=== PATIENT | male | born 1935 | race Caucasian/White ===

== ENCOUNTER 2017-01-08 10:19 | Inpatient (IN) | payer MEDICARE, BC ==
--- NOTE | 2017-01-08 11:02 | EDM.PDOC ---
ED HISTORY OF PRESENT ILLNESS - General Chief Complaint: Respiratory Problem Stated Complaint: SOB/PAIN IN CHEST Time Seen by Provider: 01/08/17 11:00 Source: Reports: Patient History Limitations: Reports: No limitations - History of Present Illness INITIAL COMMENTS - FREE TEXT/NARRATIVE: pt arrived with increased sob. He felt like he was struggling hard to get his breath. Timing/Duration: Reports: Hour(s): Severity: moderate Location, General: Reports: chest, other (pt used his inhaler about every 15 minutes. ) Associated Symptoms: Reports: cough, shortness of breath, other ( raising some yellow sputum. ) - Related Data Allergies/ADRs: Allergies Allergy/AdvReac Type Severity Reaction Status Date / Time butorphanol tartrate Allergy Cannot Verified 10/21/16 10:39 [From Stadol] Remember Home Meds: Home Meds Fluticasone/Salmeterol [Advair 250-50] 1 puff INH BID 11/24/13 [History] Simvastatin 20 mg PO DAILY 11/24/13 [History] Albuterol [Ventolin HFA] 2 puff INH Q4H PRN 10/08/14 [History] Aspirin [Ecotrin] 81 mg PO DAILY 10/08/14 [History] Fluocinonide [Lidex 0.05% Oint] 1 applic TRDERM BID PRN 10/08/14 [History] Carvedilol 25 mg PO BID 10/21/16 [History] Diltiazem HCl [Diltiazem 24Hr Cd] 120 mg PO DAILY #30 cap.er.24h 10/31/16 [Rx] Sennosides/Docusate Sodium [Senna-S] 1 each PO BID #60 tablet 10/31/16 [Rx] Past Medical History HEENT History: Reports: Hard of hearing, Impaired vision Other HEENT History: glasses. hearing aid Cardiovascular History: Reports: Arrhythmia, High cholesterol, Hypertension Respiratory History: Reports: Asthma, Bronchitis, recurrent, COPD, Pneumonia, recurrent Gastrointestinal History: Reports: Chronic constipation, Hemorrhoids Genitourinary History: Reports: BPH Musculoskeletal History: Reports: Fracture Other Musculoskeletal History: wrist. pelvic Hematologic History: Reports: Anemia, B12 deficiency, Iron deficiency Oncologic (Cancer) History: Reports: Colon, Prostate Other Oncologic History: rectal Dermatologic History: Reports: Eczema Other Dermatologic History: precancerous growth uder eye removed - Infectious Disease History Infectious Disease History: Reports: Chicken pox, Measles, Mumps, Shingles - Past Surgical History Cardiovascular Surgical History: Reports: Coronary artery bypass, Valve replacement GI Surgical History: Reports: Appendectomy, Colon, Colonoscopy, Colostomy Male Surgical History: Reports: TURP-Transurethral resection of prostate Social & Family History - Family History Family Medical History: Noncontributory - Tobacco Use Smoking Status *Q: Never Smoker Years of Tobacco use: 30 Used Tobacco, but Quit: Yes Month Tobacco Last Used: October Second Hand Smoke Exposure: No - Caffeine Use Caffeine Use: Reports: Coffee - Alcohol Use Days Per Week of Alcohol Use: 0 Number of Drinks Per Day: 1 Total Drinks Per Week: 0 - Recreational Drug Use Recreational Drug Use: No ED ROS GENERAL - Review of Systems Review Of Systems: See Below Constitutional: Reports: other ( marked sob during the nite. ) HEENT: Reports: No symptoms Respiratory: Reports: Shortness of Breath, Sputum Cardiovascular: Reports: No symptoms Endocrine: Reports: no symptoms GI/Abdominal: Reports: No symptoms : Reports: no symptoms Musculoskeletal: Reports: no symptoms Skin: Reports: no symptoms ED EXAM, GENERAL - Physical Exam Exam: See Below Free Text/Narrative:: pt was very confused during the nite and he felt quite sob. He used his inhaler frequently. Exam Limited By: No limitations General Appearance: alert, mild distress Ears: normal TMs Nose: normal inspection Throat/Mouth: Normal inspection Head: atraumatic Neck: normal inspection Respiratory/Chest: decreased breath sounds Cardiovascular: regular rate, rhythm GI/Abdominal: soft, non tender (Male) Exam: Deferred Rectal (Males) Exam: Deferred, Other (pt has a colostomy) Back Exam: normal inspection Extremities: normal inspection Neurological: alert, oriented, normal cognition, other (pt admits to being confused at times. ) Psychiatric: anxious Course - Vital Signs Last Recorded V/S: Last Vital Signs Temp 37.5 C 01/11/17 10:26 Pulse 97 01/11/17 10:54 Resp 18 01/11/17 10:26 BP 153/68 H 01/11/17 10:26 Pulse Ox 90 L 01/11/17 10:26 - Orders/Labs/Meds Orders: Medication Orders Acetaminophen/Hydrocodone Bitart ([place] 325-5 Mg) 2 tab PO Q4H PRN PRN Reason: Pain (moderate 4-6) Last Admin: 01/10/17 19:35 Dose: 2 tab Albuterol (Proventil Neb Soln) 2.5 mg NEB Q4H PRN PRN Reason: Shortness of Breath Last Admin: 01/11/17 04:21 Dose: 2.5 mg Albuterol/Ipratropium (Duoneb 3.0-0.5 Mg/3 Ml) 3 ml NEB QIDRT [facility] Last Admin: 01/11/17 10:54 Dose: 3 ml Admin: 01/11/17 07:15 Dose: 3 ml Admin: 01/10/17 21:12 Dose: 3 ml Admin: 01/10/17 15:13 Dose: 3 ml Admin: 01/10/17 11:12 Dose: 3 ml Admin: 01/10/17 07:15 Dose: 3 ml Admin: 01/09/17 20:59 Dose: 3 ml Admin: 01/09/17 14:45 Dose: 3 ml Admin: 01/09/17 10:52 Dose: Not Given Admin: 01/09/17 07:02 Dose: 3 ml Admin: 01/08/17 20:43 Dose: 3 ml Aspirin (Halfprin) 81 mg PO DAILY [facility] Last Admin: 01/11/17 10:18 Dose: 81 mg Admin: 01/10/17 09:45 Dose: 81 mg Benzocaine/Menthol (Cepacol Sore Throat) 1 lozenge MUCMEM Q1H PRN PRN Reason: Sore Throat Carvedilol (Coreg) 25 mg PO BID [facility] Last Admin: 01/11/17 10:18 Dose: 25 mg Admin: 01/10/17 20:08 Dose: 25 mg Admin: 01/10/17 09:41 Dose: 25 mg Admin: 01/09/17 20:59 Dose: 25 mg Admin: 01/09/17 08:34 Dose: 25 mg Admin: 01/08/17 20:42 Dose: 25 mg Diltiazem HCl (Cardizem Cd) 120 mg PO DAILY [facility] Last Admin: 01/11/17 10:19 Dose: 120 mg Admin: 01/10/17 09:39 Dose: 120 mg Diphenhydramine HCl (Benadryl) 50 mg IVPUSH Q4H PRN PRN Reason: Itching Docusate Sodium (Colace) 100 mg PO BID PRN PRN Reason: Constipation Enoxaparin Sodium (Lovenox) 40 mg SUBCUT DAILY [facility] Last Admin: 01/11/17 10:11 Dose: Not Given Admin: 01/10/17 10:01 Dose: 40 mg Fentanyl (Sublimaze) 25 mcg IVPUSH Q1H PRN PRN Reason: Pain (moderate 4-6) Last Admin: 01/11/17 05:15 Dose: 25 mcg Fentanyl 2,500 mcg/ Sodium (Chloride) 250 mls @ 0 mls/hr EPIDUR TITRATE ZURDO; Titrate PRN Reason: Protocol Last Titration: 01/10/17 10:52 Dose: 0 mls/hr, 0 mls/hr Titration: 01/10/17 10:11 Dose: 3 mls/hr, 3 mls/hr Titration: 01/10/17 07:41 Dose: 0 mls/hr, 0 mls/hr Titration: 01/10/17 05:30 Dose: 5 mls/hr, 5 mls/hr Titration: 01/10/17 04:30 Dose: 6 mls/hr, 6 mls/hr Titration: 01/10/17 03:45 Dose: 7 mls/hr, 7 mls/hr Titration: 01/10/17 03:15 Dose: 8 mls/hr, 8 mls/hr Titration: 01/10/17 02:45 Dose: 9 mls/hr, 9 mls/hr Admin: 01/09/17 12:30 Dose: 10 mls/hr, 10 mls/hr Sodium Chloride (Normal Saline) 1,000 mls @ 100 mls/hr IV ASDIRECTED [facility] Levofloxacin/Dextrose 500 mg/ (Premix) 100 mls @ 100 mls/hr IV Q24H [facility] Last Admin: 01/11/17 10:19 Dose: 100 mls/hr Piperacillin/Tazobactam/ (Dextrose 3.375 gm/ Premix) 50 mls @ 100 mls/hr IV Q6H [facility] Last Admin: 01/11/17 11:36 Dose: 100 mls/hr Magnesium Hydroxide (Milk Of Magnesia) 30 ml PO BID [facility] Last Admin: 01/11/17 10:19 Dose: 30 ml Admin: 01/10/17 20:28 Dose: Not Given Admin: 01/10/17 09:45 Dose: 30 ml Admin: 01/09/17 20:30 Dose: Not Given Admin: 01/09/17 10:13 Dose: Admin: 01/08/17 20:48 Dose: Admin: 01/08/17 20:41 Dose: 30 ml Mometasone Furoate/Formoterol Fumar (Dulera 200-5 Mcg) 2 puff IH BIDRT [facility]URDO Last Admin: 01/11/17 07:34 Dose: 2 puff Admin: 01/10/17 21:12 Dose: 2 puff Admin: 01/10/17 07:15 Dose: 2 puff Admin: 01/09/17 20:59 Dose: 2 puff Admin: 01/09/17 07:28 Dose: 2 puff Naloxone HCl (Narcan) 0.1 mg IVPUSH Q5M PRN PRN Reason: RESP RATE LESS THAN 6/MINUTE Naloxone HCl (Narcan) 0.4 mg IV ASDIRECTED PRN PRN Reason: ITCHING Promethazine HCl (Phenergan) 25 mg IM Q6H PRN PRN Reason: Nausea Labs: Laboratory Tests 01/08/17 01/08/17 01/08/17 Range/Units 11:00 11:00 11:00 WBC 6.3 (4.5-11.0) K/uL RBC 4.54 (4.30-5.90) M/uL Hgb 12.7 (12.0-15.0) g/dL Hct 39.7 L (40.0-54.0) % MCV 87 (80-98) fL MCH 28 (27-31) pg MCHC 32 (32-36) % Plt Count 223 (150-400) K/uL Neut % (Auto) 63 (36-66) % Lymph % (Auto) 24 (24-44) % [place] % (Auto) 12 H (2-6) % Eos % (Auto) 0 L (2-4) % Baso % (Auto) 0 (0-1) % Puncture Site Lt radial ABG pH 7.452 H (7.350-7.450) ABG pCO2 39.6 (35.0-42.0) mmHg ABG pO2 68.5 L (75.0-100.0) mmHg ABG HCO3 27.2 H (22.0-26.0) mmol/L ABG Total CO2 24.1 (23.0-27.0) mmol/L ABG O2 Saturation 93.6 L (95.0-98.0) % ABG O2 Content 16.6 (15.0-23.0) %vol ABG Base Excess 3.5 mm/L ABG Hemoglobin 12.8 L (13.5-18.0) g/dL ABG Oxyhemoglobin 92.2 % ABG Carboxyhemoglobin 1.1 (0.0-1.6) % ABG Methemoglobin 0.4 % Isaak Test Passed O2 Delivery Device Room air Oxygen Flow Rate 0 L Sodium 141 (140-148) mmol/L Potassium 3.5 L (3.6-5.2) mmol/L Chloride 103 (100-108) mmol/L Carbon Dioxide 31 (21-32) mmol/L Anion Gap 10.5 (5.0-14.0) mmol/L BUN 29 H D (7-18) mg/dL Creatinine 1.0 (0.8-1.3) mg/dL Est Cr Clr Drug Dosing 46.32 mL/min Estimated GFR (MDRD) > 60 (>60) Glucose 151 H (74-106) mg/dL Calcium 8.8 D (8.5-10.1) mg/dL Total Bilirubin 0.6 D (0.2-1.0) mg/dL AST 18 (15-37) U/L ALT 21 (12-78) U/L Alkaline Phosphatase 66 (46-116) U/L [id number] Pept 2459 H (5-450) pg/mL Total Protein 7.3 (6.4-8.2) g/dL Albumin 3.4 (3.4-5.0) g/dL Globulin 3.9 H (2.3-3.5) g/dL Albumin/Globulin Ratio 0.9 L (1.2-2.2) Urine Color Urine Appearance Urine pH (4.5-8.0) Ur Specific Colon (1.008-1.030) Urine Protein (NEGATIVE) mg/dL Urine Glucose (UA) (NEGATIVE) mg/dL Urine Ketones (NEGATIVE) mg/dL Urine Occult Blood (NEGATIVE) Urine Nitrite (NEGAITVE) Urine Bilirubin (NEGATIVE) Urine Urobilinogen (NORMAL) mg/dL Ur Leukocyte Esterase (NEGATIVE) Urine RBC (0-5) Urine WBC (0-5) Ur Epithelial Cells Amorphous Sediment Urine Bacteria Urine Mucus 01/08/17 Range/Units 11:33 WBC (4.5-11.0) K/uL RBC (4.30-5.90) M/uL Hgb (12.0-15.0) g/dL Hct (40.0-54.0) % MCV (80-98) fL MCH (27-31) pg MCHC (32-36) % Plt Count (150-400) K/uL Neut % (Auto) (36-66) % Lymph % (Auto) (24-44) % [place] % (Auto) (2-6) % Eos % (Auto) (2-4) % Baso % (Auto) (0-1) % Puncture Site ABG pH (7.350-7.450) ABG pCO2 (35.0-42.0) mmHg ABG pO2 (75.0-100.0) mmHg ABG HCO3 (22.0-26.0) mmol/L ABG Total CO2 (23.0-27.0) mmol/L ABG O2 Saturation (95.0-98.0) % ABG O2 Content (15.0-23.0) %vol ABG Base Excess mm/L ABG Hemoglobin (13.5-18.0) g/dL ABG Oxyhemoglobin % ABG Carboxyhemoglobin (0.0-1.6) % ABG Methemoglobin % Isaak Test O2 Delivery Device Oxygen Flow Rate L Sodium (140-148) mmol/L Potassium (3.6-5.2) mmol/L Chloride (100-108) mmol/L Carbon Dioxide (21-32) mmol/L Anion Gap (5.0-14.0) mmol/L BUN (7-18) mg/dL Creatinine (0.8-1.3) mg/dL Est Cr Clr Drug Dosing mL/min Estimated GFR (MDRD) (>60) Glucose (74-106) mg/dL Calcium (8.5-10.1) mg/dL Total Bilirubin (0.2-1.0) mg/dL AST (15-37) U/L ALT (12-78) U/L Alkaline Phosphatase (46-116) U/L Dov-[id number]-Qzhbneotovl Pept (5-450) pg/mL Total Protein (6.4-8.2) g/dL Albumin (3.4-5.0) g/dL Globulin (2.3-3.5) g/dL Albumin/Globulin Ratio (1.2-2.2) Urine Color Yellow Urine Appearance Slightly cloudy Urine pH 6.0 (4.5-8.0) Ur Specific Colon 1.020 (1.008-1.030) Urine Protein 30 H (NEGATIVE) mg/dL Urine Glucose (UA) Normal (NEGATIVE) mg/dL Urine Ketones Negative (NEGATIVE) mg/dL Urine Occult Blood Large (NEGATIVE) Urine Nitrite Negative (NEGAITVE) Urine Bilirubin Negative (NEGATIVE) Urine Urobilinogen Normal (NORMAL) mg/dL Ur Leukocyte Esterase Large (NEGATIVE) Urine RBC 10-20 H (0-5) Urine WBC 10-20 H (0-5) Ur Epithelial Cells Not seen Amorphous Sediment Few Urine Bacteria Not seen Urine Mucus Not seen Meds: Medications Generic Name Dose Route Start Last Admin Trade Name Freq PRN Reason Stop Dose Admin Acetaminophen/Hydrocodone Bitart 2 tab 01/08/17 17:13 01/10/17 19:35 Freeland 325-5 Mg PO 2 tab Q4H PRN Administration Pain (moderate 4-6) Albuterol 2.5 mg 01/08/17 18:12 01/11/17 04:21 Proventil Neb Soln NEB 2.5 mg Q4H PRN Administration Shortness of Breath Albuterol/Ipratropium 3 ml 01/08/17 21:00 01/11/17 10:54 Duoneb 3.0-0.5 Mg/3 Ml NEB 3 ml QIDRT ZURDO Administration Aspirin 81 mg 01/10/17 09:00 01/11/17 10:18 Halfprin PO 81 mg DAILY ZURDO Administration Benzocaine/Menthol 1 lozenge 01/08/17 17:13 Cepacol Sore Throat MUCMEM Q1H PRN Sore Throat Carvedilol 25 mg 01/08/17 21:00 01/11/17 10:18 Coreg PO 25 mg BID ZURDO Administration Diltiazem HCl 120 mg 01/10/17 09:00 01/11/17 10:19 Cardizem Cd PO 120 mg DAILY ZURDO Administration Diphenhydramine HCl 50 mg 01/08/17 17:13 Benadryl IVPUSH Q4H PRN Itching Docusate Sodium 100 mg 01/08/17 17:13 Colace PO BID PRN Constipation Enoxaparin Sodium 40 mg 01/10/17 09:45 01/11/17 10:11 Lovenox SUBCUT Not Given DAILY ZURDO Fentanyl 25 mcg 01/08/17 17:13 01/11/17 05:15 Sublimaze IVPUSH 25 mcg Q1H PRN Administration Pain (moderate 4-6) Fentanyl 2,500 mcg/ Sodium 250 mls @ 0 mls/hr 01/09/17 09:45 01/10/17 10:52 Chloride EPIDUR 0 mls/hr TITRATE ZURDO 0 mls/hr Protocol Titration Titrate Sodium Chloride 1,000 mls @ 100 mls/hr 01/11/17 06:45 Normal Saline IV ASDIRECTED ZURDO Levofloxacin/Dextrose 500 mg/ 100 mls @ 100 mls/hr 01/11/17 10:00 01/11/17 10 :19 Premix IV 100 mls/hr Q24H ZURDO Administration Piperacillin/Tazobactam/ 50 mls @ 100 mls/hr 01/11/17 11:00 01/11/17 11:36 Dextrose 3.375 gm/ Premix IV 100 mls/hr Q6H ZRUDO Administration Magnesium Hydroxide 30 ml 01/08/17 17:30 01/11/17 10:19 Milk Of Magnesia PO 30 ml BID ZURDO Administration Mometasone Furoate/Formoterol Fumar 2 puff 01/09/17 07:00 01/11/17 07:34 Dulera 200-5 Mcg IH 2 puff BIDRT ZURDO Administration Naloxone HCl 0.1 mg 01/09/17 12:43 Narcan IVPUSH Q5M PRN RESP RATE LESS THAN 6/MINUTE Naloxone HCl 0.4 mg 01/09/17 12:43 Narcan IV ASDIRECTED PRN ITCHING Promethazine HCl 25 mg 01/08/17 17:13 Phenergan IM Q6H PRN Nausea Discontinued Medications Generic Name Dose Route Start Last Admin Trade Name Freq PRN Reason Stop Dose Admin Dexamethasone Confirm 01/08/17 16:32 Dexamethasone Administered 01/08/17 16:33 Dose 4 mg .ROUTE .STK-MED ONE Dexamethasone Confirm 01/09/17 09:48 Dexamethasone Administered 01/09/17 09:49 Dose 4 mg .ROUTE .STK-MED ONE Fentanyl Confirm 01/08/17 16:32 Sublimaze Administered 01/08/17 16:33 Dose 250 mcg .ROUTE .STK-MED ONE Fentanyl Confirm 01/09/17 09:48 Sublimaze Administered 01/09/17 09:49 Dose 250 mcg .ROUTE .STK-MED ONE Furosemide 60 mg 01/08/17 11:45 01/08/17 11:53 Lasix IVPUSH 01/08/17 11:46 60 mg ONETIME ONE Administration Furosemide 20 mg 01/11/17 06:22 01/11/17 06:32 Lasix IVPUSH 01/11/17 06:23 20 mg ONETIME ONE Administration Furosemide Confirm 01/11/17 06:31 01/11/17 06:38 Lasix Administered 01/11/17 06:32 Not Given Dose 20 mg .ROUTE .STK-MED ONE Glycopyrrolate Confirm 01/08/17 16:32 Administered 01/08/17 16:33 Dose 1 mg .ROUTE .STK-MED ONE Glycopyrrolate Confirm 01/09/17 09:48 Administered 01/09/17 09:49 Dose 1 mg .ROUTE .STK-MED ONE Sodium Chloride 1,000 mls @ 150 mls/hr 01/08/17 16:15 01/08/17 16:09 Normal Saline IV 150 mls/hr ASDIRECTED ZURDO Administration Sodium Chloride 1,000 mls @ 75 mls/hr 01/08/17 17:30 01/09/17 21:53 Normal Saline IV 75 mls/hr ASDIRECTED ZURDO Administration Potassium Chloride 20 meq/ 112 mls @ 56 mls/hr 01/09/17 10:30 01/09/17 14:52 Lidocaine HCl 2 ml/ Sodium IV 01/09/17 16:29 56 mls/hr Chloride Q2H ZURDO Administration Metronidazole 500 mg/ Premix 100 mls @ 100 mls/hr 01/09/17 11:00 01/09/17 10: 11 IV 01/09/17 11:59 100 mls/hr ONCALL ONE Administration Cefazolin Sodium/Dextrose 2 gm 50 mls @ 100 mls/hr 01/09/17 10:30 01/09/17 10 :10 / Premix IV 01/09/17 10:59 100 mls/hr ONCALL ONE Administration Sodium Chloride Confirm 01/09/17 11:32 Normal Saline Administered 01/09/17 11:33 Dose 250 mls @ as directed .ROUTE .STK-MED ONE Sodium Chloride 1,000 mls @ 200 mls/hr 01/09/17 22:15 01/09/17 22:14 Normal Saline IV 01/09/17 23:16 200 mls/hr ASDIRECTED ZURDO Administration Sodium Chloride 1,000 mls @ 200 mls/hr 01/10/17 01:15 01/10/17 01:15 Normal Saline IV 01/10/17 02:16 200 mls/hr ASDIRECTED ZURDO Administration Sodium Chloride 1,000 mls @ 200 mls/hr 01/10/17 04:15 01/10/17 04:14 Normal Saline IV 01/10/17 05:16 200 mls/hr ASDIRECTED ZURDO Administration Sodium Chloride 1,000 mls @ 125 mls/hr 01/10/17 09:15 01/11/17 02:52 Normal Saline IV 125 mls/hr ASDIRECTED ZURDO Administration Sodium Chloride 250 mls @ 200 mls/hr 01/10/17 20:30 01/10/17 20:27 Normal Saline IV 01/10/17 21:31 200 mls/hr ASDIRECTED ZURDO Administration Sodium Chloride 1,000 mls @ 250 mls/hr 01/10/17 22:15 01/10/17 22:37 Normal Saline IV 01/11/17 02:16 250 mls/hr ASDIRECTED ZURDO Administration Sodium Chloride 1,000 mls @ 999 mls/hr 01/10/17 22:56 01/10/17 23:10 Normal Saline IV 01/10/17 23:56 999 mls/hr .BOLUS ONE Administration Sodium Chloride 250 mls @ 200 mls/hr 01/11/17 04:15 01/11/17 04:21 Normal Saline IV 01/11/17 05:16 200 mls/hr ASDIRECTED ZURDO Administration Ketamine HCl Confirm 01/09/17 12:51 Ketalar Administered 01/09/17 12:52 Dose 500 mg .ROUTE .STK-MED ONE Magnesium Hydroxide 30 ml 01/10/17 10:00 01/10/17 10:01 Milk Of Magnesia PO Not Given BID ZURDO Mometasone Furoate/Formoterol Fumar 2 puff 01/08/17 21:00 01/08/17 20:43 Dulera 200-5 Mcg IH 2 puff BID ZURDO Administration Neostigmine Methylsulfate Confirm 01/08/17 16:32 Neostigmine Administered 01/08/17 16:33 Dose 5 mg .ROUTE .STK-MED ONE Neostigmine Methylsulfate Confirm 01/09/17 09:48 Neostigmine Administered 01/09/17 09:49 Dose 5 mg .ROUTE .STK-MED ONE Ondansetron HCl Confirm 01/08/17 16:32 Zofran Administered 01/08/17 16:33 Dose 4 mg .ROUTE .STK-MED ONE Ondansetron HCl Confirm 01/09/17 09:48 Zofran Administered 01/09/17 09:49 Dose 4 mg .ROUTE .STK-MED ONE Phenylephrine HCl Confirm 01/09/17 11:32 Kiko-Synephrine Administered 01/09/17 11:33 Dose 10 mg .ROUTE .STK-MED ONE Propofol Confirm 01/08/17 16:32 Diprivan 20 Ml Administered 01/08/17 16:33 Dose 200 mg .ROUTE .STK-MED ONE Propofol Confirm 01/09/17 09:48 Diprivan 20 Ml Administered 01/09/17 09:49 Dose 200 mg .ROUTE .STK-MED ONE Rocuronium [place] Confirm 01/08/17 16:32 Zemuron Administered 01/08/17 16:33 Dose 50 mg .ROUTE .STK-MED ONE Rocuronium [place] Confirm 01/09/17 09:48 Zemuron Administered 01/09/17 09:49 Dose 50 mg .ROUTE .STK-MED ONE Succinylcholine Chloride Confirm 01/08/17 16:32 Succinylcholine In Ns Pf Administered 01/08/17 16:33 Dose 200 mg .ROUTE .STK-MED ONE Succinylcholine Chloride Confirm 01/09/17 09:48 Succinylcholine In Ns Pf Administered 01/09/17 09:49 Dose 200 mg .ROUTE .STK-MED ONE - Re-Assessments/Exams Free Text/Narrative Re-Assessment/Exam: 01/08/17 16:03 pt did not complain of his abdoman at first but talked about being sob. He was given lasix because of a high bnp He put out 1000cc of urine. He then began complaining of abdomanal pain and appeared distended around the colostomy site. A cat scan of the abdoman showed a high grade obstruction of the small bowel. 01/11/17 11:37 Departure - Departure Time of Disposition: 16:06 Disposition: Admitted As Inpatient 64 Condition: fair Clinical Impression: Small bowel obstruction Fluid overload Qualifiers: Hypervolemia type: unspecified Qualified Code(s): E87.70 - Fluid overload, unspecified
--- NOTE | 2017-01-08 11:29 | CR ---
Mild cardiomegaly. Sternotomy. No focal consolidation. Pulmonary vasculature within normal limits.
[2017-01-08] MEDS ORDERED: Furosemide 40 MG/4 ML VIAL IVPUSH ONE (11:45)
--- NOTE | 2017-01-08 14:08 | CR ---
Supine images only. This limits details for free air. There appears to be a dilated loop of small karrie wel centrally within the abdomen. Mild gaseous distention of the colon within the pelvis. This is le ss dilated than prior examination 10/29/2016 but concerning for small bowel obstruction.
[2017-01-08] MEDS ORDERED: Iopamidol 612 MG/ML 100 ML Bottle IV PRN (14:52)
[2017-01-08] MEDS ORDERED: Sodium Chloride 0.9% 1,000 ML IV SCH (16:15)
[2017-01-08] MEDS ORDERED: Dexamethasone 4 MG/ML SDV ONE (16:32)
[2017-01-08] MEDS ORDERED: Propofol 200 MG/20 ML SDV ONE (16:32)
[2017-01-08] MEDS ORDERED: fentaNYL 250 MCG/5 ML SDV ONE (16:32)
[2017-01-08] MEDS ORDERED: Succinylcholine/Normal Saline 200 MG/10 ML Syringe ONE (16:32)
[2017-01-08] MEDS ORDERED: Rocuronium 50 MG/5 ML Vial ONE (16:32)
[2017-01-08] MEDS ORDERED: Neostigmine Methylsulfate 1 MG/ML 5 ML Syringe ONE (16:32)
[2017-01-08] MEDS ORDERED: Ondansetron 4 MG/2 ML SDV ONE (16:32)
[2017-01-08] MEDS ORDERED: Promethazine 25 MG/ML SDV IM PRN (17:13)
[2017-01-08] MEDS ORDERED: Benzocaine/Cetylpyridinium/Menthol Lozenge MUCMEM PRN (17:13)
[2017-01-08] MEDS ORDERED: Docusate Sodium 100 MG Cap PO PRN (17:13)
[2017-01-08] MEDS ORDERED: Albuterol 0.083% 2.5 MG/3 ML Neb Soln NEB PRN (18:12)
--- NOTE | 2017-01-08 18:14 | PCM.CONS ---
H&P History of Present Illness - General Date of Service: 01/08/17 Admit Problem/Dx: Admission Diagnosis/Problem Admission Diagnosis/Problem Chest pain on exertion Source of Information: Patient, Family, Provider History Limitations: Reports: No limitations - History of Present Illness Initial Comments - Free Text/Narative: Sam presents to the emergency room today with shortness of breath. He also reports an episode of pressure-like substernal and left-sided chest pain that occurred last night. This pain has resolved but he still feel short of breath. He has not had pain like this in quite some time. No associated nausea, diaphoresis. No fevers or cough. Functional status has been stable but compromised. No orthopnea, PND or edema. He also endorses Left lower quadrant abdominal pain around his stoma. Pain has been present for quite some time but seems to be getting worse. He feels distended in the area. He has continued to pass stool through into his bag though he thinks maybe there's been less recently than in the past. He has not noticed any blood in his stool. Appetite has been okay but not wonderful. No vomiting. Workup in the emergency room initially was 4 cardiac causes and this was unremarkable. Towards inability patient mentioned abdominal pain and a CT was completed which showed evidence for peristomal hernia and concern for bowel obstruction. He'll be admitted for observation overnight and unfortunately probably surgical intervention. - Related Data Allergies/Adverse Reactions: Allergies Allergy/AdvReac Type Severity Reaction Status Date / Time butorphanol tartrate Allergy Cannot Verified 10/21/16 10:39 [From Stadol] Remember Home Medications: Home Meds Fluticasone/Salmeterol [Advair 250-50] 1 puff INH BID 11/24/13 [History] Simvastatin 20 mg PO DAILY 11/24/13 [History] Albuterol [Ventolin HFA] 2 puff INH Q4H PRN 10/08/14 [History] Aspirin [Ecotrin] 81 mg PO DAILY 10/08/14 [History] Fluocinonide [Lidex 0.05% Oint] 1 applic TRDERM BID PRN 10/08/14 [History] Carvedilol 25 mg PO BID 10/21/16 [History] Diltiazem HCl [Diltiazem 24Hr Cd] 120 mg PO DAILY #30 cap.er.24h 10/31/16 [Rx] Sennosides/Docusate Sodium [Senna-S] 1 each PO BID #60 tablet 10/31/16 [Rx] Past Medical History HEENT History: Reports: Hard of hearing, Impaired vision Other HEENT History: glasses. hearing aid Cardiovascular History: Reports: Arrhythmia, High cholesterol, Hypertension Respiratory History: Reports: Asthma, Bronchitis, recurrent, COPD, Pneumonia, recurrent Gastrointestinal History: Reports: Chronic constipation, Hemorrhoids Genitourinary History: Reports: BPH Musculoskeletal History: Reports: Fracture Other Musculoskeletal History: wrist. pelvic Hematologic History: Reports: Anemia, B12 deficiency, Iron deficiency Oncologic (Cancer) History: Reports: Colon, Prostate Other Oncologic History: rectal Dermatologic History: Reports: Eczema Other Dermatologic History: precancerous growth uder eye removed - Infectious Disease History Infectious Disease History: Reports: Chicken pox, Measles, Mumps, Shingles - Past Surgical History Cardiovascular Surgical History: Reports: Coronary artery bypass, Valve replacement GI Surgical History: Reports: Appendectomy, Colon, Colonoscopy, Colostomy Male Surgical History: Reports: TURP-Transurethral resection of prostate Social & Family History - Family History Family Medical History: Noncontributory - Tobacco Use Smoking Status *Q: Never Smoker Years of Tobacco use: 30 Used Tobacco, but Quit: Yes Month Tobacco Last Used: October Second Hand Smoke Exposure: No - Caffeine Use Caffeine Use: Reports: Coffee - Alcohol Use Days Per Week of Alcohol Use: 0 Number of Drinks Per Day: 1 Total Drinks Per Week: 0 - Recreational Drug Use Recreational Drug Use: No H&P Review of Systems - Review of Systems: Review Of Systems: See Below Free Text/Narrative: A complete 12 point review of systems was obtained. Pertinent positives and negatives are noted in the history of present illness. All other systems were reviewed and were negative except as noted. Exam - Exam Exam: See Below - Vital Signs Vital Signs: Last Vital Signs Temp 37.4 C 01/08/17 11:16 Pulse 65 01/08/17 17:12 Resp 18 01/08/17 17:12 BP 187/100 H 01/08/17 17:12 Pulse Ox 93 L 01/08/17 17:12 Weight: 58.513 kg - Exam Quality Assessment: No: supplemental oxygen, urinary catheter General: alert, oriented, cooperative, mild distress HEENT: Conjunctiva clear, Normal nasal septum. No: Mucosa moist & pink (dry), Scleral icterus Neck: supple, trachea midline. No: lymphadenopathy, JVD, thyromegaly Lungs: Clear to auscultation. No: Normal respiratory effort (Increased work of breathing) Cardiovascular: regular rate, regular rhythm, systolic murmur (soft ANY RUSB). No: gallop/S3 Abdomen: normal bowel sounds, soft, hernia (parastomal). No: distention Back Exam: normal inspection, full range of motion Extremities: normal inspection, normal pulses. No: cyanosis, edema Peripheral Pulses: 2+: dorsalis pedis (L), dorsalis pedis (R) Skin: warm, dry, intact. No: rash Neuro Extensive - Mental Status: alert, oriented x3, nl response to commands Neuro Extensive - Motor, Sensory, Reflexes: CN II-XII intact. No: dysarthria, abnormal motor, tremor Psychiatric: alert, normal affect - Patient Data Lab Results last 24 hrs: Laboratory Results - last 24 hr 01/08/17 01/08/17 01/08/17 Range/Units 11:00 11:00 11:00 WBC 6.3 (4.5-11.0) K/uL RBC 4.54 (4.30-5.90) M/uL Hgb 12.7 (12.0-15.0) g/dL Hct 39.7 L (40.0-54.0) % MCV 87 (80-98) fL MCH 28 (27-31) pg MCHC 32 (32-36) % Plt Count 223 (150-400) K/uL Neut % (Auto) 63 (36-66) % Lymph % (Auto) 24 (24-44) % [place] % (Auto) 12 H (2-6) % Eos % (Auto) 0 L (2-4) % Baso % (Auto) 0 (0-1) % Puncture Site Lt radial ABG pH 7.452 H (7.350-7.450) ABG pCO2 39.6 (35.0-42.0) mmHg ABG pO2 68.5 L (75.0-100.0) mmHg ABG HCO3 27.2 H (22.0-26.0) mmol/L ABG Total CO2 24.1 (23.0-27.0) mmol/L ABG O2 Saturation 93.6 L (95.0-98.0) % ABG O2 Content 16.6 (15.0-23.0) %vol ABG Base Excess 3.5 mm/L ABG Hemoglobin 12.8 L (13.5-18.0) g/dL ABG Oxyhemoglobin 92.2 % ABG Carboxyhemoglobin 1.1 (0.0-1.6) % ABG Methemoglobin 0.4 % Isaak Test Passed O2 Delivery Device Room air Oxygen Flow Rate 0 L Sodium 141 (140-148) mmol/L Potassium 3.5 L (3.6-5.2) mmol/L Chloride 103 (100-108) mmol/L Carbon Dioxide 31 (21-32) mmol/L Anion Gap 10.5 (5.0-14.0) mmol/L BUN 29 H D (7-18) mg/dL Creatinine 1.0 (0.8-1.3) mg/dL Est Cr Clr Drug Dosing 46.32 mL/min Estimated GFR (MDRD) > 60 (>60) Glucose 151 H (74-106) mg/dL Calcium 8.8 D (8.5-10.1) mg/dL Total Bilirubin 0.6 D (0.2-1.0) mg/dL AST 18 (15-37) U/L ALT 21 (12-78) U/L Alkaline Phosphatase 66 (46-116) U/L Hpw-A-Hrqtehngkjv Pept 2459 H (5-450) pg/mL Total Protein 7.3 (6.4-8.2) g/dL Albumin 3.4 (3.4-5.0) g/dL Globulin 3.9 H (2.3-3.5) g/dL Albumin/Globulin Ratio 0.9 L (1.2-2.2) Urine Color Urine Appearance Urine pH (4.5-8.0) Ur Specific [place] (1.008-1.030) Urine Protein (NEGATIVE) mg/dL Urine Glucose (UA) (NEGATIVE) mg/dL Urine Ketones (NEGATIVE) mg/dL Urine Occult Blood (NEGATIVE) Urine Nitrite (NEGAITVE) Urine Bilirubin (NEGATIVE) Urine Urobilinogen (NORMAL) mg/dL Ur Leukocyte Esterase (NEGATIVE) Urine RBC (0-5) Urine WBC (0-5) Ur Epithelial Cells Amorphous Sediment Urine Bacteria Urine Mucus 01/08/17 Range/Units 11:33 WBC (4.5-11.0) K/uL RBC (4.30-5.90) M/uL Hgb (12.0-15.0) g/dL Hct (40.0-54.0) % MCV (80-98) fL MCH (27-31) pg MCHC (32-36) % Plt Count (150-400) K/uL Neut % (Auto) (36-66) % Lymph % (Auto) (24-44) % [place] % (Auto) (2-6) % Eos % (Auto) (2-4) % Baso % (Auto) (0-1) % Puncture Site ABG pH (7.350-7.450) ABG pCO2 (35.0-42.0) mmHg ABG pO2 (75.0-100.0) mmHg ABG HCO3 (22.0-26.0) mmol/L ABG Total CO2 (23.0-27.0) mmol/L ABG O2 Saturation (95.0-98.0) % ABG O2 Content (15.0-23.0) %vol ABG Base Excess mm/L ABG Hemoglobin (13.5-18.0) g/dL ABG Oxyhemoglobin % ABG Carboxyhemoglobin (0.0-1.6) % ABG Methemoglobin % Isaak Test O2 Delivery Device Oxygen Flow Rate L Sodium (140-148) mmol/L Potassium (3.6-5.2) mmol/L Chloride (100-108) mmol/L Carbon Dioxide (21-32) mmol/L Anion Gap (5.0-14.0) mmol/L BUN (7-18) mg/dL Creatinine (0.8-1.3) mg/dL Est Cr Clr Drug Dosing mL/min Estimated GFR (MDRD) (>60) Glucose (74-106) mg/dL Calcium (8.5-10.1) mg/dL Total Bilirubin (0.2-1.0) mg/dL AST (15-37) U/L ALT (12-78) U/L Alkaline Phosphatase (46-116) U/L Qzt-L-Xilbtjvnfef Pept (5-450) pg/mL Total Protein (6.4-8.2) g/dL Albumin (3.4-5.0) g/dL Globulin (2.3-3.5) g/dL Albumin/Globulin Ratio (1.2-2.2) Urine Color Yellow Urine Appearance Slightly cloudy Urine pH 6.0 (4.5-8.0) Ur Specific [place] 1.020 (1.008-1.030) Urine Protein 30 H (NEGATIVE) mg/dL Urine Glucose (UA) Normal (NEGATIVE) mg/dL Urine Ketones Negative (NEGATIVE) mg/dL Urine Occult Blood Large (NEGATIVE) Urine Nitrite Negative (NEGAITVE) Urine Bilirubin Negative (NEGATIVE) Urine Urobilinogen Normal (NORMAL) mg/dL Ur Leukocyte Esterase Large (NEGATIVE) Urine RBC 10-20 H (0-5) Urine WBC 10-20 H (0-5) Ur Epithelial Cells Not seen Amorphous Sediment Few Urine Bacteria Not seen Urine Mucus Not seen Result Diagrams: 01/08/17 11:00 01/08/17 11:00 Imaging Impressions last 24 hrs: CXR - images personally reviewed - possible mild pulmonary vascular congestion with slight cephalization of the vessels. No definite evidence for infiltrate or mass. CT of the abdomen and pelvis - parastomal hernia with possible small bowel obstruction EKG - sinus rhythm with first degree AV block as well as right bundle branch block and left anterior fascicular block. Rate is 73. No acute ischemic changes Consult PN Assessment/Plan Procedures: Procedures AIRWAY INHALATION TREATMENT (10/21/16) APPLY FOREARM SPLINT (11/24/13) ASSAY OF CK (CPK) (10/21/16) ASSAY OF CREATININE (10/03/15) ASSAY OF LACTIC ACID (10/21/16) ASSAY OF MAGNESIUM (10/21/16) ASSAY OF NATRIURETIC PEPTIDE (10/21/16) ASSAY OF PHOSPHORUS (10/21/16) ASSAY OF TROPONIN QUANT (10/21/16) BLOOD CULTURE FOR BACTERIA (10/21/16) BLOOD GASES ANY COMBINATION (10/21/16) BLOOD TRANSFUSION SERVICE (02/01/15) BLOOD TYPING SEROLOGIC ABO (10/21/16) BLOOD TYPING SEROLOGIC RH(D) (10/21/16) CARCINOEMBRYONIC ANTIGEN (10/10/14) CARDIAC REHAB/MONITOR (04/24/14) CHEST X-RAY 1 VIEW FRONTAL (10/21/16) CHEST X-RAY 2VW FRONTAL&LATL (02/01/15) CMPLX RPR TRUNK 2.6-7.5 CM (03/28/15) COLONOSCOPY AND BIOPSY (10/10/14) COMPATIBILITY TEST ANTIGLOB (10/21/16) COMPATIBILITY TEST SPIN (10/21/16) COMPLETE CBC AUTOMATED (10/21/16) COMPLETE CBC W/AUTO DIFF WBC (10/21/16) COMPREHEN METABOLIC PANEL (10/21/16) CT ABD & PELV W/CONTRAST (10/21/16) CT THORAX W/DYE (10/11/14) CULTURE AEROBIC IDENTIFY (10/21/16) CULTURE OTHR SPECIMN AEROBIC (10/21/16) ELECTROCARDIOGRAM REPORT (10/21/16) ELECTROCARDIOGRAM TRACING (10/21/16) EMERGENCY DEPT VISIT (10/21/16) EMERGENCY DEPT VISIT (02/16/15) EMERGENCY DEPT VISIT (02/16/15) EMERGENCY DEPT VISIT (11/24/13) EMERGENCY DEPT VISIT (11/24/13) EVALUATE PT USE OF INHALER (10/21/16) EXTRACRANIAL BILAT STUDY (10/02/13) HEMOGLOBIN (10/21/16) HYDRATE IV INFUSION ADD-ON (10/21/16) IMMUNOHISTO ANTB 1ST STAIN (02/01/15) INFLUENZA ASSAY W/OPTIC (10/21/16) MEASURE BLOOD OXYGEN LEVEL (04/22/15) METABOLIC PANEL TOTAL CA (10/21/16) MICROBE SUSCEPTIBLE DIFFUSE (02/01/15) MICROBE SUSCEPTIBLE JHONNY (10/21/16) OCCULT BLD FECES 1-3 TESTS (10/21/16) OCCULT BLOOD OTHER SOURCES (10/21/16) POS AIRWAY PRESSURE CPAP (10/21/16) RBC ANTIBODY SCREEN (10/21/16) ROUTINE VENIPUNCTURE (10/21/16) SMEAR GRAM STAIN (10/21/16) THER/DIAG CONCURRENT INF (10/21/16) THER/PROPH/DIAG INJ SC/IM (11/24/13) THER/PROPH/DIAG IV INF ADDON (02/16/15) THER/PROPH/DIAG IV INF INIT (10/21/16) TISSUE EXAM BY PATHOLOGIST (02/01/15) TISSUE EXAM BY PATHOLOGIST (10/10/14) TTE W/DOPPLER COMPLETE (04/23/16) TX/PRO/DX INJ NEW DRUG ADDON (10/21/16) URINALYSIS AUTO W/SCOPE (10/21/16) URINE CULTURE/COLONY COUNT (02/01/15) WITHDRAWAL OF ARTERIAL BLOOD (10/21/16) X-RAY EXAM OF ABDOMEN (10/21/16) X-RAY EXAM OF WRIST (11/24/13) X-RAY EXAM SERIES ABDOMEN (10/21/16) (1) Small bowel obstruction SNOMED Code(s): 319406484 Code(s): K56.69 - OTHER INTESTINAL OBSTRUCTION Current Visit: Yes (2) Fluid overload SNOMED Code(s): 39221658 Code(s): E87.70 - FLUID OVERLOAD, UNSPECIFIED Current Visit: Yes Qualifiers: Hypervolemia type: unspecified Qualified Code(s): E87.70 - Fluid overload, unspecified Problem List Initiated/Reviewed/Updated: Yes My Orders last 24 hours: My Active Orders 01/08/17 18:12 RT Aerosol Therapy [RC] ASDIRECTED Albuterol [Proventil Neb Soln] 2.5 mg NEB Q4HRRT PRN 01/08/17 21:00 Albuterol/Ipratropium [DuoNeb 3.0-0.5 MG/3 ML] 3 ml NEB QIDRT Carvedilol [Coreg] 25 mg PO BID Fluticasone/Salmeterol [Advair 250-50] 1 puff INH BID Plan: Assessment and plan - Parastomal hernia with small bowel obstruction - surgery seems to be indicated unless things improve. He is a high risk surgical candidate at this time with advanced age, deconditioning, coronary artery disease and COPD. Mild evidence for volume overload at the time of presentation but volume status currently seems fairly appropriate. He does have an increased respiratory rate but no strong evidence for pulmonary infection based on x-ray and examination. He is not actively wheezing. He reports that he's been feeling short of breath for months but worse the past week. Episode of chest pain last night but unclear if this was cardiac or gastrointestinal. Troponin level is normal and EKG does not show acute ischemic changes. Bedside ultrasound showed reduced ejection fraction of the left ventricle but no definite wall motion abnormalities. This probably is optimal achievable medical condition at this time. He would benefit from scheduled nebulizers and reassessment of his volume status in the morning prior to surgery. I would recommend continuing his beta oziel. He is not currently in atrial fibrillation and does not need his calcium channel oziel. -Scheduled and as needed nebulizers -Continue beta oziel -Recess volume status in the morning -If surgery is indicated I think that he will need to be monitored very closely with regards to his volume status with reduced ejection fraction and history of coronary artery disease Coronary artery disease - status post CABG about 5 years ago. Functional status has declined over the winter following pneumonia and multiple resulting medical issues from the infection. Currently in sinus rhythm. He did have an episode of chest pain last night a cardiac workup does not show acute coronary syndrome. -Continue medical management COPD - no history of oxygen dependence. No active wheezing. Respiratory status compromised with a fair amount of dyspnea on exertion and he is not able to achieve much in the way of metabolic equivalents. -Nebulizers as above Paroxysmal atrial fibrillation - history of this during his last hospital stay. Currently in sinus rhythm. Planning to hold calcium channel oziel. High risk for recurrence of atrial fibrillation if he does require surgery. -Continue beta oziel Thank you for the interesting consultation and allowing me to be involved in Sam's care. I will continue to follow along with Sam during the acute phase of the hospital stay. Buck Matthews M.D. Requesting Provider: Dr. Mccann Date Consult Requested: 01/08/17 Reason for Consult: Medical management and preop evaluation Patient History Reviewed: Yes Admission H&P Reviewed: No (Not available) Notified Requestor: Yes Time Spent (in minutes): 60
[2017-01-08] MEDS: Magnesium Hydroxide 400 MG/5 ML Susp 30 ML Cup PO SCH ×2 (20:41→20:48)
[2017-01-08] MEDS: Carvedilol 25 MG Tab PO SCH (20:42)
[2017-01-08] MEDS: Albuterol/Ipratropium 3.0-0.5 MG/3 ML Neb Soln NEB SCH (20:43)
[2017-01-08] MEDS ORDERED: Formoterol/Mometasone 200-5 MCG 8.8 GM Inhaler IH SCH (21:00)
--- NOTE | 2017-01-08 21:54 | CONS ---
DATE OF SERVICE: 01/08/2017 REFERRING PHYSICIAN: CONSULTING PHYSICIAN: Kana Mccann MD REASON FOR CONSULTATION: Evaluation of parastomal hernia. HISTORY OF PRESENT ILLNESS: An 81-year-old male who has a definite parastomal hernia. He has been admitted for this multiple times including back in 2016. This is associated with an end colostomy for rectal cancer. The patient tells me he has chronic type pain with this and has not changed significantly over the last several days. He does present to the emergency room for chest pain and shortness of breath. PAST MEDICAL HISTORY: Coronary artery bypass approximately 5 years ago, valve replacement, appendectomy, colostomy, TURP, history of smoking, COPD, history of recurrent pneumonia, asthma, bronchitis, history of arrhythmia, impaired vision, hearing problems, B12 deficiency, prostate cancer, eczema, history of chicken pox, measles, mumps, and shingles. SOCIAL HISTORY: He does have a smoking history. REVIEW OF SYSTEMS: GENERAL: The patient feels short of breath. HEENT: No symptoms. PULMONARY: Shortness of breath and history of pneumonia. CARDIOVASCULAR: He does have mild chest pain on exertion. GASTROINTESTINAL: The ostomies reported to be functioning well. GENITOURINARY: No dysuria. MUSCULOSKELETAL: Back pain. SKIN: No symptoms. PSYCH: No symptoms. NEUROLOGICAL: No symptoms. PHYSICAL EXAMINATION: VITAL SIGNS: Temperature 99.3, blood pressure 151/81, pulse 73, respirations 16, 95% on room air. HEENT: Pupils equal, round, round react to light. NECK: Supple and nontender. ABDOMEN: Nondistended. Ostomy is pink and functioning well with a large amount of gas and some stool noted in this. CT scan, which I reviewed shows a parastomal hernia with a bowel obstruction. LABORATORY RESULTS: Show an elevated. Blood gas shows a PO2 of 68. ASSESSMENT: Parastomal hernia. PLAN: The patient has definite parastomal hernia and requires repair for this. He has been functioning quite well with his parastomal hernia for a long time. However, the challenge has been this patient essentially has no respiratory reserve. He cannot walk more than a few feet without shortness of breath and chest pain and is a very poor surgical candidate. Therefore, this makes his surgical treatment at the most highest risk level possible. We will admit him overnight. We will have the hospitalist service to see if we can maximize him and then re-discuss his plan in the morning. We also discussed possibility of bowel obstruction along with the ischemia of the bowel, however, at this point, I feel that his obvious and definitive respiratory compromise greatly outweighs his GI issues at this time. Kana Mccann MD /[id number]
[2017-01-09] MEDS: Albuterol/Ipratropium 3.0-0.5 MG/3 ML Neb Soln NEB SCH ×4 (07:02→20:59)
[2017-01-09] MEDS: Formoterol/Mometasone 200-5 MCG 8.8 GM Inhaler IH SCH ×2 (07:28→20:59)
[2017-01-09] MEDS: Carvedilol 25 MG Tab PO SCH ×2 (08:34→20:59)
[2017-01-09] MEDS: Sodium Chloride 0.9% 1,000 ML IV SCH ×2 (08:36→21:53)
[2017-01-09] MEDS ORDERED: fentaNYL 2,500 MCG in Sodium Chloride 0.9% 200 ML EPIDUR SCH (09:45)
[2017-01-09] MEDS ORDERED: Dexamethasone 4 MG/ML SDV ONE (09:48)
[2017-01-09] MEDS ORDERED: Succinylcholine/Normal Saline 200 MG/10 ML Syringe ONE (09:48)
[2017-01-09] MEDS ORDERED: Propofol 200 MG/20 ML SDV ONE (09:48)
[2017-01-09] MEDS ORDERED: Neostigmine Methylsulfate 1 MG/ML 5 ML Syringe ONE (09:48)
[2017-01-09] MEDS ORDERED: Ondansetron 4 MG/2 ML SDV ONE (09:48)
[2017-01-09] MEDS ORDERED: fentaNYL 250 MCG/5 ML SDV ONE (09:48)
[2017-01-09] MEDS ORDERED: Rocuronium 50 MG/5 ML Vial ONE (09:48)
[2017-01-09] MEDS ORDERED: Potassium Chloride 20 MEQ in Premix Bag 3 BAG IV ONE (09:53)
[2017-01-09] MEDS: Magnesium Hydroxide 400 MG/5 ML Susp 30 ML Cup PO SCH ×2 (10:13→20:30)
--- NOTE | 2017-01-09 10:14 | PCM.CONSN ---
- General Info Date of Service: 01/09/17 Functional Status: Reports: pain controlled, ambulating - Review of Systems General: Reports: Weakness Gastrointestinal: Reports: Abdominal pain Psychiatric: Reports: depression Systems Review Comment:: No acute events overnight. Respiratory rate has improved and patient does not feel short of breath today. No episodes of chest pain overnight. He does have ongoing abdominal pain, especially with coughing. He has been able to pass some liquid stool into the colostomy bag. No fevers overnight. - Patient Data Vitals - most recent: Last Vital Signs Temp 36.6 C 01/09/17 07:00 Pulse 84 01/09/17 08:34 Resp 18 01/09/17 07:00 BP 136/81 01/09/17 08:34 Pulse Ox 95 01/09/17 07:00 Weight - most recent: 59.693 kg I&O - last 24 hours: Intake & Output 01/08/17 01/09/17 01/09/17 22:59 06:59 14:59 Intake Total 120 280 Output Total 225 650 Balance 120 55 -650 Lab Results last 24 hrs: Laboratory Results - last 24 hr 01/09/17 01/09/17 Range/Units 05:52 05:52 WBC 7.0 (4.5-11.0) K/uL RBC 4.45 (4.30-5.90) M/uL Hgb 12.3 (12.0-15.0) g/dL Hct 38.9 L (40.0-54.0) % MCV 87 (80-98) fL MCH 28 (27-31) pg MCHC 32 (32-36) % Plt Count 195 (150-400) K/uL Sodium 143 (140-148) mmol/L Potassium 3.0 L (3.6-5.2) mmol/L Chloride 103 (100-108) mmol/L Carbon Dioxide 33 H (21-32) mmol/L Anion Gap 10.0 (5.0-14.0) mmol/L BUN 17 (7-18) mg/dL Creatinine 0.9 (0.8-1.3) mg/dL Est Cr Clr Drug Dosing 51.59 mL/min Estimated GFR (MDRD) > 60 (>60) Glucose 122 H (74-106) mg/dL Calcium 8.8 (8.5-10.1) mg/dL Med Orders - Current: Current Medications Acetaminophen/Hydrocodone Bitart ([place] 325-5 Mg) 2 tab PO Q4H PRN PRN Reason: Pain (moderate 4-6) Albuterol (Proventil Neb Soln) 2.5 mg NEB Q4H PRN PRN Reason: Shortness of Breath Albuterol/Ipratropium (Duoneb 3.0-0.5 Mg/3 Ml) 3 ml NEB QIDRT [facility] Last Admin: 01/09/17 07:02 Dose: 3 ml Benzocaine/Menthol (Cepacol Sore Throat) 1 lozenge MUCMEM Q1H PRN PRN Reason: Sore Throat Carvedilol (Coreg) 25 mg PO BID [facility] Last Admin: 01/09/17 08:34 Dose: 25 mg Diphenhydramine HCl (Benadryl) 50 mg IVPUSH Q4H PRN PRN Reason: Itching Docusate Sodium (Colace) 100 mg PO BID PRN PRN Reason: Constipation Fentanyl (Sublimaze) 25 mcg IVPUSH Q1H PRN PRN Reason: Pain (moderate 4-6) Sodium Chloride (Normal Saline) 1,000 mls @ 75 mls/hr IV ASDIRECTED [facility] Last Admin: 01/09/17 08:36 Dose: 75 mls/hr Fentanyl 2,500 mcg/ Sodium (Chloride) 250 mls @ 0 mls/hr EPIDUR TITRATE [facility]; Titrate PRN Reason: Protocol Potassium Chloride 20 meq/Lidocaine HCl 2 ml/ Sodium Chloride 112 mls @ 56 mls/ hr IV Q2H [facility] Stop: 01/09/17 16:29 Metronidazole 500 mg/ Premix 100 mls @ 100 mls/hr IV ONCALL ONE Stop: 01/09/17 11:59 Cefazolin Sodium/Dextrose 2 gm (/ Premix) 50 mls @ 100 mls/hr IV ONCALL ONE Stop: 01/09/17 10:59 Last Admin: 01/09/17 10:10 Dose: 100 mls/hr Magnesium Hydroxide (Milk Of Magnesia) 30 ml PO BID [facility] Last Admin: 01/08/17 20:48 Dose: Not Given Mometasone Furoate/Formoterol Fumar (Dulera 200-5 Mcg) 2 puff IH BIDRT [facility] Last Admin: 01/09/17 07:28 Dose: 2 puff Promethazine HCl (Phenergan) 25 mg IM Q6H PRN PRN Reason: Nausea Discontinued Medications Dexamethasone (Dexamethasone) Confirm Administered Dose 4 mg .ROUTE .STK-MED ONE Stop: 01/08/17 16:33 Dexamethasone (Dexamethasone) Confirm Administered Dose 4 mg .ROUTE .STK-MED ONE Stop: 01/09/17 09:49 Fentanyl (Sublimaze) Confirm Administered Dose 250 mcg .ROUTE .STK-MED ONE Stop: 01/08/17 16:33 Fentanyl (Sublimaze) Confirm Administered Dose 250 mcg .ROUTE .STK-MED ONE Stop: 01/09/17 09:49 Furosemide (Lasix) 60 mg IVPUSH ONETIME ONE Stop: 01/08/17 11:46 Last Admin: 01/08/17 11:53 Dose: 60 mg Glycopyrrolate () Confirm Administered Dose 1 mg .ROUTE .STK-MED ONE Stop: 01/08/17 16:33 Glycopyrrolate () Confirm Administered Dose 1 mg .ROUTE .STK-MED ONE Stop: 01/09/17 09:49 Sodium Chloride (Normal Saline) 1,000 mls @ 150 mls/hr IV ASDIRECTED [facility] Last Admin: 01/08/17 16:09 Dose: 150 mls/hr Mometasone Furoate/Formoterol Fumar (Dulera 200-5 Mcg) 2 puff IH BID [facility] Last Admin: 01/08/17 20:43 Dose: 2 puff Neostigmine Methylsulfate (Neostigmine) Confirm Administered Dose 5 mg .ROUTE .STK-MED ONE Stop: 01/08/17 16:33 Neostigmine Methylsulfate (Neostigmine) Confirm Administered Dose 5 mg .ROUTE .STK-MED ONE Stop: 01/09/17 09:49 Ondansetron HCl (Zofran) Confirm Administered Dose 4 mg .ROUTE .STK-MED ONE Stop: 01/08/17 16:33 Ondansetron HCl (Zofran) Confirm Administered Dose 4 mg .ROUTE .STK-MED ONE Stop: 01/09/17 09:49 Propofol (Diprivan 20 Ml) Confirm Administered Dose 200 mg .ROUTE .STK-MED ONE Stop: 01/08/17 16:33 Propofol (Diprivan 20 Ml) Confirm Administered Dose 200 mg .ROUTE .STK-MED ONE Stop: 01/09/17 09:49 Rocuronium [place] (Zemuron) Confirm Administered Dose 50 mg .ROUTE .STK-MED ONE Stop: 01/08/17 16:33 Rocuronium [place] (Zemuron) Confirm Administered Dose 50 mg .ROUTE .STK-MED ONE Stop: 01/09/17 09:49 Succinylcholine Chloride (Succinylcholine In Ns Pf) Confirm Administered Dose 200 mg .ROUTE .STK-MED ONE Stop: 01/08/17 16:33 Succinylcholine Chloride (Succinylcholine In Ns Pf) Confirm Administered Dose 200 mg .ROUTE .STK-MED ONE Stop: 01/09/17 09:49 - Exam Quality Assessment: No: supplemental oxygen General: alert, oriented, cooperative, no acute distress Neck: supple Lungs: Clear to auscultation, Normal respiratory effort Cardiovascular: Regular Rate, Regular Rhythm Abdomen: soft, no distension, tenderness (around the stoma) Extremities: no edema, no cyanosis Skin: warm, dry Psy/Mental Status: alert, normal affect Consult PN Assessment/Plan Procedures: Procedures AIRWAY INHALATION TREATMENT (10/21/16) APPLY FOREARM SPLINT (11/24/13) ASSAY OF CK (CPK) (10/21/16) ASSAY OF CREATININE (10/03/15) ASSAY OF LACTIC ACID (10/21/16) ASSAY OF MAGNESIUM (10/21/16) ASSAY OF NATRIURETIC PEPTIDE (10/21/16) ASSAY OF PHOSPHORUS (10/21/16) ASSAY OF TROPONIN QUANT (10/21/16) BLOOD CULTURE FOR BACTERIA (10/21/16) BLOOD GASES ANY COMBINATION (10/21/16) BLOOD TRANSFUSION SERVICE (02/01/15) BLOOD TYPING SEROLOGIC ABO (10/21/16) BLOOD TYPING SEROLOGIC RH(D) (10/21/16) CARCINOEMBRYONIC ANTIGEN (10/10/14) CARDIAC REHAB/MONITOR (04/24/14) CHEST X-RAY 1 VIEW FRONTAL (10/21/16) CHEST X-RAY 2VW FRONTAL&LATL (02/01/15) CMPLX RPR TRUNK 2.6-7.5 CM (03/28/15) COLONOSCOPY AND BIOPSY (10/10/14) COMPATIBILITY TEST ANTIGLOB (10/21/16) COMPATIBILITY TEST SPIN (10/21/16) COMPLETE CBC AUTOMATED (10/21/16) COMPLETE CBC W/AUTO DIFF WBC (10/21/16) COMPREHEN METABOLIC PANEL (10/21/16) CT ABD & PELV W/CONTRAST (10/21/16) CT THORAX W/DYE (10/11/14) CULTURE AEROBIC IDENTIFY (10/21/16) CULTURE OTHR SPECIMN AEROBIC (10/21/16) ELECTROCARDIOGRAM REPORT (10/21/16) ELECTROCARDIOGRAM TRACING (10/21/16) EMERGENCY DEPT VISIT (10/21/16) EMERGENCY DEPT VISIT (02/16/15) EMERGENCY DEPT VISIT (02/16/15) EMERGENCY DEPT VISIT (11/24/13) EMERGENCY DEPT VISIT (11/24/13) EVALUATE PT USE OF INHALER (10/21/16) EXTRACRANIAL BILAT STUDY (10/02/13) HEMOGLOBIN (10/21/16) HYDRATE IV INFUSION ADD-ON (10/21/16) IMMUNOHISTO ANTB 1ST STAIN (02/01/15) INFLUENZA ASSAY W/OPTIC (10/21/16) MEASURE BLOOD OXYGEN LEVEL (04/22/15) METABOLIC PANEL TOTAL CA (10/21/16) MICROBE SUSCEPTIBLE DIFFUSE (02/01/15) MICROBE SUSCEPTIBLE JHONNY (10/21/16) OCCULT BLD FECES 1-3 TESTS (10/21/16) OCCULT BLOOD OTHER SOURCES (10/21/16) POS AIRWAY PRESSURE CPAP (10/21/16) RBC ANTIBODY SCREEN (10/21/16) ROUTINE VENIPUNCTURE (10/21/16) SMEAR GRAM STAIN (10/21/16) THER/DIAG CONCURRENT INF (10/21/16) THER/PROPH/DIAG INJ SC/IM (11/24/13) THER/PROPH/DIAG IV INF ADDON (02/16/15) THER/PROPH/DIAG IV INF INIT (10/21/16) TISSUE EXAM BY PATHOLOGIST (02/01/15) TISSUE EXAM BY PATHOLOGIST (10/10/14) TTE W/DOPPLER COMPLETE (04/23/16) TX/PRO/DX INJ NEW DRUG ADDON (10/21/16) URINALYSIS AUTO W/SCOPE (10/21/16) URINE CULTURE/COLONY COUNT (02/01/15) WITHDRAWAL OF ARTERIAL BLOOD (10/21/16) X-RAY EXAM OF ABDOMEN (10/21/16) X-RAY EXAM OF WRIST (11/24/13) X-RAY EXAM SERIES ABDOMEN (10/21/16) (1) Small bowel obstruction SNOMED Code(s): 590642977 Code(s): K56.69 - OTHER INTESTINAL OBSTRUCTION Current Visit: Yes (2) Fluid overload SNOMED Code(s): 40762629 Code(s): E87.70 - FLUID OVERLOAD, UNSPECIFIED Current Visit: Yes Qualifiers: Hypervolemia type: unspecified Qualified Code(s): E87.70 - Fluid overload, unspecified Problem List Initiated/Reviewed/Updated: Yes My Orders last 24 hours: My Active Orders 01/08/17 18:12 RT Aerosol Therapy [RC] ASDIRECTED Albuterol [Proventil Neb Soln] 2.5 mg NEB Q4H PRN 01/08/17 21:00 Albuterol/Ipratropium [DuoNeb 3.0-0.5 MG/3 ML] 3 ml NEB QIDRT Carvedilol [Coreg] 25 mg PO BID 01/09/17 07:00 Mometasone/Formoterol [Dulera 200-5 MCG] 2 puff IH BIDRT Plan: Assessment and Plan - Parastomal hernia with small bowel obstruction - surgery indicated, moderately high risk but no alternative at this point since this will likely progress and there is potential for ischemic bowel. He is an optimal achievable medical condition at this time. Surgery planned for later this morning. Lung status is appropriate. Lungs are clear and tachypnea has resolved. Epidural is planned and this should help reduce his postoperative pulmonary risk. -Scheduled and as needed nebulizers -Continue beta oziel Coronary artery disease - status post CABG about 5 years ago. no evidence for acute coronary syndrome or active anginal type symptoms. Vital signs have been stable. -Continue medical management COPD - no history of oxygen dependence. No active wheezing. Respiratory status compromised but has been slowly improving as hisrecovered from his pneumonia earlier this winter. -Nebulizers as above Paroxysmal atrial fibrillation - history of this during his last hospital stay. Currently in sinus rhythm. Holding calcium channel oziel. High risk for recurrence of atrial fibrillation. -Continue beta oziel Thank you for the interesting consultation and allowing me to be involved in Sam's care. I will continue to follow along with Sam during the acute phase of the hospital stay. Buck Matthews M.D.
[2017-01-09] MEDS: Potassium Chloride 20 MEQ, Lidocaine 1% 2 ML in Sodium Chloride 0.9% 100 ML IV SCH ×3 (10:20→14:52)
[2017-01-09] MEDS ORDERED: ceFAZolin 2 GM in Premix Bag 1 BAG IV ONE (10:30)
[2017-01-09] MEDS ORDERED: ceFAZolin 2 GM in Sodium Chloride 0.9% 50 ML IV ONE (10:30)
[2017-01-09] MEDS ORDERED: metroNIDAZOLE/Normal Saline 500 MG in Premix Bag 1 BAG IV ONE (11:00)
[2017-01-09] MEDS ORDERED: Sodium Chloride 0.9% 250 ML ONE (11:32)
[2017-01-09] MEDS ORDERED: Phenylephrine 1% 10 MG/ML SDV ONE (11:32)
--- NOTE | 2017-01-09 12:42 | PN ---
DATE OF SERVICE: 01/09/2017 SUBJECTIVE: The patient is doing better this morning. The pain is still the same, but no nausea or vomiting. Ostomy output still shows minimal, but present. OBJECTIVE: VITAL SIGNS: Stable. Temperature 97.8, blood pressure 136/84, and pulse 81% to 95% on room air. CARDIOVASCULAR: Irregular rhythm and rate. RESPIRATORY: Lungs are clear to consultation bilaterally. ABDOMEN: Bowel sounds positive. ASSESSMENT: Small bowel obstruction. PLAN: The patient will be taken to the operating room for repair of peristomal hernia. We again discussed the risks, benefits, alternatives, and limitations; and discussed the fact that he is in high risk of surgery. However, he is maximized By the hospitalist service. The patient and family understand the risks include mortality and respiratory failure and wished to proceed. Kana Mccann MD /[id number]
[2017-01-09] MEDS ORDERED: Naloxone 0.4 MG/ML SDV IV PRN (12:43)
[2017-01-09] MEDS ORDERED: Naloxone 0.4 MG/ML SDV IVPUSH PRN (12:43)
[2017-01-09] MEDS ORDERED: Ketamine 500 MG/5 ML MDV ONE (12:51)
[2017-01-09] MEDS ORDERED: Sodium Chloride 0.9% 1,000 ML IV SCH (22:15)
[2017-01-10] MEDS ORDERED: Sodium Chloride 0.9% 1,000 ML IV SCH ×3 (01:15→22:15)
[2017-01-10] MEDS: Albuterol/Ipratropium 3.0-0.5 MG/3 ML Neb Soln NEB SCH ×4 (07:15→21:12)
[2017-01-10] MEDS: Formoterol/Mometasone 200-5 MCG 8.8 GM Inhaler IH SCH ×2 (07:15→21:12)
--- NOTE | 2017-01-10 09:07 | PCM.CONSN ---
- General Info Date of Service: 01/10/17 Functional Status: Reports: pain controlled. Denies: ambulating - Review of Systems General: Reports: Weakness Neurological: Reports: Confusion Systems Review Comment:: No acute events overnight. He is fairly sedated today despite having his pain medication on hold for a couple of hours. He is in atrial fibrillation but his rate has been well-controlled. Abdominal pain is well-controlled. He did require some supplemental oxygen overnight. Urine output has been borderline but responding to small fluid challenges. Tolerating clear liquids. - Patient Data Vitals - most recent: Last Vital Signs Temp 37.6 C 01/10/17 07:48 Pulse 89 01/10/17 07:48 Resp 10 L 01/10/17 07:48 BP 126/59 L 01/10/17 07:48 Pulse Ox 98 01/10/17 07:48 Weight - most recent: 59.693 kg I&O - last 24 hours: Intake & Output 01/09/17 01/10/17 01/10/17 22:59 06:59 14:59 Intake Total 1149 1540 Output Total 345 115 50 Balance 804 1425 -50 Lab Results last 24 hrs: Laboratory Results - last 24 hr 01/10/17 01/10/17 Range/Units 05:26 05:26 WBC 5.2 (4.5-11.0) K/uL RBC 4.25 L (4.30-5.90) M/uL Hgb 12.0 (12.0-15.0) g/dL Hct 39.9 L (40.0-54.0) % MCV 94 (80-98) fL MCH 28 (27-31) pg MCHC 30 L (32-36) % Plt Count 211 (150-400) K/uL Sodium 144 (140-148) mmol/L Potassium 5.0 (3.6-5.2) mmol/L Chloride 108 (100-108) mmol/L Carbon Dioxide 31 (21-32) mmol/L Anion Gap 4.9 L (5.0-14.0) mmol/L BUN 27 H D (7-18) mg/dL Creatinine 1.1 (0.8-1.3) mg/dL Est Cr Clr Drug Dosing 42.21 mL/min Estimated GFR (MDRD) > 60 (>60) Glucose 153 H (74-106) mg/dL Calcium 8.4 L (8.5-10.1) mg/dL Med Orders - Current: Current Medications Acetaminophen/Hydrocodone Bitart ([place] 325-5 Mg) 2 tab PO Q4H PRN PRN Reason: Pain (moderate 4-6) Albuterol (Proventil Neb Soln) 2.5 mg NEB Q4H PRN PRN Reason: Shortness of Breath Albuterol/Ipratropium (Duoneb 3.0-0.5 Mg/3 Ml) 3 ml NEB QIDRT [facility] Last Admin: 01/10/17 07:15 Dose: 3 ml Aspirin (Halfprin) 81 mg PO DAILY [facility] Benzocaine/Menthol (Cepacol Sore Throat) 1 lozenge MUCMEM Q1H PRN PRN Reason: Sore Throat Carvedilol (Coreg) 25 mg PO BID [facility] Last Admin: 01/09/17 20:59 Dose: 25 mg Diltiazem HCl (Cardizem Cd) 120 mg PO DAILY [facility] Diphenhydramine HCl (Benadryl) 50 mg IVPUSH Q4H PRN PRN Reason: Itching Docusate Sodium (Colace) 100 mg PO BID PRN PRN Reason: Constipation Fentanyl (Sublimaze) 25 mcg IVPUSH Q1H PRN PRN Reason: Pain (moderate 4-6) Sodium Chloride (Normal Saline) 1,000 mls @ 75 mls/hr IV ASDIRECTED [facility] Last Admin: 01/09/17 21:53 Dose: 75 mls/hr Fentanyl 2,500 mcg/ Sodium (Chloride) 250 mls @ 0 mls/hr EPIDUR TITRATE [facility]; Titrate PRN Reason: Protocol Last Titration: 01/10/17 07:41 Dose: 0 mls/hr, 0 mls/hr Magnesium Hydroxide (Milk Of Magnesia) 30 ml PO BID [facility] Last Admin: 01/09/17 20:30 Dose: Not Given Mometasone Furoate/Formoterol Fumar ([place]ul[place] 200-5 Mcg) 2 puff IH BIDRT [facility] Last Admin: 01/10/17 07:15 Dose: 2 puff Naloxone HCl (Narcan) 0.1 mg IVPUSH Q5M PRN PRN Reason: RESP RATE LESS THAN 6/MINUTE Naloxone HCl (Narcan) 0.4 mg IV ASDIRECTED PRN PRN Reason: ITCHING Promethazine HCl (Phenergan) 25 mg IM Q6H PRN PRN Reason: Nausea Discontinued Medications Dexamethasone (Dexamethasone) Confirm Administered Dose 4 mg .ROUTE .STK-MED ONE Stop: 01/08/17 16:33 Dexamethasone (Dexamethasone) Confirm Administered Dose 4 mg .ROUTE .STK-MED ONE Stop: 01/09/17 09:49 Fentanyl (Sublimaze) Confirm Administered Dose 250 mcg .ROUTE .STK-MED ONE Stop: 01/08/17 16:33 Fentanyl (Sublimaze) Confirm Administered Dose 250 mcg .ROUTE .STK-MED ONE Stop: 01/09/17 09:49 Furosemide (Lasix) 60 mg IVPUSH ONETIME ONE Stop: 01/08/17 11:46 Last Admin: 01/08/17 11:53 Dose: 60 mg Glycopyrrolate () Confirm Administered Dose 1 mg .ROUTE .STK-MED ONE Stop: 01/08/17 16:33 Glycopyrrolate () Confirm Administered Dose 1 mg .ROUTE .STK-MED ONE Stop: 01/09/17 09:49 Sodium Chloride (Normal Saline) 1,000 mls @ 150 mls/hr IV ASDIRECTED [facility] Last Admin: 01/08/17 16:09 Dose: 150 mls/hr Potassium Chloride 20 meq/Lidocaine HCl 2 ml/ Sodium Chloride 112 mls @ 56 mls/ hr IV Q2H [facility] Stop: 01/09/17 16:29 Last Admin: 01/09/17 14:52 Dose: 56 mls/hr Metronidazole 500 mg/ Premix 100 mls @ 100 mls/hr IV ONCALL ONE Stop: 01/09/17 11:59 Last Admin: 01/09/17 10:11 Dose: 100 mls/hr Cefazolin Sodium/Dextrose 2 gm (/ Premix) 50 mls @ 100 mls/hr IV ONCALL ONE Stop: 01/09/17 10:59 Last Admin: 01/09/17 10:10 Dose: 100 mls/hr Sodium Chloride (Normal Saline) Confirm Administered Dose 250 mls @ as directed .ROUTE .STK-MED ONE Stop: 01/09/17 11:33 Sodium Chloride (Normal Saline) 1,000 mls @ 200 mls/hr IV ASDIRECTED [facility] Stop: 01/09/17 23:16 Last Admin: 01/09/17 22:14 Dose: 200 mls/hr Sodium Chloride (Normal Saline) 1,000 mls @ 200 mls/hr IV ASDIRECTED [facility] Stop: 01/10/17 02:16 Last Admin: 01/10/17 01:15 Dose: 200 mls/hr Sodium Chloride (Normal Saline) 1,000 mls @ 200 mls/hr IV ASDIRECTED [facility] Stop: 01/10/17 05:16 Last Admin: 01/10/17 04:14 Dose: 200 mls/hr Ketamine HCl (Ketalar) Confirm Administered Dose 500 mg .ROUTE .STK-MED ONE Stop: 01/09/17 12:52 Mometasone Furoate/Formoterol Fumar ([place] 200-5 Mcg) 2 puff IH BID [facility] Last Admin: 01/08/17 20:43 Dose: 2 puff Neostigmine Methylsulfate (Neostigmine) Confirm Administered Dose 5 mg .ROUTE .STK-MED ONE Stop: 01/08/17 16:33 Neostigmine Methylsulfate (Neostigmine) Confirm Administered Dose 5 mg .ROUTE .STK-MED ONE Stop: 01/09/17 09:49 Ondansetron HCl (Zofran) Confirm Administered Dose 4 mg .ROUTE .STK-MED ONE Stop: 01/08/17 16:33 Ondansetron HCl (Zofran) Confirm Administered Dose 4 mg .ROUTE .STK-MED ONE Stop: 01/09/17 09:49 Phenylephrine HCl ([place]-Synephrine) Confirm Administered Dose 10 mg .ROUTE .STK- MED ONE Stop: 01/09/17 11:33 Propofol (Diprivan 20 Ml) Confirm Administered Dose 200 mg .ROUTE .STK-MED ONE Stop: 01/08/17 16:33 Propofol (Diprivan 20 Ml) Confirm Administered Dose 200 mg .ROUTE .STK-MED ONE Stop: 01/09/17 09:49 Rocuronium [place] (Zemuron) Confirm Administered Dose 50 mg .ROUTE .STK-MED ONE Stop: 01/08/17 16:33 Rocuronium [place] (Zemuron) Confirm Administered Dose 50 mg .ROUTE .STK-MED ONE Stop: 01/09/17 09:49 Succinylcholine Chloride (Succinylcholine In Ns Pf) Confirm Administered Dose 200 mg .ROUTE .STK-MED ONE Stop: 01/08/17 16:33 Succinylcholine Chloride (Succinylcholine In Ns Pf) Confirm Administered Dose 200 mg .ROUTE .STK-MED ONE Stop: 01/09/17 09:49 - Exam Quality Assessment: supplemental oxygen General: alert, oriented, cooperative, no acute distress HEENT: Pupils equal Neck: supple Lungs: Normal respiratory effort, Crackles (rare at bases). No: Wheezing Cardiovascular: Regular Rate, Irregular Rhythm, Murmurs Abdomen: bowel sounds present (hypoactive), soft, no distension, other (stoma LLQ is pink) Extremities: no edema, no cyanosis Skin: warm, dry Psy/Mental Status: alert (but lethargic) Consult PN Assessment/Plan POD#: 1 Procedures: Procedures AIRWAY INHALATION TREATMENT (10/21/16) APPLY FOREARM SPLINT (11/24/13) ASSAY OF CK (CPK) (10/21/16) ASSAY OF CREATININE (10/03/15) ASSAY OF LACTIC ACID (10/21/16) ASSAY OF MAGNESIUM (10/21/16) ASSAY OF NATRIURETIC PEPTIDE (10/21/16) ASSAY OF PHOSPHORUS (10/21/16) ASSAY OF TROPONIN QUANT (10/21/16) BLOOD CULTURE FOR BACTERIA (10/21/16) BLOOD GASES ANY COMBINATION (10/21/16) BLOOD TRANSFUSION SERVICE (02/01/15) BLOOD TYPING SEROLOGIC ABO (10/21/16) BLOOD TYPING SEROLOGIC RH(D) (10/21/16) CARCINOEMBRYONIC ANTIGEN (10/10/14) CARDIAC REHAB/MONITOR (04/24/14) CHEST X-RAY 1 VIEW FRONTAL (10/21/16) CHEST X-RAY 2VW FRONTAL&LATL (02/01/15) CMPLX RPR TRUNK 2.6-7.5 CM (03/28/15) COLONOSCOPY AND BIOPSY (10/10/14) COMPATIBILITY TEST ANTIGLOB (10/21/16) COMPATIBILITY TEST SPIN (10/21/16) COMPLETE CBC AUTOMATED (10/21/16) COMPLETE CBC W/AUTO DIFF WBC (10/21/16) COMPREHEN METABOLIC PANEL (10/21/16) CT ABD & PELV W/CONTRAST (10/21/16) CT THORAX W/DYE (10/11/14) CULTURE AEROBIC IDENTIFY (10/21/16) CULTURE OTHR SPECIMN AEROBIC (10/21/16) ELECTROCARDIOGRAM REPORT (10/21/16) ELECTROCARDIOGRAM TRACING (10/21/16) EMERGENCY DEPT VISIT (10/21/16) EMERGENCY DEPT VISIT (02/16/15) EMERGENCY DEPT VISIT (02/16/15) EMERGENCY DEPT VISIT (11/24/13) EMERGENCY DEPT VISIT (11/24/13) EVALUATE PT USE OF INHALER (10/21/16) EXTRACRANIAL BILAT STUDY (10/02/13) HEMOGLOBIN (10/21/16) HYDRATE IV INFUSION ADD-ON (10/21/16) IMMUNOHISTO ANTB 1ST STAIN (02/01/15) INFLUENZA ASSAY W/OPTIC (10/21/16) MEASURE BLOOD OXYGEN LEVEL (04/22/15) METABOLIC PANEL TOTAL CA (10/21/16) MICROBE SUSCEPTIBLE DIFFUSE (02/01/15) MICROBE SUSCEPTIBLE JHONNY (10/21/16) OCCULT BLD FECES 1-3 TESTS (10/21/16) OCCULT BLOOD OTHER SOURCES (10/21/16) POS AIRWAY PRESSURE CPAP (10/21/16) RBC ANTIBODY SCREEN (10/21/16) ROUTINE VENIPUNCTURE (10/21/16) SMEAR GRAM STAIN (10/21/16) THER/DIAG CONCURRENT INF (10/21/16) THER/PROPH/DIAG INJ SC/IM (11/24/13) THER/PROPH/DIAG IV INF ADDON (02/16/15) THER/PROPH/DIAG IV INF INIT (10/21/16) TISSUE EXAM BY PATHOLOGIST (02/01/15) TISSUE EXAM BY PATHOLOGIST (10/10/14) TTE W/DOPPLER COMPLETE (04/23/16) TX/PRO/DX INJ NEW DRUG ADDON (10/21/16) URINALYSIS AUTO W/SCOPE (10/21/16) URINE CULTURE/COLONY COUNT (02/01/15) WITHDRAWAL OF ARTERIAL BLOOD (10/21/16) X-RAY EXAM OF ABDOMEN (10/21/16) X-RAY EXAM OF WRIST (11/24/13) X-RAY EXAM SERIES ABDOMEN (10/21/16) (1) Small bowel obstruction SNOMED Code(s): 168691207 Code(s): K56.69 - OTHER INTESTINAL OBSTRUCTION Current Visit: Yes (2) Fluid overload SNOMED Code(s): 13640486 Code(s): E87.70 - FLUID OVERLOAD, UNSPECIFIED Current Visit: Yes Qualifiers: Hypervolemia type: unspecified Qualified Code(s): E87.70 - Fluid overload, unspecified Problem List Initiated/Reviewed/Updated: Yes My Orders last 24 hours: My Active Orders 01/10/17 09:00 Aspirin [Halfprin] 81 mg PO DAILY Diltiazem [Cardizem CD] 120 mg PO DAILY 01/11/17 05:00 BASIC METABOLIC PANEL,BMP [CHEM] Timed CBC W/O DIFF,HEMOGRAM [HEME] Timed (1) Plan: Assessment and Plan - Parastomal hernia with small bowel obstruction - history of rectal cancer and is s/p partial colectomy and colostomy placement about 3 years ago. Status post hernia repair and mesh placement on 01/09. No bowel resection was necessary. Tolerating clear liquids. He appears a little over sedated from pain medications and his epidural has been held. Urine output borderline but acceptable at this time. -Pain control and postop cares per Dr. Mccann -Scheduled and as needed nebulizers -Continue beta oziel Coronary artery disease - status post CABG about 5 years ago. no evidence for acute coronary syndrome or active anginal type symptoms. Vital signs have remained stable. -Continue medical management COPD - no history of oxygen dependence. No active wheezing. Respiratory status has been stable postoperatively. -Nebulizers as above Paroxysmal atrial fibrillation - he did go into atrial fibrillation during surgery but his rate has remained well controlled. -Cardiac monitoring -Continue beta oziel -Restart calcium channel oziel Thank you for the interesting consultation and allowing me to be involved in Sam's care. I will continue to follow along with Sam during the acute phase of the hospital stay. Buck Matthews M.D.
[2017-01-10] MEDS: Diltiazem 120 MG Cap.CD PO SCH (09:39)
[2017-01-10] MEDS: Carvedilol 25 MG Tab PO SCH ×2 (09:41→20:08)
[2017-01-10] MEDS: Aspirin 81 MG Tab.EC PO SCH (09:45)
[2017-01-10] MEDS: Magnesium Hydroxide 400 MG/5 ML Susp 30 ML Cup PO SCH ×2 (09:45→20:28)
[2017-01-10] MEDS ORDERED: Magnesium Hydroxide 400 MG/5 ML Susp 30 ML Cup PO SCH (10:00)
[2017-01-10] MEDS: Enoxaparin 40 MG/0.4 ML Syringe SUBCUT SCH (10:01)
--- NOTE | 2017-01-10 13:31 | PN ---
DATE OF SERVICE: 01/10/2017 SUBJECTIVE: The patient did well overnight. Pain is well controlled. No nausea, vomiting, shortness of breath, or chest pain. OBJECTIVE: VITAL SIGNS: Temperature 99.2, blood pressure 126/59, pulse 89, 98% on 2 L. CARDIOVASCULAR: Regular rhythm and rate. RESPIRATORY: Lungs are clear to auscultation bilaterally. ABDOMEN: Nondistended. Ostomy output is minimal but present. LABORATORY RESULTS: Show normal white count, hemoglobin 12. Basic metabolic panel is essentially normal. ASSESSMENT: Status post repair of parastomal hernia. PLAN: 1. Diet. We will continue clear liquid diet at this time. 2. Pain control. The patient is fairly sedated secondary to epidural today. Therefore, we will have Anesthesia address this. 3. Prophylaxis. We will start the patient on Lovenox today. We will also continue SCDs and work on incentive spirometry. 4. General disposition. We will keep the patient in intensive care unit at this time. Infectious Disease, white count is normal. Small amount of fever most likely secondary to atelectasis. We will work on incentive spirometry today. Kana Mccann MD /[id number]
[2017-01-10] MEDS: Sodium Chloride 0.9% 1,000 ML IV SCH ×2 (13:59→21:36)
[2017-01-10] MEDS: Acetaminophen/HYDROcodone 325-5 MG Tab PO PRN (19:35)
[2017-01-10] MEDS ORDERED: Sodium Chloride 0.9% 250 ML IV SCH (20:30)
[2017-01-10] MEDS ORDERED: Sodium Chloride 0.9% 1,000 ML IV ONE (22:56)
[2017-01-11] MEDS: Sodium Chloride 0.9% 1,000 ML IV SCH ×2 (02:52→16:44)
[2017-01-11] MEDS ORDERED: Sodium Chloride 0.9% 250 ML IV SCH (04:15)
[2017-01-11] MEDS: fentaNYL 100 MCG/2 ML SDV IVPUSH PRN (05:15)
[2017-01-11] MEDS ORDERED: Furosemide 20 MG/2 ML VIAL IVPUSH ONE (06:22)
[2017-01-11] MEDS ORDERED: Furosemide 20 MG/2 ML VIAL ONE (06:31)
[2017-01-11] MEDS: Albuterol/Ipratropium 3.0-0.5 MG/3 ML Neb Soln NEB SCH ×4 (07:15→21:11)
[2017-01-11] MEDS: Formoterol/Mometasone 200-5 MCG 8.8 GM Inhaler IH SCH ×2 (07:34→21:11)
--- NOTE | 2017-01-11 09:18 | PN ---
DATE OF SERVICE: 01/11/2017 SUBJECTIVE: The patient is improved this morning. Through the night, he continued to have the expected respiratory confusion issues. This is similar to his previous hospitalization. His urine output decreased over night, but responded well to an IV fluid challenge and then a secondary Lasix rounds for a total of 20 mg. At present, he significantly improved. The urine output is excellent, and his creatinine has returned to normal. OBJECTIVE: VITAL SIGNS: Stable. Blood pressure 121/66, pulse 70, respirations 18, he is 95% on 3 L. CARDIOVASCULAR: Regular rhythm and rate. RESPIRATORY: Poor inspiratory effort bilaterally. ABDOMEN: Bowel sounds are positive. He is nondistended, nontender. Dressings are intact. LABORATORY DATA: Results show a normal creatinine. His white blood cell count is not elevated. Hemoglobin is normal. BMP is pending. ASSESSMENT: Status post repair of parastomal hernia. PLAN: 1. GI, the patient nontender and nondistended. He has bowel sounds. No GI output yet. We will keep a close eye on this, as this is most likely an ileus secondary to parastomal herniation. 2. Respiratory status. We will have the hospitalist service address this today; however, this appears to respond well to Lasix. 3. General disposition. We will keep him in the ICU at this time. 4. Prophylaxis. 5. Infectious disease. No evidence of infection at this time. 6. GI, we will discontinue the small amount of clear liquid at this time. Awaiting gastrointestinal dysfunction. 7. Hematology. Hemoglobin is stable. No evidence of ongoing bleeding. Kana Mccann MD /[id number]
[2017-01-11] MEDS: Enoxaparin 40 MG/0.4 ML Syringe SUBCUT SCH (10:11)
[2017-01-11] MEDS: Carvedilol 25 MG Tab PO SCH ×2 (10:18→21:11)
[2017-01-11] MEDS: Aspirin 81 MG Tab.EC PO SCH (10:18)
[2017-01-11] MEDS: Levofloxacin/Dextrose 5%-Water 500 MG in Premix Bag 1 BAG IV SCH (10:19)
[2017-01-11] MEDS: Magnesium Hydroxide 400 MG/5 ML Susp 30 ML Cup PO SCH ×2 (10:19→21:11)
[2017-01-11] MEDS: Diltiazem 120 MG Cap.CD PO SCH (10:19)
--- NOTE | 2017-01-11 11:27 | CR ---
Chest 1V Frontal INDICATION: decreased sats and fever FINDINGS: Comparison 01/08/2017. Sternotomy. Heart size stable. New patchy infiltrates in the right m id and lower lung, and left lower lung. Probable small bilateral pleural effusions. Findings are wor risome for pneumonia.
[2017-01-11] MEDS: Piperacillin/Tazobactam/Dext 3.375 GM in Premix Bag 1 BAG IV SCH ×3 (11:36→22:30)
--- NOTE | 2017-01-11 12:12 | PCM.CONSN ---
- General Info Date of Service: 01/11/17 Functional Status: Reports: pain controlled, tolerating diet - Review of Systems General: Reports: Fever, Weakness Pulmonary: Reports: cough, sputum. Denies: shortness of breath, pleuritic chest pain, hemoptysis, wheezing Cardiovascular: Reports: No Symptoms Gastrointestinal: Reports: Abdominal pain, Flatus. Denies: Difficulty swallowing, Nausea, Vomiting Psychiatric: Reports: confusion Systems Review Comment:: Mr. Sherwood is an 82-year-old gentleman who was admitted with bowel obstruction secondary to an incarcerated hernia. Surgery was performed by Dr. Mccann, postoperative course has been complicated by some confusion, weakness, and now fever. White blood cell count is within normal range the chest x-ray shows evidence of bibasilar infiltrates consistent with pneumonia. - Patient Data Vitals - most recent: Last Vital Signs Temp 99.5 F 01/11/17 10:26 Pulse 97 01/11/17 10:54 Resp 18 01/11/17 10:26 BP 153/68 H 01/11/17 10:26 Pulse Ox 90 L 01/11/17 10:26 Weight - most recent: 131 lb 9.608 oz I&O - last 24 hours: Intake & Output 01/10/17 01/11/17 01/11/17 22:59 06:59 14:59 Intake Total 1632 3198 150 Output Total 93 125 805 Balance 1539 3073 -655 Lab Results last 24 hrs: Laboratory Results - last 24 hr 01/10/17 01/10/17 01/11/17 Range/Units 22:26 22:26 04:47 WBC 3.0 L (4.5-11.0) K/uL RBC 4.12 L (4.30-5.90) M/uL Hgb 11.6 L (12.0-15.0) g/dL Hct 38.3 L (40.0-54.0) % MCV 93 (80-98) fL MCH 28 (27-31) pg MCHC 30 L (32-36) % Plt Count 188 (150-400) K/uL Sodium 144 144 (140-148) mmol/L Potassium 4.6 4.4 (3.6-5.2) mmol/L Chloride 108 109 H (100-108) mmol/L Carbon Dioxide 31 30 (21-32) mmol/L Anion Gap 5.4 9.4 (5.0-14.0) mmol/L BUN 38 H 37 H (7-18) mg/dL Creatinine 1.4 H 1.2 (0.8-1.3) mg/dL Est Cr Clr Drug Dosing 33.16 38.69 mL/min Estimated GFR (MDRD) 48 L 58 L (>60) Glucose 143 H 130 H (74-106) mg/dL Calcium 8.4 L 8.0 L (8.5-10.1) mg/dL [id number]-A-Dnfedjyjnvd Pept (5-450) pg/mL 01/11/17 01/11/17 Range/Units 05:00 07:46 WBC 3.0 L (4.5-11.0) K/uL RBC 4.19 L (4.30-5.90) M/uL Hgb 11.7 L (12.0-15.0) g/dL Hct 39.7 L (40.0-54.0) % MCV 95 (80-98) fL MCH 28 (27-31) pg MCHC 30 L (32-36) % Plt Count 173 (150-400) K/uL Sodium (140-148) mmol/L Potassium (3.6-5.2) mmol/L Chloride (100-108) mmol/L Carbon Dioxide (21-32) mmol/L Anion Gap (5.0-14.0) mmol/L BUN (7-18) mg/dL Creatinine (0.8-1.3) mg/dL Est Cr Clr Drug Dosing mL/min Estimated GFR (MDRD) (>60) Glucose (74-106) mg/dL Calcium (8.5-10.1) mg/dL [id number]-Rzkiuutnhgj Pept 3089 H (5-450) pg/mL Med Orders - Current: Current Medications Acetaminophen/Hydrocodone Bitart (Sharples 325-5 Mg) 2 tab PO Q4H PRN PRN Reason: Pain (moderate 4-6) Last Admin: 01/10/17 19:35 Dose: 2 tab Albuterol (Proventil Neb Soln) 2.5 mg NEB Q4H PRN PRN Reason: Shortness of Breath Last Admin: 01/11/17 04:21 Dose: 2.5 mg Albuterol/Ipratropium (Duoneb 3.0-0.5 Mg/3 Ml) 3 ml NEB QIDRT [facility] Last Admin: 01/11/17 10:54 Dose: 3 ml Aspirin (Halfprin) 81 mg PO DAILY [facility] Last Admin: 01/11/17 10:18 Dose: 81 mg Benzocaine/Menthol (Cepacol Sore Throat) 1 lozenge MUCMEM Q1H PRN PRN Reason: Sore Throat Carvedilol (Coreg) 25 mg PO BID [facility] Last Admin: 01/11/17 10:18 Dose: 25 mg Diltiazem HCl (Cardizem Cd) 120 mg PO DAILY [facility] Last Admin: 01/11/17 10:19 Dose: 120 mg Diphenhydramine HCl (Benadryl) 50 mg IVPUSH Q4H PRN PRN Reason: Itching Docusate Sodium (Colace) 100 mg PO BID PRN PRN Reason: Constipation Enoxaparin Sodium (Lovenox) 40 mg SUBCUT DAILY [facility] Last Admin: 01/11/17 10:11 Dose: Not Given Fentanyl (Sublimaze) 25 mcg IVPUSH Q1H PRN PRN Reason: Pain (moderate 4-6) Last Admin: 01/11/17 05:15 Dose: 25 mcg Fentanyl 2,500 mcg/ Sodium (Chloride) 250 mls @ 0 mls/hr EPIDUR TITRATE [facility]; Titrate PRN Reason: Protocol Last Titration: 01/10/17 10:52 Dose: 0 mls/hr, 0 mls/hr Sodium Chloride (Normal Saline) 1,000 mls @ 100 mls/hr IV ASDIRECTED [facility] Levofloxacin/Dextrose 500 mg/ (Premix) 100 mls @ 100 mls/hr IV Q24H [facility] Last Admin: 01/11/17 10:19 Dose: 100 mls/hr Piperacillin/Tazobactam/ (Dextrose 3.375 gm/ Premix) 50 mls @ 100 mls/hr IV Q6H [facility] Last Admin: 01/11/17 11:36 Dose: 100 mls/hr Magnesium Hydroxide (Milk Of Magnesia) 30 ml PO BID [facility] Last Admin: 01/11/17 10:19 Dose: 30 ml Mometasone Furoate/Formoterol Fumar (Dulera 200-5 Mcg) 2 puff IH BIDRT [facility] Last Admin: 01/11/17 07:34 Dose: 2 puff Naloxone HCl (Narcan) 0.1 mg IVPUSH Q5M PRN PRN Reason: RESP RATE LESS THAN 6/MINUTE Naloxone HCl (Narcan) 0.4 mg IV ASDIRECTED PRN PRN Reason: ITCHING Promethazine HCl (Phenergan) 25 mg IM Q6H PRN PRN Reason: Nausea Discontinued Medications Dexamethasone (Dexamethasone) Confirm Administered Dose 4 mg .ROUTE .STK-MED ONE Stop: 01/08/17 16:33 Dexamethasone (Dexamethasone) Confirm Administered Dose 4 mg .ROUTE .STK-MED ONE Stop: 01/09/17 09:49 Fentanyl (Sublimaze) Confirm Administered Dose 250 mcg .ROUTE .STK-MED ONE Stop: 01/08/17 16:33 Fentanyl (Sublimaze) Confirm Administered Dose 250 mcg .ROUTE .STK-MED ONE Stop: 01/09/17 09:49 Furosemide (Lasix) 60 mg IVPUSH ONETIME ONE Stop: 01/08/17 11:46 Last Admin: 01/08/17 11:53 Dose: 60 mg Furosemide (Lasix) 20 mg IVPUSH ONETIME ONE Stop: 01/11/17 06:23 Last Admin: 01/11/17 06:32 Dose: 20 mg Furosemide (Lasix) Confirm Administered Dose 20 mg .ROUTE .STK-MED ONE Stop: 01/11/17 06:32 Last Admin: 01/11/17 06:38 Dose: Not Given Glycopyrrolate () Confirm Administered Dose 1 mg .ROUTE .STK-MED ONE Stop: 01/08/17 16:33 Glycopyrrolate () Confirm Administered Dose 1 mg .ROUTE .STK-MED ONE Stop: 01/09/17 09:49 Sodium Chloride (Normal Saline) 1,000 mls @ 150 mls/hr IV ASDIRECTED [facility] Last Admin: 01/08/17 16:09 Dose: 150 mls/hr Sodium Chloride (Normal Saline) 1,000 mls @ 75 mls/hr IV ASDIRECTED [facility] Last Admin: 01/09/17 21:53 Dose: 75 mls/hr Potassium Chloride 20 meq/Lidocaine HCl 2 ml/ Sodium Chloride 112 mls @ 56 mls/ hr IV Q2H [facility] Stop: 01/09/17 16:29 Last Admin: 01/09/17 14:52 Dose: 56 mls/hr Metronidazole 500 mg/ Premix 100 mls @ 100 mls/hr IV ONCALL ONE Stop: 01/09/17 11:59 Last Admin: 01/09/17 10:11 Dose: 100 mls/hr Cefazolin Sodium/Dextrose 2 gm (/ Premix) 50 mls @ 100 mls/hr IV ONCALL ONE Stop: 01/09/17 10:59 Last Admin: 01/09/17 10:10 Dose: 100 mls/hr Sodium Chloride (Normal Saline) Confirm Administered Dose 250 mls @ as directed .ROUTE .STK-MED ONE Stop: 01/09/17 11:33 Sodium Chloride (Normal Saline) 1,000 mls @ 200 mls/hr IV ASDIRECTED [facility] Stop: 01/09/17 23:16 Last Admin: 01/09/17 22:14 Dose: 200 mls/hr Sodium Chloride (Normal Saline) 1,000 mls @ 200 mls/hr IV ASDIRECTED [facility] Stop: 01/10/17 02:16 Last Admin: 01/10/17 01:15 Dose: 200 mls/hr Sodium Chloride (Normal Saline) 1,000 mls @ 200 mls/hr IV ASDIRECTED [facility] Stop: 01/10/17 05:16 Last Admin: 01/10/17 04:14 Dose: 200 mls/hr Sodium Chloride (Normal Saline) 1,000 mls @ 125 mls/hr IV ASDIRECTED [facility] Last Admin: 01/11/17 02:52 Dose: 125 mls/hr Sodium Chloride (Normal Saline) 250 mls @ 200 mls/hr IV ASDIRECTED [facility] Stop: 01/10/17 21:31 Last Admin: 01/10/17 20:27 Dose: 200 mls/hr Sodium Chloride (Normal Saline) 1,000 mls @ 250 mls/hr IV ASDIRECTED [facility] Stop: 01/11/17 02:16 Last Admin: 01/10/17 22:37 Dose: 250 mls/hr Sodium Chloride (Normal Saline) 1,000 mls @ 999 mls/hr IV .BOLUS ONE Stop: 01/10/17 23:56 Last Admin: 01/10/17 23:10 Dose: 999 mls/hr Sodium Chloride (Normal Saline) 250 mls @ 200 mls/hr IV ASDIRECTED [facility] Stop: 01/11/17 05:16 Last Admin: 01/11/17 04:21 Dose: 200 mls/hr Ketamine HCl (Ketalar) Confirm Administered Dose 500 mg .ROUTE .STK-MED ONE Stop: 01/09/17 12:52 Magnesium Hydroxide (Milk Of Magnesia) 30 ml PO BID [facility] Last Admin: 01/10/17 10:01 Dose: Not Given Mometasone Furoate/Formoterol Fumar (Dulera 200-5 Mcg) 2 puff IH BID [facility] Last Admin: 01/08/17 20:43 Dose: 2 puff Neostigmine Methylsulfate (Neostigmine) Confirm Administered Dose 5 mg .ROUTE .STK-MED ONE Stop: 01/08/17 16:33 Neostigmine Methylsulfate (Neostigmine) Confirm Administered Dose 5 mg .ROUTE .STK-MED ONE Stop: 01/09/17 09:49 Ondansetron HCl (Zofran) Confirm Administered Dose 4 mg .ROUTE .STK-MED ONE Stop: 01/08/17 16:33 Ondansetron HCl (Zofran) Confirm Administered Dose 4 mg .ROUTE .STK-MED ONE Stop: 01/09/17 09:49 Phenylephrine HCl (Kiko-Synephrine) Confirm Administered Dose 10 mg .ROUTE .STK- MED ONE Stop: 01/09/17 11:33 Propofol (Diprivan 20 Ml) Confirm Administered Dose 200 mg .ROUTE .STK-MED ONE Stop: 01/08/17 16:33 Propofol (Diprivan 20 Ml) Confirm Administered Dose 200 mg .ROUTE .STK-MED ONE Stop: 01/09/17 09:49 Rocuronium Kell (Zemuron) Confirm Administered Dose 50 mg .ROUTE .STK-MED ONE Stop: 01/08/17 16:33 Rocuronium Kell (Zemuron) Confirm Administered Dose 50 mg .ROUTE .STK-MED ONE Stop: 01/09/17 09:49 Succinylcholine Chloride (Succinylcholine In Ns Pf) Confirm Administered Dose 200 mg .ROUTE .STK-MED ONE Stop: 01/08/17 16:33 Succinylcholine Chloride (Succinylcholine In Ns Pf) Confirm Administered Dose 200 mg .ROUTE .STK-MED ONE Stop: 01/09/17 09:49 - Exam Quality Assessment: supplemental oxygen, DVT prophylaxis General: alert, mild distress Lungs: Decreased breath sounds, Rhonchi. No: Crackles, Rales, Rub, Stridor, Wheezing Cardiovascular: Regular Rate, No Murmurs, Irregular Rhythm. No: Bradycardia, Tachycardia, Murmurs, Gallops Abdomen: bowel sounds present, soft, no distension, tenderness. No: rigidity, rebound, guarding Extremities: no edema Skin: warm, dry, intact Consult PN Assessment/Plan Procedures: Procedures AIRWAY INHALATION TREATMENT (10/21/16) APPLY FOREARM SPLINT (11/24/13) ASSAY OF CK (CPK) (10/21/16) ASSAY OF CREATININE (10/03/15) ASSAY OF LACTIC ACID (10/21/16) ASSAY OF MAGNESIUM (10/21/16) ASSAY OF NATRIURETIC PEPTIDE (10/21/16) ASSAY OF PHOSPHORUS (10/21/16) ASSAY OF TROPONIN QUANT (10/21/16) BLOOD CULTURE FOR BACTERIA (10/21/16) BLOOD GASES ANY COMBINATION (10/21/16) BLOOD TRANSFUSION SERVICE (02/01/15) BLOOD TYPING SEROLOGIC ABO (10/21/16) BLOOD TYPING SEROLOGIC RH(D) (10/21/16) CARCINOEMBRYONIC ANTIGEN (10/10/14) CARDIAC REHAB/MONITOR (04/24/14) CHEST X-RAY 1 VIEW FRONTAL (10/21/16) CHEST X-RAY 2VW FRONTAL&LATL (02/01/15) CMPLX RPR TRUNK 2.6-7.5 CM (03/28/15) COLONOSCOPY AND BIOPSY (10/10/14) COMPATIBILITY TEST ANTIGLOB (10/21/16) COMPATIBILITY TEST SPIN (10/21/16) COMPLETE CBC AUTOMATED (10/21/16) COMPLETE CBC W/AUTO DIFF WBC (10/21/16) COMPREHEN METABOLIC PANEL (10/21/16) CT ABD & PELV W/CONTRAST (10/21/16) CT THORAX W/DYE (10/11/14) CULTURE AEROBIC IDENTIFY (10/21/16) CULTURE OTHR SPECIMN AEROBIC (10/21/16) ELECTROCARDIOGRAM REPORT (10/21/16) ELECTROCARDIOGRAM TRACING (10/21/16) EMERGENCY DEPT VISIT (10/21/16) EMERGENCY DEPT VISIT (02/16/15) EMERGENCY DEPT VISIT (02/16/15) EMERGENCY DEPT VISIT (11/24/13) EMERGENCY DEPT VISIT (11/24/13) EVALUATE PT USE OF INHALER (10/21/16) EXTRACRANIAL BILAT STUDY (10/02/13) HEMOGLOBIN (10/21/16) HYDRATE IV INFUSION ADD-ON (10/21/16) IMMUNOHISTO ANTB 1ST STAIN (02/01/15) INFLUENZA ASSAY W/OPTIC (10/21/16) MEASURE BLOOD OXYGEN LEVEL (04/22/15) METABOLIC PANEL TOTAL CA (10/21/16) MICROBE SUSCEPTIBLE DIFFUSE (02/01/15) MICROBE SUSCEPTIBLE JHONNY (10/21/16) OCCULT BLD FECES 1-3 TESTS (10/21/16) OCCULT BLOOD OTHER SOURCES (10/21/16) POS AIRWAY PRESSURE CPAP (10/21/16) RBC ANTIBODY SCREEN (10/21/16) ROUTINE VENIPUNCTURE (10/21/16) SMEAR GRAM STAIN (10/21/16) THER/DIAG CONCURRENT INF (10/21/16) THER/PROPH/DIAG INJ SC/IM (11/24/13) THER/PROPH/DIAG IV INF ADDON (02/16/15) THER/PROPH/DIAG IV INF INIT (10/21/16) TISSUE EXAM BY PATHOLOGIST (02/01/15) TISSUE EXAM BY PATHOLOGIST (10/10/14) TTE W/DOPPLER COMPLETE (04/23/16) TX/PRO/DX INJ NEW DRUG ADDON (10/21/16) URINALYSIS AUTO W/SCOPE (10/21/16) URINE CULTURE/COLONY COUNT (02/01/15) WITHDRAWAL OF ARTERIAL BLOOD (10/21/16) X-RAY EXAM OF ABDOMEN (10/21/16) X-RAY EXAM OF WRIST (11/24/13) X-RAY EXAM SERIES ABDOMEN (10/21/16) Problem List Initiated/Reviewed/Updated: Yes My Orders last 24 hours: My Active Orders 01/11/17 09:41 Blood Culture x2 Reflex Set [OM.PC] Stat 01/11/17 09:50 CULTURE BLOOD [BC] Stat 01/11/17 10:00 Levofloxacin/Dextrose 5%-Water [Levaquin in D5W 500 MG/100 ML] 500 mg Premix Bag 1 bag IV Q24H 01/11/17 10:05 CULTURE BLOOD [BC] Stat 01/11/17 10:07 CULTURE URINE [RM] Routine 01/11/17 11:00 Piperacillin/Tazobactam/Dext [Zosyn in Dextrose Iso-Osmotic 3.375 GM] 3.375 gm Premix Bag 1 bag IV Q6H 01/11/17 12:08 CULTURE RESPIRATORY + SMEAR [RM] Routine Plan: Assessment and Plan - Parastomal hernia with small bowel obstruction - history of rectal cancer and is s/p partial colectomy and colostomy placement about 3 years ago. Status post hernia repair and mesh placement on 01/09. No bowel resection was necessary. Tolerating clear liquids. -Pain control and postop cares per Dr. Mccann -Scheduled and as needed nebulizers -Continue beta oziel Bilateral pneumonia-given current hospitalization we'll need to consider this a hospital-acquired pneumonia, possible aspiration -Blood and sputum cultures pending -IV Zosyn and levofloxacin Coronary artery disease - status post CABG about 5 years ago. no evidence for acute coronary syndrome or active anginal type symptoms. Vital signs have remained stable. -Continue medical management COPD - no history of oxygen dependence. No active wheezing. Urine output had tapered off during the night and he was given IV fluids, then developed increased shortness of breath secondary to fluid overload. He has been given IV Lasix and respiratory status has stabilized. -Nebulizers as above Paroxysmal atrial fibrillation - he did go into atrial fibrillation during surgery but his rate has remained well controlled. -Cardiac monitoring -Continue beta oziel -Restart calcium channel oziel
--- NOTE | 2017-01-11 13:21 | OR ---
DATE OF PROCEDURE: 01/08/2017 PROCEDURES: 1. Repair of incarcerated peristomal hernia with mesh. 2. Repair of ventral hernia. COMPLICATIONS: None. FAMILY EDUCATOR: None. ANESTHESIA: Epidural/general. INDICATIONS: A pleasant gentleman with a peristomal hernia who is a high risk surgical candidate requiring definitive repair. The patient was treated with a nonoperative course over the last 24 hours, he was refractory to this. PREPROCEDURE DIAGNOSIS: Parastomal hernia and ventral hernia. POSTOPERATIVE DIAGNOSIS: Parastomal hernia and ventral hernia. FINDINGS: 1. Incarcerated parastomal hernia. 2. Ventral hernia, 3 cm. PROCEDURE IN DETAIL: The patient was placed in supine position. The previous midline abdominal incision would be opened. This was opened by a #15 blade and carried down with electrocautery. Orestes clamps were used to elevate the abdomen and the abdomen was entered without abnormality. No evidence of enterotomy or other abnormalities were noted during this entry point. The parastomal hernia was identified and was noted to be incarcerated with small bowel. This was reduced slowly and gently and able was to be reduced with minimal scar tissue noted. The hernia defect was on the medial aspect and was approximately 3 cm in size. This was then be repaired in a modified moran whole technique using a large paraesophageal hernia repair mesh. This was repaired by placing 5-Vicryl sutures in a circumferential fashion around this, passing them through the fascia and the fascial closure device and approximating, but not strangulated and sutured this stitches. Once this was completed, a Pro Tacker system was used to tack around this. During the entire procedure of securing it, careful attention was made not tack or stitch the bowel. The tails of this were also approximated with 3-0 Vicryl. The diagnostic laparotomy was also performed prior to this as the patient has a history of renal cell cancer. There was no nodularity, no studding, the liver was smooth. No evidence of cancer recurrence was noted. Once this was tacked into place. The keyhole was inspected. There was very mild tension, but plenty of space approximately one finger that could be passed between the mesh and the ostomy itself. There was also no abnormal undue ankle noted on the bowel. It was also noted that there was a 3 cm ventral hernia. This was repaired by primary closure with sutures and compressing this in to the midline abdominal wound by #1 Vicryl sutures, blunt. Once this hernia was closed and the fascia was closed and the skin was thoroughly irrigated. The skin was closed with geo. Of note, the ostomy had been covered the entire time by Tegaderm. The dressing for the skin was then placed and then the ostomy bag was applied. The patient tolerated the procedure well. Kana Mccann MD /[id number]
[2017-01-11] MEDS ORDERED: Vancomycin 1 GM SDV IV SCH (14:00)
[2017-01-11] MEDS ORDERED: Vancomycin 1.2 GM in Sodium Chloride 0.9% 250 ML IV ONE (14:00)
[2017-01-11] MEDS ORDERED: Lactulose Soln 10 GM/15 ML 15 ML UD Cup PO SCH (17:00)
[2017-01-12] MEDS: Sodium Chloride 0.9% 1,000 ML IV SCH ×3 (01:14→21:01)
[2017-01-12] MEDS: Piperacillin/Tazobactam/Dext 3.375 GM in Premix Bag 1 BAG IV SCH ×4 (04:40→22:54)
[2017-01-12] MEDS: Albuterol/Ipratropium 3.0-0.5 MG/3 ML Neb Soln NEB SCH ×4 (07:05→20:45)
[2017-01-12] MEDS: Formoterol/Mometasone 200-5 MCG 8.8 GM Inhaler IH SCH ×2 (07:05→20:45)
[2017-01-12] MEDS: Carvedilol 25 MG Tab PO SCH ×2 (08:53→20:45)
[2017-01-12] MEDS: Aspirin 81 MG Tab.EC PO SCH (08:53)
[2017-01-12] MEDS: Diltiazem 120 MG Cap.CD PO SCH (08:53)
[2017-01-12] MEDS: Acetaminophen/HYDROcodone 325-5 MG Tab PO PRN ×2 (08:59→17:24)
[2017-01-12] MEDS: Levofloxacin/Dextrose 5%-Water 500 MG in Premix Bag 1 BAG IV SCH (09:30)
--- NOTE | 2017-01-12 10:51 | CR ---
Chest 1V Frontal INDICATION: fever FINDINGS: Comparison 01/11/2017. Sternotomy. Heart size is accentuated by portable AP technique. Patc hy infiltrates in the right mid and lower lung, and left lower lung, similar to prior exam. Mild int erval enlargement of small bilateral pleural effusions.
--- NOTE | 2017-01-12 10:51 | CR ---
Abdomen 1V Flat INDICATION: post surgical FINDINGS: Dilated loops of small bowel in the upper abdomen. Surgical skin geo. Scattered degene rative changes.
--- NOTE | 2017-01-12 11:35 | PCM.CONSN ---
- General Info Date of Service: 01/12/17 Functional Status: Reports: pain controlled, tolerating diet, ambulating - Review of Systems General: Reports: Fever, Weakness. Denies: Chills Pulmonary: Reports: shortness of breath, cough. Denies: sputum, hemoptysis, wheezing Cardiovascular: Reports: Dyspnea on Exertion, Edema. Denies: Chest Pain, Palpitations, Orthopnea, PND Gastrointestinal: Reports: Abdominal pain. Denies: Difficulty swallowing, Nausea, Vomiting Systems Review Comment:: This patient has shown evidence of improvement over the past 24 hours, there has been less shortness of breath. Oxygenation has remained adequate and vital signs have been stable. No significant temperature elevation since yesterday morning. He has had ongoing difficulty with confusion, minimal agitation. - Patient Data Vitals - most recent: Last Vital Signs Temp 99.5 F 01/12/17 10:00 Pulse 76 01/12/17 10:46 Resp 18 01/12/17 10:00 BP 133/68 01/12/17 10:00 Pulse Ox 92 L 01/12/17 10:00 Weight - most recent: 131 lb 9.608 oz I&O - last 24 hours: Intake & Output 01/11/17 01/12/17 01/12/17 22:59 06:59 14:59 Intake Total 950 1535 270 Output Total 147 200 365 Balance 803 1335 -95 Lab Results last 24 hrs: Laboratory Results - last 24 hr 01/12/17 01/12/17 Range/Units 04:45 04:45 WBC 5.1 (4.5-11.0) K/uL RBC 3.96 L (4.30-5.90) M/uL Hgb 11.1 L (12.0-15.0) g/dL Hct 36.5 L (40.0-54.0) % MCV 92 (80-98) fL MCH 28 (27-31) pg MCHC 30 L (32-36) % Plt Count 151 (150-400) K/uL Sodium 146 (140-148) mmol/L Potassium 3.9 (3.6-5.2) mmol/L Chloride 111 H (100-108) mmol/L Carbon Dioxide 27 (21-32) mmol/L Anion Gap 11.9 (5.0-14.0) mmol/L BUN 38 H (7-18) mg/dL Creatinine 1.1 (0.8-1.3) mg/dL Est Cr Clr Drug Dosing 42.21 mL/min Estimated GFR (MDRD) > 60 (>60) Glucose 149 H (74-106) mg/dL Calcium 8.2 L (8.5-10.1) mg/dL [id number] Pept 4620 H (5-450) pg/mL Neto Results last 24 hrs: Microbiology 01/11/17 10:05 Aerobic Blood Culture - Preliminary Blood - Venous - Lab Draw NO GROWTH AFTER 1 DAY Anaerobic Blood Culture - Preliminary NO GROWTH AFTER 1 DAY 01/11/17 09:50 Aerobic Blood Culture - Preliminary Blood - Venous NO GROWTH AFTER 1 DAY Anaerobic Blood Culture - Preliminary NO GROWTH AFTER 1 DAY 01/11/17 12:08 Gram Stain - Final Other - Expectorated Respiratory Culture - Preliminary 01/11/17 10:07 Urine Culture - Preliminary Urine, Bazan Cath (Indwelling) NO GROWTH AFTER 1 DAY Med Orders - Current: Current Medications Acetaminophen/Hydrocodone Bitart ([place] 325-5 Mg) 2 tab PO Q4H PRN PRN Reason: Pain (moderate 4-6) Last Admin: 01/12/17 08:59 Dose: 1 tab Albuterol (Proventil Neb Soln) 2.5 mg NEB Q4H PRN PRN Reason: Shortness of Breath Last Admin: 01/11/17 04:21 Dose: 2.5 mg Albuterol/Ipratropium (Duoneb 3.0-0.5 Mg/3 Ml) 3 ml NEB QIDRT [facility] Last Admin: 01/12/17 10:46 Dose: 3 ml Aspirin (Halfprin) 81 mg PO DAILY [facility] Last Admin: 01/12/17 08:53 Dose: 81 mg Benzocaine/Menthol (Cepacol Sore Throat) 1 lozenge MUCMEM Q1H PRN PRN Reason: Sore Throat Carvedilol (Coreg) 25 mg PO BID [facility] Last Admin: 01/12/17 08:53 Dose: 25 mg Diltiazem HCl (Cardizem Cd) 120 mg PO DAILY [facility] Last Admin: 01/12/17 08:53 Dose: 120 mg Diphenhydramine HCl (Benadryl) 50 mg IVPUSH Q4H PRN PRN Reason: Itching Docusate Sodium (Colace) 100 mg PO BID PRN PRN Reason: Constipation Enoxaparin Sodium (Lovenox) 40 mg SUBCUT BEDTIME [facility] Fentanyl (Sublimaze) 25 mcg IVPUSH Q1H PRN PRN Reason: Pain (moderate 4-6) Last Admin: 01/11/17 05:15 Dose: 25 mcg Fentanyl 2,500 mcg/ Sodium (Chloride) 250 mls @ 0 mls/hr EPIDUR TITRATE ZURDO; Titrate PRN Reason: Protocol Last Titration: 01/10/17 10:52 Dose: 0 mls/hr, 0 mls/hr Sodium Chloride (Normal Saline) 1,000 mls @ 125 mls/hr IV ASDIRECTED [facility] Last Admin: 01/12/17 09:09 Dose: 100 mls/hr Levofloxacin/Dextrose 500 mg/ (Premix) 100 mls @ 100 mls/hr IV Q24H [facility] Last Admin: 01/12/17 09:30 Dose: 100 mls/hr Piperacillin/Tazobactam/ (Dextrose 3.375 gm/ Premix) 50 mls @ 100 mls/hr IV Q6H [facility] Last Admin: 01/12/17 11:01 Dose: 100 mls/hr Vancomycin HCl 1 gm/ Sodium (Chloride) 250 mls @ 167 mls/hr IV Q24H [facility] Mometasone Furoate/Formoterol Fumar (Dulera 200-5 Mcg) 2 puff IH BIDRT [facility] Last Admin: 01/12/17 07:05 Dose: 2 puff Naloxone HCl (Narcan) 0.1 mg IVPUSH Q5M PRN PRN Reason: RESP RATE LESS THAN 6/MINUTE Naloxone HCl (Narcan) 0.4 mg IV ASDIRECTED PRN PRN Reason: ITCHING Promethazine HCl (Phenergan) 25 mg IM Q6H PRN PRN Reason: Nausea Discontinued Medications Dexamethasone (Dexamethasone) Confirm Administered Dose 4 mg .ROUTE .STK-MED ONE Stop: 01/08/17 16:33 Dexamethasone (Dexamethasone) Confirm Administered Dose 4 mg .ROUTE .STK-MED ONE Stop: 01/09/17 09:49 Enoxaparin Sodium (Lovenox) 40 mg SUBCUT DAILY [facility] Last Admin: 01/11/17 10:11 Dose: Not Given Fentanyl (Sublimaze) Confirm Administered Dose 250 mcg .ROUTE .STK-MED ONE Stop: 01/08/17 16:33 Fentanyl (Sublimaze) Confirm Administered Dose 250 mcg .ROUTE .K-MED ONE Stop: 01/09/17 09:49 Furosemide (Lasix) 60 mg IVPUSH ONETIME ONE Stop: 01/08/17 11:46 Last Admin: 01/08/17 11:53 Dose: 60 mg Furosemide (Lasix) 20 mg IVPUSH ONETIME ONE Stop: 01/11/17 06:23 Last Admin: 01/11/17 06:32 Dose: 20 mg Furosemide (Lasix) Confirm Administered Dose 20 mg .ROUTE .K-MED ONE Stop: 01/11/17 06:32 Last Admin: 01/11/17 06:38 Dose: Not Given Glycopyrrolate () Confirm Administered Dose 1 mg .ROUTE .STK-MED ONE Stop: 01/08/17 16:33 Glycopyrrolate () Confirm Administered Dose 1 mg .ROUTE .K-MED ONE Stop: 01/09/17 09:49 Sodium Chloride (Normal Saline) 1,000 mls @ 150 mls/hr IV ASDIRECTED [facility] Last Admin: 01/08/17 16:09 Dose: 150 mls/hr Sodium Chloride (Normal Saline) 1,000 mls @ 75 mls/hr IV ASDIRECTED [facility] Last Admin: 01/09/17 21:53 Dose: 75 mls/hr Potassium Chloride 20 meq/Lidocaine HCl 2 ml/ Sodium Chloride 112 mls @ 56 mls/ hr IV Q2H [facility] Stop: 01/09/17 16:29 Last Admin: 01/09/17 14:52 Dose: 56 mls/hr Metronidazole 500 mg/ Premix 100 mls @ 100 mls/hr IV ONCALL ONE Stop: 01/09/17 11:59 Last Admin: 01/09/17 10:11 Dose: 100 mls/hr Cefazolin Sodium/Dextrose 2 gm (/ Premix) 50 mls @ 100 mls/hr IV ONCALL ONE Stop: 01/09/17 10:59 Last Admin: 01/09/17 10:10 Dose: 100 mls/hr Sodium Chloride (Normal Saline) Confirm Administered Dose 250 mls @ as directed .ROUTE .STK-MED ONE Stop: 01/09/17 11:33 Sodium Chloride (Normal Saline) 1,000 mls @ 200 mls/hr IV ASDIRECTED ZURDO Stop: 01/09/17 23:16 Last Admin: 01/09/17 22:14 Dose: 200 mls/hr Sodium Chloride (Normal Saline) 1,000 mls @ 200 mls/hr IV ASDIRECTED ZURDO Stop: 01/10/17 02:16 Last Admin: 01/10/17 01:15 Dose: 200 mls/hr Sodium Chloride (Normal Saline) 1,000 mls @ 200 mls/hr IV ASDIRECTED ZURDO Stop: 01/10/17 05:16 Last Admin: 01/10/17 04:14 Dose: 200 mls/hr Sodium Chloride (Normal Saline) 1,000 mls @ 125 mls/hr IV ASDIRECTED [facility] Last Admin: 01/11/17 02:52 Dose: 125 mls/hr Sodium Chloride (Normal Saline) 250 mls @ 200 mls/hr IV ASDIRECTED [facility] Stop: 01/10/17 21:31 Last Admin: 01/10/17 20:27 Dose: 200 mls/hr Sodium Chloride (Normal Saline) 1,000 mls @ 250 mls/hr IV ASDIRECTED [facility] Stop: 01/11/17 02:16 Last Admin: 01/10/17 22:37 Dose: 250 mls/hr Sodium Chloride (Normal Saline) 1,000 mls @ 999 mls/hr IV .BOLUS ONE Stop: 01/10/17 23:56 Last Admin: 01/10/17 23:10 Dose: 999 mls/hr Sodium Chloride (Normal Saline) 250 mls @ 200 mls/hr IV ASDIRECTED [facility] Stop: 01/11/17 05:16 Last Admin: 01/11/17 04:21 Dose: 200 mls/hr Vancomycin HCl 1.2 gm/ Sodium (Chloride) 250 mls @ 167 mls/hr IV ONETIME ONE Stop: 01/11/17 15:29 Last Admin: 01/11/17 13:47 Dose: 167 mls/hr Ketamine HCl (Ketalar) Confirm Administered Dose 500 mg .ROUTE .STK-MED ONE Stop: 01/09/17 12:52 Lactulose (Chronulac) 30 gm PO DAILY [facility] Last Admin: 01/11/17 18:18 Dose: 30 gm Magnesium Hydroxide (Milk Of Magnesia) 30 ml PO BID [facility] Last Admin: 01/11/17 21:11 Dose: 30 ml Magnesium Hydroxide (Milk Of Magnesia) 30 ml PO BID [facility] Last Admin: 01/10/17 10:01 Dose: Not Given Mometasone Furoate/Formoterol Fumar (Dulera 200-5 Mcg) 2 puff IH BID [facility] Last Admin: 01/08/17 20:43 Dose: 2 puff Neostigmine Methylsulfate (Neostigmine) Confirm Administered Dose 5 mg .ROUTE .STK-MED ONE Stop: 01/08/17 16:33 Neostigmine Methylsulfate (Neostigmine) Confirm Administered Dose 5 mg .ROUTE .STK-MED ONE Stop: 01/09/17 09:49 Ondansetron HCl (Zofran) Confirm Administered Dose 4 mg .ROUTE .STK-MED ONE Stop: 01/08/17 16:33 Ondansetron HCl (Zofran) Confirm Administered Dose 4 mg .ROUTE .STK-MED ONE Stop: 01/09/17 09:49 Phenylephrine HCl (Kiko-Synephrine) Confirm Administered Dose 10 mg .ROUTE .STK- MED ONE Stop: 01/09/17 11:33 Propofol (Diprivan 20 Ml) Confirm Administered Dose 200 mg .ROUTE .STK-MED ONE Stop: 01/08/17 16:33 Propofol (Diprivan 20 Ml) Confirm Administered Dose 200 mg .ROUTE .STK-MED ONE Stop: 01/09/17 09:49 Rocuronium Pitcher (Zemuron) Confirm Administered Dose 50 mg .ROUTE .STK-MED ONE Stop: 01/08/17 16:33 Rocuronium Pitcher (Zemuron) Confirm Administered Dose 50 mg .ROUTE .STK-MED ONE Stop: 01/09/17 09:49 Succinylcholine Chloride (Succinylcholine In Ns Pf) Confirm Administered Dose 200 mg .ROUTE .STK-MED ONE Stop: 01/08/17 16:33 Succinylcholine Chloride (Succinylcholine In Ns Pf) Confirm Administered Dose 200 mg .ROUTE .STK-MED ONE Stop: 01/09/17 09:49 Vancomycin HCl (Vancomycin) 1 gm IV .PHARMACY TO DOSE [facility] Stop: 01/11/17 18:00 - Exam Quality Assessment: supplemental oxygen, DVT prophylaxis General: alert, cooperative, mild distress Lungs: Decreased breath sounds, Crackles. No: Rales, Rhonchi, Wheezing Cardiovascular: Regular Rate, No Murmurs, Irregular Rhythm. No: Bradycardia, Tachycardia Abdomen: bowel sounds present, no distension, tenderness. No: rigidity, rebound , guarding Extremities: edema Skin: warm, dry, intact Consult PN Assessment/Plan Procedures: Procedures AIRWAY INHALATION TREATMENT (10/21/16) APPLY FOREARM SPLINT (11/24/13) ASSAY OF CK (CPK) (10/21/16) ASSAY OF CREATININE (10/03/15) ASSAY OF LACTIC ACID (10/21/16) ASSAY OF MAGNESIUM (10/21/16) ASSAY OF NATRIURETIC PEPTIDE (10/21/16) ASSAY OF PHOSPHORUS (10/21/16) ASSAY OF TROPONIN QUANT (10/21/16) BLOOD CULTURE FOR BACTERIA (10/21/16) BLOOD GASES ANY COMBINATION (10/21/16) BLOOD TRANSFUSION SERVICE (02/01/15) BLOOD TYPING SEROLOGIC ABO (10/21/16) BLOOD TYPING SEROLOGIC RH(D) (10/21/16) CARCINOEMBRYONIC ANTIGEN (10/10/14) CARDIAC REHAB/MONITOR (04/24/14) CHEST X-RAY 1 VIEW FRONTAL (10/21/16) CHEST X-RAY 2VW FRONTAL&LATL (02/01/15) CMPLX RPR TRUNK 2.6-7.5 CM (03/28/15) COLONOSCOPY AND BIOPSY (10/10/14) COMPATIBILITY TEST ANTIGLOB (10/21/16) COMPATIBILITY TEST SPIN (10/21/16) COMPLETE CBC AUTOMATED (10/21/16) COMPLETE CBC W/AUTO DIFF WBC (10/21/16) COMPREHEN METABOLIC PANEL (10/21/16) CT ABD & PELV W/CONTRAST (10/21/16) CT THORAX W/DYE (10/11/14) CULTURE AEROBIC IDENTIFY (10/21/16) CULTURE OTHR SPECIMN AEROBIC (10/21/16) ELECTROCARDIOGRAM REPORT (10/21/16) ELECTROCARDIOGRAM TRACING (10/21/16) EMERGENCY DEPT VISIT (10/21/16) EMERGENCY DEPT VISIT (02/16/15) EMERGENCY DEPT VISIT (02/16/15) EMERGENCY DEPT VISIT (11/24/13) EMERGENCY DEPT VISIT (11/24/13) EVALUATE PT USE OF INHALER (10/21/16) EXTRACRANIAL BILAT STUDY (10/02/13) HEMOGLOBIN (10/21/16) HYDRATE IV INFUSION ADD-ON (10/21/16) IMMUNOHISTO ANTB 1ST STAIN (02/01/15) INFLUENZA ASSAY W/OPTIC (10/21/16) MEASURE BLOOD OXYGEN LEVEL (04/22/15) METABOLIC PANEL TOTAL CA (10/21/16) MICROBE SUSCEPTIBLE DIFFUSE (02/01/15) MICROBE SUSCEPTIBLE NETO (10/21/16) OCCULT BLD FECES 1-3 TESTS (10/21/16) OCCULT BLOOD OTHER SOURCES (10/21/16) POS AIRWAY PRESSURE CPAP (10/21/16) RBC ANTIBODY SCREEN (10/21/16) ROUTINE VENIPUNCTURE (10/21/16) SMEAR GRAM STAIN (10/21/16) THER/DIAG CONCURRENT INF (10/21/16) THER/PROPH/DIAG INJ SC/IM (11/24/13) THER/PROPH/DIAG IV INF ADDON (02/16/15) THER/PROPH/DIAG IV INF INIT (10/21/16) TISSUE EXAM BY PATHOLOGIST (02/01/15) TISSUE EXAM BY PATHOLOGIST (10/10/14) TTE W/DOPPLER COMPLETE (04/23/16) TX/PRO/DX INJ NEW DRUG ADDON (10/21/16) URINALYSIS AUTO W/SCOPE (10/21/16) URINE CULTURE/COLONY COUNT (02/01/15) WITHDRAWAL OF ARTERIAL BLOOD (10/21/16) X-RAY EXAM OF ABDOMEN (10/21/16) X-RAY EXAM OF WRIST (11/24/13) X-RAY EXAM SERIES ABDOMEN (10/21/16) Problem List Initiated/Reviewed/Updated: Yes My Orders last 24 hours: My Active Orders 01/11/17 11:00 Piperacillin/Tazobactam/Dext [Zosyn in Dextrose Iso-Osmotic 3.375 GM] 3.375 gm Premix Bag 1 bag IV Q6H 01/11/17 12:08 CULTURE RESPIRATORY + SMEAR [RM] Routine 01/12/17 14:00 Vancomycin 1 gm Sodium Chloride 0.9% [Normal Saline] 250 ml IV Q24H 01/13/17 05:00 BASIC METABOLIC PANEL,BMP [CHEM] Timed CBC WITH AUTO DIFF [HEME] Timed MAGNESIUM [CHEM] Timed Plan: Assessment and Plan - Parastomal hernia with small bowel obstruction - history of rectal cancer and is s/p partial colectomy and colostomy placement about 3 years ago. Status post hernia repair and mesh placement on 01/09. No bowel resection was necessary. Tolerating clear liquids. -Pain control and postop cares per Dr. Mccann -Scheduled and as needed nebulizers -Continue beta oziel Right lung pneumonia-given current hospitalization we'll need to consider this a hospital-acquired pneumonia, possible aspiration. Respiratory status has improved over the past 24 hours and he has been able to walk short distances -Blood and sputum cultures pending -IV Zosyn, vancomycin, and levofloxacin pending culture results Coronary artery disease - status post CABG about 5 years ago. no evidence for acute coronary syndrome or active anginal type symptoms. Vital signs have remained stable. -Continue medical management COPD - no history of oxygen dependence. No active wheezing. Urine output had tapered off during the night and he was given IV fluids, then developed increased shortness of breath secondary to fluid overload. He has been given IV Lasix and respiratory status has stabilized. Continues to require supplemental oxygen likely secondary to right lung pneumonia. -Nebulizers as above Paroxysmal atrial fibrillation - he did go into atrial fibrillation during surgery but his rate has remained well controlled. -Cardiac monitoring -Continue beta oziel -Restart calcium channel oziel
--- NOTE | 2017-01-12 16:42 | PN ---
DATE OF SERVICE: 01/12/2017 SUBJECTIVE: The patient continues to do well both this morning and this afternoon. The ostomy output has started. OBJECTIVE: VITAL SIGNS: He is afebrile. Blood pressure 136/68, pulse 76, respirations 20, he is 95% on 2 L. CARDIOVASCULAR: Regular rhythm and rate. LUNGS: Clear to auscultation bilaterally. SKIN: The incision dressing is intact. LABORATORY RESULTS: Show again a normal white blood cell count, hemoglobin stable at 11. Basic metabolic panel is essentially normal. ASSESSMENT: Status post repair of peristomal hernia. PLAN: We will advance his diet today. We will continue same antibiotics. We will work with the hospitalist service continue to work on his respiratory status. His confusion has also improved. We will remove his epidural, and we will place him on Lovenox today. Anticipation of transfer from the ICU in the next 24-48 hours. Kana Mccann MD /[id number]
[2017-01-12] MEDS: Enoxaparin 40 MG/0.4 ML Syringe SUBCUT SCH (20:45)
[2017-01-13] MEDS: Piperacillin/Tazobactam/Dext 3.375 GM in Premix Bag 1 BAG IV SCH ×4 (04:31→23:03)
[2017-01-13] MEDS: Sodium Chloride 0.9% 1,000 ML IV SCH ×2 (05:31→16:03)
[2017-01-13] MEDS: Formoterol/Mometasone 200-5 MCG 8.8 GM Inhaler IH SCH ×2 (07:05→21:11)
[2017-01-13] MEDS: Albuterol/Ipratropium 3.0-0.5 MG/3 ML Neb Soln NEB SCH ×4 (07:05→21:13)
[2017-01-13] MEDS: Acetaminophen/HYDROcodone 325-5 MG Tab PO PRN (08:34)
[2017-01-13] MEDS: Aspirin 81 MG Tab.EC PO SCH (08:35)
[2017-01-13] MEDS: Carvedilol 25 MG Tab PO SCH ×2 (08:35→21:10)
[2017-01-13] MEDS: Diltiazem 120 MG Cap.CD PO SCH (08:35)
[2017-01-13] MEDS ORDERED: Potassium Chloride 20 MEQ Tab.ER PO ONE (09:00)
--- NOTE | 2017-01-13 09:06 | PN ---
DATE OF SERVICE: 01/13/2017 SUBJECTIVE: The patient is unchanged from yesterday. He is still having some confusion consistent with his previous hospitalizations. However, his ostomy output is excellent. His urine output is meeting its ohara. He is tolerating his diet and his vital signs are improving/stable. OBJECTIVE: VITAL SIGNS: Stable. CARDIOVASCULAR: Regular rhythm and rate. RESPIRATORY: Lungs clear to consultation bilaterally. ABDOMEN: Incision healing well. Ostomy output is excellent. LABORATORY RESULTS: Pending. ASSESSMENT AND PLAN: 1. Parastomal hernia. He appears to be recovering from this very well. The ostomy output is doing well. There is no evidence of complications or problems with respect to this. 2. Infectious disease. The incision is healing well. He is responding well to antibiotics. Hospital service continues to manage him with respect to this. 3. Mental status. The patient is mildly to moderately confused. This has happened during all hospitalizations and he had shows some signs of improvement. 4. General status. We will keep the patient in ICU at this time. We will also keep his Bazan catheter in due to concern of urinary output at this time. Kana Mccann MD /[id number]
--- NOTE | 2017-01-13 09:17 | PCM.PN ---
- General Info Date of Service: 01/13/17 Functional Status: Reports: pain controlled, tolerating diet, ambulating - Review of Systems General: Reports: Weakness. Denies: Fever, Chills Pulmonary: Reports: shortness of breath, cough, sputum, wheezing. Denies: pleuritic chest pain, hemoptysis Cardiovascular: Reports: Dyspnea on Exertion. Denies: Chest Pain, Palpitations , Orthopnea, PND, Edema Gastrointestinal: Reports: No symptoms Psychiatric: Reports: confusion, hallucinations Systems Review Comment:: This patient continues to experience episodes of confusion and paranoia, he does have some underlying mild to moderate dementia. Respiratory status seems to be stabilizing with treatment of the pneumonia. He is doing well concerning the surgery with good ostomy output and oral intake. Vital signs have been stable and he has remained afebrile. - Patient Data Vitals - most recent: Last Vital Signs Temp 99 F 01/13/17 08:00 Pulse 85 01/13/17 08:35 Resp 22 H 01/13/17 08:00 BP 161/70 H 01/13/17 08:35 Pulse Ox 93 L 01/13/17 08:00 Weight - most recent: 155 lb 6.814 oz I&O - last 24 hours: Intake & Output 01/12/17 01/13/17 01/13/17 22:59 06:59 14:59 Intake Total 986 1432 Output Total 765 405 175 Balance 221 1027 -175 Lab Results last 24 hrs: Laboratory Results - last 24 hr 01/13/17 01/13/17 Range/Units 05:57 05:57 WBC 6.2 (4.5-11.0) K/uL RBC 3.63 L (4.30-5.90) M/uL Hgb 10.3 L (12.0-15.0) g/dL Hct 33.1 L (40.0-54.0) % MCV 91 (80-98) fL MCH 28 (27-31) pg MCHC 31 L (32-36) % Plt Count 151 (150-400) K/uL Neut % (Auto) 67 H (36-66) % Lymph % (Auto) 15 L (24-44) % Nolan % (Auto) 16 H (2-6) % Eos % (Auto) 2 (2-4) % Baso % (Auto) 0 (0-1) % Sodium 148 (140-148) mmol/L Potassium 3.4 L (3.6-5.2) mmol/L Chloride 114 H (100-108) mmol/L Carbon Dioxide 27 (21-32) mmol/L Anion Gap 10.4 (5.0-14.0) mmol/L BUN 29 H (7-18) mg/dL Creatinine 0.8 (0.8-1.3) mg/dL Est Cr Clr Drug Dosing 67.67 mL/min Estimated GFR (MDRD) > 60 (>60) Glucose 125 H (74-106) mg/dL Calcium 7.9 L (8.5-10.1) mg/dL Magnesium 1.9 (1.8-2.4) mg/dL Neto Results last 24 hrs: Microbiology 01/11/17 12:08 Gram Stain - Final Other - Expectorated Respiratory Culture - Preliminary 01/11/17 10:07 Urine Culture - Final Urine, Bazan Cath (Indwelling) NO GROWTH AFTER 2 DAYS 01/11/17 10:05 Aerobic Blood Culture - Preliminary Blood - Venous - Lab Draw NO GROWTH AFTER 1 DAY Anaerobic Blood Culture - Preliminary NO GROWTH AFTER 1 DAY 01/11/17 09:50 Aerobic Blood Culture - Preliminary Blood - Venous NO GROWTH AFTER 1 DAY Anaerobic Blood Culture - Preliminary NO GROWTH AFTER 1 DAY Med Orders - Current: Current Medications Acetaminophen/Hydrocodone Bitart (Wells 325-5 Mg) 2 tab PO Q4H PRN PRN Reason: Pain (moderate 4-6) Last Admin: 01/13/17 08:34 Dose: 1 tab Albuterol (Proventil Neb Soln) 2.5 mg NEB Q4H PRN PRN Reason: Shortness of Breath Last Admin: 01/11/17 04:21 Dose: 2.5 mg Albuterol/Ipratropium (Duoneb 3.0-0.5 Mg/3 Ml) 3 ml NEB QIDRT [facility] Last Admin: 01/13/17 07:05 Dose: 3 ml Aspirin (Halfprin) 81 mg PO DAILY [facility] Last Admin: 01/13/17 08:35 Dose: 81 mg Benzocaine/Menthol (Cepacol Sore Throat) 1 lozenge MUCMEM Q1H PRN PRN Reason: Sore Throat Carvedilol (Coreg) 25 mg PO BID [facility] Last Admin: 01/13/17 08:35 Dose: 25 mg Diltiazem HCl (Cardizem Cd) 120 mg PO DAILY [facility] Last Admin: 01/13/17 08:35 Dose: 120 mg Diphenhydramine HCl (Benadryl) 50 mg IVPUSH Q4H PRN PRN Reason: Itching Docusate Sodium (Colace) 100 mg PO BID PRN PRN Reason: Constipation Enoxaparin Sodium (Lovenox) 40 mg SUBCUT BEDTIME [facility] Last Admin: 01/12/17 20:45 Dose: 40 mg Fentanyl (Sublimaze) 25 mcg IVPUSH Q1H PRN PRN Reason: Pain (moderate 4-6) Last Admin: 01/11/17 05:15 Dose: 25 mcg Haloperidol (Haldol) 1 mg PO Q2H PRN PRN Reason: Agitation Sodium Chloride (Normal Saline) 1,000 mls @ 125 mls/hr IV ASDIRECTED [facility] Last Admin: 01/13/17 05:31 Dose: 100 mls/hr Levofloxacin/Dextrose 500 mg/ (Premix) 100 mls @ 100 mls/hr IV Q24H [facility] Last Admin: 01/12/17 09:30 Dose: 100 mls/hr Piperacillin/Tazobactam/ (Dextrose 3.375 gm/ Premix) 50 mls @ 100 mls/hr IV Q6H [facility] Last Admin: 01/13/17 04:31 Dose: 100 mls/hr Vancomycin HCl 1 gm/ Sodium (Chloride) 250 mls @ 167 mls/hr IV Q24H [facility] Last Admin: 01/12/17 13:58 Dose: 167 mls/hr Lorazepam (Ativan) 0.25 mg PO Q2H PRN PRN Reason: Agitation Mometasone Furoate/Formoterol Fumar (Dulera 200-5 Mcg) 2 puff IH BIDRT [facility] Last Admin: 01/13/17 07:05 Dose: 2 puff Promethazine HCl (Phenergan) 25 mg IM Q6H PRN PRN Reason: Nausea Discontinued Medications Dexamethasone (Dexamethasone) Confirm Administered Dose 4 mg .ROUTE .STK-MED ONE Stop: 01/08/17 16:33 Dexamethasone (Dexamethasone) Confirm Administered Dose 4 mg .ROUTE .STK-MED ONE Stop: 01/09/17 09:49 Enoxaparin Sodium (Lovenox) 40 mg SUBCUT DAILY [facility] Last Admin: 01/11/17 10:11 Dose: Not Given Fentanyl (Sublimaze) Confirm Administered Dose 250 mcg .ROUTE .STK-MED ONE Stop: 01/08/17 16:33 Fentanyl (Sublimaze) Confirm Administered Dose 250 mcg .ROUTE .STK-MED ONE Stop: 01/09/17 09:49 Furosemide (Lasix) 60 mg IVPUSH ONETIME ONE Stop: 01/08/17 11:46 Last Admin: 01/08/17 11:53 Dose: 60 mg Furosemide (Lasix) 20 mg IVPUSH ONETIME ONE Stop: 01/11/17 06:23 Last Admin: 01/11/17 06:32 Dose: 20 mg Furosemide (Lasix) Confirm Administered Dose 20 mg .ROUTE .STK-MED ONE Stop: 01/11/17 06:32 Last Admin: 01/11/17 06:38 Dose: Not Given Glycopyrrolate () Confirm Administered Dose 1 mg .ROUTE .STK-MED ONE Stop: 01/08/17 16:33 Glycopyrrolate () Confirm Administered Dose 1 mg .ROUTE .STK-MED ONE Stop: 01/09/17 09:49 Sodium Chloride (Normal Saline) 1,000 mls @ 150 mls/hr IV ASDIRECTED [facility] Last Admin: 01/08/17 16:09 Dose: 150 mls/hr Sodium Chloride (Normal Saline) 1,000 mls @ 75 mls/hr IV ASDIRECTED [facility] Last Admin: 01/09/17 21:53 Dose: 75 mls/hr Fentanyl 2,500 mcg/ Sodium (Chloride) 250 mls @ 0 mls/hr EPIDUR TITRATE [facility]; Titrate PRN Reason: Protocol Last Titration: 01/10/17 10:52 Dose: 0 mls/hr, 0 mls/hr Potassium Chloride 20 meq/Lidocaine HCl 2 ml/ Sodium Chloride 112 mls @ 56 mls/ hr IV Q2H [facility] Stop: 01/09/17 16:29 Last Admin: 01/09/17 14:52 Dose: 56 mls/hr Metronidazole 500 mg/ Premix 100 mls @ 100 mls/hr IV ONCALL ONE Stop: 01/09/17 11:59 Last Admin: 01/09/17 10:11 Dose: 100 mls/hr Cefazolin Sodium/Dextrose 2 gm (/ Premix) 50 mls @ 100 mls/hr IV ONCALL ONE Stop: 01/09/17 10:59 Last Admin: 01/09/17 10:10 Dose: 100 mls/hr Sodium Chloride (Normal Saline) Confirm Administered Dose 250 mls @ as directed .ROUTE .STK-MED ONE Stop: 01/09/17 11:33 Sodium Chloride (Normal Saline) 1,000 mls @ 200 mls/hr IV ASDIRECTED [facility] Stop: 01/09/17 23:16 Last Admin: 01/09/17 22:14 Dose: 200 mls/hr Sodium Chloride (Normal Saline) 1,000 mls @ 200 mls/hr IV ASDIRECTED [facility] Stop: 01/10/17 02:16 Last Admin: 01/10/17 01:15 Dose: 200 mls/hr Sodium Chloride (Normal Saline) 1,000 mls @ 200 mls/hr IV ASDIRECTED [facility] Stop: 01/10/17 05:16 Last Admin: 01/10/17 04:14 Dose: 200 mls/hr Sodium Chloride (Normal Saline) 1,000 mls @ 125 mls/hr IV ASDIRECTED [facility] Last Admin: 01/11/17 02:52 Dose: 125 mls/hr Sodium Chloride (Normal Saline) 250 mls @ 200 mls/hr IV ASDIRECTED [facility] Stop: 01/10/17 21:31 Last Admin: 01/10/17 20:27 Dose: 200 mls/hr Sodium Chloride (Normal Saline) 1,000 mls @ 250 mls/hr IV ASDIRECTED [facility] Stop: 01/11/17 02:16 Last Admin: 01/10/17 22:37 Dose: 250 mls/hr Sodium Chloride (Normal Saline) 1,000 mls @ 999 mls/hr IV .BOLUS ONE Stop: 01/10/17 23:56 Last Admin: 01/10/17 23:10 Dose: 999 mls/hr Sodium Chloride (Normal Saline) 250 mls @ 200 mls/hr IV ASDIRECTED [facility] Stop: 01/11/17 05:16 Last Admin: 01/11/17 04:21 Dose: 200 mls/hr Vancomycin HCl 1.2 gm/ Sodium (Chloride) 250 mls @ 167 mls/hr IV ONETIME ONE Stop: 01/11/17 15:29 Last Admin: 01/11/17 13:47 Dose: 167 mls/hr Ketamine HCl (Ketalar) Confirm Administered Dose 500 mg .ROUTE .STK-MED ONE Stop: 01/09/17 12:52 Lactulose (Chronulac) 30 gm PO DAILY [facility] Last Admin: 01/11/17 18:18 Dose: 30 gm Magnesium Hydroxide (Milk Of Magnesia) 30 ml PO BID [facility] Last Admin: 01/11/17 21:11 Dose: 30 ml Magnesium Hydroxide (Milk Of Magnesia) 30 ml PO BID [facility] Last Admin: 01/10/17 10:01 Dose: Not Given Mometasone Furoate/Formoterol Fumar (Dulera 200-5 Mcg) 2 puff IH BID [facility] Last Admin: 01/08/17 20:43 Dose: 2 puff Naloxone HCl (Narcan) 0.1 mg IVPUSH Q5M PRN PRN Reason: RESP RATE LESS THAN 6/MINUTE Naloxone HCl (Narcan) 0.4 mg IV ASDIRECTED PRN PRN Reason: ITCHING Neostigmine Methylsulfate (Neostigmine) Confirm Administered Dose 5 mg .ROUTE .STK-MED ONE Stop: 01/08/17 16:33 Neostigmine Methylsulfate (Neostigmine) Confirm Administered Dose 5 mg .ROUTE .STK-MED ONE Stop: 01/09/17 09:49 Ondansetron HCl (Zofran) Confirm Administered Dose 4 mg .ROUTE .STK-MED ONE Stop: 01/08/17 16:33 Ondansetron HCl (Zofran) Confirm Administered Dose 4 mg .ROUTE .STK-MED ONE Stop: 01/09/17 09:49 Phenylephrine HCl (Kiko-Synephrine) Confirm Administered Dose 10 mg .ROUTE .STK- MED ONE Stop: 01/09/17 11:33 Potassium Chloride (Klor-Con M20) 40 meq PO ONETIME ONE Stop: 01/13/17 09:01 Last Admin: 01/13/17 09:03 Dose: 40 meq Propofol (Diprivan 20 Ml) Confirm Administered Dose 200 mg .ROUTE .STK-MED ONE Stop: 01/08/17 16:33 Propofol (Diprivan 20 Ml) Confirm Administered Dose 200 mg .ROUTE .STK-MED ONE Stop: 01/09/17 09:49 Rocuronium [place] (Zemuron) Confirm Administered Dose 50 mg .ROUTE .STK-MED ONE Stop: 01/08/17 16:33 Rocuronium [place] (Zemuron) Confirm Administered Dose 50 mg .ROUTE .STK-MED ONE Stop: 01/09/17 09:49 Succinylcholine Chloride (Succinylcholine In Ns Pf) Confirm Administered Dose 200 mg .ROUTE .STK-MED ONE Stop: 01/08/17 16:33 Succinylcholine Chloride (Succinylcholine In Ns Pf) Confirm Administered Dose 200 mg .ROUTE .STK-MED ONE Stop: 01/09/17 09:49 Vancomycin HCl (Vancomycin) 1 gm IV .PHARMACY TO DOSE [facility] Stop: 01/11/17 18:00 - Exam Quality Assessment: supplemental oxygen, urine catheter, DVT prophylaxis General: alert, mild distress, other (Agitated) Lungs: Decreased breath sounds, Rhonchi, Wheezing. No: Crackles, Rales, Rub, Stridor Cardiovascular: Regular Rate, No Murmurs, Irregular Rhythm Abdomen: bowel sounds present, soft, no distension, tenderness. No: rigidity, rebound, guarding Extremities: no edema Skin: warm, dry, intact Psy/Mental Status: agitated - Problem List Review Problem List Initiated/Reviewed/Updated: Yes - My Orders Last 24 Hours: My Active Orders 01/12/17 14:00 Vancomycin 1 gm Sodium Chloride 0.9% [Normal Saline] 250 ml IV Q24H 01/13/17 09:08 Haloperidol [Haldol] 1 mg PO Q2H PRN LORazepam [Ativan] 0.25 mg PO Q2H PRN 01/14/17 05:00 BASIC METABOLIC PANEL,BMP [CHEM] Timed CBC WITH AUTO DIFF [HEME] Timed MAGNESIUM [CHEM] Timed - Plan Plan:: Assessment and Plan - Parastomal hernia with small bowel obstruction - history of rectal cancer and is s/p partial colectomy and colostomy placement about 3 years ago. Status post hernia repair and mesh placement on 01/09. No bowel resection was necessary. Tolerating a soft diet with good ostomy output. -Pain control and postop cares per Dr. Mccann -Scheduled and as needed nebulizers -Continue beta oziel Right lung pneumonia-given current hospitalization we'll need to consider this a hospital-acquired pneumonia, possible aspiration. Respiratory status has improved over the past 24 hours and he has been able to walk short distances -Blood and sputum cultures pending -IV Zosyn, vancomycin, and levofloxacin pending culture results Confusion and agitation-at baseline has underlying mild to moderate dementia. Today seems to be more agitated and paranoid. -Lorazepam 0.25 mg every 2 hours as needed -Haldol 1 mg by mouth every 2 hours as needed Coronary artery disease - status post CABG about 5 years ago. no evidence for acute coronary syndrome or active anginal type symptoms. Vital signs have remained stable. -Continue medical management COPD - no history of oxygen dependence. No active wheezing. Urine output had tapered off during the night and he was given IV fluids, then developed increased shortness of breath secondary to fluid overload. He has been given IV Lasix and respiratory status has stabilized. Continues to require supplemental oxygen likely secondary to right lung pneumonia. -Nebulizers as above Paroxysmal atrial fibrillation - he did go into atrial fibrillation during surgery but his rate has remained well controlled. -Cardiac monitoring -Continue beta oziel -Restart calcium channel oziel
[2017-01-13] MEDS: LORazepam 0.5 MG Tab PO PRN ×2 (09:51→21:09)
[2017-01-13] MEDS: Levofloxacin/Dextrose 5%-Water 500 MG in Premix Bag 1 BAG IV SCH (11:38)
[2017-01-13] MEDS ORDERED: hydrALAZINE 20 MG/ML SDV IVPUSH PRN (17:29)
[2017-01-13] MEDS: Haloperidol 1 MG Tab PO PRN (21:10)
[2017-01-13] MEDS: Enoxaparin 40 MG/0.4 ML Syringe SUBCUT SCH (21:25)
[2017-01-13] MEDS ORDERED: Furosemide 40 MG/4 ML VIAL IVPUSH ONE (21:42)
[2017-01-13] MEDS ORDERED: Furosemide 40 MG/4 ML VIAL ONE (21:47)
[2017-01-14] MEDS: Haloperidol 1 MG Tab PO PRN ×2 (02:34→06:15)
[2017-01-14] MEDS: LORazepam 0.5 MG Tab PO PRN (02:35)
[2017-01-14] MEDS: fentaNYL 100 MCG/2 ML SDV IVPUSH PRN (02:40)
[2017-01-14] MEDS: Piperacillin/Tazobactam/Dext 3.375 GM in Premix Bag 1 BAG IV SCH ×4 (05:04→22:19)
[2017-01-14] MEDS: Albuterol/Ipratropium 3.0-0.5 MG/3 ML Neb Soln NEB SCH ×4 (07:17→20:27)
[2017-01-14] MEDS: Formoterol/Mometasone 200-5 MCG 8.8 GM Inhaler IH SCH ×2 (07:17→20:26)
[2017-01-14] MEDS ORDERED: Potassium Chloride 40 MEQ in Premix Bag 1 BAG IV ONE (08:05)
[2017-01-14] MEDS ORDERED: Potassium Chloride 20 MEQ Tab.ER PO ONE (08:30)
[2017-01-14] MEDS: Diltiazem 120 MG Cap.CD PO SCH (08:42)
[2017-01-14] MEDS: Magnesium Oxide 400 MG Tab PO SCH ×2 (08:43→20:25)
[2017-01-14] MEDS: Aspirin 81 MG Tab.EC PO SCH (08:43)
[2017-01-14] MEDS: Carvedilol 25 MG Tab PO SCH ×2 (08:44→20:24)
[2017-01-14] MEDS: Magnesium Sulfate/Water 2 GM in Premix Bag 1 BAG IV SCH ×2 (08:52→15:06)
--- NOTE | 2017-01-14 09:43 | PCM.PN ---
- General Info Date of Service: 01/14/17 Functional Status: Reports: pain controlled, tolerating diet, ambulating - Review of Systems General: Reports: Weakness. Denies: Fever, Chills Pulmonary: Reports: shortness of breath, cough, sputum. Denies: pleuritic chest pain, hemoptysis, wheezing Cardiovascular: Reports: Dyspnea on Exertion, Edema. Denies: Chest Pain, Palpitations, Orthopnea, PND Gastrointestinal: Reports: Abdominal pain. Denies: Nausea, Vomiting Psychiatric: Reports: confusion, agitation, hallucinations Systems Review Comment:: This patient remains confused and continues to experience paranoid hallucinations. Vital signs have been stable and he has remained afebrile. Did become more short of breath last night , it was apparent this was likely secondary to fluid overload. IV fluids have been discontinued and he was given IV Lasix with good results. - Patient Data Vitals - most recent: Last Vital Signs Temp 99.5 F 01/14/17 04:00 Pulse 84 01/14/17 08:44 Resp 27 H 01/14/17 06:00 BP 187/81 H 01/14/17 08:44 Pulse Ox 94 L 01/14/17 06:00 Weight - most recent: 155 lb 6.814 oz I&O - last 24 hours: Intake & Output 01/13/17 01/14/17 01/14/17 22:59 06:59 14:59 Intake Total 1682 800 Output Total 1350 3220 Balance 332 -2420 Lab Results last 24 hrs: Laboratory Results - last 24 hr 01/14/17 01/14/17 Range/Units 04:45 04:45 WBC 7.7 (4.5-11.0) K/uL RBC 4.16 L (4.30-5.90) M/uL Hgb 11.5 L (12.0-15.0) g/dL Hct 37.4 L (40.0-54.0) % MCV 90 (80-98) fL MCH 28 (27-31) pg MCHC 31 L (32-36) % Plt Count 201 (150-400) K/uL Neut % (Auto) 69 H (36-66) % Lymph % (Auto) 15 L (24-44) % Mower % (Auto) 14 H (2-6) % Eos % (Auto) 2 (2-4) % Baso % (Auto) 0 (0-1) % Sodium 149 H (140-148) mmol/L Potassium 3.2 L (3.6-5.2) mmol/L Chloride 112 H (100-108) mmol/L Carbon Dioxide 30 (21-32) mmol/L Anion Gap 10.2 (5.0-14.0) mmol/L BUN 16 (7-18) mg/dL Creatinine 0.7 L (0.8-1.3) mg/dL Est Cr Clr Drug Dosing 78.33 mL/min Estimated GFR (MDRD) > 60 (>60) Glucose 147 H (74-106) mg/dL Calcium 8.1 L (8.5-10.1) mg/dL Magnesium 1.5 L (1.8-2.4) mg/dL Neto Results last 24 hrs: Microbiology 01/11/17 12:08 Gram Stain - Final Other - Expectorated Respiratory Culture - Final Klebsiella Pneumonia Ss Pneumo Enterobacter Dissolvens 01/11/17 10:05 Aerobic Blood Culture - Preliminary Blood - Venous - Lab Draw NO GROWTH AFTER 2 DAYS Anaerobic Blood Culture - Preliminary NO GROWTH AFTER 2 DAYS 01/11/17 09:50 Aerobic Blood Culture - Preliminary Blood - Venous NO GROWTH AFTER 2 DAYS Anaerobic Blood Culture - Preliminary NO GROWTH AFTER 2 DAYS 01/11/17 10:07 Urine Culture - Final Urine, Bazan Cath (Indwelling) NO GROWTH AFTER 2 DAYS Med Orders - Current: Current Medications Acetaminophen/Hydrocodone Bitart ([place] 325-5 Mg) 2 tab PO Q4H PRN PRN Reason: Pain (moderate 4-6) Last Admin: 01/13/17 08:34 Dose: 1 tab Albuterol (Proventil Neb Soln) 2.5 mg NEB Q4H PRN PRN Reason: Shortness of Breath Last Admin: 01/11/17 04:21 Dose: 2.5 mg Albuterol/Ipratropium (Duoneb 3.0-0.5 Mg/3 Ml) 3 ml NEB QIDRT [facility] Last Admin: 01/14/17 07:17 Dose: 3 ml Aspirin (Halfprin) 81 mg PO DAILY [facility] Last Admin: 01/14/17 08:43 Dose: 81 mg Benzocaine/Menthol (Cepacol Sore Throat) 1 lozenge MUCMEM Q1H PRN PRN Reason: Sore Throat Carvedilol (Coreg) 25 mg PO BID [facility] Last Admin: 01/14/17 08:44 Dose: 25 mg Diltiazem HCl (Cardizem Cd) 120 mg PO DAILY [facility] Last Admin: 01/14/17 08:42 Dose: 120 mg Diphenhydramine HCl (Benadryl) 50 mg IVPUSH Q4H PRN PRN Reason: Itching Docusate Sodium (Colace) 100 mg PO BID PRN PRN Reason: Constipation Enoxaparin Sodium (Lovenox) 40 mg SUBCUT BEDTIME [facility] Last Admin: 01/13/17 21:25 Dose: 40 mg Fentanyl (Sublimaze) 25 mcg IVPUSH Q1H PRN PRN Reason: Pain (moderate 4-6) Last Admin: 01/14/17 02:40 Dose: 25 mcg Haloperidol (Haldol) 1 mg PO Q2H PRN PRN Reason: Agitation Last Admin: 01/14/17 06:15 Dose: 1 mg Hydralazine HCl (Apresoline) 10 mg IVPUSH Q4H PRN PRN Reason: Hypertension Last Admin: 01/13/17 18:33 Dose: 10 mg Levofloxacin/Dextrose 500 mg/ (Premix) 100 mls @ 100 mls/hr IV Q24H [facility] Last Admin: 01/13/17 11:38 Dose: 100 mls/hr Piperacillin/Tazobactam/ (Dextrose 3.375 gm/ Premix) 50 mls @ 100 mls/hr IV Q6H [facility] Last Admin: 01/14/17 05:04 Dose: 100 mls/hr Magnesium Sulfate 2 gm/ Premix 50 mls @ 25 mls/hr IV Q6H [facility] Stop: 01/14/17 16:59 Last Admin: 01/14/17 08:52 Dose: 25 mls/hr Potassium Chloride 20 meq/Lidocaine HCl 2 ml/ Sodium Chloride 112 mls @ 56 mls/ hr IV Q2H [facility] Stop: 01/14/17 13:29 Ibuprofen (Motrin) 600 mg PO Q6H PRN PRN Reason: Pain Lorazepam (Ativan) 0.25 mg PO Q2H PRN PRN Reason: Agitation Last Admin: 01/14/17 02:35 Dose: 0.25 mg Magnesium Oxide (Magnesium Oxide) 400 mg PO BID [facility] Last Admin: 01/14/17 08:43 Dose: 400 mg Mometasone Furoate/Formoterol Fumar (Dulera 200-5 Mcg) 2 puff IH BIDRT [facility] Last Admin: 01/14/17 07:17 Dose: 2 puff Promethazine HCl (Phenergan) 25 mg IM Q6H PRN PRN Reason: Nausea Sodium Chloride (Saline Flush) 10 ml FLUSH DAILY [facility] Discontinued Medications Dexamethasone (Dexamethasone) Confirm Administered Dose 4 mg .ROUTE .STK-MED ONE Stop: 01/08/17 16:33 Dexamethasone (Dexamethasone) Confirm Administered Dose 4 mg .ROUTE .STK-MED ONE Stop: 01/09/17 09:49 Enoxaparin Sodium (Lovenox) 40 mg SUBCUT DAILY [facility] Last Admin: 01/11/17 10:11 Dose: Not Given Fentanyl (Sublimaze) Confirm Administered Dose 250 mcg .ROUTE .STK-MED ONE Stop: 01/08/17 16:33 Fentanyl (Sublimaze) Confirm Administered Dose 250 mcg .ROUTE .STK-MED ONE Stop: 01/09/17 09:49 Furosemide (Lasix) 60 mg IVPUSH ONETIME ONE Stop: 01/08/17 11:46 Last Admin: 01/08/17 11:53 Dose: 60 mg Furosemide (Lasix) 20 mg IVPUSH ONETIME ONE Stop: 01/11/17 06:23 Last Admin: 01/11/17 06:32 Dose: 20 mg Furosemide (Lasix) Confirm Administered Dose 20 mg .ROUTE .STK-MED ONE Stop: 01/11/17 06:32 Last Admin: 01/11/17 06:38 Dose: Not Given Furosemide (Lasix) 40 mg IVPUSH ONETIME ONE Stop: 01/13/17 21:43 Last Admin: 01/13/17 21:52 Dose: 40 mg Furosemide (Lasix) Confirm Administered Dose 40 mg .ROUTE .STK-MED ONE Stop: 01/13/17 21:48 Last Admin: 01/13/17 22:09 Dose: Not Given Glycopyrrolate () Confirm Administered Dose 1 mg .ROUTE .STK-MED ONE Stop: 01/08/17 16:33 Glycopyrrolate () Confirm Administered Dose 1 mg .ROUTE .STK-MED ONE Stop: 01/09/17 09:49 Sodium Chloride (Normal Saline) 1,000 mls @ 150 mls/hr IV ASDIRECTED [facility] Last Admin: 01/08/17 16:09 Dose: 150 mls/hr Sodium Chloride (Normal Saline) 1,000 mls @ 75 mls/hr IV ASDIRECTED [facility] Last Admin: 01/09/17 21:53 Dose: 75 mls/hr Fentanyl 2,500 mcg/ Sodium (Chloride) 250 mls @ 0 mls/hr EPIDUR TITRATE [facility]; Titrate PRN Reason: Protocol Last Titration: 01/10/17 10:52 Dose: 0 mls/hr, 0 mls/hr Potassium Chloride 20 meq/Lidocaine HCl 2 ml/ Sodium Chloride 112 mls @ 56 mls/ hr IV Q2H [facility] Stop: 01/09/17 16:29 Last Admin: 01/09/17 14:52 Dose: 56 mls/hr Metronidazole 500 mg/ Premix 100 mls @ 100 mls/hr IV ONCALL ONE Stop: 01/09/17 11:59 Last Admin: 01/09/17 10:11 Dose: 100 mls/hr Cefazolin Sodium/Dextrose 2 gm (/ Premix) 50 mls @ 100 mls/hr IV ONCALL ONE Stop: 01/09/17 10:59 Last Admin: 01/09/17 10:10 Dose: 100 mls/hr Sodium Chloride (Normal Saline) Confirm Administered Dose 250 mls @ as directed .ROUTE .[facility] ONE Stop: 01/09/17 11:33 Sodium Chloride (Normal Saline) 1,000 mls @ 200 mls/hr IV ASDIRECTED [facility] Stop: 01/09/17 23:16 Last Admin: 01/09/17 22:14 Dose: 200 mls/hr Sodium Chloride (Normal Saline) 1,000 mls @ 200 mls/hr IV ASDIRECTED [facility] Stop: 01/10/17 02:16 Last Admin: 01/10/17 01:15 Dose: 200 mls/hr Sodium Chloride (Normal Saline) 1,000 mls @ 200 mls/hr IV ASDIRECTED [facility] Stop: 01/10/17 05:16 Last Admin: 01/10/17 04:14 Dose: 200 mls/hr Sodium Chloride (Normal Saline) 1,000 mls @ 125 mls/hr IV ASDIRECTED [facility] Last Admin: 01/11/17 02:52 Dose: 125 mls/hr Sodium Chloride (Normal Saline) 250 mls @ 200 mls/hr IV ASDIRECTED [facility] Stop: 01/10/17 21:31 Last Admin: 01/10/17 20:27 Dose: 200 mls/hr Sodium Chloride (Normal Saline) 1,000 mls @ 250 mls/hr IV ASDIRECTED [facility] Stop: 01/11/17 02:16 Last Admin: 01/10/17 22:37 Dose: 250 mls/hr Sodium Chloride (Normal Saline) 1,000 mls @ 999 mls/hr IV .BOLUS ONE Stop: 01/10/17 23:56 Last Admin: 01/10/17 23:10 Dose: 999 mls/hr Sodium Chloride (Normal Saline) 250 mls @ 200 mls/hr IV ASDIRECTED [facility] Stop: 01/11/17 05:16 Last Admin: 01/11/17 04:21 Dose: 200 mls/hr Sodium Chloride (Normal Saline) 1,000 mls @ 125 mls/hr IV ASDIRECTED [facility] Last Admin: 01/13/17 16:03 Dose: 100 mls/hr Vancomycin HCl 1.2 gm/ Sodium (Chloride) 250 mls @ 167 mls/hr IV ONETIME ONE Stop: 01/11/17 15:29 Last Admin: 01/11/17 13:47 Dose: 167 mls/hr Vancomycin HCl 1 gm/ Sodium (Chloride) 250 mls @ 167 mls/hr IV Q24H [facility] Last Admin: 01/13/17 14:36 Dose: 167 mls/hr Ketamine HCl (Ketalar) Confirm Administered Dose 500 mg .ROUTE .STK-MED ONE Stop: 01/09/17 12:52 Lactulose (Chronulac) 30 gm PO DAILY [facility] Last Admin: 01/11/17 18:18 Dose: 30 gm Magnesium Hydroxide (Milk Of Magnesia) 30 ml PO BID [facility] Last Admin: 01/11/17 21:11 Dose: 30 ml Magnesium Hydroxide (Milk Of Magnesia) 30 ml PO BID [facility] Last Admin: 01/10/17 10:01 Dose: Not Given Mometasone Furoate/Formoterol Fumar (Dulera 200-5 Mcg) 2 puff IH BID [facility] Last Admin: 01/08/17 20:43 Dose: 2 puff Naloxone HCl (Narcan) 0.1 mg IVPUSH Q5M PRN PRN Reason: RESP RATE LESS THAN 6/MINUTE Naloxone HCl (Narcan) 0.4 mg IV ASDIRECTED PRN PRN Reason: ITCHING Neostigmine Methylsulfate (Neostigmine) Confirm Administered Dose 5 mg .ROUTE .STK-MED ONE Stop: 01/08/17 16:33 Neostigmine Methylsulfate (Neostigmine) Confirm Administered Dose 5 mg .ROUTE .STK-MED ONE Stop: 01/09/17 09:49 Ondansetron HCl (Zofran) Confirm Administered Dose 4 mg .ROUTE .STK-MED ONE Stop: 01/08/17 16:33 Ondansetron HCl (Zofran) Confirm Administered Dose 4 mg .ROUTE .STK-MED ONE Stop: 01/09/17 09:49 Phenylephrine HCl (Kiko-Synephrine) Confirm Administered Dose 10 mg .ROUTE .STK- MED ONE Stop: 01/09/17 11:33 Potassium Chloride (Klor-Con M20) 40 meq PO ONETIME ONE Stop: 01/13/17 09:01 Last Admin: 01/13/17 09:03 Dose: 40 meq Potassium Chloride (Klor-Con M20) 40 meq PO ONETIME ONE Stop: 01/14/17 08:31 Last Admin: 01/14/17 08:43 Dose: 40 meq Propofol (Diprivan 20 Ml) Confirm Administered Dose 200 mg .ROUTE .STK-MED ONE Stop: 01/08/17 16:33 Propofol (Diprivan 20 Ml) Confirm Administered Dose 200 mg .ROUTE .STK-MED ONE Stop: 01/09/17 09:49 Rocuronium [place] (Zemuron) Confirm Administered Dose 50 mg .ROUTE .STK-MED ONE Stop: 01/08/17 16:33 Rocuronium [place] (Zemuron) Confirm Administered Dose 50 mg .ROUTE .STK-MED ONE Stop: 01/09/17 09:49 Succinylcholine Chloride (Succinylcholine In Ns Pf) Confirm Administered Dose 200 mg .ROUTE .STK-MED ONE Stop: 01/08/17 16:33 Succinylcholine Chloride (Succinylcholine In Ns Pf) Confirm Administered Dose 200 mg .ROUTE .STK-MED ONE Stop: 01/09/17 09:49 Vancomycin HCl (Vancomycin) 1 gm IV .PHARMACY TO DOSE [facility] Stop: 01/11/17 18:00 - Exam Quality Assessment: supplemental oxygen, urine catheter, DVT prophylaxis General: alert, cooperative, mild distress Lungs: Normal respiratory effort, Decreased breath sounds, Rales. No: Crackles , Rhonchi, Rub, Stridor, Wheezing Cardiovascular: Regular Rate, No Murmurs, Irregular Rhythm. No: Bradycardia, Tachycardia, Murmurs Abdomen: bowel sounds present, soft, no distension. No: rigidity, rebound, guarding, tenderness Extremities: edema Skin: warm, dry, intact Psy/Mental Status: agitated - Problem List Review Problem List Initiated/Reviewed/Updated: Yes - My Orders Last 24 Hours: My Active Orders 01/13/17 09:08 Haloperidol [Haldol] 1 mg PO Q2H PRN LORazepam [Ativan] 0.25 mg PO Q2H PRN 01/13/17 17:29 hydrALAZINE [Apresoline] 10 mg IVPUSH Q4H PRN 01/14/17 09:00 Magnesium Oxide 400 mg PO BID Magnesium Sulfate/Water [Magnesium Sulfate 2 GM in Water 50 ML] 2 gm Premix Bag 1 bag IV Q6H Sodium Chloride 0.9% [Saline Flush] 10 ml FLUSH DAILY 01/14/17 09:30 Potassium Chloride 20 meq Lidocaine 1% [Xylocaine 1%] 2 ml Sodium Chloride 0.9 % [Normal Saline] 100 ml IV Q2H 01/14/17 09:38 Furosemide [Lasix] 20 mg IVPUSH NOW ONE 01/15/17 05:00 BASIC METABOLIC PANEL,BMP [CHEM] Timed CBC WITH AUTO DIFF [HEME] Timed MAGNESIUM [CHEM] Timed - Plan Plan:: Assessment and Plan - Parastomal hernia with small bowel obstruction - history of rectal cancer and is s/p partial colectomy and colostomy placement about 3 years ago. Status post hernia repair and mesh placement on 01/09. No bowel resection was necessary. Tolerating a soft diet with good ostomy output. -Pain control and postop cares per Dr. Mccann -Scheduled and as needed nebulizers -Continue beta zoiel Right lung pneumonia-given current hospitalization we'll need to consider this a hospital-acquired pneumonia, possible aspiration. Respiratory status has improved over the past 24 hours and he has been able to walk short distances. Culture are growing Klebsiella and Enterobacter. -Discontinue IV vancomycin -Continue IV Zosyn and levofloxacin pending sensitivity results Confusion and agitation-at baseline has underlying mild to moderate dementia. Today seems to be more agitated and paranoid. -Lorazepam 0.25 mg every 2 hours as needed -Haldol 1 mg by mouth every 2 hours as needed Coronary artery disease - status post CABG about 5 years ago. no evidence for acute coronary syndrome or active anginal type symptoms. Vital signs have remained stable. -Continue medical management COPD - no history of oxygen dependence. No active wheezing. Urine output had tapered off during the night and he was given IV fluids, then developed increased shortness of breath secondary to fluid overload. He has been given IV Lasix and respiratory status has stabilized. Continues to require supplemental oxygen likely secondary to right lung pneumonia. -Nebulizers as above Paroxysmal atrial fibrillation - he did go into atrial fibrillation during surgery but his rate has remained well controlled. -Cardiac monitoring -Continue beta oziel -Restart calcium channel oziel
[2017-01-14] MEDS ORDERED: Furosemide 20 MG/2 ML VIAL IV ONE (09:45)
[2017-01-14] MEDS: Potassium Chloride 20 MEQ, Lidocaine 1% 2 ML in Sodium Chloride 0.9% 100 ML IV SCH ×2 (09:58→12:08)
[2017-01-14] MEDS: Sodium Chloride 0.9% 10 ML Syringe FLUSH SCH (09:58)
--- NOTE | 2017-01-14 10:28 | PN ---
DATE OF SERVICE: 01/14/2017 SUBJECTIVE: The patient continues to do well, aside from his confusion. The pain is well controlled. No nausea, vomiting, shortness of breath, or chest pain. OBJECTIVE: VITAL SIGNS: Temperature 99.5, blood pressure 153/71. CARDIOVASCULAR: Regular rhythm and rate. RESPIRATORY: Lungs, poor inspiratory effort bilaterally. ABDOMEN: Incision healing well. Ostomy intact. LABORATORY RESULTS: White count is normal. Hemoglobin improved to 11.5. Potassium remains slightly low. Sodium 149. ASSESSMENT AND PLAN: 1. Parastomal hernia. The patient is now tolerating a diet. 2. Pain control. 3. Diet, he has been advanced to regular diet as tolerated well. 4. Pneumonia. The patient continues to improve. 5. Chronic obstructive pulmonary disease. He does have very some mild wheeze but continues to improve on this also. 6. Atrial fibrillation. Continue to be managed by the hospitalist service. 7. General confusion. Continue to be managed by the hospitalist service. 8. General status. The patient aside from his confusion, continues to show improvement on a daily basis. Kana Mccann MD /[id number]
[2017-01-14] MEDS: Levofloxacin/Dextrose 5%-Water 500 MG in Premix Bag 1 BAG IV SCH (11:06)
[2017-01-14] MEDS: Ibuprofen 600 MG Tab PO PRN ×2 (11:16→20:25)
[2017-01-14] MEDS: Enoxaparin 40 MG/0.4 ML Syringe SUBCUT SCH (20:27)
[2017-01-14] MEDS: diphenhydrAMINE 50 MG/ML SDV IVPUSH PRN (22:20)
[2017-01-15] MEDS: LORazepam 0.5 MG Tab PO PRN (01:40)
[2017-01-15] MEDS: Haloperidol 1 MG Tab PO PRN (01:48)
[2017-01-15] MEDS: Piperacillin/Tazobactam/Dext 3.375 GM in Premix Bag 1 BAG IV SCH (04:51)
[2017-01-15] MEDS ORDERED: Potassium Chloride 20 MEQ in Premix Bag 1 BAG IV SCH (06:00)
[2017-01-15] MEDS ORDERED: Potassium Chloride 20 MEQ Tab.ER PO ONE ×2 (06:01→13:00)
[2017-01-15] MEDS: Albuterol/Ipratropium 3.0-0.5 MG/3 ML Neb Soln NEB SCH ×4 (07:03→20:39)
[2017-01-15] MEDS: Formoterol/Mometasone 200-5 MCG 8.8 GM Inhaler IH SCH ×2 (07:04→20:39)
[2017-01-15] MEDS ORDERED: Potassium Chloride 20 MEQ, Lidocaine 1% 2 ML in Sodium Chloride 0.9% 100 ML IV ONE (08:30)
[2017-01-15] MEDS: Diltiazem 120 MG Cap.CD PO SCH (08:36)
[2017-01-15] MEDS: Magnesium Oxide 400 MG Tab PO SCH ×2 (08:36→20:41)
[2017-01-15] MEDS: Carvedilol 25 MG Tab PO SCH ×2 (08:36→20:38)
[2017-01-15] MEDS: Aspirin 81 MG Tab.EC PO SCH (08:37)
[2017-01-15] MEDS: Magnesium Sulfate/Water 2 GM in Premix Bag 1 BAG IV SCH ×2 (08:48→15:00)
[2017-01-15] MEDS: Sodium Chloride 0.9% 10 ML Syringe FLUSH SCH (08:50)
[2017-01-15] MEDS ORDERED: Furosemide 20 MG/2 ML VIAL IVPUSH ONE (09:00)
--- NOTE | 2017-01-15 09:13 | PCM.PN ---
- General Info Date of Service: 01/15/17 Functional Status: Reports: pain controlled, ambulating - Review of Systems General: Reports: Weakness. Denies: Fever, Chills Pulmonary: Reports: shortness of breath, cough, sputum. Denies: pleuritic chest pain, hemoptysis, wheezing Cardiovascular: Reports: Dyspnea on Exertion. Denies: Chest Pain, Palpitations , Orthopnea, PND, Edema Gastrointestinal: Reports: Abdominal pain. Denies: Difficulty swallowing, Nausea, Vomiting Systems Review Comment:: This patient has been stable over the past 24 hours, remains confused but paranoia seems to have improved. Tolerating diet and has been able to ambulate with assistance. Vital signs have been stable and he has remained afebrile with adequate oxygenation on current level of supplemental oxygen. - Patient Data Vitals - most recent: Last Vital Signs Temp 98.1 F 01/15/17 08:00 Pulse 81 01/15/17 08:36 Resp 23 H 01/15/17 08:00 BP 168/77 H 01/15/17 08:36 Pulse Ox 95 01/15/17 08:00 Weight - most recent: 155 lb 6.814 oz I&O - last 24 hours: Intake & Output 01/14/17 01/15/17 01/15/17 22:59 06:59 14:59 Intake Total 950 580 120 Output Total 2835 1920 350 Balance -1885 -1340 -230 Lab Results last 24 hrs: Laboratory Results - last 24 hr 01/15/17 01/15/17 Range/Units 05:14 05:14 WBC 8.6 (4.5-11.0) K/uL RBC 4.35 (4.30-5.90) M/uL Hgb 12.2 (12.0-15.0) g/dL Hct 38.4 L (40.0-54.0) % MCV 88 (80-98) fL MCH 28 (27-31) pg MCHC 32 (32-36) % Plt Count 220 (150-400) K/uL Neut % (Auto) 68 H (36-66) % Lymph % (Auto) 13 L (24-44) % [place] % (Auto) 13 H (2-6) % Eos % (Auto) 5 H (2-4) % Baso % (Auto) 1 (0-1) % Sodium 145 (140-148) mmol/L Potassium 2.9 L* (3.6-5.2) mmol/L Chloride 105 (100-108) mmol/L Carbon Dioxide 33 H (21-32) mmol/L Anion Gap 9.9 (5.0-14.0) mmol/L BUN 7 D (7-18) mg/dL Creatinine 0.7 L (0.8-1.3) mg/dL Est Cr Clr Drug Dosing 78.33 mL/min Estimated GFR (MDRD) > 60 (>60) Glucose 140 H (74-106) mg/dL Calcium 8.2 L (8.5-10.1) mg/dL Magnesium 1.7 L (1.8-2.4) mg/dL Neto Results last 24 hrs: Microbiology 01/11/17 10:05 Aerobic Blood Culture - Preliminary Blood - Venous - Lab Draw NO GROWTH AFTER 3 DAYS Anaerobic Blood Culture - Preliminary NO GROWTH AFTER 3 DAYS 01/11/17 09:50 Aerobic Blood Culture - Preliminary Blood - Venous NO GROWTH AFTER 3 DAYS Anaerobic Blood Culture - Preliminary NO GROWTH AFTER 3 DAYS 01/11/17 12:08 Gram Stain - Final Other - Expectorated Respiratory Culture - Final Klebsiella Pneumonia Ss Pneumo Enterobacter Dissolvens Med Orders - Current: Current Medications Acetaminophen/Hydrocodone Bitart ([place]y 325-5 Mg) 2 tab PO Q4H PRN PRN Reason: Pain (moderate 4-6) Last Admin: 01/13/17 08:34 Dose: 1 tab Albuterol (Proventil Neb Soln) 2.5 mg NEB Q4H PRN PRN Reason: Shortness of Breath Last Admin: 01/11/17 04:21 Dose: 2.5 mg Albuterol/Ipratropium (Duoneb 3.0-0.5 Mg/3 Ml) 3 ml NEB QIDRT [facility] Last Admin: 01/15/17 07:03 Dose: 3 ml Aspirin (Halfprin) 81 mg PO DAILY [facility] Last Admin: 01/15/17 08:37 Dose: 81 mg Carvedilol (Coreg) 25 mg PO BID [facility] Last Admin: 01/15/17 08:36 Dose: 25 mg Diltiazem HCl (Cardizem Cd) 120 mg PO DAILY [facility] Last Admin: 01/15/17 08:36 Dose: 120 mg Diphenhydramine HCl (Benadryl) 50 mg IVPUSH Q4H PRN PRN Reason: Itching Last Admin: 01/14/17 22:20 Dose: 50 mg Docusate Sodium (Colace) 100 mg PO BID PRN PRN Reason: Constipation Enoxaparin Sodium (Lovenox) 40 mg SUBCUT BEDTIME [facility] Last Admin: 01/14/17 20:27 Dose: 40 mg Fentanyl (Sublimaze) 25 mcg IVPUSH Q1H PRN PRN Reason: Pain (moderate 4-6) Last Admin: 01/14/17 02:40 Dose: 25 mcg Furosemide (Lasix) 20 mg IVPUSH NOW ONE Stop: 01/15/17 09:05 Haloperidol (Haldol) 1 mg PO Q2H PRN PRN Reason: Agitation Last Admin: 01/15/17 01:48 Dose: 1 mg Hydralazine HCl (Apresoline) 10 mg IVPUSH Q4H PRN PRN Reason: Hypertension Last Admin: 01/13/17 18:33 Dose: 10 mg Levofloxacin/Dextrose 500 mg/ (Premix) 100 mls @ 100 mls/hr IV Q24H [facility] Last Admin: 01/14/17 11:06 Dose: 100 mls/hr Piperacillin/Tazobactam/ (Dextrose 3.375 gm/ Premix) 50 mls @ 100 mls/hr IV Q6H [facility] Last Admin: 01/15/17 04:51 Dose: 100 mls/hr Potassium Chloride 20 meq/Lidocaine HCl 2 ml/ Sodium Chloride 112 mls @ 56 mls/ hr IV ONETIME ONE Stop: 01/15/17 10:29 Last Admin: 01/15/17 08:51 Dose: 56 mls/hr Magnesium Sulfate 2 gm/ Premix 50 mls @ 25 mls/hr IV Q6H [facility] Stop: 01/15/17 16:29 Last Admin: 01/15/17 08:48 Dose: 25 mls/hr Lorazepam (Ativan) 0.25 mg PO Q2H PRN PRN Reason: Agitation Last Admin: 01/15/17 01:40 Dose: 0.25 mg Magnesium Oxide (Magnesium Oxide) 400 mg PO BID [facility] Last Admin: 01/15/17 08:36 Dose: 400 mg Mometasone Furoate/Formoterol Fumar (Dulera 200-5 Mcg) 2 puff IH BIDRT [facility] Last Admin: 01/15/17 07:04 Dose: 2 puff Potassium Chloride (Klor-Con M20) 40 meq PO ONETIME ONE Stop: 01/15/17 13:01 Promethazine HCl (Phenergan) 25 mg IM Q6H PRN PRN Reason: Nausea Sodium Chloride (Saline Flush) 10 ml FLUSH DAILY [facility] Last Admin: 01/15/17 08:50 Dose: Not Given Discontinued Medications Benzocaine/Menthol (Cepacol Sore Throat) 1 lozenge MUCMEM Q1H PRN PRN Reason: Sore Throat Dexamethasone (Dexamethasone) Confirm Administered Dose 4 mg .ROUTE .STK-MED ONE Stop: 01/08/17 16:33 Dexamethasone (Dexamethasone) Confirm Administered Dose 4 mg .ROUTE .STK-MED ONE Stop: 01/09/17 09:49 Enoxaparin Sodium (Lovenox) 40 mg SUBCUT DAILY [facility] Last Admin: 01/11/17 10:11 Dose: Not Given Fentanyl (Sublimaze) Confirm Administered Dose 250 mcg .ROUTE .STK-MED ONE Stop: 01/08/17 16:33 Fentanyl (Sublimaze) Confirm Administered Dose 250 mcg .ROUTE .STK-MED ONE Stop: 01/09/17 09:49 Furosemide (Lasix) 60 mg IVPUSH ONETIME ONE Stop: 01/08/17 11:46 Last Admin: 01/08/17 11:53 Dose: 60 mg Furosemide (Lasix) 20 mg IVPUSH ONETIME ONE Stop: 01/11/17 06:23 Last Admin: 01/11/17 06:32 Dose: 20 mg Furosemide (Lasix) Confirm Administered Dose 20 mg .ROUTE .STK-MED ONE Stop: 01/11/17 06:32 Last Admin: 01/11/17 06:38 Dose: Not Given Furosemide (Lasix) 40 mg IVPUSH ONETIME ONE Stop: 01/13/17 21:43 Last Admin: 01/13/17 21:52 Dose: 40 mg Furosemide (Lasix) Confirm Administered Dose 40 mg .ROUTE .STK-MED ONE Stop: 01/13/17 21:48 Last Admin: 01/13/17 22:09 Dose: Not Given Furosemide (Lasix) 20 mg IV ONETIME ONE Stop: 01/14/17 09:46 Last Admin: 01/14/17 09:58 Dose: 20 mg Glycopyrrolate () Confirm Administered Dose 1 mg .ROUTE .STK-MED ONE Stop: 01/08/17 16:33 Glycopyrrolate () Confirm Administered Dose 1 mg .ROUTE .STK-MED ONE Stop: 01/09/17 09:49 Sodium Chloride (Normal Saline) 1,000 mls @ 150 mls/hr IV ASDIRECTED [facility] Last Admin: 01/08/17 16:09 Dose: 150 mls/hr Sodium Chloride (Normal Saline) 1,000 mls @ 75 mls/hr IV ASDIRECTED [facility] Last Admin: 01/09/17 21:53 Dose: 75 mls/hr Fentanyl 2,500 mcg/ Sodium (Chloride) 250 mls @ 0 mls/hr EPIDUR TITRATE [facility]; Titrate PRN Reason: Protocol Last Titration: 01/10/17 10:52 Dose: 0 mls/hr, 0 mls/hr Potassium Chloride 20 meq/Lidocaine HCl 2 ml/ Sodium Chloride 112 mls @ 56 mls/ hr IV Q2H [facility] Stop: 01/09/17 16:29 Last Admin: 01/09/17 14:52 Dose: 56 mls/hr Metronidazole 500 mg/ Premix 100 mls @ 100 mls/hr IV ONCALL ONE Stop: 01/09/17 11:59 Last Admin: 01/09/17 10:11 Dose: 100 mls/hr Cefazolin Sodium/Dextrose 2 gm (/ Premix) 50 mls @ 100 mls/hr IV ONCALL ONE Stop: 01/09/17 10:59 Last Admin: 01/09/17 10:10 Dose: 100 mls/hr Sodium Chloride (Normal Saline) Confirm Administered Dose 250 mls @ as directed .ROUTE .STK-MED ONE Stop: 01/09/17 11:33 Sodium Chloride (Normal Saline) 1,000 mls @ 200 mls/hr IV ASDIRECTED [facility] Stop: 01/09/17 23:16 Last Admin: 01/09/17 22:14 Dose: 200 mls/hr Sodium Chloride (Normal Saline) 1,000 mls @ 200 mls/hr IV ASDIRECTED [facility] Stop: 01/10/17 02:16 Last Admin: 01/10/17 01:15 Dose: 200 mls/hr Sodium Chloride (Normal Saline) 1,000 mls @ 200 mls/hr IV ASDIRECTED [facility] Stop: 01/10/17 05:16 Last Admin: 01/10/17 04:14 Dose: 200 mls/hr Sodium Chloride (Normal Saline) 1,000 mls @ 125 mls/hr IV ASDIRECTED [facility] Last Admin: 01/11/17 02:52 Dose: 125 mls/hr Sodium Chloride (Normal Saline) 250 mls @ 200 mls/hr IV ASDIRECTED [facility] Stop: 01/10/17 21:31 Last Admin: 01/10/17 20:27 Dose: 200 mls/hr Sodium Chloride (Normal Saline) 1,000 mls @ 250 mls/hr IV ASDIRECTED [facility] Stop: 01/11/17 02:16 Last Admin: 01/10/17 22:37 Dose: 250 mls/hr Sodium Chloride (Normal Saline) 1,000 mls @ 999 mls/hr IV .BOLUS ONE Stop: 01/10/17 23:56 Last Admin: 01/10/17 23:10 Dose: 999 mls/hr Sodium Chloride (Normal Saline) 250 mls @ 200 mls/hr IV ASDIRECTED [facility] Stop: 01/11/17 05:16 Last Admin: 01/11/17 04:21 Dose: 200 mls/hr Sodium Chloride (Normal Saline) 1,000 mls @ 125 mls/hr IV ASDIRECTED [facility] Last Admin: 01/13/17 16:03 Dose: 100 mls/hr Vancomycin HCl 1.2 gm/ Sodium (Chloride) 250 mls @ 167 mls/hr IV ONETIME ONE Stop: 01/11/17 15:29 Last Admin: 01/11/17 13:47 Dose: 167 mls/hr Vancomycin HCl 1 gm/ Sodium (Chloride) 250 mls @ 167 mls/hr IV Q24H [facility] Last Admin: 01/13/17 14:36 Dose: 167 mls/hr Magnesium Sulfate 2 gm/ Premix 50 mls @ 25 mls/hr IV Q6H [facility] Stop: 01/14/17 16:59 Last Admin: 01/14/17 15:06 Dose: 25 mls/hr Potassium Chloride 20 meq/Lidocaine HCl 2 ml/ Sodium Chloride 112 mls @ 56 mls/ hr IV Q2H [facility] Stop: 01/14/17 13:29 Last Admin: 01/14/17 12:08 Dose: 56 mls/hr Potassium Chloride 20 meq/ (Premix) 100 mls @ 50 mls/hr IV Q2H [facility] Stop: 01/15/17 09:59 Last Admin: 01/15/17 06:26 Dose: 50 mls/hr Ibuprofen (Motrin) 600 mg PO Q6H PRN PRN Reason: Pain Last Admin: 01/14/17 20:25 Dose: 600 mg Ketamine HCl (Ketalar) Confirm Administered Dose 500 mg .ROUTE .STK-MED ONE Stop: 01/09/17 12:52 Lactulose (Chronulac) 30 gm PO DAILY [facility] Last Admin: 01/11/17 18:18 Dose: 30 gm Magnesium Hydroxide (Milk Of Magnesia) 30 ml PO BID [facility] Last Admin: 01/11/17 21:11 Dose: 30 ml Magnesium Hydroxide (Milk Of Magnesia) 30 ml PO BID [facility] Last Admin: 01/10/17 10:01 Dose: Not Given Mometasone Furoate/Formoterol Fumar (Dulera 200-5 Mcg) 2 puff IH BID [facility] Last Admin: 01/08/17 20:43 Dose: 2 puff Naloxone HCl (Narcan) 0.1 mg IVPUSH Q5M PRN PRN Reason: RESP RATE LESS THAN 6/MINUTE Naloxone HCl (Narcan) 0.4 mg IV ASDIRECTED PRN PRN Reason: ITCHING Neostigmine Methylsulfate (Neostigmine) Confirm Administered Dose 5 mg .ROUTE .STK-MED ONE Stop: 01/08/17 16:33 Neostigmine Methylsulfate (Neostigmine) Confirm Administered Dose 5 mg .ROUTE .STK-MED ONE Stop: 01/09/17 09:49 Ondansetron HCl (Zofran) Confirm Administered Dose 4 mg .ROUTE .STK-MED ONE Stop: 01/08/17 16:33 Ondansetron HCl (Zofran) Confirm Administered Dose 4 mg .ROUTE .STK-MED ONE Stop: 01/09/17 09:49 Phenylephrine HCl (Kiko-Synephrine) Confirm Administered Dose 10 mg .ROUTE .STK- MED ONE Stop: 01/09/17 11:33 Potassium Chloride (Klor-Con M20) 40 meq PO ONETIME ONE Stop: 01/13/17 09:01 Last Admin: 01/13/17 09:03 Dose: 40 meq Potassium Chloride (Klor-Con M20) 40 meq PO ONETIME ONE Stop: 01/14/17 08:31 Last Admin: 01/14/17 08:43 Dose: 40 meq Potassium Chloride (Klor-Con M20) 40 meq PO ONETIME ONE Stop: 01/15/17 06:02 Last Admin: 01/15/17 06:25 Dose: 40 meq Propofol (Diprivan 20 Ml) Confirm Administered Dose 200 mg .ROUTE .STK-MED ONE Stop: 01/08/17 16:33 Propofol (Diprivan 20 Ml) Confirm Administered Dose 200 mg .ROUTE .STK-MED ONE Stop: 01/09/17 09:49 Rocuronium [place] (Zemuron) Confirm Administered Dose 50 mg .ROUTE .STK-MED ONE Stop: 01/08/17 16:33 Rocuronium [place] (Zemuron) Confirm Administered Dose 50 mg .ROUTE .STK-MED ONE Stop: 01/09/17 09:49 Succinylcholine Chloride (Succinylcholine In Ns Pf) Confirm Administered Dose 200 mg .ROUTE .STK-MED ONE Stop: 01/08/17 16:33 Succinylcholine Chloride (Succinylcholine In Ns Pf) Confirm Administered Dose 200 mg .ROUTE .STK-MED ONE Stop: 01/09/17 09:49 Vancomycin HCl (Vancomycin) 1 gm IV .PHARMACY TO DOSE [facility] Stop: 01/11/17 18:00 - Exam Quality Assessment: supplemental oxygen, DVT prophylaxis General: alert, cooperative, no acute distress Lungs: Clear to auscultation, Normal respiratory effort Cardiovascular: Regular Rate, No Murmurs, Irregular Rhythm. No: Bradycardia, Tachycardia Abdomen: bowel sounds present, soft, no distension, tenderness. No: rigidity, rebound, guarding Extremities: edema Skin: warm, dry, intact - Problem List Review Problem List Initiated/Reviewed/Updated: Yes - My Orders Last 24 Hours: My Active Orders 01/14/17 09:00 Magnesium Oxide 400 mg PO BID Sodium Chloride 0.9% [Saline Flush] 10 ml FLUSH DAILY 01/15/17 08:30 Magnesium Sulfate/Water [Magnesium Sulfate 2 GM in Water 50 ML] 2 gm Premix Bag 1 bag IV Q6H Potassium Chloride 20 meq Lidocaine 1% [Xylocaine 1%] 2 ml Sodium Chloride 0.9 % [Normal Saline] 100 ml IV ONETIME 01/15/17 09:04 Furosemide [Lasix] 20 mg IVPUSH NOW ONE 01/15/17 09:09 Vital Signs [RC] Q4H 01/15/17 13:00 Potassium Chloride [Klor-Con M20] 40 meq PO ONETIME ONE 01/16/17 05:00 BASIC METABOLIC PANEL,BMP [CHEM] Timed CBC WITH AUTO DIFF [HEME] Timed MAGNESIUM [CHEM] Timed - Plan Plan:: Assessment and Plan - Parastomal hernia with small bowel obstruction - history of rectal cancer and is s/p partial colectomy and colostomy placement about 3 years ago. Status post hernia repair and mesh placement on 01/09. No bowel resection was necessary. Tolerating a soft diet with good ostomy output. -Pain control and postop cares per Dr. Mccann -Scheduled and as needed nebulizers -Continue beta oziel Right lung pneumonia-given current hospitalization we'll need to consider this a hospital-acquired pneumonia, possible aspiration. Respiratory status has improved over the past 24 hours and he has been able to walk short distances. Culture are growing Klebsiella and Enterobacter, sensitivities have now returned and will adjust antibiotics accordingly. -Discontinue IV vancomycin and Zosyn -Continue IV levofloxacin Confusion and agitation-at baseline has underlying mild to moderate dementia. Paranoid ideation seems to be improved today, but he remains confused -Lorazepam 0.25 mg every 2 hours as needed -Haldol 1 mg by mouth every 2 hours as needed Coronary artery disease - status post CABG about 5 years ago. no evidence for acute coronary syndrome or active anginal type symptoms. Vital signs have remained stable. -Continue medical management COPD - no history of oxygen dependence. No active wheezing. Urine output had tapered off during the night and he was given IV fluids, then developed increased shortness of breath secondary to fluid overload. He has been given IV Lasix and respiratory status has stabilized. Continues to require supplemental oxygen likely secondary to right lung pneumonia. -Nebulizers as above Paroxysmal atrial fibrillation - he did go into atrial fibrillation during surgery but his rate has remained well controlled. -Cardiac monitoring -Continue beta oziel -Restart calcium channel oziel
[2017-01-15] MEDS: Levofloxacin/Dextrose 5%-Water 500 MG in Premix Bag 1 BAG IV SCH (10:50)
[2017-01-15] MEDS: Enoxaparin 40 MG/0.4 ML Syringe SUBCUT SCH (20:38)
[2017-01-15] MEDS: diphenhydrAMINE 50 MG/ML SDV IVPUSH PRN (22:05)
[2017-01-16] MEDS: Albuterol/Ipratropium 3.0-0.5 MG/3 ML Neb Soln NEB SCH ×4 (07:02→20:53)
[2017-01-16] MEDS: Formoterol/Mometasone 200-5 MCG 8.8 GM Inhaler IH SCH ×2 (07:02→20:54)
[2017-01-16] MEDS: Magnesium Oxide 400 MG Tab PO SCH ×2 (08:42→20:53)
[2017-01-16] MEDS: Aspirin 81 MG Tab.EC PO SCH (08:42)
[2017-01-16] MEDS: Diltiazem 120 MG Cap.CD PO SCH (08:42)
[2017-01-16] MEDS: Carvedilol 25 MG Tab PO SCH ×2 (08:43→20:53)
--- NOTE | 2017-01-16 10:37 | PCM.PN ---
- General Info Date of Service: 01/16/17 Functional Status: Reports: pain controlled, tolerating diet, ambulating - Review of Systems Psychiatric: Reports: confusion, agitation Systems Review Comment:: This patient has been stable over the past 24 hours, there've been no recurrent temperature elevations, saturations have been adequate, and vital signs stable. He's continued to experience confusion, with less paranoia and agitation. - Patient Data Vitals - most recent: Last Vital Signs Temp 97.8 F 01/16/17 07:32 Pulse 103 H 01/16/17 08:43 Resp 20 01/16/17 07:32 BP 172/86 H 01/16/17 08:42 Pulse Ox 91 L 01/16/17 07:32 Weight - most recent: 155 lb 6.814 oz I&O - last 24 hours: Intake & Output 01/15/17 01/16/17 01/16/17 22:59 06:59 14:59 Intake Total 420 360 480 Output Total 650 1200 Balance -230 -840 480 Lab Results last 24 hrs: Laboratory Results - last 24 hr 01/16/17 01/16/17 Range/Units 05:40 05:40 WBC 10.3 (4.5-11.0) K/uL RBC 4.55 (4.30-5.90) M/uL Hgb 12.7 (12.0-15.0) g/dL Hct 40.0 (40.0-54.0) % MCV 88 (80-98) fL MCH 28 (27-31) pg MCHC 32 (32-36) % Plt Count 229 (150-400) K/uL Neut % (Auto) 68 H (36-66) % Lymph % (Auto) 13 L (24-44) % Scott % (Auto) 14 H (2-6) % Eos % (Auto) 5 H (2-4) % Baso % (Auto) 1 (0-1) % Sodium 143 (140-148) mmol/L Potassium 3.8 (3.6-5.2) mmol/L Chloride 106 (100-108) mmol/L Carbon Dioxide 31 (21-32) mmol/L Anion Gap 5.9 (5.0-14.0) mmol/L BUN 8 (7-18) mg/dL Creatinine 0.7 L (0.8-1.3) mg/dL Est Cr Clr Drug Dosing 78.33 mL/min Estimated GFR (MDRD) > 60 (>60) Glucose 111 H (74-106) mg/dL Calcium 8.1 L (8.5-10.1) mg/dL Magnesium 2.0 (1.8-2.4) mg/dL Neto Results last 24 hrs: Microbiology 01/11/17 10:05 Aerobic Blood Culture - Final Blood - Venous - Lab Draw NO GROWTH AFTER 5 DAYS Anaerobic Blood Culture - Final NO GROWTH AFTER 5 DAYS 01/11/17 09:50 Aerobic Blood Culture - Final Blood - Venous NO GROWTH AFTER 5 DAYS Anaerobic Blood Culture - Final NO GROWTH AFTER 5 DAYS Med Orders - Current: Current Medications Acetaminophen/Hydrocodone Bitart ([place] 325-5 Mg) 2 tab PO Q4H PRN PRN Reason: Pain (moderate 4-6) Last Admin: 01/13/17 08:34 Dose: 1 tab Albuterol (Proventil Neb Soln) 2.5 mg NEB Q4H PRN PRN Reason: Shortness of Breath Last Admin: 01/11/17 04:21 Dose: 2.5 mg Albuterol/Ipratropium (Duoneb 3.0-0.5 Mg/3 Ml) [address] [facility] Last Admin: 01/16/17 10:17 Dose: 3 ml Aspirin (Halfprin) [address] [facility] Last Admin: 01/16/17 08:42 Dose: 81 mg Carvedilol (Coreg) [address] [facility] Last Admin: 01/16/17 08:43 Dose: 25 mg Diltiazem HCl (Cardizem Cd) [address] [facility] Last Admin: 01/16/17 08:42 Dose: 120 mg Diphenhydramine HCl (Benadryl) 50 mg IVPUSH Q4H PRN PRN Reason: Itching Last Admin: 01/15/17 22:05 Dose: 50 mg Docusate Sodium (Colace) 100 mg PO BID PRN PRN Reason: Constipation Enoxaparin Sodium (Lovenox) [address] [facility] Last Admin: 01/15/17 20:38 Dose: 40 mg Fentanyl (Sublimaze) 25 mcg IVPUSH Q1H PRN PRN Reason: Pain (moderate 4-6) Last Admin: 01/14/17 02:40 Dose: 25 mcg Haloperidol (Haldol) 1 mg PO Q2H PRN PRN Reason: Agitation Last Admin: 01/15/17 01:48 Dose: 1 mg Hydralazine HCl (Apresoline) 10 mg IVPUSH Q4H PRN PRN Reason: Hypertension Last Admin: 01/13/17 18:33 Dose: 10 mg Levofloxacin (Levaquin) 500 mg PO Q24H [facility] Lorazepam (Ativan) 0.25 mg PO Q2H PRN PRN Reason: Agitation Last Admin: 01/15/17 01:40 Dose: 0.25 mg Magnesium Oxide (Magnesium Oxide) [address] [facility] Last Admin: 01/16/17 08:42 Dose: 400 mg Mometasone Furoate/Formoterol Fumar (Dulera 200-5 Mcg) [address] [facility] Last Admin: 01/16/17 07:02 Dose: 2 puff Promethazine HCl (Phenergan) 25 mg IM Q6H PRN PRN Reason: Nausea Sodium Chloride (Saline Flush) [address] [facility] Last Admin: 01/15/17 08:50 Dose: Not Given Discontinued Medications Benzocaine/Menthol (Cepacol Sore Throat) 1 lozenge MUCMEM Q1H PRN PRN Reason: Sore Throat Dexamethasone (Dexamethasone) Confirm Administered Dose 4 mg .ROUTE .STK-MED ONE Stop: 01/08/17 16:33 Dexamethasone (Dexamethasone) Confirm Administered Dose 4 mg .ROUTE .STK-MED ONE Stop: 01/09/17 09:49 Enoxaparin Sodium (Lovenox) [address] [facility] Last Admin: 01/11/17 10:11 Dose: Not Given Fentanyl (Sublimaze) Confirm Administered Dose 250 mcg .ROUTE .STK-MED ONE Stop: 01/08/17 16:33 Fentanyl (Sublimaze) Confirm Administered Dose 250 mcg .ROUTE .STK-MED ONE Stop: 01/09/17 09:49 Furosemide (Lasix) 60 mg IVPUSH ONETIME ONE Stop: 01/08/17 11:46 Last Admin: 01/08/17 11:53 Dose: 60 mg Furosemide (Lasix) 20 mg IVPUSH ONETIME ONE Stop: 01/11/17 06:23 Last Admin: 01/11/17 06:32 Dose: 20 mg Furosemide (Lasix) Confirm Administered Dose 20 mg .ROUTE .STK-MED ONE Stop: 01/11/17 06:32 Last Admin: 01/11/17 06:38 Dose: Not Given Furosemide (Lasix) 40 mg IVPUSH ONETIME ONE Stop: 01/13/17 21:43 Last Admin: 01/13/17 21:52 Dose: 40 mg Furosemide (Lasix) Confirm Administered Dose 40 mg .ROUTE .STK-MED ONE Stop: 01/13/17 21:48 Last Admin: 01/13/17 22:09 Dose: Not Given Furosemide (Lasix) 20 mg IV ONETIME ONE Stop: 01/14/17 09:46 Last Admin: 01/14/17 09:58 Dose: 20 mg Furosemide (Lasix) 20 mg IVPUSH NOW ONE Stop: 01/15/17 09:01 Last Admin: 01/15/17 10:50 Dose: 20 mg Glycopyrrolate () Confirm Administered Dose 1 mg .ROUTE .STK-MED ONE Stop: 01/08/17 16:33 Glycopyrrolate () Confirm Administered Dose 1 mg .ROUTE .STK-MED ONE Stop: 01/09/17 09:49 Sodium Chloride (Normal Saline) 1,000 mls @ 150 mls/hr IV ASDIRECTED [facility] Last Admin: 01/08/17 16:09 Dose: 150 mls/hr Sodium Chloride (Normal Saline) 1,000 mls @ 75 mls/hr IV ASDIRECTED [facility] Last Admin: 01/09/17 21:53 Dose: 75 mls/hr Fentanyl 2,500 mcg/ Sodium (Chloride) 250 mls @ 0 mls/hr EPIDUR TITRATE [facility]; Titrate PRN Reason: Protocol Last Titration: 01/10/17 10:52 Dose: 0 mls/hr, 0 mls/hr Potassium Chloride 20 meq/Lidocaine HCl 2 ml/ Sodium Chloride 112 mls @ 56 mls/ hr IV Q2H [facility] Stop: 01/09/17 16:29 Last Admin: 01/09/17 14:52 Dose: 56 mls/hr Metronidazole 500 mg/ Premix 100 mls @ 100 mls/hr IV ONCALL ONE Stop: 01/09/17 11:59 Last Admin: 01/09/17 10:11 Dose: 100 mls/hr Cefazolin Sodium/Dextrose 2 gm (/ Premix) 50 mls @ 100 mls/hr IV ONCALL ONE Stop: 01/09/17 10:59 Last Admin: 01/09/17 10:10 Dose: 100 mls/hr Sodium Chloride (Normal Saline) Confirm Administered Dose 250 mls @ as directed .ROUTE .STK-MED ONE Stop: 01/09/17 11:33 Sodium Chloride (Normal Saline) 1,000 mls @ 200 mls/hr IV ASDIRECTED [facility] Stop: 01/09/17 23:16 Last Admin: 01/09/17 22:14 Dose: 200 mls/hr Sodium Chloride (Normal Saline) 1,000 mls @ 200 mls/hr IV ASDIRECTED [facility] Stop: 01/10/17 02:16 Last Admin: 01/10/17 01:15 Dose: 200 mls/hr Sodium Chloride (Normal Saline) 1,000 mls @ 200 mls/hr IV ASDIRECTED [facility] Stop: 01/10/17 05:16 Last Admin: 01/10/17 04:14 Dose: 200 mls/hr Sodium Chloride (Normal Saline) 1,000 mls @ 125 mls/hr IV ASDIRECTED [facility] Last Admin: 01/11/17 02:52 Dose: 125 mls/hr Sodium Chloride (Normal Saline) 250 mls @ 200 mls/hr IV ASDIRECTED [facility] Stop: 01/10/17 21:31 Last Admin: 01/10/17 20:27 Dose: 200 mls/hr Sodium Chloride (Normal Saline) 1,000 mls @ 250 mls/hr IV ASDIRECTED [facility] Stop: 01/11/17 02:16 Last Admin: 01/10/17 22:37 Dose: 250 mls/hr Sodium Chloride (Normal Saline) 1,000 mls @ 999 mls/hr IV .BOLUS ONE Stop: 01/10/17 23:56 Last Admin: 01/10/17 23:10 Dose: 999 mls/hr Sodium Chloride (Normal Saline) 250 mls @ 200 mls/hr IV ASDIRECTED [facility] Stop: 01/11/17 05:16 Last Admin: 01/11/17 04:21 Dose: 200 mls/hr Sodium Chloride (Normal Saline) 1,000 mls @ 125 mls/hr IV ASDIRECTED [facility] Last Admin: 01/13/17 16:03 Dose: 100 mls/hr Levofloxacin/Dextrose 500 mg/ (Premix) 100 mls @ 100 mls/hr IV Q24H [facility] Last Admin: 01/15/17 10:50 Dose: 100 mls/hr Piperacillin/Tazobactam/ (Dextrose 3.375 gm/ Premix) 50 mls @ 100 mls/hr IV Q6H [facility] Last Admin: 01/15/17 04:51 Dose: 100 mls/hr Vancomycin HCl 1.2 gm/ Sodium (Chloride) 250 mls @ 167 mls/hr IV ONETIME ONE Stop: 01/11/17 15:29 Last Admin: 01/11/17 13:47 Dose: 167 mls/hr Vancomycin HCl 1 gm/ Sodium (Chloride) 250 mls @ 167 mls/hr IV Q24H [facility] Last Admin: 01/13/17 14:36 Dose: 167 mls/hr Magnesium Sulfate 2 gm/ Premix 50 mls @ 25 mls/hr IV Q6H [facility] Stop: 01/14/17 16:59 Last Admin: 01/14/17 15:06 Dose: 25 mls/hr Potassium Chloride 20 meq/Lidocaine HCl 2 ml/ Sodium Chloride 112 mls @ 56 mls/ hr IV Q2H [facility] Stop: 01/14/17 13:29 Last Admin: 01/14/17 12:08 Dose: 56 mls/hr Potassium Chloride 20 meq/ (Premix) 100 mls @ 50 mls/hr IV Q2H [facility] Stop: 01/15/17 09:59 Last Admin: 01/15/17 06:26 Dose: 50 mls/hr Potassium Chloride 20 meq/Lidocaine HCl 2 ml/ Sodium Chloride 112 mls @ 56 mls/ hr IV ONETIME ONE Stop: 01/15/17 10:29 Last Admin: 01/15/17 08:51 Dose: 56 mls/hr Magnesium Sulfate 2 gm/ Premix 50 mls @ 25 mls/hr IV Q6H [facility] Stop: 01/15/17 16:29 Last Admin: 01/15/17 15:00 Dose: 25 mls/hr Ibuprofen (Motrin) 600 mg PO Q6H PRN PRN Reason: Pain Last Admin: 01/14/17 20:25 Dose: 600 mg Ketamine HCl (Ketalar) Confirm Administered Dose 500 mg .ROUTE .STK-MED ONE Stop: 01/09/17 12:52 Lactulose (Chronulac) [address] [facility] Last Admin: 01/11/17 18:18 Dose: 30 gm Magnesium Hydroxide (Milk Of Magnesia) [address] [facility] Last Admin: 01/11/17 21:11 Dose: 30 ml Magnesium Hydroxide (Milk Of Magnesia) [address] [facility] Last Admin: 01/10/17 10:01 Dose: Not Given Mometasone Furoate/Formoterol Fumar (Dulera 200-5 Mcg) [address] [facility] Last Admin: 01/08/17 20:43 Dose: 2 puff Naloxone HCl (Narcan) 0.1 mg IVPUSH Q5M PRN PRN Reason: RESP RATE LESS THAN 6/MINUTE Naloxone HCl (Narcan) 0.4 mg IV ASDIRECTED PRN PRN Reason: ITCHING Neostigmine Methylsulfate (Neostigmine) Confirm Administered Dose 5 mg .ROUTE .STK-MED ONE Stop: 01/08/17 16:33 Neostigmine Methylsulfate (Neostigmine) Confirm Administered Dose 5 mg .ROUTE .STK-MED ONE Stop: 01/09/17 09:49 Ondansetron HCl (Zofran) Confirm Administered Dose 4 mg .ROUTE .STK-MED ONE Stop: 01/08/17 16:33 Ondansetron HCl (Zofran) Confirm Administered Dose 4 mg .ROUTE .STK-MED ONE Stop: 01/09/17 09:49 Phenylephrine HCl (Kiko-Synephrine) Confirm Administered Dose 10 mg .ROUTE .STK- MED ONE Stop: 01/09/17 11:33 Potassium Chloride (Klor-Con M20) 40 meq PO ONETIME ONE Stop: 01/13/17 09:01 Last Admin: 01/13/17 09:03 Dose: 40 meq Potassium Chloride (Klor-Con M20) 40 meq PO ONETIME ONE Stop: 01/14/17 08:31 Last Admin: 01/14/17 08:43 Dose: 40 meq Potassium Chloride (Klor-Con M20) 40 meq PO ONETIME ONE Stop: 01/15/17 06:02 Last Admin: 01/15/17 06:25 Dose: 40 meq Potassium Chloride (Klor-Con M20) 40 meq PO ONETIME ONE Stop: 01/15/17 13:01 Last Admin: 01/15/17 13:18 Dose: 40 meq Propofol (Diprivan 20 Ml) Confirm Administered Dose 200 mg .ROUTE .STK-MED ONE Stop: 01/08/17 16:33 Propofol (Diprivan 20 Ml) Confirm Administered Dose 200 mg .ROUTE .STK-MED ONE Stop: 01/09/17 09:49 Rocuronium [place] (Zemuron) Confirm Administered Dose 50 mg .ROUTE .STK-MED ONE Stop: 01/08/17 16:33 Rocuronium [place] (Zemuron) Confirm Administered Dose 50 mg .ROUTE .STK-MED ONE Stop: 01/09/17 09:49 Succinylcholine Chloride (Succinylcholine In Ns Pf) Confirm Administered Dose 200 mg .ROUTE .STK-MED ONE Stop: 01/08/17 16:33 Succinylcholine Chloride (Succinylcholine In Ns Pf) Confirm Administered Dose 200 mg .ROUTE .STK-MED ONE Stop: 01/09/17 09:49 Vancomycin HCl (Vancomycin) 1 gm IV .PHARMACY TO DOSE [facility] Stop: 01/11/17 18:00 - Exam Quality Assessment: urine catheter, DVT prophylaxis. No: supplemental oxygen General: alert, cooperative, no acute distress Lungs: Clear to auscultation, Normal respiratory effort Cardiovascular: Regular Rate, Irregular Rhythm Abdomen: bowel sounds present, soft, no tenderness, no distension Extremities: no edema Skin: warm, dry, intact - Problem List Review Problem List Initiated/Reviewed/Updated: Yes - My Orders Last 24 Hours: My Active Orders 01/16/17 11:00 Levofloxacin [Levaquin] 500 mg PO Q24H - Plan Plan:: Assessment and Plan - Parastomal hernia with small bowel obstruction - history of rectal cancer and is s/p partial colectomy and colostomy placement about 3 years ago. Status post hernia repair and mesh placement on 01/09. No bowel resection was necessary. Tolerating a soft diet with good ostomy output. -Pain control and postop cares per Dr. Mccann -Continue beta oziel Right lung pneumonia-given current hospitalization we'll need to consider this a hospital-acquired pneumonia, possible aspiration. Respiratory status has improved over the past 24 hours and he has been able to walk short distances. Culture are growing Klebsiella and Enterobacter, sensitivities have now returned and will adjust antibiotics accordingly. -Discontinue IV vancomycin and Zosyn -Transitioned to oral levofloxacin today Confusion and agitation-at baseline has underlying mild to moderate dementia. Paranoid ideation seems to be improved today, but he remains confused -Lorazepam 0.25 mg every 2 hours as needed -Haldol 1 mg by mouth every 2 hours as needed Coronary artery disease - status post CABG about 5 years ago. no evidence for acute coronary syndrome or active anginal type symptoms. Vital signs have remained stable. -Continue medical management COPD - respiratory status is stabilized following diuresis -Nebulizers as above Paroxysmal atrial fibrillation - he did go into atrial fibrillation during surgery but his rate has remained well controlled. -Cardiac monitoring -Continue beta oziel -Restart calcium channel oziel -Initiate oral anticoagulation with warfarin -INR in a.m. Disposition-anticipate discharge to home tomorrow
[2017-01-16] MEDS ORDERED: Warfarin 5 MG Tab PO ONE (11:30)
[2017-01-16] MEDS: Levofloxacin 500 MG Tab PO SCH (11:52)
[2017-01-16] MEDS: Sodium Chloride 0.9% 10 ML Syringe FLUSH SCH (11:52)
[2017-01-16] MEDS: Enoxaparin 40 MG/0.4 ML Syringe SUBCUT SCH (20:53)
[2017-01-17] MEDS: Albuterol/Ipratropium 3.0-0.5 MG/3 ML Neb Soln NEB SCH ×2 (07:08→10:11)
[2017-01-17] MEDS: Formoterol/Mometasone 200-5 MCG 8.8 GM Inhaler IH SCH (07:08)
[2017-01-17 08:06] VITALS: BP 162/72
--- NOTE | 2017-01-17 08:51 | PCM.DCSUM1 ---
Discharge Summary - Hospital Course Brief History: This patient is an 82-year-old gentleman who was admitted through the emergency department with abdominal discomfort secondary to incarcerated peristomal hernia. - Discharge Data Discharge Date: 01/17/17 Discharge Disposition: Home, [facility] 06 Condition: Fair - Discharge Diagnosis/Problem(s) (1) Small bowel obstruction SNOMED Code(s): 501810223 ICD Code: K56.69 - OTHER INTESTINAL OBSTRUCTION Status: Acute Current Visit: Yes (2) COPD (chronic obstructive pulmonary disease) SNOMED Code(s): 01986215 ICD Code: J44.9 - CHRONIC OBSTRUCTIVE PULMONARY DISEASE, UNSPECIFIED Status : Chronic Current Visit: No (3) Hypoxia SNOMED Code(s): 981922706, 123210086 ICD Code: R09.02 - HYPOXEMIA Status: Acute Current Visit: Yes - Patient Summary/Data Hospital Course: This patient is an 82-year-old gentleman with a known previous history of rectal carcinoma, status post surgery and creation of an ileostomy. In the evening prior to admission did develop some symptoms of chest pain, he has a known history of coronary artery disease. On the day of admission had decreased output through his ostomy as well as some abdominal pain. CT scan obtained in the emergency department showed evidence of a peristomal hernia with incarcerated bowel. Cardiac workup was unremarkable for cardiac ischemia or infarct. He was admitted to the hospital and given IV fluids for hydration as well as kept n.p.o. He was seen and evaluated by Dr. Mccann for surgical consult. Surgical procedure was performed with release of incarcerated intestine and repair of the peristomal hernia. He did not require resection of any bowel. Postoperative course was complicated by atrial fibrillation with rapid ventricular response, rate control was achieved with oral medication. Postoperative course was also complicated by dementia with significant paranoia. This had improved by the time of discharge but was not yet back to baseline. He developed hypoxia and evidence of pulmonary infection. Chest x-ray showed a right lung infiltrate consistent with pneumonia , he was started on broad-spectrum IV antibiotic therapy. Blood cultures were obtained which were negative, sputum cultures did grow Klebsiella and Enterobacter. Both of these bacteria were sensitive to levofloxacin and his antibiotic regimen was decreased to levofloxacin, he will be discharged home with levofloxacin for an additional 5 days. He did also develop some fluid overload and required regular doses of IV Lasix, respiratory status was stable at the time of discharge. He will be discharged on a soft low residue diet and activity will be as tolerated. Followup appointment will be scheduled with his primary care provider within one week. Prior to discharge he was started on oral anticoagulation with warfarin because of his persistent atrial fibrillation. On discharge he will be on 5 mg daily and will schedule a followup INR to be drawn by home care on January 19. Followup appointment will be scheduled with Dr. Mccann in one week. - Patient Instructions Diet: GI Soft/Low Residue/Low Fiber Activity: As Tolerated Other/Special Instructions: Schedule followup appointment with primary care provider within one week. Home care to please draw INR on January 19, call results to Coumadin clinic at [facility]. Schedule followup appointment with Dr. Mccann in one week. - Discharge Plan Prescriptions/Med Rec: Furosemide [Lasix] 20 mg PO DAILY #30 tablet Levofloxacin [Levaquin] 500 mg PO Q24H #5 tablet Magnesium Oxide 400 mg PO BID #60 tablet Warfarin [Coumadin] 5 mg PO DAILY #60 tablet Home Medications: Home Meds Fluticasone/Salmeterol [Advair 250-50] 1 puff INH BID 11/24/13 [History] Simvastatin 20 mg PO DAILY 11/24/13 [History] Albuterol [Ventolin HFA] 2 puff INH Q4H PRN 10/08/14 [History] Aspirin [Ecotrin] 81 mg PO DAILY 10/08/14 [History] Fluocinonide [Lidex 0.05% Oint] 1 applic TRDERM BID PRN 10/08/14 [History] Carvedilol 25 mg PO BID 10/21/16 [History] Diltiazem HCl [Diltiazem 24Hr Cd] 120 mg PO DAILY #30 cap.er.24h 10/31/16 [Rx] Sennosides/Docusate Sodium [Senna-S] 1 each PO BID #60 tablet 10/31/16 [Rx] Furosemide [Lasix] 20 mg PO DAILY #30 tablet 01/17/17 [Rx] Levofloxacin [Levaquin] 500 mg PO Q24H #5 tablet 01/17/17 [Rx] Magnesium Oxide 400 mg PO BID #60 tablet 01/17/17 [Rx] Warfarin [Coumadin] 5 mg PO DAILY #60 tablet 01/17/17 [Rx] Forms: ED Department Discharge Referrals: Jarad Bond MD [Primary Care Provider] - - Patient Data Vitals - Most Recent: Last Vital Signs Temp 98.1 F 01/17/17 08:00 Pulse 84 01/17/17 08:00 Resp 20 01/17/17 08:00 BP 162/72 H 01/17/17 08:00 Pulse Ox 92 L 01/17/17 08:00 Weight - Most Recent: 155 lb 6.814 oz I&O - Last 24 hours: Intake & Output 01/16/17 01/17/17 01/17/17 22:59 06:59 14:59 Intake Total 240 Output Total 450 Balance -210 Lab Results - Last 24 hrs: Laboratory Results - last 24 hr 01/17/17 Range/Units 06:00 PT 11.4 (9.5-12.0) sec INR 1.07 (0.80-1.20) JHONNY Results - Last 24 hrs: Microbiology 01/11/17 10:05 Aerobic Blood Culture - Final Blood - Venous - Lab Draw NO GROWTH AFTER 5 DAYS Anaerobic Blood Culture - Final NO GROWTH AFTER 5 DAYS 01/11/17 09:50 Aerobic Blood Culture - Final Blood - Venous NO GROWTH AFTER 5 DAYS Anaerobic Blood Culture - Final NO GROWTH AFTER 5 DAYS Med Orders - Current: Current Medications Acetaminophen/Hydrocodone Bitart ([place] 325-5 Mg) 2 tab PO Q4H PRN PRN Reason: Pain (moderate 4-6) Last Admin: 01/13/17 08:34 Dose: 1 tab Albuterol (Proventil Neb Soln) 2.5 mg NEB Q4H PRN PRN Reason: Shortness of Breath Last Admin: 01/11/17 04:21 Dose: 2.5 mg Albuterol/Ipratropium (Duoneb 3.0-0.5 Mg/3 Ml) 3 ml NEB QIDRT [facility] Last Admin: 01/17/17 07:08 Dose: 3 ml Aspirin (Halfprin) 81 mg PO DAILY [facility] Last Admin: 01/16/17 08:42 Dose: 81 mg Carvedilol (Coreg) 25 mg PO BID [facility] Last Admin: 01/16/17 20:53 Dose: 25 mg Diltiazem HCl (Cardizem Cd) 120 mg PO DAILY [facility] Last Admin: 01/16/17 08:42 Dose: 120 mg Diphenhydramine HCl (Benadryl) 50 mg IVPUSH Q4H PRN PRN Reason: Itching Last Admin: 01/15/17 22:05 Dose: 50 mg Docusate Sodium (Colace) 100 mg PO BID PRN PRN Reason: Constipation Enoxaparin Sodium (Lovenox) 40 mg SUBCUT BEDTIME [facility] Last Admin: 01/16/17 20:53 Dose: 40 mg Fentanyl (Sublimaze) 25 mcg IVPUSH Q1H PRN PRN Reason: Pain (moderate 4-6) Last Admin: 01/14/17 02:40 Dose: 25 mcg Furosemide (Lasix) 20 mg PO DAILY [facility] Haloperidol (Haldol) 1 mg PO Q2H PRN PRN Reason: Agitation Last Admin: 01/15/17 01:48 Dose: 1 mg Hydralazine HCl (Apresoline) 10 mg IVPUSH Q4H PRN PRN Reason: Hypertension Last Admin: 01/13/17 18:33 Dose: 10 mg Levofloxacin (Levaquin) 500 mg PO Q24H [facility] Last Admin: 01/16/17 11:52 Dose: 500 mg Lorazepam (Ativan) 0.25 mg PO Q2H PRN PRN Reason: Agitation Last Admin: 01/15/17 01:40 Dose: 0.25 mg Magnesium Oxide (Magnesium Oxide) 400 mg PO BID [facility] Last Admin: 01/16/17 20:53 Dose: 400 mg Mometasone Furoate/Formoterol Fumar (Dulera 200-5 Mcg) 2 puff IH BIDRT [facility] Last Admin: 01/17/17 07:08 Dose: 2 puff Promethazine HCl (Phenergan) 25 mg IM Q6H PRN PRN Reason: Nausea Sodium Chloride (Saline Flush) 10 ml FLUSH DAILY [facility] Last Admin: 01/16/17 11:52 Dose: Not Given Discontinued Medications Benzocaine/Menthol (Cepacol Sore Throat) 1 lozenge MUCMEM Q1H PRN PRN Reason: Sore Throat Dexamethasone (Dexamethasone) Confirm Administered Dose 4 mg .ROUTE .STK-MED ONE Stop: 01/08/17 16:33 Dexamethasone (Dexamethasone) Confirm Administered Dose 4 mg .ROUTE .STK-MED ONE Stop: 01/09/17 09:49 Enoxaparin Sodium (Lovenox) 40 mg SUBCUT DAILY [facility] Last Admin: 01/11/17 10:11 Dose: Not Given Fentanyl (Sublimaze) Confirm Administered Dose 250 mcg .ROUTE .STK-MED ONE Stop: 01/08/17 16:33 Fentanyl (Sublimaze) Confirm Administered Dose 250 mcg .ROUTE .STK-MED ONE Stop: 01/09/17 09:49 Furosemide (Lasix) 60 mg IVPUSH ONETIME ONE Stop: 01/08/17 11:46 Last Admin: 01/08/17 11:53 Dose: 60 mg Furosemide (Lasix) 20 mg IVPUSH ONETIME ONE Stop: 01/11/17 06:23 Last Admin: 01/11/17 06:32 Dose: 20 mg Furosemide (Lasix) Confirm Administered Dose 20 mg .ROUTE .STK-MED ONE Stop: 01/11/17 06:32 Last Admin: 01/11/17 06:38 Dose: Not Given Furosemide (Lasix) 40 mg IVPUSH ONETIME ONE Stop: 01/13/17 21:43 Last Admin: 01/13/17 21:52 Dose: 40 mg Furosemide (Lasix) Confirm Administered Dose 40 mg .ROUTE .STK-MED ONE Stop: 01/13/17 21:48 Last Admin: 01/13/17 22:09 Dose: Not Given Furosemide (Lasix) 20 mg IV ONETIME ONE Stop: 01/14/17 09:46 Last Admin: 01/14/17 09:58 Dose: 20 mg Furosemide (Lasix) 20 mg IVPUSH NOW ONE Stop: 01/15/17 09:01 Last Admin: 01/15/17 10:50 Dose: 20 mg Glycopyrrolate () Confirm Administered Dose 1 mg .ROUTE .STK-MED ONE Stop: 01/08/17 16:33 Glycopyrrolate () Confirm Administered Dose 1 mg .ROUTE .STK-MED ONE Stop: 01/09/17 09:49 Sodium Chloride (Normal Saline) 1,000 mls @ 150 mls/hr IV ASDIRECTED [facility] Last Admin: 01/08/17 16:09 Dose: 150 mls/hr Sodium Chloride (Normal Saline) 1,000 mls @ 75 mls/hr IV ASDIRECTED [facility] Last Admin: 01/09/17 21:53 Dose: 75 mls/hr Fentanyl 2,500 mcg/ Sodium (Chloride) 250 mls @ 0 mls/hr EPIDUR TITRATE [facility]; Titrate PRN Reason: Protocol Last Titration: 01/10/17 10:52 Dose: 0 mls/hr, 0 mls/hr Potassium Chloride 20 meq/Lidocaine HCl 2 ml/ Sodium Chloride 112 mls @ 56 mls/ hr IV Q2H [facility] Stop: 01/09/17 16:29 Last Admin: 01/09/17 14:52 Dose: 56 mls/hr Metronidazole 500 mg/ Premix 100 mls @ 100 mls/hr IV ONCALL ONE Stop: 01/09/17 11:59 Last Admin: 01/09/17 10:11 Dose: 100 mls/hr Cefazolin Sodium/Dextrose 2 gm (/ Premix) 50 mls @ 100 mls/hr IV ONCALL ONE Stop: 01/09/17 10:59 Last Admin: 01/09/17 10:10 Dose: 100 mls/hr Sodium Chloride (Normal Saline) Confirm Administered Dose 250 mls @ as directed .ROUTE .[facility] ONE Stop: 01/09/17 11:33 Sodium Chloride (Normal Saline) 1,000 mls @ 200 mls/hr IV ASDIRECTED [facility] Stop: 01/09/17 23:16 Last Admin: 01/09/17 22:14 Dose: 200 mls/hr Sodium Chloride (Normal Saline) 1,000 mls @ 200 mls/hr IV ASDIRECTED [facility] Stop: 01/10/17 02:16 Last Admin: 01/10/17 01:15 Dose: 200 mls/hr Sodium Chloride (Normal Saline) 1,000 mls @ 200 mls/hr IV ASDIRECTED [facility] Stop: 01/10/17 05:16 Last Admin: 01/10/17 04:14 Dose: 200 mls/hr Sodium Chloride (Normal Saline) 1,000 mls @ 125 mls/hr IV ASDIRECTED [facility] Last Admin: 01/11/17 02:52 Dose: 125 mls/hr Sodium Chloride (Normal Saline) 250 mls @ 200 mls/hr IV ASDIRECTED [facility] Stop: 01/10/17 21:31 Last Admin: 01/10/17 20:27 Dose: 200 mls/hr Sodium Chloride (Normal Saline) 1,000 mls @ 250 mls/hr IV ASDIRECTED [facility] Stop: 01/11/17 02:16 Last Admin: 01/10/17 22:37 Dose: 250 mls/hr Sodium Chloride (Normal Saline) 1,000 mls @ 999 mls/hr IV .BOLUS ONE Stop: 01/10/17 23:56 Last Admin: 01/10/17 23:10 Dose: 999 mls/hr Sodium Chloride (Normal Saline) 250 mls @ 200 mls/hr IV ASDIRECTED [facility] Stop: 01/11/17 05:16 Last Admin: 01/11/17 04:21 Dose: 200 mls/hr Sodium Chloride (Normal Saline) 1,000 mls @ 125 mls/hr IV ASDIRECTED [facility] Last Admin: 01/13/17 16:03 Dose: 100 mls/hr Levofloxacin/Dextrose 500 mg/ (Premix) 100 mls @ 100 mls/hr IV Q24H [facility] Last Admin: 01/15/17 10:50 Dose: 100 mls/hr Piperacillin/Tazobactam/ (Dextrose 3.375 gm/ Premix) 50 mls @ 100 mls/hr IV Q6H [facility] Last Admin: 01/15/17 04:51 Dose: 100 mls/hr Vancomycin HCl 1.2 gm/ Sodium (Chloride) 250 mls @ 167 mls/hr IV ONETIME ONE Stop: 01/11/17 15:29 Last Admin: 01/11/17 13:47 Dose: 167 mls/hr Vancomycin HCl 1 gm/ Sodium (Chloride) 250 mls @ 167 mls/hr IV Q24H [facility] Last Admin: 01/13/17 14:36 Dose: 167 mls/hr Magnesium Sulfate 2 gm/ Premix 50 mls @ 25 mls/hr IV Q6H [facility] Stop: 01/14/17 16:59 Last Admin: 01/14/17 15:06 Dose: 25 mls/hr Potassium Chloride 20 meq/Lidocaine HCl 2 ml/ Sodium Chloride 112 mls @ 56 mls/ hr IV Q2H [facility] Stop: 01/14/17 13:29 Last Admin: 01/14/17 12:08 Dose: 56 mls/hr Potassium Chloride 20 meq/ (Premix) 100 mls @ 50 mls/hr IV Q2H [facility] Stop: 01/15/17 09:59 Last Admin: 01/15/17 06:26 Dose: 50 mls/hr Potassium Chloride 20 meq/Lidocaine HCl 2 ml/ Sodium Chloride 112 mls @ 56 mls/ hr IV ONETIME ONE Stop: 01/15/17 10:29 Last Admin: 01/15/17 08:51 Dose: 56 mls/hr Magnesium Sulfate 2 gm/ Premix 50 mls @ 25 mls/hr IV Q6H [facility] Stop: 01/15/17 16:29 Last Admin: 01/15/17 15:00 Dose: 25 mls/hr Ibuprofen (Motrin) 600 mg PO Q6H PRN PRN Reason: Pain Last Admin: 01/14/17 20:25 Dose: 600 mg Ketamine HCl (Ketalar) Confirm Administered Dose 500 mg .ROUTE .STK-MED ONE Stop: 01/09/17 12:52 Lactulose (Chronulac) 30 gm PO DAILY [facility] Last Admin: 01/11/17 18:18 Dose: 30 gm Magnesium Hydroxide (Milk Of Magnesia) 30 ml PO BID [facility] Last Admin: 01/11/17 21:11 Dose: 30 ml Magnesium Hydroxide (Milk Of Magnesia) 30 ml PO BID [facility] Last Admin: 01/10/17 10:01 Dose: Not Given Mometasone Furoate/Formoterol Fumar (Dulera 200-5 Mcg) 2 puff IH BID [facility] Last Admin: 01/08/17 20:43 Dose: 2 puff Naloxone HCl (Narcan) 0.1 mg IVPUSH Q5M PRN PRN Reason: RESP RATE LESS THAN 6/MINUTE Naloxone HCl (Narcan) 0.4 mg IV ASDIRECTED PRN PRN Reason: ITCHING Neostigmine Methylsulfate (Neostigmine) Confirm Administered Dose 5 mg .ROUTE .STK-MED ONE Stop: 01/08/17 16:33 Neostigmine Methylsulfate (Neostigmine) Confirm Administered Dose 5 mg .ROUTE .STK-MED ONE Stop: 01/09/17 09:49 Ondansetron HCl (Zofran) Confirm Administered Dose 4 mg .ROUTE .STK-MED ONE Stop: 01/08/17 16:33 Ondansetron HCl (Zofran) Confirm Administered Dose 4 mg .ROUTE .STK-MED ONE Stop: 01/09/17 09:49 Phenylephrine HCl (Kiko-Synephrine) Confirm Administered Dose 10 mg .ROUTE .STK- MED ONE Stop: 01/09/17 11:33 Potassium Chloride (Klor-Con M20) 40 meq PO ONETIME ONE Stop: 01/13/17 09:01 Last Admin: 01/13/17 09:03 Dose: 40 meq Potassium Chloride (Klor-Con M20) 40 meq PO ONETIME ONE Stop: 01/14/17 08:31 Last Admin: 01/14/17 08:43 Dose: 40 meq Potassium Chloride (Klor-Con M20) 40 meq PO ONETIME ONE Stop: 01/15/17 06:02 Last Admin: 01/15/17 06:25 Dose: 40 meq Potassium Chloride (Klor-Con M20) 40 meq PO ONETIME ONE Stop: 01/15/17 13:01 Last Admin: 01/15/17 13:18 Dose: 40 meq Propofol (Diprivan 20 Ml) Confirm Administered Dose 200 mg .ROUTE .STK-MED ONE Stop: 01/08/17 16:33 Propofol (Diprivan 20 Ml) Confirm Administered Dose 200 mg .ROUTE .STK-MED ONE Stop: 01/09/17 09:49 Rocuronium [place] (Zemuron) Confirm Administered Dose 50 mg .ROUTE .STK-MED ONE Stop: 01/08/17 16:33 Rocuronium [place] (Zemuron) Confirm Administered Dose 50 mg .ROUTE .STK-MED ONE Stop: 01/09/17 09:49 Succinylcholine Chloride (Succinylcholine In Ns Pf) Confirm Administered Dose 200 mg .ROUTE .STK-MED ONE Stop: 01/08/17 16:33 Succinylcholine Chloride (Succinylcholine In Ns Pf) Confirm Administered Dose 200 mg .ROUTE .STK-MED ONE Stop: 01/09/17 09:49 Vancomycin HCl (Vancomycin) 1 gm IV .PHARMACY TO DOSE [facility] Stop: 01/11/17 18:00 Warfarin Sodium (Coumadin) 5 mg PO ONETIME ONE Stop: 01/16/17 11:31 Last Admin: 01/16/17 11:51 Dose: 5 mg *Q Meaningful Use (DIS) - VTE *Q VTE Criteria *Q: - Stroke *Q Stroke Criteria *Q: - AMI *Q AMI Criteria *Q:
[2017-01-17] MEDS: Sodium Chloride 0.9% 10 ML Syringe FLUSH SCH (08:56)
[2017-01-17] MEDS: Diltiazem 120 MG Cap.CD PO SCH (08:57)
[2017-01-17] MEDS: Carvedilol 25 MG Tab PO SCH (08:58)
[2017-01-17] MEDS: Aspirin 81 MG Tab.EC PO SCH (08:59)
[2017-01-17] MEDS: Magnesium Oxide 400 MG Tab PO SCH (08:59)
[2017-01-17] MEDS ORDERED: Furosemide 20 MG Tab PO SCH (09:00)
[2017-01-17] MEDS: Levofloxacin 500 MG Tab PO SCH (11:06)
== END 2017-01-17 13:10 | disposition home health service (06) | DRG 353 ==
LOC: JP.ED 10:19 → JP.MS 17:13 → JP.ICU 01-09 12:30
PROVIDERS: ADMIT Surgery; ATTEND Surgery
PROC: 0WQF0ZZ Repair Abdominal Wall, Open Approach (ICD-10-PCS; principal; 2017-01-09)
PROC: 0WUF0JZ Supplement Abdominal Wall with Synthetic Substitute, Open Approach (ICD-10-PCS; principal; 2017-01-09)
DX: K43.3 Parastomal hernia with obstruction, without gangrene (principal); J18.9 Pneumonia, unspecified organism; R06.02 Shortness of breath; R10.9 Unspecified abdominal pain; R07.9 Chest pain, unspecified; K43.9 Ventral hernia without obstruction or gangrene; I10 Essential (primary) hypertension; R09.02 Hypoxemia; Z87.891 Personal history of nicotine dependence; Y95 Nosocomial condition; R41.0 Disorientation, unspecified; F22 Delusional disorders; R45.1 Restlessness and agitation; F03.90 Unspecified dementia, unspecified severity, without behavioral disturbance, psychotic disturbance, mood disturbance, and anxiety; I48.0 Paroxysmal atrial fibrillation; Z79.01 Long term (current) use of anticoagulants; I25.10 Atherosclerotic heart disease of native coronary artery without angina pectoris; E53.8 Deficiency of other specified B group vitamins; J44.9 Chronic obstructive pulmonary disease, unspecified; Z93.3 Colostomy status; Z85.46 Personal history of malignant neoplasm of prostate; Z85.048 Personal history of other malignant neoplasm of rectum, rectosigmoid junction, and anus; Z90.49 Acquired absence of other specified parts of digestive tract; N40.0 Benign prostatic hyperplasia without lower urinary tract symptoms; K59.09 Other constipation; E78.00 Pure hypercholesterolemia, unspecified; H91.90 Unspecified hearing loss, unspecified ear; H54.7 Unspecified visual loss; Z87.01 Personal history of pneumonia (recurrent); Z95.1 Presence of aortocoronary bypass graft; Z95.2 Presence of prosthetic heart valve; Z66 Do not resuscitate; Z79.82 Long term (current) use of aspirin; Z88.8 Allergy status to other drugs, medicaments and biological substances; B96.1 Klebsiella pneumoniae [K. pneumoniae] as the cause of diseases classified elsewhere; B96.89 Other specified bacterial agents as the cause of diseases classified elsewhere; E87.70 Fluid overload, unspecified
CPT/HCPCS: 36415; 36600; 71010 ×2; 74020 ×2; 74176; 80053; 81001; 82803; 83880; 85025; 93005; 93010; 96361; 96374; 99285 ×2; J1940; J7040; 74000; 74000-26; 80048; 83735; 85027; 85610; 87040; 87070; 87077; 87086; 87186; 87205; 94640-76; A9270-GY; C1763; J0360; J0690; J1100; J1200; J1650; J1956; J2370; J2405; J2543; J2704; J3010; J3370; J3475; J3480; J7030; J7050; J7620

== ENCOUNTER 2017-02-07 07:13 | Inpatient (IN) | payer MEDICARE, BC ==
[2017-02-07] MEDS ORDERED: Sodium Chloride 0.9% 10 ML Syringe FLUSH PRN (08:03)
[2017-02-07] MEDS ORDERED: Pantoprazole 40 MG Vial IVPUSH ONE (08:03)
[2017-02-07] MEDS ORDERED: Octreotide 100 MCG/ML SDV IVPUSH ONE (08:08)
[2017-02-07] MEDS ORDERED: Lactated Ringers 1,000 ML IV ONE ×2 (08:10→09:36)
[2017-02-07] MEDS ORDERED: Ondansetron 4 MG/2 ML SDV IVPUSH ONE (08:30)
--- NOTE | 2017-02-07 08:31 | EDM.PDOC ---
ED HPI GI/ABDOMINAL - General Chief Complaint: Abdominal Pain Stated Complaint: VOMITING BLOOD Time Seen by Provider: 02/07/17 07:57 Source: Reports: Patient, Family, Old records, RN notes reviewed History Limitations: Reports: No limitations - History of Present Illness INITIAL COMMENTS - FREE TEXT/NARRATIVE: 82-year-old gentleman presents to the emergency department a complaint of vomiting blood, he states he had 2 emesis of bright red blood early this morning he is not complaining of any other symptoms this time does have known atrial fibrillation on chronic anticoagulation of Coumadin INR 4 days ago was 1.9 - Related Data Allergies/ADRs: Allergies Allergy/AdvReac Type Severity Reaction Status Date / Time butorphanol tartrate Allergy Cannot Verified 10/21/16 10:39 [From Stadol] Remember Home Meds: Home Meds Fluticasone/Salmeterol [Advair 250-50] 1 puff INH BID 11/24/13 [History] Simvastatin 20 mg PO DAILY 11/24/13 [History] Albuterol [Ventolin HFA] 2 puff INH Q4H PRN 10/08/14 [History] Aspirin [Ecotrin] 81 mg PO DAILY 10/08/14 [History] Fluocinonide [Lidex 0.05% Oint] 1 applic TRDERM BID PRN 10/08/14 [History] Carvedilol 25 mg PO BID 10/21/16 [History] Diltiazem HCl [Diltiazem 24Hr Cd] 120 mg PO DAILY #30 cap.er.24h 10/31/16 [Rx] Sennosides/Docusate Sodium [Senna-S] 1 each PO BID #60 tablet 10/31/16 [Rx] Furosemide [Lasix] 20 mg PO DAILY #30 tablet 01/17/17 [Rx] Levofloxacin [Levaquin] 500 mg PO Q24H #5 tablet 01/17/17 [Rx] Magnesium Oxide 400 mg PO BID #60 tablet 01/17/17 [Rx] Warfarin [Coumadin] 5 mg PO DAILY #60 tablet 01/17/17 [Rx] Past Medical History HEENT History: Reports: Hard of hearing, Impaired vision Other HEENT History: glasses. hearing aid Cardiovascular History: Reports: Arrhythmia (Atrial fibrillation), High cholesterol, Hypertension Respiratory History: Reports: Asthma, Bronchitis, recurrent, COPD, Pneumonia, recurrent Gastrointestinal History: Reports: Chronic constipation, Hemorrhoids Genitourinary History: Reports: BPH Musculoskeletal History: Reports: Fracture Other Musculoskeletal History: wrist. pelvic Hematologic History: Reports: Anemia, B12 deficiency, Iron deficiency Oncologic (Cancer) History: Reports: Colon, Prostate Other Oncologic History: rectal Dermatologic History: Reports: Eczema Other Dermatologic History: precancerous growth uder eye removed - Infectious Disease History Infectious Disease History: Reports: Chicken pox, Measles, Mumps, Shingles - Past Surgical History Cardiovascular Surgical History: Reports: Coronary artery bypass, Valve replacement GI Surgical History: Reports: Appendectomy, Colon, Colonoscopy, Colostomy Male Surgical History: Reports: TURP-Transurethral resection of prostate Social & Family History - Family History Family Medical History: Noncontributory - Tobacco Use Smoking Status *Q: Never Smoker Years of Tobacco use: 30 Used Tobacco, but Quit: Yes Month Tobacco Last Used: October Hand Smoke Exposure: No - Caffeine Use Caffeine Use: Reports: Coffee - Alcohol Use Days Per Week of Alcohol Use: 0 Number of Drinks Per Day: 1 Total Drinks Per Week: 0 - Recreational Drug Use Recreational Drug Use: No ED ROS GENERAL - Review of Systems Review Of Systems: See Below Constitutional: Reports: no symptoms HEENT: Reports: No symptoms Respiratory: Reports: No Symptoms Cardiovascular: Reports: No symptoms GI/Abdominal: Reports: Hematemesis, Nausea, Vomiting. Denies: Abdominal pain : Reports: hematuria Musculoskeletal: Reports: no symptoms Skin: Reports: no symptoms Neurological: Reports: No Symptoms ED EXAM, GI/ABD - Physical Exam Exam: See Below Text/Narrative:: General: Elderly gentleman, not in distress, alert and oriented x3 HEENT: head is atraumatic normocephalic, eyes pupils equal round reactive to light, sclera clear no conjunctivitis appreciated. Ears hearing aids in place bilaterally. Nose no septal deviation, nares are clear, no blood present. Mouth mucosa is moist and pink no erythema or exudate noted in soft palate, tongue is midline uvula is midline, dentition is poor. Neck: Supple no thyromegaly no tracheal deviation. Nodes: Cervical nodes subclavicular nodes nontender no palpable lymphadenopathy noted. Lungs: clear to auscultation bilaterally with symmetrical respirations, no adventitious noise appreciated. CV: Regular rate and rhythm S1 and S2 appreciated no murmurs rubs or gallops noted. Abdomen: Soft, nontender, no palpable masses or organomegaly appreciated, no distention no guarding bowel sounds are present, colostomy bag in place. Neuro: Cranial nerves II through XII grossly intact Skin: Warm and dry, intact Extremities: No lower extremity edema appreciated, . Course - Vital Signs Last Recorded V/S: Last Vital Signs Temp 100.0 F 02/07/17 07:32 Pulse 121 H 02/07/17 07:32 Resp 24 H 02/07/17 07:32 BP 133/80 02/07/17 07:32 Pulse Ox 91 L 02/07/17 07:32 - Orders/Labs/Meds Orders: Active Orders 24 hr Category Date Time Status Head of Bed Elevation [RC] ASDIRECTED Care 02/07/17 08:03 Active Peripheral IV Care [RC] . DIRECTED Care 02/07/17 08:05 Active Nothing per Oral Now Diet [DIET] Diet 02/07/17 Breakfast Active RED BLOOD CELLS LP [BBK] Stat Lab 02/07/17 08:20 Results TYPE AND SCREEN [BBK] Urgent Lab 02/07/17 08:20 Results UA W/MICROSCOPIC [URIN] Urgent Lab 02/07/17 09:40 Ordered Lactated Ringers [Ringers, Lactated] 1,000 ml Med 02/07/17 09:36 Ordered IV BOLUS Sodium Chloride 0.9% [Saline Flush] Med 02/07/17 08:03 Active 10 ml FLUSH ASDIRECTED PRN Peripheral IV Insertion Adult [OM.PC] Urgent Oth 02/07/17 08:03 Ordered Peripheral IV Insertion Adult [OM.PC] Urgent Oth 02/07/17 08:06 Ordered Medication Orders Lactated Ringer's (Ringers, Lactated) 1,000 mls @ 125 mls/hr IV BOLUS ONE Stop: 02/07/17 17:35 Sodium Chloride (Saline Flush) 10 ml FLUSH ASDIRECTED PRN PRN Reason: Keep Vein Open Labs: Laboratory Tests 02/07/17 02/07/17 02/07/17 Range/Units 08:20 08:20 08:20 WBC 10.8 (4.5-11.0) K/uL RBC 4.61 (4.30-5.90) M/uL Hgb 12.6 (12.0-15.0) g/dL Hct 40.0 (40.0-54.0) % MCV 87 (80-98) fL MCH 27 (27-31) pg MCHC 32 (32-36) % Plt Count 243 (150-400) K/uL Neut % (Auto) 82 H (36-66) % Lymph % (Auto) 10 L (24-44) % [place] % (Auto) 8 H (2-6) % Eos % (Auto) 0 L (2-4) % Baso % (Auto) 0 (0-1) % PT 21.8 H (9.5-12.0) sec INR 2.01 H (0.80-1.20) APTT 32.5 (27.0-36.0) sec Sodium 145 (140-148) mmol/L Potassium 3.3 L (3.6-5.2) mmol/L Chloride 102 (100-108) mmol/L Carbon Dioxide 38 H (21-32) mmol/L Anion Gap 8.3 (5.0-14.0) mmol/L BUN 27 H D (7-18) mg/dL Creatinine 1.3 D (0.8-1.3) mg/dL Est Cr Clr Drug Dosing 22.62 mL/min Estimated GFR (MDRD) 53 L (>60) Glucose 188 H (74-106) mg/dL Lactic Acid (0.4-2.0) mmol/L Calcium 8.9 (8.5-10.1) mg/dL Total Bilirubin 0.5 (0.2-1.0) mg/dL AST 21 (15-37) U/L ALT 21 (12-78) U/L Alkaline Phosphatase 108 (46-116) U/L Total Protein 7.0 (6.4-8.2) g/dL Albumin 2.9 L (3.4-5.0) g/dL Globulin 4.1 H (2.3-3.5) g/dL Albumin/Globulin Ratio 0.7 L (1.2-2.2) Blood Type Gel Antibody Screen Crossmatch 02/07/17 02/07/17 Range/Units 08:20 08:28 WBC (4.5-11.0) K/uL RBC (4.30-5.90) M/uL Hgb (12.0-15.0) g/dL Hct (40.0-54.0) % MCV (80-98) fL MCH (27-31) pg MCHC (32-36) % Plt Count (150-400) K/uL Neut % (Auto) (36-66) % Lymph % (Auto) (24-44) % [place] % (Auto) (2-6) % Eos % (Auto) (2-4) % Baso % (Auto) (0-1) % PT (9.5-12.0) sec INR (0.80-1.20) APTT (27.0-36.0) sec Sodium (140-148) mmol/L Potassium (3.6-5.2) mmol/L Chloride (100-108) mmol/L Carbon Dioxide (21-32) mmol/L Anion Gap (5.0-14.0) mmol/L BUN (7-18) mg/dL Creatinine (0.8-1.3) mg/dL Est Cr Clr Drug Dosing mL/min Estimated GFR (MDRD) (>60) Glucose (74-106) mg/dL Lactic Acid 2.3 H (0.4-2.0) mmol/L Calcium (8.5-10.1) mg/dL Total Bilirubin (0.2-1.0) mg/dL AST (15-37) U/L ALT (12-78) U/L Alkaline Phosphatase (46-116) U/L Total Protein (6.4-8.2) g/dL Albumin (3.4-5.0) g/dL Globulin (2.3-3.5) g/dL Albumin/Globulin Ratio (1.2-2.2) Blood Type A POSITIVE Gel Antibody Screen Negative Crossmatch See Detail Meds: Medications Generic Name Dose Route Start Last Admin Trade Name Freq PRN Reason Stop Dose Admin Lactated Ringer's 1,000 mls @ 125 mls/hr 02/07/17 09:36 Ringers, Lactated IV 02/07/17 17:35 BOLUS ONE Sodium Chloride 10 ml 02/07/17 08:03 Saline Flush FLUSH ASDIRECTED PRN Keep Vein Open Discontinued Medications Generic Name Dose Route Start Last Admin Trade Name Freq PRN Reason Stop Dose Admin Lactated Ringer's 1,000 mls @ 999 mls/hr 02/07/17 08:10 02/07/17 08:27 Ringers, Lactated IV 02/07/17 09:10 999 mls/hr BOLUS ONE Administration Octreotide Acetate 50 mcg 02/07/17 08:08 02/07/17 08:26 Sandostatin IVPUSH 02/07/17 08:09 50 mcg ONETIME ONE Administration Ondansetron HCl 4 mg 02/07/17 08:30 02/07/17 08:38 Zofran IVPUSH 02/07/17 08:31 4 mg ONETIME ONE Administration Pantoprazole Sodium 40 mg 02/07/17 08:03 02/07/17 08:25 Protonix Iv IVPUSH 02/07/17 08:04 40 mg ONETIME ONE Administration Departure - Departure Time of Disposition: 09:44 Disposition: Admitted As Inpatient 64 Condition: poor Clinical Impression: Vomiting blood Qualifiers: Nausea presence: with nausea Qualified Code(s): K92.0 - Hematemesis; R11.0 - Nausea Forms: ED Department Discharge - My Orders Last 24 Hours: My Active Orders 02/07/17 08:03 Head of Bed Elevation [RC] ASDIRECTED Sodium Chloride 0.9% [Saline Flush] 10 ml FLUSH ASDIRECTED PRN Peripheral IV Insertion Adult [OM.PC] Urgent 02/07/17 08:05 Peripheral IV Care [RC] . DIRECTED 02/07/17 08:06 Peripheral IV Insertion Adult [OM.PC] Urgent 02/07/17 08:20 RED BLOOD CELLS LP [BBK] Stat TYPE AND SCREEN [BBK] Urgent 02/07/17 09:36 Lactated Ringers [Ringers, Lactated] 1,000 ml IV BOLUS 02/07/17 09:40 UA W/MICROSCOPIC [URIN] Urgent 02/07/17 Breakfast Nothing per Oral Now Diet [DIET] - Assessment/Plan Last 24 Hours: My Active Orders 02/07/17 08:03 Head of Bed Elevation [RC] ASDIRECTED Sodium Chloride 0.9% [Saline Flush] 10 ml FLUSH ASDIRECTED PRN Peripheral IV Insertion Adult [OM.PC] Urgent 02/07/17 08:05 Peripheral IV Care [RC] . DIRECTED 02/07/17 08:06 Peripheral IV Insertion Adult [OM.PC] Urgent 02/07/17 08:20 RED BLOOD CELLS LP [BBK] Stat TYPE AND SCREEN [BBK] Urgent 02/07/17 09:36 Lactated Ringers [Ringers, Lactated] 1,000 ml IV BOLUS 02/07/17 09:40 UA W/MICROSCOPIC [URIN] Urgent 02/07/17 Breakfast Nothing per Oral Now Diet [DIET] Assessment:: Assessment Acuity = acute Site and laterality = hematemesis complicated patient with known history of coronary artery disease with atrial fibrillation on chronic anticoagulation, chronic obstructive pulmonary disease, history of rectal cancer Etiology = unclear etiology Manifestations = nausea and vomiting Location of injury = home Lab values = to CBC within normal limits hemoglobin 12.7 INR stable at 2.1 and therapeutic potassium 3.3 consistent hypokalemia lactic acid mildly elevated at 2.3 consistent lactic acidosis albumin low at 2.9 consistent hypoalbuminemia Plan Called and discussed the case with 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 This note was dictated using [employer] voice recognition software please call with any questions.
--- NOTE | 2017-02-07 11:00 | PCM.HP ---
H&P History of Present Illness - General Date of Service: 02/07/17 Admit Problem/Dx: Admission Diagnosis/Problem Admission Diagnosis/Problem Hematemesis Source of Information: Patient, Family, Provider History Limitations: Reports: No limitations - History of Present Illness Initial Comments - Free Text/Narative: Sam presents to the emergency room today after vomiting a large amount of what he thinks was blood this morning. He says it was enough to fill up and ice cream bucket. He had 2 episodes of vomiting last night as well but does not think there was any blood in them. He does not have any abdominal pain or nausea currently. He did have some lower back pain as well as some right upper cord current abdominal pain yesterday during the day but these seem to go away. He has not been eating much and has felt weak. He has been short of breath and coughing some. He noticed blood in his urine this morning but does not have any dysuria or increased urinary frequency. The stool output in his colostomy bag has been normal. Workup in the emergency room was concerning for acute gastrointestinal hemorrhage with his hematemesis. He had evidence for hypoperfusion including a mildly elevated lactic acid. A CT scan obtained in the emergency room revealed a large right lung pneumonia but no evidence for bowel obstruction or source of bleeding. He will be admitted to the intensive care unit. - Related Data Allergies/Adverse Reactions: Allergies Allergy/AdvReac Type Severity Reaction Status Date / Time butorphanol tartrate Allergy Cannot Verified 10/21/16 10:39 [From Stadol] Remember Home Medications: Home Meds Fluticasone/Salmeterol [Advair 250-50] 1 puff INH BID 11/24/13 [History] Simvastatin 20 mg PO DAILY 11/24/13 [History] Albuterol [Ventolin HFA] 2 puff INH Q4H PRN 10/08/14 [History] Aspirin [Ecotrin] 81 mg PO DAILY 10/08/14 [History] Fluocinonide [Lidex 0.05% Oint] 1 applic TRDERM BID PRN 10/08/14 [History] Carvedilol 25 mg PO BID 10/21/16 [History] Diltiazem HCl [Diltiazem 24Hr Cd] 120 mg PO DAILY #30 cap.er.24h 10/31/16 [Rx] Sennosides/Docusate Sodium [Senna-S] 1 each PO BID #60 tablet 10/31/16 [Rx] Furosemide [Lasix] 20 mg PO DAILY #30 tablet 01/17/17 [Rx] Levofloxacin [Levaquin] 500 mg PO Q24H #5 tablet 01/17/17 [Rx] Magnesium Oxide 400 mg PO BID #60 tablet 01/17/17 [Rx] Warfarin [Coumadin] 5 mg PO DAILY #60 tablet 01/17/17 [Rx] Past Medical History HEENT History: Reports: Hard of hearing, Impaired vision Other HEENT History: glasses. hearing aid Cardiovascular History: Reports: Arrhythmia (Atrial fibrillation), High cholesterol, Hypertension Respiratory History: Reports: Asthma, Bronchitis, recurrent, COPD, Pneumonia, recurrent Gastrointestinal History: Reports: Chronic constipation, Hemorrhoids Genitourinary History: Reports: BPH Musculoskeletal History: Reports: Fracture Other Musculoskeletal History: wrist. pelvic Hematologic History: Reports: Anemia, B12 deficiency, Iron deficiency Oncologic (Cancer) History: Reports: Colon, Prostate Other Oncologic History: rectal Dermatologic History: Reports: Eczema Other Dermatologic History: precancerous growth uder eye removed - Infectious Disease History Infectious Disease History: Reports: Chicken pox, Measles, Mumps, Shingles - Past Surgical History Cardiovascular Surgical History: Reports: Coronary artery bypass, Valve replacement GI Surgical History: Reports: Appendectomy, Colon, Colonoscopy, Colostomy Male Surgical History: Reports: TURP-Transurethral resection of prostate Social & Family History - Family History Family Medical History: Noncontributory - Tobacco Use Smoking Status *Q: Never Smoker Years of Tobacco use: 30 Used Tobacco, but Quit: Yes Month Tobacco Last Used: October Second Hand Smoke Exposure: No - Caffeine Use Caffeine Use: Reports: Coffee - Alcohol Use Days Per Week of Alcohol Use: 0 Number of Drinks Per Day: 1 Total Drinks Per Week: 0 - Recreational Drug Use Recreational Drug Use: No H&P Review of Systems - Review of Systems: Review Of Systems: See Below Free Text/Narrative: A complete 12 point review of systems was obtained. Pertinent positives and negatives are noted in the history of present illness. All other systems were reviewed and were negative except as noted. Exam - Exam Exam: See Below - Vital Signs Vital Signs: Last Vital Signs Temp 37.8 C 02/07/17 07:32 Pulse 121 H 02/07/17 07:32 Resp 24 H 02/07/17 07:32 BP 133/80 02/07/17 07:32 Pulse Ox 91 L 02/07/17 07:32 Weight: 37.8 kg - Exam Quality Assessment: supplemental oxygen. No: urinary catheter General: alert, oriented, cooperative. No: mild distress HEENT: Conjunctiva clear, Posterior pharynx clear, Other (poor dentition). No: Mucosa moist & pink (dry), Scleral icterus Neck: supple. No: lymphadenopathy, JVD, thyromegaly Lungs: Normal respiratory effort, Rales (few both bases). No: Wheezing Cardiovascular: regular rate, regular rhythm, systolic murmur Abdomen: normal bowel sounds, soft, distention (mild), tenderness (mild right sided), other (colostomy LLQ with brown stool. ). No: guarding (Male) Exam: Normal inspection, Scrotum tenderness (L) Back Exam: normal inspection, full range of motion Extremities: normal inspection. No: cyanosis, edema Peripheral Pulses: 2+: dorsalis pedis (L), dorsalis pedis (R) Skin: warm, dry, incision (midline abdominal incision healing well, no drainage or erythema ) Neuro Extensive - Mental Status: alert, oriented x3, nl response to commands Neuro Extensive - Motor, Sensory, Reflexes: CN II-XII intact. No: dysarthria, abnormal motor, tremor Psychiatric: alert, normal affect - Patient Data Lab Results last 24 hrs: Laboratory Results - last 24 hr 02/07/17 02/07/17 02/07/17 Range/Units 08:20 08:20 08:20 WBC 10.8 (4.5-11.0) K/uL RBC 4.61 (4.30-5.90) M/uL Hgb 12.6 (12.0-15.0) g/dL Hct 40.0 (40.0-54.0) % MCV 87 (80-98) fL MCH 27 (27-31) pg MCHC 32 (32-36) % Plt Count 243 (150-400) K/uL Neut % (Auto) 82 H (36-66) % Lymph % (Auto) 10 L (24-44) % [place] % (Auto) 8 H (2-6) % Eos % (Auto) 0 L (2-4) % Baso % (Auto) 0 (0-1) % PT 21.8 H (9.5-12.0) sec INR 2.01 H (0.80-1.20) APTT 32.5 (27.0-36.0) sec Sodium 145 (140-148) mmol/L Potassium 3.3 L (3.6-5.2) mmol/L Chloride 102 (100-108) mmol/L Carbon Dioxide 38 H (21-32) mmol/L Anion Gap 8.3 (5.0-14.0) mmol/L BUN 27 H D (7-18) mg/dL Creatinine 1.3 D (0.8-1.3) mg/dL Est Cr Clr Drug Dosing 22.62 mL/min Estimated GFR (MDRD) 53 L (>60) Glucose 188 H (74-106) mg/dL Lactic Acid (0.4-2.0) mmol/L Calcium 8.9 (8.5-10.1) mg/dL Total Bilirubin 0.5 (0.2-1.0) mg/dL AST 21 (15-37) U/L ALT 21 (12-78) U/L Alkaline Phosphatase 108 (46-116) U/L Total Protein 7.0 (6.4-8.2) g/dL Albumin 2.9 L (3.4-5.0) g/dL Globulin 4.1 H (2.3-3.5) g/dL Albumin/Globulin Ratio 0.7 L (1.2-2.2) Urine Color Urine Appearance Urine pH (4.5-8.0) Ur Specific [place] (1.008-1.030) Urine Protein (NEGATIVE) mg/dL Urine Glucose (UA) (NEGATIVE) mg/dL Urine Ketones (NEGATIVE) mg/dL Urine Occult Blood (NEGATIVE) Urine Nitrite (NEGAITVE) Urine Bilirubin (NEGATIVE) Urine Urobilinogen (NORMAL) mg/dL Ur Leukocyte Esterase (NEGATIVE) Urine RBC (0-5) Urine WBC (0-5) Ur Epithelial Cells Amorphous Sediment Urine Bacteria Urine Mucus Blood Type Gel Antibody Screen Crossmatch 02/07/17 02/07/17 02/07/17 Range/Units 08:20 08:28 10:27 WBC (4.5-11.0) K/uL RBC (4.30-5.90) M/uL Hgb (12.0-15.0) g/dL Hct (40.0-54.0) % MCV (80-98) fL MCH (27-31) pg MCHC (32-36) % Plt Count (150-400) K/uL Neut % (Auto) (36-66) % Lymph % (Auto) (24-44) % [place] % (Auto) (2-6) % Eos % (Auto) (2-4) % Baso % (Auto) (0-1) % PT (9.5-12.0) sec INR (0.80-1.20) APTT (27.0-36.0) sec Sodium (140-148) mmol/L Potassium (3.6-5.2) mmol/L Chloride (100-108) mmol/L Carbon Dioxide (21-32) mmol/L Anion Gap (5.0-14.0) mmol/L BUN (7-18) mg/dL Creatinine (0.8-1.3) mg/dL Est Cr Clr Drug Dosing mL/min Estimated GFR (MDRD) (>60) Glucose (74-106) mg/dL Lactic Acid 2.3 H (0.4-2.0) mmol/L Calcium (8.5-10.1) mg/dL Total Bilirubin (0.2-1.0) mg/dL AST (15-37) U/L ALT (12-78) U/L Alkaline Phosphatase (46-116) U/L Total Protein (6.4-8.2) g/dL Albumin (3.4-5.0) g/dL Globulin (2.3-3.5) g/dL Albumin/Globulin Ratio (1.2-2.2) Urine Color Yellow Urine Appearance Turbid Urine pH 8.0 (4.5-8.0) Ur Specific [place] 1.015 (1.008-1.030) Urine Protein Negative (NEGATIVE) mg/dL Urine Glucose (UA) Normal (NEGATIVE) mg/dL Urine Ketones 15 H (NEGATIVE) mg/dL Urine Occult Blood Large (NEGATIVE) Urine Nitrite Negative (NEGAITVE) Urine Bilirubin Negative (NEGATIVE) Urine Urobilinogen Normal (NORMAL) mg/dL Ur Leukocyte Esterase Negative (NEGATIVE) Urine RBC Packed H (0-5) Urine WBC 0-5 (0-5) Ur Epithelial Cells Rare Amorphous Sediment Many Urine Bacteria Rare Urine Mucus Not seen Blood Type A POSITIVE Gel Antibody Screen Negative Crossmatch See Detail Result Diagrams: 02/07/17 14:59 02/07/17 08:20 Imaging Impressions last 24 hrs: CT abdomen and pelvis - images personally reviewed - no evidence for obstruction or source of bleeding. He does have a large stone in his bladder. No evidence for hernia near his colostomy site. He does have a very large right lower lobe pneumonia as well as some evidence for mucous plugging noted on the CT scan. *Q Meaningful Use (ADM) - VTE *Q VTE Criteria *Q: VTE Pharmacological Contraindications *Q: Active Hemorrhage - Stroke *Q Stroke Criteria *Q: - AMI *Q AMI Criteria *Q: - Problem List (1) Right lower lobe pneumonia SNOMED Code(s): 163474118 ICD Code: J18.1 - LOBAR PNEUMONIA, UNSPECIFIED ORGANISM Status: Acute Current Visit: Yes Qualifiers: Pneumonia type: due to unspecified organism Qualified Code(s): J18.1 - Lobar pneumonia, unspecified organism (2) Vomiting blood SNOMED Code(s): 7394778 ICD Code: K92.0 - HEMATEMESIS Status: Acute Current Visit: Yes Qualifiers: Nausea presence: with nausea Qualified Code(s): K92.0 - Hematemesis; R11.0 - Nausea (3) Paroxysmal atrial fibrillation SNOMED Code(s): 931695078 ICD Code: I48.0 - PAROXYSMAL ATRIAL FIBRILLATION Status: Chronic Current Visit: Yes (4) COPD (chronic obstructive pulmonary disease) SNOMED Code(s): 80837144 ICD Code: J44.9 - CHRONIC OBSTRUCTIVE PULMONARY DISEASE, UNSPECIFIED Status : Chronic Current Visit: No Qualifiers: COPD type: emphysema Emphysema type: unspecified Qualified Code(s): J43.9 - Emphysema, unspecified Problem List Initiated/Reviewed/Updated: Yes Orders Last 24hrs: Active Orders 24 hr Category Date Time Status Patient Status Manage Transfer [TRANSFER] Routine ADT 02/07/17 10:43 Ordered Head of Bed Elevation [RC] ASDIRECTED Care 02/07/17 08:03 Active Peripheral IV Care [RC] . DIRECTED Care 02/07/17 08:05 Active Nothing per Oral Now Diet [DIET] Diet 04/16/17 Breakfast Active Abdomen Pelvis wo Cont [CT] Stat Exams 02/07/17 10:41 Ordered RED BLOOD CELLS LP [BBK] Stat Lab 02/07/17 08:20 Results TYPE AND SCREEN [BBK] Urgent Lab 02/07/17 08:20 Results Lactated Ringers [Ringers, Lactated] 1,000 ml Med 02/07/17 09:36 Active IV BOLUS Sodium Chloride 0.9% [Saline Flush] Med 02/07/17 08:03 Active 10 ml FLUSH ASDIRECTED PRN Peripheral IV Insertion Adult [OM.PC] Urgent Oth 02/07/17 08:03 Ordered Peripheral IV Insertion Adult [OM.PC] Urgent Oth 02/07/17 08:06 Ordered Resuscitation Status Routine Resus Stat 02/07/17 10:45 Ordered Medication Orders Lactated Ringer's (Ringers, Lactated) 1,000 mls @ 125 mls/hr IV BOLUS ONE Stop: 02/07/17 17:35 Last Admin: 02/07/17 10:37 Dose: 125 mls/hr Sodium Chloride (Saline Flush) 10 ml FLUSH ASDIRECTED PRN PRN Reason: Keep Vein Open Assessment/Plan Comment:: Assessment and plan - Large right lung pneumonia with acute hypoxic respiratory failure - Gram stain from the bronchoscopy sample shows gram-negative rods. Clinically is doing better after the urgent bronchoscopy and wash out. He has a high risk for morbidity and mortality given his debilitated baseline status with weakness and deconditioning after recent surgery. -ICU admission -Supplement oxygen -Levofloxacin and Pip/Tazo -Scheduled and as needed nebulizers -Steroids -Followup cultures -Repeat chest x-ray in the morning -Patient may need repeat bronchoscopy and wash out, Dr. Mccann will be following along Paroxysmal atrial fibrillation - Patient did have an episode of rapid ventricular response in the setting of hypoxia. He has responded well to a beta oziel since that time. Blood pressure has dropped after the beta oziel was given. -Consider repeat dose of digoxin -Hold beta oziel until blood pressure improves -cardiac monitoring -Discontinue warfarin -INR in the morning Hematemesis - patient reports fairly large volume hematemesis but I suspect that given his normal hemoglobin and a large quantity that the amount of blood was actually fairly small. We will monitor him like a GI bleed during the acute phase of the hospital stay. He will need endoscopy at some point once his respiratory status stabilizes. Anticoagulation has been reversed. -Vitamin K given -Serial hemoglobins -There are 2 units of packed red blood cells available if he needs them -Upper endoscopy once stable from a respiratory standpoint Hypokalemia - planning to replace this afternoon and will recheck in the morning Maintenance issues - - DVT prophylaxis - mechanical - GI prophylaxis - PPI - Nutrition - n.p.o. for now - Bazan catheter - not indicated CODE STATUS - DO NOT RESUSCITATE/DO NOT INTUBATE Admission justification - This patient will be admitted for inpatient services and is medically appropriate meeting medical necessity for inpatient admission as outlined in my documentation. I reasonably expect the patient will require inpatient services that span a period time over 2 midnights. I reasonably expect this patient to be discharged or transferred within 96 hours [facility] Disposition - anticipate discharge to home after the hospital stay Primary care physician - Dr. Varun Matthews M.D.
[2017-02-07] MEDS ORDERED: Morphine 2 MG/ML Syringe IVPUSH PRN (11:53)
[2017-02-07] MEDS ORDERED: Albuterol 0.083% 2.5 MG/3 ML Neb Soln NEB PRN (11:53)
[2017-02-07] MEDS ORDERED: Ondansetron 4 MG/2 ML SDV IV PRN (11:53)
[2017-02-07] MEDS ORDERED: Acetaminophen 325 MG Tab PO PRN (11:53)
[2017-02-07] MEDS ORDERED: Ondansetron 4 MG Tab.DIS PO PRN (11:53)
[2017-02-07] MEDS ORDERED: Polyethylene Glycol 3350 Powder 17 GM Packet PO PRN (11:53)
[2017-02-07] MEDS ORDERED: LORazepam 2 MG/ML MDV IVPUSH PRN (11:53)
[2017-02-07] MEDS ORDERED: Carvedilol 25 MG Tab PO SCH (13:00)
[2017-02-07] MEDS ORDERED: methylPREDNISolone Sodium Succinate 125 MG/2 ML SDV IVPUSH ONE (13:00)
[2017-02-07] MEDS ORDERED: Levofloxacin/Dextrose 5%-Water 750 MG in Premix Bag 1 BAG IV SCH (13:00)
[2017-02-07] MEDS ORDERED: Phytonadione 5 MG in Sodium Chloride 0.9% 50 ML IV ONE (13:00)
[2017-02-07] MEDS ORDERED: Lidocaine 2% Viscous Solution 15 ML Cup ONE (13:24)
[2017-02-07] MEDS ORDERED: Lidocaine 4% Top Soln 50 ML Bottle ONE (13:24)
[2017-02-07] MEDS ORDERED: Propofol 200 MG/20 ML SDV ONE (13:41)
[2017-02-07] MEDS ORDERED: Lidocaine 4% Top Soln 4 ML LTA Syringe ONE (13:41)
[2017-02-07] MEDS ORDERED: Lidocaine 4% Top Soln 4 ML LTA Syringe TOP ONE (14:05)
[2017-02-07] MEDS ORDERED: Sodium Chloride 0.9% 500 ML IV SCH (14:45)
[2017-02-07] MEDS: Potassium Chloride 20 MEQ, Lidocaine 1% 2 ML in Sodium Chloride 0.9% 100 ML IV SCH ×2 (15:07→17:28)
[2017-02-07] MEDS: Piperacillin/Tazobactam/Dext 3.375 GM in Premix Bag 1 BAG IV SCH ×2 (15:13→21:06)
[2017-02-07] MEDS: Albuterol/Ipratropium 3.0-0.5 MG/3 ML Neb Soln NEB SCH ×2 (16:01→20:11)
[2017-02-07] MEDS: methylPREDNISolone Sodium Succinate 125 MG/2 ML SDV IVPUSH SCH (18:43)
[2017-02-07] MEDS: Pantoprazole 40 MG Vial IV SCH (20:11)
[2017-02-07] MEDS: Formoterol/Mometasone 200-5 MCG 8.8 GM Inhaler IH SCH (20:11)
[2017-02-07] MEDS: Lactated Ringers 1,000 ML IV SCH (21:09)
[2017-02-08] MEDS: methylPREDNISolone Sodium Succinate 125 MG/2 ML SDV IVPUSH SCH ×2 (00:20→06:54)
[2017-02-08] MEDS: Piperacillin/Tazobactam/Dext 3.375 GM in Premix Bag 1 BAG IV SCH ×4 (03:56→21:05)
[2017-02-08] MEDS: Lactated Ringers 1,000 ML IV SCH (06:20)
[2017-02-08] MEDS: Albuterol/Ipratropium 3.0-0.5 MG/3 ML Neb Soln NEB SCH ×4 (07:20→20:30)
[2017-02-08] MEDS: Formoterol/Mometasone 200-5 MCG 8.8 GM Inhaler IH SCH ×2 (07:21→20:30)
--- NOTE | 2017-02-08 07:48 | OR ---
DATE OF PROCEDURE: 02/07/2017 FINDINGS: 1. Right lobe pneumonia, middle lobe. 2. Extensive fluid noted in the bronchial tree on the right side. COMPLICATIONS: None. ADDICTIONS COUNSELOR ASSISTANT: None. INDICATIONS: A pleasant 82-year-old male with a right pneumonia on CT scan. RISKS: Risks, benefits, alternatives, and limitations, including, but not limited to infection, bleeding, and respiratory compromise were explained to the patient and wished to proceed. PROCEDURE IN DETAIL: The patient was placed in supine position. The bronchoscope was introduced transorally and advanced into the left lower lung. There were no abnormalities, except for a small amount of fluid. On the right side, there was a significant amount of effusion. This is not consistent with atypical pneumonia, as far as it being mucousy, but rather a serous type effusion. This was completely suction and removed and sent for evaluation. No other abnormalities were noted. He tolerated the procedure well. Kana Mccann MD /[id number]
[2017-02-08] MEDS: Pantoprazole 40 MG Vial IV SCH ×2 (08:37→20:30)
[2017-02-08] MEDS: Aspirin 81 MG Tab.EC PO SCH (08:39)
[2017-02-08] MEDS: Diltiazem 120 MG Cap.CD PO SCH (08:39)
--- NOTE | 2017-02-08 09:28 | PCM.PN ---
- General Info Date of Service: 02/08/17 Functional Status: Reports: tolerating diet - Review of Systems General: Reports: Weakness. Denies: Fever, Chills Neurological: Reports: Confusion Systems Review Comment:: This patient has improved since admission yesterday, oxygen saturations have been adequate, heart rate and respiratory rate improved. He is fairly confused this morning, but only mildly agitated. - Patient Data Vitals - most recent: Last Vital Signs Temp 98.9 F 02/08/17 07:00 Pulse 95 02/08/17 08:39 Resp 22 H 02/08/17 07:00 BP 156/72 H 02/08/17 08:39 Pulse Ox 99 02/08/17 07:22 Weight - most recent: 83 lb 5.356 oz I&O - last 24 hours: Intake & Output 02/07/17 02/08/17 02/08/17 22:59 06:59 14:59 Intake Total 1510 1582 Output Total 275 Balance 1510 1307 Lab Results last 24 hrs: Laboratory Results - last 24 hr 02/07/17 02/07/17 02/08/17 Range/Units 14:59 20:45 05:40 WBC 11.1 H (4.5-11.0) K/uL RBC 3.93 L (4.30-5.90) M/uL Hgb 11.3 L 11.2 L 10.8 L (12.0-15.0) g/dL Hct 35.0 L (40.0-54.0) % MCV 89 (80-98) fL MCH 28 (27-31) pg MCHC 31 L (32-36) % Plt Count 150 (150-400) K/uL PT (9.5-12.0) sec INR (0.80-1.20) Sodium (140-148) mmol/L Potassium (3.6-5.2) mmol/L Chloride (100-108) mmol/L Carbon Dioxide (21-32) mmol/L Anion Gap (5.0-14.0) mmol/L BUN (7-18) mg/dL Creatinine (0.8-1.3) mg/dL Est Cr Clr Drug Dosing mL/min Estimated GFR (MDRD) (>60) Glucose (74-106) mg/dL Calcium (8.5-10.1) mg/dL 02/08/17 02/08/17 Range/Units 05:40 05:40 WBC (4.5-11.0) K/uL RBC (4.30-5.90) M/uL Hgb (12.0-15.0) g/dL Hct (40.0-54.0) % MCV (80-98) fL MCH (27-31) pg MCHC (32-36) % Plt Count (150-400) K/uL PT 14.8 H (9.5-12.0) sec INR 1.38 H (0.80-1.20) Sodium 143 (140-148) mmol/L Potassium 4.0 (3.6-5.2) mmol/L Chloride 104 (100-108) mmol/L Carbon Dioxide 33 H (21-32) mmol/L Anion Gap 10.0 (5.0-14.0) mmol/L BUN 34 H (7-18) mg/dL Creatinine 1.2 (0.8-1.3) mg/dL Est Cr Clr Drug Dosing 24.50 mL/min Estimated GFR (MDRD) 58 L (>60) Glucose 184 H (74-106) mg/dL Calcium 8.5 (8.5-10.1) mg/dL Neto Results last 24 hrs: Microbiology 02/07/17 15:00 HANNAH Preparation - Final Other - Lung, Right 02/07/17 15:00 Gram Stain - Final Bronchial Alveolar Lavage - Lung, Right Med Orders - Current: Current Medications Acetaminophen (Tylenol) 650 mg PO Q4H PRN PRN Reason: Pain (Mild 1-3)/fever Albuterol (Proventil Neb Soln) 2.5 mg NEB Q4H PRN PRN Reason: Shortness Of Breath/wheezing Last Admin: 02/07/17 12:33 Dose: 2.5 mg Albuterol/Ipratropium (Duoneb 3.0-0.5 Mg/3 Ml) 3 ml NEB QIDRT [facility] Last Admin: 02/08/17 07:20 Dose: 3 ml Aspirin (Halfprin) 81 mg PO DAILY [facility] Last Admin: 02/08/17 08:39 Dose: 81 mg Diltiazem HCl (Cardizem Cd) 120 mg PO DAILY [facility] Last Admin: 02/08/17 08:39 Dose: 120 mg Levofloxacin/Dextrose 750 mg/ (Premix) 150 mls @ 100 mls/hr IV Q48H [facility] Last Admin: 02/07/17 13:20 Dose: 100 mls/hr Piperacillin/Tazobactam/ (Dextrose 3.375 gm/ Premix) 50 mls @ 100 mls/hr IV Q6H [facility] Last Admin: 02/08/17 03:56 Dose: 100 mls/hr Lorazepam (Ativan) 0.5 - 1 mg IVPUSH Q4H PRN PRN Reason: Nausea/Vomiting Melatonin (Melatonin) 9 mg PO BEDTIME [facility] Methylprednisolone Sodium Succinate (Solu-Medrol) 62.5 mg IVPUSH Q6H [facility] Last Admin: 02/08/17 06:54 Dose: 62.5 mg Mometasone Furoate/Formoterol Fumar (Dulera 200-5 Mcg) 0 puff IH BIDRT [facility] Last Admin: 02/08/17 07:21 Dose: 2 puff Morphine Sulfate (Morphine) 2 - 4 mg IVPUSH Q2H PRN PRN Reason: Pain (severe 7-10) Ondansetron HCl (Zofran Odt) 4 mg PO Q6H PRN PRN Reason: Nausea able to take PO Ondansetron HCl (Zofran) 4 mg IV Q6H PRN PRN Reason: Nausea/Vomiting Pantoprazole Sodium (Protonix Iv) 40 mg IV Q12H [facility] Last Admin: 02/08/17 08:37 Dose: 40 mg Polyethylene Glycol (Miralax) 17 gm PO DAILY PRN PRN Reason: Constipation Senna/Docusate Sodium (Senna Plus) 1 tab PO BID PRN PRN Reason: Constipation Sodium Chloride (Saline Flush) 10 ml FLUSH ASDIRECTED PRN PRN Reason: Keep Vein Open Discontinued Medications Carvedilol (Coreg) 25 mg PO BID [facility] Last Admin: 02/07/17 12:38 Dose: 25 mg Lactated Ringer's (Ringers, Lactated) 1,000 mls @ 999 mls/hr IV BOLUS ONE Stop: 02/07/17 09:10 Last Admin: 02/07/17 08:27 Dose: 999 mls/hr Lactated Ringer's (Ringers, Lactated) 1,000 mls @ 125 mls/hr IV BOLUS ONE Stop: 02/07/17 17:35 Last Admin: 02/07/17 10:37 Dose: 125 mls/hr Lactated Ringer's (Ringers, Lactated) 1,000 mls @ 125 mls/hr IV ASDIRECTED [facility] Last Admin: 02/08/17 06:20 Dose: 125 mls/hr Phytonadione 5 mg/ Sodium (Chloride) 50.5 mls @ 100 mls/hr IV ONETIME ONE Stop: 02/07/17 13:30 Last Admin: 02/07/17 12:44 Dose: 100 mls/hr Potassium Chloride 20 meq/Lidocaine HCl 2 ml/ Sodium Chloride 112 mls @ 56 mls/ hr IV Q2H [facility] Stop: 02/07/17 18:59 Last Admin: 02/07/17 17:28 Dose: 56 mls/hr Sodium Chloride (Normal Saline) 500 mls @ 999 mls/hr IV ASDIRECTED [facility] Stop: 02/07/17 15:16 Last Admin: 02/07/17 14:58 Dose: 999 mls/hr Lidocaine (Lidocaine 4% Top Soln) Confirm Administered Dose 4 ml .ROUTE .STK- MED ONE Stop: 02/07/17 13:42 Lidocaine (Lidocaine 4% Top Soln) 4 ml TOP .STK-MED ONE Stop: 02/07/17 14:06 Last Admin: 02/07/17 14:05 Dose: 4 ml Lidocaine HCl (Xylocaine 2% Viscous) Confirm Administered Dose 15 ml .ROUTE .STK -MED ONE Stop: 02/07/17 13:25 Last Admin: 02/07/17 14:05 Dose: 2 ml Lidocaine HCl (Xylocaine 4% Top Soln) Confirm Administered Dose 50 ml .ROUTE .STK-MED ONE Stop: 02/07/17 13:25 Methylprednisolone Sodium Succinate (Solu-Medrol) 125 mg IVPUSH ONETIME ONE Stop: 02/07/17 13:01 Last Admin: 02/07/17 13:23 Dose: 125 mg Octreotide Acetate (Sandostatin) 50 mcg IVPUSH ONETIME ONE Stop: 02/07/17 08:09 Last Admin: 02/07/17 08:26 Dose: 50 mcg Ondansetron HCl (Zofran) 4 mg IVPUSH ONETIME ONE Stop: 02/07/17 08:31 Last Admin: 02/07/17 08:38 Dose: 4 mg Pantoprazole Sodium (Protonix Iv) 40 mg IVPUSH ONETIME ONE Stop: 02/07/17 08:04 Last Admin: 02/07/17 08:25 Dose: 40 mg Propofol (Diprivan 20 Ml) Confirm Administered Dose 200 mg .ROUTE .STK-MED ONE Stop: 02/07/17 13:42 - Exam General: other (Confused) Lungs: Crackles, Rhonchi, Wheezing. No: Rales Cardiovascular: Irregular Rhythm, Tachycardia Abdomen: bowel sounds present, soft, no tenderness, no distension Extremities: no edema - Problem List Review Problem List Initiated/Reviewed/Updated: Yes - My Orders Last 24 Hours: My Active Orders 02/08/17 09:21 Convert IV to Saline Lock [OM.PC] Routine 02/08/17 09:30 methylPREDNISolone Sod Succ [Solu-MEDROL] 40 mg IVPUSH Q8H 02/08/17 21:00 Melatonin 9 mg PO BEDTIME 02/09/17 05:00 BASIC METABOLIC PANEL,BMP [CHEM] Timed CBC WITH AUTO DIFF [HEME] Timed INR,PT,PROTHROMBIN TIME [COAG] Timed - Plan Plan:: Assessment and plan - Large right lung pneumonia with acute hypoxic respiratory failure - Gram stain from the bronchoscopy sample shows gram-negative rods. Improved since admission , with decrease in heart rate and respiratory rate. Oxygen saturations have been within adequate range. -ICU admission -Supplement oxygen -Levofloxacin and Pip/Tazo -Scheduled and as needed nebulizers -Steroids -Followup cultures Paroxysmal atrial fibrillation - Patient did have an episode of rapid ventricular response in the setting of hypoxia. Heart rate is improved, with improvement in respiratory status -Consider repeat dose of digoxin -Hold beta oziel until blood pressure improves -cardiac monitoring -Discontinue warfarin -INR in the morning Hematemesis - patient reports fairly large volume hematemesis but I suspect that given his normal hemoglobin and a large quantity that the amount of blood was actually fairly small. Hemoglobin relatively stable since admission, anticoagulation has been reversed. No further evidence of active bleeding. -Vitamin K given -Serial hemoglobins -There are 2 units of packed red blood cells available if he needs them -Upper endoscopy once stable from a respiratory standpoint Hypokalemia - potassium level stable on replacement. -Recheck potassium level in a.m. Maintenance issues - - DVT prophylaxis - mechanical - GI prophylaxis - PPI - Nutrition -clear liquid diet - Bazan catheter - not indicated CODE STATUS - DO NOT RESUSCITATE/DO NOT INTUBATE Admission justification - This patient will be admitted for inpatient services and is medically appropriate meeting medical necessity for inpatient admission as outlined in my documentation. I reasonably expect the patient will require inpatient services that span a period time over 2 midnights. I reasonably expect this patient to be discharged or transferred within 96 hours after admission to the Critical [facility]. Disposition - anticipate discharge to home after the hospital stay Primary care physician - Dr. Bond
[2017-02-08] MEDS: methylPREDNISolone Sodium Succinate 40 MG/1 ML SDV IVPUSH SCH ×2 (15:04→21:00)
[2017-02-08] MEDS: Melatonin 3 MG Tab PO SCH (20:30)
[2017-02-09] MEDS: Piperacillin/Tazobactam/Dext 3.375 GM in Premix Bag 1 BAG IV SCH ×4 (03:29→21:35)
[2017-02-09] MEDS: methylPREDNISolone Sodium Succinate 40 MG/1 ML SDV IVPUSH SCH ×3 (05:10→21:26)
[2017-02-09] MEDS: Formoterol/Mometasone 200-5 MCG 8.8 GM Inhaler IH SCH ×2 (07:03→21:25)
[2017-02-09] MEDS: Albuterol/Ipratropium 3.0-0.5 MG/3 ML Neb Soln NEB SCH ×4 (07:03→21:35)
[2017-02-09] MEDS: Diltiazem 120 MG Cap.CD PO SCH (09:30)
[2017-02-09] MEDS ORDERED: Potassium Chloride 20 MEQ Tab.ER PO ONE (09:30)
[2017-02-09] MEDS: Aspirin 81 MG Tab.EC PO SCH (09:31)
[2017-02-09] MEDS: Pantoprazole 40 MG Vial IV SCH ×2 (09:31→21:26)
[2017-02-09] MEDS: Levofloxacin/Dextrose 5%-Water 750 MG in Premix Bag 1 BAG IV SCH (10:31)
--- NOTE | 2017-02-09 11:55 | PCM.PN ---
- General Info Date of Service: 02/09/17 Functional Status: Reports: pain controlled - Review of Systems General: Reports: Weakness. Denies: Fever, Chills Pulmonary: Reports: shortness of breath, wheezing. Denies: pleuritic chest pain , cough, sputum, hemoptysis Cardiovascular: Reports: Dyspnea on Exertion. Denies: Chest Pain, Palpitations , Orthopnea, PND, Edema, Lightheadedness Gastrointestinal: Reports: No symptoms Systems Review Comment:: This patient has been stable since yesterday, much less confused, with no further agitation. Vital signs have been stable and he has remained afebrile. - Patient Data Vitals - most recent: Last Vital Signs Temp 98.8 F 02/09/17 08:00 Pulse 75 02/09/17 10:59 Resp 20 02/09/17 10:00 BP 163/84 H 02/09/17 10:00 Pulse Ox 97 02/09/17 10:00 Weight - most recent: 142 lb 3.17 oz I&O - last 24 hours: Intake & Output 02/08/17 02/09/17 02/09/17 22:59 06:59 14:59 Intake Total 1050 100 Output Total 100 200 575 Balance 950 -100 -575 Lab Results last 24 hrs: Laboratory Results - last 24 hr 02/09/17 02/09/17 02/09/17 Range/Units 05:00 05:00 05:00 WBC 10.9 (4.5-11.0) K/uL RBC 3.59 L (4.30-5.90) M/uL Hgb 9.8 L (12.0-15.0) g/dL Hct 31.3 L (40.0-54.0) % MCV 87 (80-98) fL MCH 27 (27-31) pg MCHC 31 L (32-36) % Plt Count 140 L (150-400) K/uL Neut % (Auto) 88 H (36-66) % Lymph % (Auto) 4 L (24-44) % [place] % (Auto) 9 H (2-6) % Eos % (Auto) 0 L (2-4) % Baso % (Auto) 0 (0-1) % PT 11.4 (9.5-12.0) sec INR 1.07 (0.80-1.20) Sodium 141 (140-148) mmol/L Potassium 3.2 L (3.6-5.2) mmol/L Chloride 104 (100-108) mmol/L Carbon Dioxide 30 (21-32) mmol/L Anion Gap 10.2 (5.0-14.0) mmol/L BUN 33 H (7-18) mg/dL Creatinine 0.9 (0.8-1.3) mg/dL Est Cr Clr Drug Dosing 55.74 mL/min Estimated GFR (MDRD) > 60 (>60) Glucose 168 H (74-106) mg/dL Calcium 8.6 (8.5-10.1) mg/dL Neto Results last 24 hrs: Microbiology 02/07/17 15:00 Gram Stain - Final Bronchial Alveolar Lavage - Lung, Right Respiratory Culture - Preliminary NORMAL RESPIRATORY [facility] 1 DAY Med Orders - Current: Current Medications Acetaminophen (Tylenol) 650 mg PO Q4H PRN PRN Reason: Pain (Mild 1-3)/fever Albuterol (Proventil Neb Soln) 2.5 mg NEB Q4H PRN PRN Reason: Shortness Of Breath/wheezing Last Admin: 02/07/17 12:33 Dose: 2.5 mg Albuterol/Ipratropium (Duoneb 3.0-0.5 Mg/3 Ml) 3 ml NEB QIDRT [facility] Last Admin: 02/09/17 10:58 Dose: 3 ml Aspirin (Halfprin) 81 mg PO DAILY [facility] Last Admin: 02/09/17 09:31 Dose: 81 mg Diltiazem HCl (Cardizem Cd) 120 mg PO DAILY [facility] Last Admin: 02/09/17 09:30 Dose: 120 mg Piperacillin/Tazobactam/ (Dextrose 3.375 gm/ Premix) 50 mls @ 100 mls/hr IV Q6H [facility] Last Admin: 02/09/17 09:42 Dose: 100 mls/hr Levofloxacin/Dextrose 750 mg/ (Premix) 150 mls @ 100 mls/hr IV Q24H [facility] Last Admin: 02/09/17 10:31 Dose: 100 mls/hr Lorazepam (Ativan) 0.5 - 1 mg IVPUSH Q4H PRN PRN Reason: Nausea/Vomiting Melatonin (Melatonin) 9 mg PO BEDTIME [facility] Last Admin: 02/08/17 20:30 Dose: 9 mg Methylprednisolone Sodium Succinate (Solu-Medrol) 40 mg IVPUSH Q8H [facility] Last Admin: 02/09/17 05:10 Dose: 40 mg Mometasone Furoate/Formoterol Fumar (Dulera 200-5 Mcg) 0 puff IH BIDRT [facility] Last Admin: 02/09/17 07:03 Dose: 2 puff Morphine Sulfate (Morphine) 2 - 4 mg IVPUSH Q2H PRN PRN Reason: Pain (severe 7-10) Ondansetron HCl (Zofran Odt) 4 mg PO Q6H PRN PRN Reason: Nausea able to take PO Ondansetron HCl (Zofran) 4 mg IV Q6H PRN PRN Reason: Nausea/Vomiting Pantoprazole Sodium (Protonix Iv) 40 mg IV Q12H [facility] Last Admin: 02/09/17 09:31 Dose: 40 mg Polyethylene Glycol (Miralax) 17 gm PO DAILY PRN PRN Reason: Constipation Senna/Docusate Sodium (Senna Plus) 1 tab PO BID PRN PRN Reason: Constipation Sodium Chloride (Saline Flush) 10 ml FLUSH ASDIRECTED PRN PRN Reason: Keep Vein Open Discontinued Medications Carvedilol (Coreg) 25 mg PO BID [facility] Last Admin: 02/07/17 12:38 Dose: 25 mg Lactated Ringer's (Ringers, Lactated) 1,000 mls @ 999 mls/hr IV BOLUS ONE Stop: 02/07/17 09:10 Last Admin: 02/07/17 08:27 Dose: 999 mls/hr Lactated Ringer's (Ringers, Lactated) 1,000 mls @ 125 mls/hr IV BOLUS ONE Stop: 02/07/17 17:35 Last Admin: 02/07/17 10:37 Dose: 125 mls/hr Lactated Ringer's (Ringers, Lactated) 1,000 mls @ 125 mls/hr IV ASDIRECTED [facility] Last Admin: 02/08/17 06:20 Dose: 125 mls/hr Phytonadione 5 mg/ Sodium (Chloride) 50.5 mls @ 100 mls/hr IV ONETIME ONE Stop: 02/07/17 13:30 Last Admin: 02/07/17 12:44 Dose: 100 mls/hr Levofloxacin/Dextrose 750 mg/ (Premix) 150 mls @ 100 mls/hr IV Q48H [facility] Last Admin: 02/07/17 13:20 Dose: 100 mls/hr Potassium Chloride 20 meq/Lidocaine HCl 2 ml/ Sodium Chloride 112 mls @ 56 mls/ hr IV Q2H [facility] Stop: 02/07/17 18:59 Last Admin: 02/07/17 17:28 Dose: 56 mls/hr Sodium Chloride (Normal Saline) 500 mls @ 999 mls/hr IV ASDIRECTED [facility] Stop: 02/07/17 15:16 Last Admin: 02/07/17 14:58 Dose: 999 mls/hr Lidocaine (Lidocaine 4% Top Soln) Confirm Administered Dose 4 ml .ROUTE .STK- MED ONE Stop: 02/07/17 13:42 Lidocaine (Lidocaine 4% Top Soln) 4 ml TOP .STK-MED ONE Stop: 02/07/17 14:06 Last Admin: 02/07/17 14:05 Dose: 4 ml Lidocaine HCl (Xylocaine 2% Viscous) Confirm Administered Dose 15 ml .ROUTE .STK -MED ONE Stop: 02/07/17 13:25 Last Admin: 02/07/17 14:05 Dose: 2 ml Lidocaine HCl (Xylocaine 4% Top Soln) Confirm Administered Dose 50 ml .ROUTE .STK-MED ONE Stop: 02/07/17 13:25 Methylprednisolone Sodium Succinate (Solu-Medrol) 125 mg IVPUSH ONETIME ONE Stop: 02/07/17 13:01 Last Admin: 02/07/17 13:23 Dose: 125 mg Methylprednisolone Sodium Succinate (Solu-Medrol) 62.5 mg IVPUSH Q6H [facility] Last Admin: 02/08/17 06:54 Dose: 62.5 mg Octreotide Acetate (Sandostatin) 50 mcg IVPUSH ONETIME ONE Stop: 02/07/17 08:09 Last Admin: 02/07/17 08:26 Dose: 50 mcg Ondansetron HCl (Zofran) 4 mg IVPUSH ONETIME ONE Stop: 02/07/17 08:31 Last Admin: 02/07/17 08:38 Dose: 4 mg Pantoprazole Sodium (Protonix Iv) 40 mg IVPUSH ONETIME ONE Stop: 02/07/17 08:04 Last Admin: 02/07/17 08:25 Dose: 40 mg Potassium Chloride (Klor-Con M20) 40 meq PO ONETIME ONE Stop: 02/09/17 09:31 Last Admin: 02/09/17 09:44 Dose: 40 meq Propofol (Diprivan 20 Ml) Confirm Administered Dose 200 mg .ROUTE .STK-MED ONE Stop: 02/07/17 13:42 - Exam Quality Assessment: DVT prophylaxis General: alert, cooperative, no acute distress Lungs: Decreased breath sounds, Wheezing. No: Crackles, Rales, Rhonchi, Rub, Stridor Cardiovascular: No Murmurs, Irregular Rhythm, Tachycardia Abdomen: bowel sounds present, soft, no tenderness, no distension Extremities: no edema Skin: warm, dry, intact - Problem List Review Problem List Initiated/Reviewed/Updated: Yes - My Orders Last 24 Hours: My Active Orders 02/08/17 14:00 methylPREDNISolone Sod Succ [Solu-MEDROL] 40 mg IVPUSH Q8H 02/08/17 21:00 Melatonin 9 mg PO BEDTIME 02/09/17 11:51 Vital Signs [RC] Q4H 02/09/17 Lunch 2 Gram Sodium Diet [DIET] 02/10/17 05:00 BASIC METABOLIC PANEL,BMP [CHEM] Timed CBC WITH AUTO DIFF [HEME] Timed - Plan Plan:: Assessment and plan - Large right lung pneumonia with acute hypoxic respiratory failure - Gram stain from the bronchoscopy sample shows gram-negative rods. Improved since admission , with decrease in heart rate and respiratory rate. Oxygen saturations have been within adequate range. -Transfer to medical surgical floor today -Supplement oxygen -Levofloxacin and Pip/Tazo -Scheduled and as needed nebulizers -Steroids -Followup cultures Paroxysmal atrial fibrillation - Patient did have an episode of rapid ventricular response in the setting of hypoxia. Heart rate is improved, with improvement in respiratory status -Hold beta oziel until blood pressure improves -cardiac monitoring -Discontinue warfarin Hematemesis - patient reports fairly large volume hematemesis but I suspect that given his normal hemoglobin and a large quantity that the amount of blood was actually fairly small. Hemoglobin relatively stable since admission, anticoagulation has been reversed. No further evidence of active bleeding. -Vitamin K given -Serial hemoglobins -There are 2 units of packed red blood cells available if he needs them -Upper endoscopy in 2 days prior to discharge Hypokalemia - potassium level stable on replacement. -Recheck potassium level in a.m. Delirium-improved over the past 24 hours -Continue melatonin 9 mg by mouth each bedtime Maintenance issues - - DVT prophylaxis - mechanical - GI prophylaxis - PPI - Nutrition -clear liquid diet - Bazan catheter - not indicated CODE STATUS - DO NOT RESUSCITATE/DO NOT INTUBATE Admission justification - This patient will be admitted for inpatient services and is medically appropriate meeting medical necessity for inpatient admission as outlined in my documentation. I reasonably expect the patient will require inpatient services that span a period time over 2 midnights. I reasonably expect this patient to be discharged or transferred within 96 hours after admission to the [facility]. Disposition - anticipate discharge to home after the hospital stay Primary care physician - Dr. Bond
[2017-02-09] MEDS: Melatonin 3 MG Tab PO SCH (21:26)
[2017-02-10] MEDS: Piperacillin/Tazobactam/Dext 3.375 GM in Premix Bag 1 BAG IV SCH ×2 (04:24→09:53)
[2017-02-10] MEDS: methylPREDNISolone Sodium Succinate 40 MG/1 ML SDV IVPUSH SCH (05:11)
[2017-02-10] MEDS: Albuterol/Ipratropium 3.0-0.5 MG/3 ML Neb Soln NEB SCH ×4 (07:01→20:52)
[2017-02-10] MEDS: Formoterol/Mometasone 200-5 MCG 8.8 GM Inhaler IH SCH ×2 (07:03→20:48)
[2017-02-10] MEDS ORDERED: Potassium Chloride 20 MEQ Tab.ER PO ONE (09:00)
[2017-02-10] MEDS: Diltiazem 120 MG Cap.CD PO SCH (09:50)
[2017-02-10] MEDS: Aspirin 81 MG Tab.EC PO SCH (09:50)
[2017-02-10] MEDS: Pantoprazole 40 MG Vial IV SCH ×2 (09:51→20:52)
--- NOTE | 2017-02-10 10:22 | PCM.PN ---
- General Info Date of Service: 02/10/17 Functional Status: Reports: pain controlled, tolerating diet, ambulating - Review of Systems General: Reports: Weakness. Denies: Fever, Chills Pulmonary: Reports: no symptoms Cardiovascular: Reports: No Symptoms Gastrointestinal: Reports: No symptoms Psychiatric: Reports: confusion Systems Review Comment:: This patient has been stable over the past 24 hours, oxygen saturations have been adequate and he has been hemodynamically stable. No evidence of GI bleeding, with no appreciable change in hemoglobin since yesterday. - Patient Data Vitals - most recent: Last Vital Signs Temp 97.8 F 02/10/17 07:00 Pulse 88 02/10/17 09:50 Resp 18 02/10/17 07:00 BP 157/84 H 02/10/17 09:50 Pulse Ox 93 L 02/10/17 07:00 Weight - most recent: 137 lb 1.6 oz I&O - last 24 hours: Intake & Output 02/09/17 02/10/17 02/10/17 22:59 06:59 14:59 Intake Total 700 430 650 Output Total 300 490 300 Balance 400 -60 350 Lab Results last 24 hrs: Laboratory Results - last 24 hr 02/10/17 02/10/17 Range/Units 05:52 05:52 WBC 9.1 (4.5-11.0) K/uL RBC 3.62 L (4.30-5.90) M/uL Hgb 10.1 L (12.0-15.0) g/dL Hct 31.7 L (40.0-54.0) % MCV 88 (80-98) fL MCH 28 (27-31) pg MCHC 32 (32-36) % Plt Count 141 L (150-400) K/uL Neut % (Auto) 89 H (36-66) % Lymph % (Auto) 4 L (24-44) % [place] % (Auto) 7 H (2-6) % Eos % (Auto) 0 L (2-4) % Baso % (Auto) 0 (0-1) % Sodium 142 (140-148) mmol/L Potassium 3.3 L (3.6-5.2) mmol/L Chloride 105 (100-108) mmol/L Carbon Dioxide 33 H (21-32) mmol/L Anion Gap 7.3 (5.0-14.0) mmol/L BUN 25 H (7-18) mg/dL Creatinine 0.8 (0.8-1.3) mg/dL Est Cr Clr Drug Dosing 60.46 mL/min Estimated GFR (MDRD) > 60 (>60) Glucose 201 H (74-106) mg/dL Calcium 8.5 (8.5-10.1) mg/dL Neto Results last 24 hrs: Microbiology 02/07/17 15:00 Gram Stain - Final Bronchial Alveolar Lavage - Lung, Right Respiratory Culture - Final NORMAL RESPIRATORY [facility] 2 DAYS 02/07/17 15:00 Specimen Source - Preliminary Lung - Right Med Orders - Current: Current Medications Acetaminophen (Tylenol) 650 mg PO Q4H PRN PRN Reason: Pain (Mild 1-3)/fever Albuterol (Proventil Neb Soln) 2.5 mg NEB Q4H PRN PRN Reason: Shortness Of Breath/wheezing Last Admin: 02/07/17 12:33 Dose: 2.5 mg Albuterol/Ipratropium (Duoneb 3.0-0.5 Mg/3 Ml) 3 ml NEB QIDRT [facility] Last Admin: 02/10/17 07:01 Dose: 3 ml Aspirin (Halfprin) 81 mg PO DAILY [facility] Last Admin: 02/10/17 09:50 Dose: 81 mg Carvedilol (Coreg) 25 mg PO BID [facility] Diltiazem HCl (Cardizem Cd) 120 mg PO DAILY [facility] Last Admin: 02/10/17 09:50 Dose: 120 mg Furosemide (Lasix) 20 mg PO DAILY [facility] Piperacillin/Tazobactam/ (Dextrose 3.375 gm/ Premix) 50 mls @ 100 mls/hr IV Q6H [facility] Last Admin: 02/10/17 09:53 Dose: 100 mls/hr Levofloxacin/Dextrose 750 mg/ (Premix) 150 mls @ 100 mls/hr IV Q24H [facility] Last Admin: 02/09/17 10:31 Dose: 100 mls/hr Lorazepam (Ativan) 0.5 - 1 mg IVPUSH Q4H PRN PRN Reason: Nausea/Vomiting Melatonin (Melatonin) 9 mg PO BEDTIME [facility] Last Admin: 02/09/17 21:26 Dose: 9 mg Methylprednisolone Sodium Succinate (Solu-Medrol) 40 mg IVPUSH Q8H [facility] Last Admin: 02/10/17 05:11 Dose: 40 mg Mometasone Furoate/Formoterol Fumar (Dulera 200-5 Mcg) 0 puff IH BIDRT [facility] Last Admin: 02/10/17 07:03 Dose: 2 puff Morphine Sulfate (Morphine) 2 - 4 mg IVPUSH Q2H PRN PRN Reason: Pain (severe 7-10) Ondansetron HCl (Zofran Odt) 4 mg PO Q6H PRN PRN Reason: Nausea able to take PO Ondansetron HCl (Zofran) 4 mg IV Q6H PRN PRN Reason: Nausea/Vomiting Pantoprazole Sodium (Protonix Iv) 40 mg IV Q12H [facility] Last Admin: 02/10/17 09:51 Dose: 40 mg Polyethylene Glycol (Miralax) 17 gm PO DAILY PRN PRN Reason: Constipation Senna/Docusate Sodium (Senna Plus) 1 tab PO BID PRN PRN Reason: Constipation Simvastatin (Zocor) 20 mg PO DAILY [facility] Sodium Chloride (Saline Flush) 10 ml FLUSH ASDIRECTED PRN PRN Reason: Keep Vein Open Discontinued Medications Carvedilol (Coreg) 25 mg PO BID [facility] Last Admin: 02/07/17 12:38 Dose: 25 mg Lactated Ringer's (Ringers, Lactated) 1,000 mls @ 999 mls/hr IV BOLUS ONE Stop: 02/07/17 09:10 Last Admin: 02/07/17 08:27 Dose: 999 mls/hr Lactated Ringer's (Ringers, Lactated) 1,000 mls @ 125 mls/hr IV BOLUS ONE Stop: 02/07/17 17:35 Last Admin: 02/07/17 10:37 Dose: 125 mls/hr Lactated Ringer's (Ringers, Lactated) 1,000 mls @ 125 mls/hr IV ASDIRECTED [facility] Last Admin: 02/08/17 06:20 Dose: 125 mls/hr Phytonadione 5 mg/ Sodium (Chloride) 50.5 mls @ 100 mls/hr IV ONETIME ONE Stop: 02/07/17 13:30 Last Admin: 02/07/17 12:44 Dose: 100 mls/hr Levofloxacin/Dextrose 750 mg/ (Premix) 150 mls @ 100 mls/hr IV Q48H [facility] Last Admin: 02/07/17 13:20 Dose: 100 mls/hr Potassium Chloride 20 meq/Lidocaine HCl 2 ml/ Sodium Chloride 112 mls @ 56 mls/ hr IV Q2H [facility] Stop: 02/07/17 18:59 Last Admin: 02/07/17 17:28 Dose: 56 mls/hr Sodium Chloride (Normal Saline) 500 mls @ 999 mls/hr IV ASDIRECTED [facility] Stop: 02/07/17 15:16 Last Admin: 02/07/17 14:58 Dose: 999 mls/hr Lidocaine (Lidocaine 4% Top Soln) Confirm Administered Dose 4 ml .ROUTE .STK- MED ONE Stop: 02/07/17 13:42 Lidocaine (Lidocaine 4% Top Soln) 4 ml TOP .STK-MED ONE Stop: 02/07/17 14:06 Last Admin: 02/07/17 14:05 Dose: 4 ml Lidocaine HCl (Xylocaine 2% Viscous) Confirm Administered Dose 15 ml .ROUTE .STK -MED ONE Stop: 02/07/17 13:25 Last Admin: 02/07/17 14:05 Dose: 2 ml Lidocaine HCl (Xylocaine 4% Top Soln) Confirm Administered Dose 50 ml .ROUTE .STK-MED ONE Stop: 02/07/17 13:25 Methylprednisolone Sodium Succinate (Solu-Medrol) 125 mg IVPUSH ONETIME ONE Stop: 02/07/17 13:01 Last Admin: 02/07/17 13:23 Dose: 125 mg Methylprednisolone Sodium Succinate (Solu-Medrol) 62.5 mg IVPUSH Q6H [facility] Last Admin: 02/08/17 06:54 Dose: 62.5 mg Octreotide Acetate (Sandostatin) 50 mcg IVPUSH ONETIME ONE Stop: 02/07/17 08:09 Last Admin: 02/07/17 08:26 Dose: 50 mcg Ondansetron HCl (Zofran) 4 mg IVPUSH ONETIME ONE Stop: 02/07/17 08:31 Last Admin: 02/07/17 08:38 Dose: 4 mg Pantoprazole Sodium (Protonix Iv) 40 mg IVPUSH ONETIME ONE Stop: 02/07/17 08:04 Last Admin: 02/07/17 08:25 Dose: 40 mg Potassium Chloride (Klor-Con M20) 40 meq PO ONETIME ONE Stop: 02/09/17 09:31 Last Admin: 02/09/17 09:44 Dose: 40 meq Potassium Chloride (Klor-Con M20) 40 meq PO ONETIME ONE Stop: 02/10/17 09:01 Last Admin: 02/10/17 09:50 Dose: 40 meq Propofol (Diprivan 20 Ml) Confirm Administered Dose 200 mg .ROUTE .STK-MED ONE Stop: 02/07/17 13:42 - Exam Quality Assessment: DVT prophylaxis General: alert, cooperative, no acute distress Lungs: Decreased breath sounds, Rhonchi. No: Crackles, Rales, Rub, Stridor, Wheezing Cardiovascular: Regular Rate, No Murmurs, Irregular Rhythm Abdomen: bowel sounds present, soft, no tenderness, no distension Extremities: no edema Skin: warm, dry, intact - Problem List Review Problem List Initiated/Reviewed/Updated: Yes - My Orders Last 24 Hours: My Active Orders 02/09/17 11:51 Vital Signs [RC] Q4H 02/09/17 Lunch 2 Gram Sodium Diet [DIET] 02/10/17 10:15 Furosemide [Lasix] 20 mg PO DAILY 02/10/17 10:16 Consult to Physical Therapy [PT Evaluation and Treatment] [CONS] Routine 02/10/17 21:00 Carvedilol [Coreg] 25 mg PO BID 02/11/17 05:00 BASIC METABOLIC PANEL,BMP [CHEM] Timed 02/11/17 09:00 Simvastatin [Zocor] 20 mg PO DAILY 02/11/17 Breakfast NPO After Midnight [Nothing per Oral After Midnight Diet] [DIET] - Plan Plan:: Assessment and plan - Large right lung pneumonia with acute hypoxic respiratory failure -cultures are still showing no growth, respiratory status has been stable -Transfer to medical surgical floor today -Supplement oxygen -Levofloxacin -Scheduled and as needed nebulizers -Prednisone 40 mg by mouth daily Paroxysmal atrial fibrillation - Patient did have an episode of rapid ventricular response in the setting of hypoxia. Heart rate is improved, with improvement in respiratory status -Resume Coreg 25 mg by mouth twice a day -Discontinue warfarin Hematemesis - patient reports fairly large volume hematemesis but I suspect that given his normal hemoglobin and a large quantity that the amount of blood was actually fairly small. Hemoglobin relatively stable since admission, anticoagulation has been reversed. No further evidence of active bleeding. -Vitamin K given -Serial hemoglobins -Upper endoscopy tomorrow by Dr. Mccann Hypokalemia - potassium level stable on replacement. -Recheck potassium level in a.m. Delirium-improved over the past 24 hours -Continue melatonin 9 mg by mouth each bedtime Maintenance issues - - DVT prophylaxis - mechanical - GI prophylaxis - PPI - Nutrition -clear liquid diet - Bazan catheter - not indicated CODE STATUS - DO NOT RESUSCITATE/DO NOT INTUBATE Admission justification - This patient will be admitted for inpatient services and is medically appropriate meeting medical necessity for inpatient admission as outlined in my documentation. I reasonably expect the patient will require inpatient services that span a period time over 2 midnights. I reasonably expect this patient to be discharged or transferred within 96 hours [facility]. Disposition - anticipate discharge to home after the hospital stay Primary care physician - Dr. Bond
[2017-02-10] MEDS: Furosemide 20 MG Tab PO SCH (11:44)
[2017-02-10] MEDS: Levofloxacin/Dextrose 5%-Water 750 MG in Premix Bag 1 BAG IV SCH (11:44)
[2017-02-10] MEDS: Carvedilol 25 MG Tab PO SCH (17:21)
[2017-02-10] MEDS: Melatonin 3 MG Tab PO SCH (20:52)
[2017-02-11] MEDS: Formoterol/Mometasone 200-5 MCG 8.8 GM Inhaler IH SCH (07:15)
[2017-02-11] MEDS: Albuterol/Ipratropium 3.0-0.5 MG/3 ML Neb Soln NEB SCH ×2 (07:15→10:40)
[2017-02-11] MEDS ORDERED: predniSONE 20 MG Tab PO SCH (08:00)
[2017-02-11] MEDS ORDERED: Potassium Chloride 20 MEQ Tab.ER PO ONE (09:00)
[2017-02-11] MEDS ORDERED: Simvastatin 20 MG Tab PO SCH (09:00)
[2017-02-11] MEDS: Diltiazem 120 MG Cap.CD PO SCH (09:10)
[2017-02-11] MEDS: Carvedilol 25 MG Tab PO SCH (09:11)
[2017-02-11] MEDS: Aspirin 81 MG Tab.EC PO SCH (09:11)
[2017-02-11] MEDS: Pantoprazole 40 MG Vial IV SCH (09:12)
[2017-02-11] MEDS: Furosemide 20 MG Tab PO SCH (09:12)
[2017-02-11 10:03] VITALS: BP 151/77
[2017-02-11] MEDS: Levofloxacin/Dextrose 5%-Water 750 MG in Premix Bag 1 BAG IV SCH (10:53)
--- NOTE | 2017-02-11 12:16 | PCM.DCSUM1 ---
Discharge Summary - Hospital Course Brief History: This patient is an 82-year-old gentleman who was admitted through the emergency department for further evaluation and management of hematemesis. - Discharge Data Discharge Date: 02/11/17 Discharge Disposition: Home, Self-Care 01 Condition: Fair - Discharge Diagnosis/Problem(s) (1) Pneumonia SNOMED Code(s): 695519051 ICD Code: J18.9 - PNEUMONIA, UNSPECIFIED ORGANISM Status: Acute Current Visit: Yes (2) Right lower lobe pneumonia SNOMED Code(s): 778441785 ICD Code: J18.1 - LOBAR PNEUMONIA, UNSPECIFIED ORGANISM Status: Acute Current Visit: Yes Qualifiers: Pneumonia type: due to unspecified organism Qualified Code(s): J18.1 - Lobar pneumonia, unspecified organism (3) COPD (chronic obstructive pulmonary disease) SNOMED Code(s): 65438124 ICD Code: J44.9 - CHRONIC OBSTRUCTIVE PULMONARY DISEASE, UNSPECIFIED Status : Chronic Current Visit: No Qualifiers: COPD type: emphysema Emphysema type: unspecified Qualified Code(s): J43.9 - Emphysema, unspecified (4) Acute and chronic respiratory failure with hypoxia SNOMED Code(s): 751044306, 571508937 ICD Code: J96.21 - ACUTE AND CHRONIC RESPIRATORY FAILURE WITH HYPOXIA Status: Acute Current Visit: Yes - Patient Summary/Data Consults: Consultations 02/10/17 10:16 Consult to Physical Therapy [PT Evaluation and Treatment] [CONS] Routine Please Evaluate and Treat. PT Reason for Consult: Ambulation This query below is only for informational purposes and is not editable. Admission Diagnosis/Problem: Hematemesis Hospital Course: This patient is an 82-year-old gentleman who is admitted through the emergency department after he experienced hematemesis at home. He was admitted for further evaluation and monitoring. On admission was started on IV Protonix and had no further evidence of active bleeding through the rest of his hospital course. Serial hemoglobin levels remained stable from admission other than a drop associated with hydration. After admission he developed hypoxic respiratory failure, he does have known underlying COPD. Chest x-ray showed evidence of a significant right lung infiltrate. He was started on broad- spectrum IV antibiotics. Cultures were obtained prior to and initiating antibiotic therapy. He was given increased levels of supplemental oxygen and over the next few days his respiratory status improved significantly. Cultures remain negative and he will be discharged home on oral antibiotic therapy with levofloxacin. He was also given IV steroids and will be discharged home on 2 days of oral prednisone. He did develop increased confusion and agitation which resolved after he was started on melatonin 9 mg by mouth each bedtime. He does have a history of dementia and mild confusion at home. Activity will be as tolerated and he will resume his usual diet. Outpatient physical therapy will be scheduled 3 times weekly and a followup appointment will be scheduled with his primary care provider within one week. Discussion was held during hospital stay concerning his long-term oral anticoagulation with warfarin which is used because of his underlying atrial fibrillation. Patient and family decided to stop anticoagulation given the episode of GI bleeding. Also discussed proceeding with further evaluation including EGD to delineate the underlying source of his recent bleed. This was discussed with family and they decided not to pursue further aggressive evaluation with EGD. He will be discharged home on oral proton pump inhibitor therapy with Protonix 40 mg by mouth daily. - Patient Instructions Diet: Usual Diet as Tolerated Activity: As Tolerated Other/Special Instructions: Schedule followup appointment with primary care provider within one week. Schedule outpatient physical therapy 3 times weekly. - Discharge Plan Prescriptions/Med Rec: Levofloxacin [Levaquin] 500 mg PO Q24H #5 tablet Melatonin 6 mg PO BEDTIME #60 tablet Pantoprazole Sodium [Protonix] 40 mg PO DAILY #30 tablet. Prednisone [IJD: predniSONE] 40 mg PO WITHBREAKFAST #4 tablet Home Medications: Home Meds Fluticasone/Salmeterol [Advair 250-50] 1 puff INH BID 11/24/13 [History] Simvastatin 20 mg PO DAILY 11/24/13 [History] Albuterol [Ventolin HFA] 2 puff INH Q4H PRN 10/08/14 [History] Aspirin [Ecotrin] 81 mg PO DAILY 10/08/14 [History] Fluocinonide [Lidex 0.05% Oint] 1 applic TRDERM BID PRN 10/08/14 [History] Carvedilol 25 mg PO BID 10/21/16 [History] Diltiazem HCl [Diltiazem 24Hr Cd] 120 mg PO DAILY #30 cap.er.24h 10/31/16 [Rx] Sennosides/Docusate Sodium [Senna-S] 1 each PO BID #60 tablet 10/31/16 [Rx] Furosemide [Lasix] 20 mg PO DAILY #30 tablet 01/17/17 [Rx] Magnesium Oxide 400 mg PO BID #60 tablet 01/17/17 [Rx] Levofloxacin [Levaquin] 500 mg PO Q24H #5 tablet 02/11/17 [Rx] Melatonin 6 mg PO BEDTIME #60 tablet 02/11/17 [Rx] Pantoprazole Sodium [Protonix] 40 mg PO DAILY #30 tablet. 02/11/17 [Rx] Prednisone [IJD: predniSONE] 40 mg PO WITHBREAKFAST #4 tablet 02/11/17 [Rx] Forms: ED Department Discharge Referrals: Jarad Bond MD [Primary Care Provider] - (Outpt physical therapy eval and treat WednesdayFebruary 15 @ 2:30. Be there @ 2:00 for check in.) - Patient Data Vitals - Most Recent: Last Vital Signs Temp 96.5 F 02/11/17 09:45 Pulse 74 02/11/17 10:42 Resp 18 02/11/17 09:45 BP 151/77 H 02/11/17 09:45 Pulse Ox 94 L 02/11/17 10:42 Weight - Most Recent: 137 lb 2 oz I&O - Last 24 hours: Intake & Output 02/10/17 02/11/17 02/11/17 22:59 06:59 14:59 Intake Total 200 580 Output Total 200 Balance 200 -200 580 Lab Results - Last 24 hrs: Laboratory Results - last 24 hr 02/11/17 Range/Units 05:00 Sodium 139 L (140-148) mmol/L Potassium 3.5 L (3.6-5.2) mmol/L Chloride 101 (100-108) mmol/L Carbon Dioxide 33 H (21-32) mmol/L Anion Gap 8.5 (5.0-14.0) mmol/L BUN 19 H (7-18) mg/dL Creatinine 0.9 (0.8-1.3) mg/dL Est Cr Clr Drug Dosing 53.74 mL/min Estimated GFR (MDRD) > 60 (>60) Glucose 154 H (74-106) mg/dL Calcium 8.8 (8.5-10.1) mg/dL JHONNY Results - Last 24 hrs: Microbiology 02/07/17 15:00 Specimen Source - Preliminary Lung - Right Acid Fast Bacilli Smear - Preliminary Med Orders - Current: Current Medications Acetaminophen (Tylenol) 650 mg PO Q4H PRN PRN Reason: Pain (Mild 1-3)/fever Albuterol (Proventil Neb Soln) 2.5 mg NEB Q4H PRN PRN Reason: Shortness Of Breath/wheezing Last Admin: 02/07/17 12:33 Dose: 2.5 mg Albuterol/Ipratropium (Duoneb 3.0-0.5 Mg/3 Ml) 3 ml NEB QIDRT [facility] Last Admin: 02/11/17 10:40 Dose: 3 ml Aspirin (Halfprin) 81 mg PO DAILY [facility] Last Admin: 02/11/17 09:11 Dose: 81 mg Carvedilol (Coreg) 25 mg PO BIDMEALS [facility] Last Admin: 02/11/17 09:11 Dose: 25 mg Diltiazem HCl (Cardizem Cd) 120 mg PO DAILY [facility] Last Admin: 02/11/17 09:10 Dose: 120 mg Furosemide (Lasix) 20 mg PO DAILY [facility] Last Admin: 02/11/17 09:12 Dose: 20 mg Levofloxacin/Dextrose 750 mg/ (Premix) 150 mls @ 100 mls/hr IV Q24H [facility] Last Admin: 02/11/17 10:53 Dose: 100 mls/hr Lorazepam (Ativan) 0.5 - 1 mg IVPUSH Q4H PRN PRN Reason: Nausea/Vomiting Melatonin (Melatonin) 9 mg PO BEDTIME [facility] Last Admin: 02/10/17 20:52 Dose: 9 mg Mometasone Furoate/Formoterol Fumar (Dulera 200-5 Mcg) 0 puff IH BIDRT [facility] Last Admin: 02/11/17 07:15 Dose: 2 puff Morphine Sulfate (Morphine) 2 - 4 mg IVPUSH Q2H PRN PRN Reason: Pain (severe 7-10) Ondansetron HCl (Zofran Odt) 4 mg PO Q6H PRN PRN Reason: Nausea able to take PO Ondansetron HCl (Zofran) 4 mg IV Q6H PRN PRN Reason: Nausea/Vomiting Pantoprazole Sodium (Protonix Iv) 40 mg IV Q12H [facility] Last Admin: 02/11/17 09:12 Dose: 40 mg Polyethylene Glycol (Miralax) 17 gm PO DAILY PRN PRN Reason: Constipation Prednisone (Prednisone) 40 mg PO WITHBREAKFAST [facility] Last Admin: 02/11/17 09:11 Dose: 40 mg Senna/Docusate Sodium (Senna Plus) 1 tab PO BID PRN PRN Reason: Constipation Simvastatin (Zocor) 20 mg PO DAILY [facility] Last Admin: 02/11/17 09:11 Dose: 20 mg Sodium Chloride (Saline Flush) 10 ml FLUSH ASDIRECTED PRN PRN Reason: Keep Vein Open Discontinued Medications Carvedilol (Coreg) 25 mg PO BID [facility] Last Admin: 02/07/17 12:38 Dose: 25 mg Lactated Ringer's (Ringers, Lactated) 1,000 mls @ 999 mls/hr IV BOLUS ONE Stop: 02/07/17 09:10 Last Admin: 02/07/17 08:27 Dose: 999 mls/hr Lactated Ringer's (Ringers, Lactated) 1,000 mls @ 125 mls/hr IV BOLUS ONE Stop: 02/07/17 17:35 Last Admin: 02/07/17 10:37 Dose: 125 mls/hr Lactated Ringer's (Ringers, Lactated) 1,000 mls @ 125 mls/hr IV ASDIRECTED [facility] Last Admin: 02/08/17 06:20 Dose: 125 mls/hr Phytonadione 5 mg/ Sodium (Chloride) 50.5 mls @ 100 mls/hr IV ONETIME ONE Stop: 02/07/17 13:30 Last Admin: 02/07/17 12:44 Dose: 100 mls/hr Levofloxacin/Dextrose 750 mg/ (Premix) 150 mls @ 100 mls/hr IV Q48H [facility] Last Admin: 02/07/17 13:20 Dose: 100 mls/hr Piperacillin/Tazobactam/ (Dextrose 3.375 gm/ Premix) 50 mls @ 100 mls/hr IV Q6H [facility] Last Admin: 02/10/17 09:53 Dose: 100 mls/hr Potassium Chloride 20 meq/Lidocaine HCl 2 ml/ Sodium Chloride 112 mls @ 56 mls/ hr IV Q2H [facility] Stop: 02/07/17 18:59 Last Admin: 02/07/17 17:28 Dose: 56 mls/hr Sodium Chloride (Normal Saline) 500 mls @ 999 mls/hr IV ASDIRECTED [facility] Stop: 02/07/17 15:16 Last Admin: 02/07/17 14:58 Dose: 999 mls/hr Lidocaine (Lidocaine 4% Top Soln) Confirm Administered Dose 4 ml .ROUTE .STK- MED ONE Stop: 02/07/17 13:42 Lidocaine (Lidocaine 4% Top Soln) 4 ml TOP .STK-MED ONE Stop: 02/07/17 14:06 Last Admin: 02/07/17 14:05 Dose: 4 ml Lidocaine HCl (Xylocaine 2% Viscous) Confirm Administered Dose 15 ml .ROUTE .STK -MED ONE Stop: 02/07/17 13:25 Last Admin: 02/07/17 14:05 Dose: 2 ml Lidocaine HCl (Xylocaine 4% Top Soln) Confirm Administered Dose 50 ml .ROUTE .STK-MED ONE Stop: 02/07/17 13:25 Methylprednisolone Sodium Succinate (Solu-Medrol) 125 mg IVPUSH ONETIME ONE Stop: 02/07/17 13:01 Last Admin: 02/07/17 13:23 Dose: 125 mg Methylprednisolone Sodium Succinate (Solu-Medrol) 62.5 mg IVPUSH Q6H [facility] Last Admin: 02/08/17 06:54 Dose: 62.5 mg Methylprednisolone Sodium Succinate (Solu-Medrol) 40 mg IVPUSH Q8H [facility] Last Admin: 02/10/17 05:11 Dose: 40 mg Octreotide Acetate (Sandostatin) 50 mcg IVPUSH ONETIME ONE Stop: 02/07/17 08:09 Last Admin: 02/07/17 08:26 Dose: 50 mcg Ondansetron HCl (Zofran) 4 mg IVPUSH ONETIME ONE Stop: 02/07/17 08:31 Last Admin: 02/07/17 08:38 Dose: 4 mg Pantoprazole Sodium (Protonix Iv) 40 mg IVPUSH ONETIME ONE Stop: 02/07/17 08:04 Last Admin: 02/07/17 08:25 Dose: 40 mg Potassium Chloride (Klor-Con M20) 40 meq PO ONETIME ONE Stop: 02/09/17 09:31 Last Admin: 02/09/17 09:44 Dose: 40 meq Potassium Chloride (Klor-Con M20) 40 meq PO ONETIME ONE Stop: 02/10/17 09:01 Last Admin: 02/10/17 09:50 Dose: 40 meq Potassium Chloride (Klor-Con M20) 40 meq PO ONETIME ONE Stop: 02/11/17 09:01 Last Admin: 02/11/17 09:10 Dose: 40 meq Propofol (Diprivan 20 Ml) Confirm Administered Dose 200 mg .ROUTE .STK-MED ONE Stop: 02/07/17 13:42 *Q Meaningful Use (DIS) - VTE *Q VTE Criteria *Q: VTE Pharmacological Contraindications *Q: Active Hemorrhage - Stroke *Q Stroke Criteria *Q: - AMI *Q AMI Criteria *Q:
[2017-03-05] MEDS ORDERED: diphenhydrAMINE 50 MG/ML SDV IVPUSH PRN (01:19)
[2017-03-05] MEDS ORDERED: Zolpidem 5 MG Tab PO PRN (01:19)
[2017-03-05] MEDS ORDERED: Docusate Sodium 100 MG Cap PO PRN (01:19)
[2017-03-05] MEDS ORDERED: Bisacodyl 5 MG Tab PO PRN (01:19)
[2017-03-05] MEDS ORDERED: Promethazine 25 MG/ML SDV IM PRN (01:19)
[2017-03-05] MEDS ORDERED: Metoclopramide 10 MG/2 ML SDV IV PRN (01:19)
[2017-03-05] MEDS ORDERED: Benzocaine/Cetylpyridinium/Menthol Lozenge MUCMEM PRN (01:19)
[2017-03-05] MEDS ORDERED: Ondansetron 4 MG/2 ML SDV IVPUSH PRN (01:19)
[2017-03-05] MEDS ORDERED: Piperacillin/Tazobactam 3.375 GM in Sodium Chloride 0.9% 50 ML IV SCH (02:00)
== END 2017-02-11 12:50 | disposition home or self-care (01) | DRG 987 ==
LOC: JP.ED 07:13 → JP.ICU 10:43 → JP.2SS 02-09 13:00
PROVIDERS: ADMIT Internal Medicine; ATTEND Hospitalist
PROC: 0B9K8ZX Drainage of Right Lung, Via Natural or Artificial Opening Endoscopic, Diagnostic (ICD-10-PCS; principal; 2017-02-07)
DX: K92.0 Hematemesis (principal); K92.2 Gastrointestinal hemorrhage, unspecified; J18.1 Lobar pneumonia, unspecified organism; J96.21 Acute and chronic respiratory failure with hypoxia; I10 Essential (primary) hypertension; I48.0 Paroxysmal atrial fibrillation; Z66 Do not resuscitate; Z87.891 Personal history of nicotine dependence; I25.10 Atherosclerotic heart disease of native coronary artery without angina pectoris; Z79.01 Long term (current) use of anticoagulants; E87.6 Hypokalemia; J43.9 Emphysema, unspecified; R41.0 Disorientation, unspecified; F03.90 Unspecified dementia, unspecified severity, without behavioral disturbance, psychotic disturbance, mood disturbance, and anxiety; K59.09 Other constipation; E78.00 Pure hypercholesterolemia, unspecified; H91.90 Unspecified hearing loss, unspecified ear; H54.7 Unspecified visual loss; Z87.01 Personal history of pneumonia (recurrent); Z95.1 Presence of aortocoronary bypass graft; Z95.2 Presence of prosthetic heart valve; Z85.048 Personal history of other malignant neoplasm of rectum, rectosigmoid junction, and anus; Z85.46 Personal history of malignant neoplasm of prostate; Z79.82 Long term (current) use of aspirin; Z79.52 Long term (current) use of systemic steroids; Z88.8 Allergy status to other drugs, medicaments and biological substances
CPT/HCPCS: 36415; 80053; 81001; 83605; 85025; 85610; 85730; 86850; 86900; 86901; 86920; 86922; 96361; 96374; 96375; 99285 ×2; C9113; J2354; J2405; J7120 ×2; 74176; 80048; 85018; 85027; 87015; 87070; 87102; 87116; 87205; 87206; 87220; 94640-76; 97162-GP; A9270-GY; J1956; J2543; J2704; J2920; J2930; J3430; J3480; J7030; J7040; J7050; J7620

== ENCOUNTER 2017-03-04 19:57 | Inpatient (IN) | payer MEDICARE, BC ==
[2017-03-04] MEDS: Sodium Chloride 0.9% 1,000 ML IV SCH (21:11)
[2017-03-04] MEDS ORDERED: Sodium Chloride 0.9% 10 ML Syringe FLUSH PRN (21:26)
[2017-03-04] MEDS ORDERED: Iopamidol 612 MG/ML 100 ML Bottle IV PRN (21:26)
[2017-03-04] MEDS ORDERED: Sodium Chloride 0.9% 80 ML IV ONE (21:26)
--- NOTE | 2017-03-04 23:08 | EDM.PDOC ---
[id number]: ILLNESS Time Seen by Provider: 03/04/17 20:46 Source of Information: Reports: Patient History Limitations: Reports: No Limitations - History of Present Illness INITIAL COMMENTS - FREE TEXT/NARRATIVE: History of present illness: [This 82-year-old gentleman is presenting to the emergency room with abdominal pain and productive cough of 2 days' duration. He has a colostomy in place. He denies any fevers or chills. He's had some nausea. He's feeling weak and unwell] Review of systems: As per history of present illness and below otherwise all systems reviewed and negative. Past medical history: As per history of present illness and as reviewed below otherwise noncontributory. Surgical history: As per history of present illness and as reviewed below otherwise noncontributory. Social history: No reported history of drug or alcohol abuse. Family history: As per history of present illness and as reviewed below otherwise noncontributory. Physical exam: Gen.: he is weak and in a seated but pleasant and conversant HEENT: Atraumatic, normocephalic, pupils reactive, negative for conjunctival pallor or scleral icterus, mucous membranes moist, throat clear, neck supple, nontender, trachea midline. Lungs: Scattered rhonchi with fair air exchange Heart: S1S2, regular, Abdomen: Diffuse tenderness to palpation with mild dilation and hypoactive to absent of bowel sounds Pelvis: Stable nontender. Genitourinary: Deferred. Rectal: Deferred. Extremities: Atraumatic, negative for cords or calf pain. Neurovascular unremarkable. Neuro: Awake, alert, oriented. Cranial nerves II through XII unremarkable. Cerebellum unremarkable. Motor and sensory unremarkable throughout. Exam nonfocal. Diagnostics: [CBC complete metabolic panel were done but most importantly a chest abdomen and pelvis CT were done and demonstrate bilateral scattered foci of pneumonia and a small bowel obstruction with evidence for twisting of the mesentery creating a beak-shaped transition point concerning for a closed loop obstruction ] Therapeutics: [Patient is receiving IV fluids] Impression: [Pneumonia see CT report Bowel obstruction as described in the CT report] Plan: [Surgeon transportation attendant has been called Dr Mccann, and is coming in to see the patient and discuss options of treatment. He is a poor surgical candidate but facing a potential surgical emergency.] Definitive disposition and diagnosis as appropriate pending reevaluation and review of above. - Related Data Allergies Allergy/AdvReac Type Severity Reaction Status Date / Time butorphanol tartrate Allergy Cannot Verified 03/04/17 20:29 [From Stadol] Remember Home Meds: Home Meds Fluticasone/Salmeterol [Advair 250-50] 1 puff INH BID 11/24/13 [History] Simvastatin 20 mg PO DAILY 11/24/13 [History] Albuterol [Ventolin HFA] 2 puff INH Q4H PRN 10/08/14 [History] Aspirin [Ecotrin] 81 mg PO DAILY 10/08/14 [History] Carvedilol 25 mg PO BID 10/21/16 [History] Diltiazem HCl [Diltiazem 24Hr Cd] 120 mg PO DAILY #30 cap.er.24h 10/31/16 [Rx] Sennosides/Docusate Sodium [Senna-S] 1 each PO BID #60 tablet 10/31/16 [Rx] Furosemide [Lasix] 20 mg PO DAILY #30 tablet 01/17/17 [Rx] Magnesium Oxide 400 mg PO BID #60 tablet 01/17/17 [Rx] Melatonin 6 mg PO BEDTIME #60 tablet 02/11/17 [Rx] Pantoprazole Sodium [Protonix] 40 mg PO DAILY #30 tablet.dr 02/11/17 [Rx] Amoxicillin/Clavulanate K [Augmentin 875-125 MG] 1 tab PO Q12H #8 tablet [Rx] Past Medical History HEENT History: Reports: Hard of Hearing, Impaired Vision Other HEENT History: glasses. hearing aid Cardiovascular History: Reports: Afib, Arrhythmia, High Cholesterol, Hypertension Respiratory History: Reports: Asthma, Bronchitis, Recurrent, COPD, Pneumonia, Recurrent Gastrointestinal History: Reports: Chronic Constipation, Hemorrhoids Genitourinary History: Reports: BPH Musculoskeletal History: Reports: Fracture Other Musculoskeletal History: wrist. pelvic Hematologic History: Reports: Anemia, B12 Deficiency, Iron Deficiency Oncologic (Cancer) History: Reports: Colon, Prostate Other Oncologic History: rectal Dermatologic History: Reports: Eczema Other Dermatologic History: precancerous growth uder eye removed - Infectious Disease History Infectious Disease History: Reports: Chicken Pox, Measles, Mumps, Shingles - Past Surgical History Cardiovascular Surgical History: Reports: Coronary Artery Bypass, Valve Replacement GI Surgical History: Reports: Appendectomy, Colon, Colonoscopy, Colostomy Male Surgical History: Reports: TURP-Transurethral Resection of Prostate Social & Family History - Family History Family Medical History: Noncontributory - Tobacco Use Smoking Status *Q: Former Smoker Years of Tobacco use: 30 Used Tobacco, but Quit: Yes Month Tobacco Last Used: 40 years Second Hand Smoke Exposure: No - Caffeine Use Caffeine Use: Reports: Coffee - Alcohol Use Days Per Week of Alcohol Use: 0 Number of Drinks Per Day: 1 Total Drinks Per Week: 0 - Recreational Drug Use Recreational Drug Use: No ED ROS GENERAL - Review of Systems Review Of Systems: ROS reveals no pertinent complaints other than HPI. ED EXAM, GENERAL - Physical Exam Exam: See Below Course - Vital Signs Last Recorded V/S: Last Vital Signs Temp 36.6 C 03/11/17 08:00 Pulse 67 03/11/17 09:18 Resp 20 03/11/17 08:00 BP 143/80 H 03/11/17 09:18 Pulse Ox 97 03/11/17 08:00 - Orders/Labs/Meds Orders: Medication Orders Amoxicillin/Clavulanate Potassium (Augmentin 875 Mg/125 Mg) 1 tab PO Q12H [facility] Last Admin: 03/11/17 09:19 Dose: 1 tab Admin: 03/10/17 21:02 Dose: 1 tab Admin: 03/10/17 10:36 Dose: 1 tab Aspirin (Halfprin) 81 mg PO DAILY [facility] Last Admin: 03/11/17 09:19 Dose: 81 mg Admin: 03/10/17 08:07 Dose: 81 mg Admin: 03/09/17 09:54 Dose: 81 mg Bisacodyl (Dulcolax) 5 mg PO DAILY PRN PRN Reason: Constipation Carvedilol (Coreg) 25 mg PO BID [facility] Last Admin: 03/11/17 09:18 Dose: 25 mg Admin: 03/10/17 20:38 Dose: 25 mg Admin: 03/10/17 08:07 Dose: 25 mg Admin: 03/09/17 21:07 Dose: 25 mg Admin: 03/09/17 09:52 Dose: 25 mg Diltiazem HCl (Cardizem Cd) 120 mg PO DAILY [facility] Last Admin: 03/11/17 09:18 Dose: 120 mg Admin: 03/10/17 08:06 Dose: 120 mg Admin: 03/09/17 09:51 Dose: 120 mg Divalproex Sodium (Divalproex Sodium) 250 mg PO TIDMEALS [facility] Last Admin: 03/11/17 08:40 Dose: 250 mg Admin: 03/10/17 17:02 Dose: 250 mg Admin: 03/10/17 12:17 Dose: 250 mg Admin: 03/10/17 08:05 Dose: 250 mg Admin: 03/09/17 16:46 Dose: 250 mg Admin: 03/09/17 11:19 Dose: 250 mg Admin: 03/09/17 09:52 Dose: 250 mg Docusate Sodium (Colace) 100 mg PO BID PRN PRN Reason: Constipation Last Admin: 03/07/17 10:16 Dose: 100 mg Enoxaparin Sodium (Lovenox) 40 mg SUBCUT DAILY [facility] Last Admin: 03/11/17 09:19 Dose: Not Given Admin: 03/10/17 08:08 Dose: 40 mg Admin: 03/09/17 08:33 Dose: 40 mg Admin: 03/08/17 08:02 Dose: 40 mg Admin: 03/07/17 08:54 Dose: 40 mg Admin: 03/06/17 08:59 Dose: 40 mg Admin: 03/05/17 11:23 Dose: 40 mg Haloperidol (Haldol) 1 mg PO Q2H PRN PRN Reason: Agitation Last Admin: 03/09/17 10:12 Dose: 1 mg Magnesium Oxide (Magnesium Oxide) 400 mg PO BID [facility] Last Admin: 03/11/17 09:19 Dose: 400 mg Admin: 03/10/17 20:38 Dose: 400 mg Admin: 03/10/17 08:08 Dose: 400 mg Admin: 03/09/17 21:08 Dose: 400 mg Admin: 03/09/17 09:52 Dose: 400 mg Melatonin (Melatonin) 9 mg PO BEDTIME [facility] Last Admin: 03/10/17 20:39 Dose: 9 mg Admin: 03/09/17 21:07 Dose: 9 mg Mometasone Furoate/Formoterol Fumar (Dulera 200-5 Mcg) 0 puff IH BIDRT [facility] Last Admin: 03/11/17 07:21 Dose: 2 puff Admin: 03/10/17 20:38 Dose: 2 puff Admin: 03/10/17 08:04 Dose: 2 puff Admin: 03/09/17 21:07 Dose: 2 puff Admin: 03/09/17 09:53 Dose: 2 puff Ondansetron HCl (Zofran) 4 mg IVPUSH Q8H PRN PRN Reason: Nausea/Vomiting Pantoprazole Sodium (Protonix) 40 mg PO DAILY@0730 [facility] Last Admin: 03/11/17 08:25 Dose: 40 mg Admin: 03/10/17 08:05 Dose: 40 mg Admin: 03/09/17 09:55 Dose: 40 mg Promethazine HCl (Phenergan) 12.5 mg IM Q6H PRN PRN Reason: Nausea/Vomiting Senna/Docusate Sodium (Senna Plus) 1 tab PO BID PRN PRN Reason: Constipation Simvastatin (Zocor) 20 mg PO BEDTIME [facility] Last Admin: 03/10/17 20:38 Dose: 20 mg Admin: 03/09/17 21:07 Dose: 20 mg Sodium Chloride (Saline Flush) 10 ml FLUSH ONETIME PRN PRN Reason: PER RADIOLOGY PROTOCOL Last Admin: 03/04/17 21:43 Dose: 10 ml Zolpidem Tartrate (Ambien) 5 mg PO BEDTIME PRN PRN Reason: Insomnia Last Admin: 03/09/17 02:20 Dose: 5 mg Labs: Laboratory Tests 03/04/17 03/04/17 03/04/17 Range/Units 20:55 20:55 20:55 WBC 8.3 (4.5-11.0) K/uL RBC 4.74 (4.30-5.90) M/uL Hgb 13.0 D (12.0-15.0) g/dL Hct 39.9 L (40.0-54.0) % MCV 84 (80-98) fL MCH 27 (27-31) pg MCHC 33 (32-36) % Plt Count 323 (150-400) K/uL Neut % (Auto) 74 H (36-66) % Lymph % (Auto) 12 L (24-44) % [place] % (Auto) 14 H (2-6) % Eos % (Auto) 0 L (2-4) % Baso % (Auto) 0 (0-1) % PT 11.4 (9.5-12.0) sec INR 1.07 (0.80-1.20) ABG Hemoglobin (13.5-18.0) g/dL ABG Oxyhemoglobin % ABG Carboxyhemoglobin (0.0-1.6) % ABG Methemoglobin % VBG pH (7.350-7.450) VBG pCO2 mm/Hg VBG pO2 mm/Hg VBG HCO3 mmol/L VBG Total CO2 mmol/L VBG O2 Saturation VBG O2 Content %vol VBG Base Excess mm/L O2 Delivery Device Sodium 137 L (140-148) mmol/L Potassium 3.7 (3.6-5.2) mmol/L Chloride 93 L (100-108) mmol/L Carbon Dioxide 37 H (21-32) mmol/L Anion Gap 10.7 (5.0-14.0) mmol/L BUN 19 H (7-18) mg/dL Creatinine 1.1 (0.8-1.3) mg/dL Est Cr Clr Drug Dosing TNP Estimated GFR (MDRD) > 60 (>60) Glucose 170 H (74-106) mg/dL Lactic Acid (0.4-2.0) mmol/L Calcium 8.4 L (8.5-10.1) mg/dL Magnesium (1.8-2.4) mg/dL Total Bilirubin 0.4 (0.2-1.0) mg/dL AST 22 (15-37) U/L ALT 20 (12-78) U/L Alkaline Phosphatase 104 (46-116) U/L C-Reactive Protein (0.0-0.3) mg/dL Total Protein 7.3 (6.4-8.2) g/dL Albumin 2.5 L (3.4-5.0) g/dL Globulin 4.8 H (2.3-3.5) g/dL Albumin/Globulin Ratio 0.5 L (1.2-2.2) Amylase (25-115) U/L Lipase (73-393) U/L Urine Color Urine Appearance Urine pH (4.5-8.0) Ur Specific [place] (1.008-1.030) Urine Protein (NEGATIVE) mg/dL Urine Glucose (UA) (NEGATIVE) mg/dL Urine Ketones (NEGATIVE) mg/dL Urine Occult Blood (NEGATIVE) Urine Nitrite (NEGAITVE) Urine Bilirubin (NEGATIVE) Urine Urobilinogen (NORMAL) mg/dL Ur Leukocyte Esterase (NEGATIVE) Urine RBC (0-5) Urine WBC (0-5) Ur Epithelial Cells Amorphous Sediment Urine Bacteria Urine Mucus 03/04/17 03/04/17 03/04/17 Range/Units 20:55 20:55 20:55 WBC (4.5-11.0) K/uL RBC (4.30-5.90) M/uL Hgb (12.0-15.0) g/dL Hct (40.0-54.0) % MCV (80-98) fL MCH (27-31) pg MCHC (32-36) % Plt Count (150-400) K/uL Neut % (Auto) (36-66) % Lymph % (Auto) (24-44) % [place] % (Auto) (2-6) % Eos % (Auto) (2-4) % Baso % (Auto) (0-1) % PT (9.5-12.0) sec INR (0.80-1.20) ABG Hemoglobin 13.1 L (13.5-18.0) g/dL ABG Oxyhemoglobin 67.2 % ABG Carboxyhemoglobin 1.6 (0.0-1.6) % ABG Methemoglobin 0.2 % VBG pH 7.472 H (7.350-7.450) VBG pCO2 47.9 mm/Hg VBG pO2 36.9 mm/Hg VBG HCO3 34.6 mmol/L VBG Total CO2 30.7 mmol/L VBG O2 Saturation 68.4 VBG O2 Content 12.3 %vol VBG Base Excess 9.8 mm/L O2 Delivery Device Room air Sodium (140-148) mmol/L Potassium (3.6-5.2) mmol/L Chloride (100-108) mmol/L Carbon Dioxide (21-32) mmol/L Anion Gap (5.0-14.0) mmol/L BUN (7-18) mg/dL Creatinine (0.8-1.3) mg/dL Est Cr Clr Drug Dosing Estimated GFR (MDRD) (>60) Glucose (74-106) mg/dL Lactic Acid 1.3 (0.4-2.0) mmol/L Calcium (8.5-10.1) mg/dL Magnesium (1.8-2.4) mg/dL Total Bilirubin (0.2-1.0) mg/dL AST (15-37) U/L ALT (12-78) U/L Alkaline Phosphatase (46-116) U/L C-Reactive Protein 3.52 H (0.0-0.3) mg/dL Total Protein (6.4-8.2) g/dL Albumin (3.4-5.0) g/dL Globulin (2.3-3.5) g/dL Albumin/Globulin Ratio (1.2-2.2) Amylase 44 (25-115) U/L Lipase 130 (73-393) U/L Urine Color Urine Appearance Urine pH (4.5-8.0) Ur Specific [place] (1.008-1.030) Urine Protein (NEGATIVE) mg/dL Urine Glucose (UA) (NEGATIVE) mg/dL Urine Ketones (NEGATIVE) mg/dL Urine Occult Blood (NEGATIVE) Urine Nitrite (NEGAITVE) Urine Bilirubin (NEGATIVE) Urine Urobilinogen (NORMAL) mg/dL Ur Leukocyte Esterase (NEGATIVE) Urine RBC (0-5) Urine WBC (0-5) Ur Epithelial Cells Amorphous Sediment Urine Bacteria Urine Mucus 03/05/17 03/05/17 03/05/17 Range/Units 04:16 04:16 04:30 WBC 7.8 (4.5-11.0) K/uL RBC 4.41 (4.30-5.90) M/uL Hgb 12.0 (12.0-15.0) g/dL Hct 37.8 L (40.0-54.0) % MCV 86 (80-98) fL MCH 27 (27-31) pg MCHC 32 (32-36) % Plt Count 283 (150-400) K/uL Neut % (Auto) 83 H (36-66) % Lymph % (Auto) 9 L (24-44) % [place] % (Auto) 9 H (2-6) % Eos % (Auto) 0 L (2-4) % Baso % (Auto) 0 (0-1) % PT (9.5-12.0) sec INR (0.80-1.20) ABG Hemoglobin (13.5-18.0) g/dL ABG Oxyhemoglobin % ABG Carboxyhemoglobin (0.0-1.6) % ABG Methemoglobin % VBG pH (7.350-7.450) VBG pCO2 mm/Hg VBG pO2 mm/Hg VBG HCO3 mmol/L VBG Total CO2 mmol/L VBG O2 Saturation VBG O2 Content %vol VBG Base Excess mm/L O2 Delivery Device Sodium 138 L (140-148) mmol/L Potassium 3.6 (3.6-5.2) mmol/L Chloride 98 L (100-108) mmol/L Carbon Dioxide 35 H (21-32) mmol/L Anion Gap 8.6 (5.0-14.0) mmol/L BUN 20 H (7-18) mg/dL Creatinine 1.0 (0.8-1.3) mg/dL Est Cr Clr Drug Dosing 47.98 Estimated GFR (MDRD) > 60 (>60) Glucose 167 H (74-106) mg/dL Lactic Acid (0.4-2.0) mmol/L Calcium 7.8 L (8.5-10.1) mg/dL Magnesium (1.8-2.4) mg/dL Total Bilirubin (0.2-1.0) mg/dL AST (15-37) U/L ALT (12-78) U/L Alkaline Phosphatase (46-116) U/L C-Reactive Protein (0.0-0.3) mg/dL Total Protein (6.4-8.2) g/dL Albumin (3.4-5.0) g/dL Globulin (2.3-3.5) g/dL Albumin/Globulin Ratio (1.2-2.2) Amylase (25-115) U/L Lipase (73-393) U/L Urine Color Yellow Urine Appearance Clear Urine pH 5.0 (4.5-8.0) Ur Specific [place] 1.020 (1.008-1.030) Urine Protein 30 H (NEGATIVE) mg/dL Urine Glucose (UA) Normal (NEGATIVE) mg/dL Urine Ketones Negative (NEGATIVE) mg/dL Urine Occult Blood Large (NEGATIVE) Urine Nitrite Negative (NEGAITVE) Urine Bilirubin Negative (NEGATIVE) Urine Urobilinogen Normal (NORMAL) mg/dL Ur Leukocyte Esterase Small (NEGATIVE) Urine RBC 10-20 H (0-5) Urine WBC 5-10 H (0-5) Ur Epithelial Cells Few Amorphous Sediment Not seen Urine Bacteria Moderate Urine Mucus Not seen 03/06/17 03/07/17 03/07/17 Range/Units 05:31 05:41 05:41 WBC 8.7 9.5 (4.5-11.0) K/uL RBC 3.99 L 4.15 L (4.30-5.90) M/uL Hgb 10.9 L 11.1 L (12.0-15.0) g/dL Hct 35.1 L 36.5 L (40.0-54.0) % MCV 88 88 (80-98) fL MCH 27 27 (27-31) pg MCHC 31 L 30 L (32-36) % Plt Count 306 318 (150-400) K/uL Neut % (Auto) (36-66) % Lymph % (Auto) (24-44) % [place] % (Auto) (2-6) % Eos % (Auto) (2-4) % Baso % (Auto) (0-1) % PT (9.5-12.0) sec INR (0.80-1.20) ABG Hemoglobin (13.5-18.0) g/dL ABG Oxyhemoglobin % ABG Carboxyhemoglobin (0.0-1.6) % ABG Methemoglobin % VBG pH (7.350-7.450) VBG pCO2 mm/Hg VBG pO2 mm/Hg VBG HCO3 mmol/L VBG Total CO2 mmol/L VBG O2 Saturation VBG O2 Content %vol VBG Base Excess mm/L O2 Delivery Device Sodium 142 (140-148) mmol/L Potassium 3.1 L (3.6-5.2) mmol/L Chloride 101 (100-108) mmol/L Carbon Dioxide 36 H (21-32) mmol/L Anion Gap 8.1 (5.0-14.0) mmol/L BUN 15 (7-18) mg/dL Creatinine 0.8 (0.8-1.3) mg/dL Est Cr Clr Drug Dosing 56.14 Estimated GFR (MDRD) > 60 (>60) Glucose 67 L (74-106) mg/dL Lactic Acid (0.4-2.0) mmol/L Calcium 7.8 L (8.5-10.1) mg/dL Magnesium 2.0 (1.8-2.4) mg/dL Total Bilirubin (0.2-1.0) mg/dL AST (15-37) U/L ALT (12-78) U/L Alkaline Phosphatase (46-116) U/L C-Reactive Protein (0.0-0.3) mg/dL Total Protein (6.4-8.2) g/dL Albumin (3.4-5.0) g/dL Globulin (2.3-3.5) g/dL Albumin/Globulin Ratio (1.2-2.2) Amylase (25-115) U/L Lipase (73-393) U/L Urine Color Urine Appearance Urine pH (4.5-8.0) Ur Specific [place] (1.008-1.030) Urine Protein (NEGATIVE) mg/dL Urine Glucose (UA) (NEGATIVE) mg/dL Urine Ketones (NEGATIVE) mg/dL Urine Occult Blood (NEGATIVE) Urine Nitrite (NEGAITVE) Urine Bilirubin (NEGATIVE) Urine Urobilinogen (NORMAL) mg/dL Ur Leukocyte Esterase (NEGATIVE) Urine RBC (0-5) Urine WBC (0-5) Ur Epithelial Cells Amorphous Sediment Urine Bacteria Urine Mucus 03/07/17 03/08/17 03/08/17 Range/Units 18:35 05:45 05:45 WBC 12.4 H (4.5-11.0) K/uL RBC 4.41 (4.30-5.90) M/uL Hgb 11.8 L (12.0-15.0) g/dL Hct 38.2 L (40.0-54.0) % MCV 87 (80-98) fL MCH 27 (27-31) pg MCHC 31 L (32-36) % Plt Count 357 (150-400) K/uL Neut % (Auto) (36-66) % Lymph % (Auto) (24-44) % [place] % (Auto) (2-6) % Eos % (Auto) (2-4) % Baso % (Auto) (0-1) % PT (9.5-12.0) sec INR (0.80-1.20) ABG Hemoglobin (13.5-18.0) g/dL ABG Oxyhemoglobin % ABG Carboxyhemoglobin (0.0-1.6) % ABG Methemoglobin % VBG pH (7.350-7.450) VBG pCO2 mm/Hg VBG pO2 mm/Hg VBG HCO3 mmol/L VBG Total CO2 mmol/L VBG O2 Saturation VBG O2 Content %vol VBG Base Excess mm/L O2 Delivery Device Sodium 140 (140-148) mmol/L Potassium 3.7 3.1 L (3.6-5.2) mmol/L Chloride 100 (100-108) mmol/L Carbon Dioxide 34 H (21-32) mmol/L Anion Gap 9.1 (5.0-14.0) mmol/L BUN 11 (7-18) mg/dL Creatinine 0.7 L (0.8-1.3) mg/dL Est Cr Clr Drug Dosing 64.16 Estimated GFR (MDRD) > 60 (>60) Glucose 65 L (74-106) mg/dL Lactic Acid (0.4-2.0) mmol/L Calcium 7.8 L (8.5-10.1) mg/dL Magnesium (1.8-2.4) mg/dL Total Bilirubin (0.2-1.0) mg/dL AST (15-37) U/L ALT (12-78) U/L Alkaline Phosphatase (46-116) U/L C-Reactive Protein (0.0-0.3) mg/dL Total Protein (6.4-8.2) g/dL Albumin (3.4-5.0) g/dL Globulin (2.3-3.5) g/dL Albumin/Globulin Ratio (1.2-2.2) Amylase (25-115) U/L Lipase (73-393) U/L Urine Color Urine Appearance Urine pH (4.5-8.0) Ur Specific [place] (1.008-1.030) Urine Protein (NEGATIVE) mg/dL Urine Glucose (UA) (NEGATIVE) mg/dL Urine Ketones (NEGATIVE) mg/dL Urine Occult Blood (NEGATIVE) Urine Nitrite (NEGAITVE) Urine Bilirubin (NEGATIVE) Urine Urobilinogen (NORMAL) mg/dL Ur Leukocyte Esterase (NEGATIVE) Urine RBC (0-5) Urine WBC (0-5) Ur Epithelial Cells Amorphous Sediment Urine Bacteria Urine Mucus 03/08/17 03/09/17 03/09/17 Range/Units 17:00 04:15 04:15 WBC 11.5 H (4.5-11.0) K/uL RBC 4.55 (4.30-5.90) M/uL Hgb 12.4 (12.0-15.0) g/dL Hct 38.5 L (40.0-54.0) % MCV 85 (80-98) fL MCH 27 (27-31) pg MCHC 32 (32-36) % Plt Count 367 (150-400) K/uL Neut % (Auto) 74 H (36-66) % Lymph % (Auto) 11 L (24-44) % [place] % (Auto) 14 H (2-6) % Eos % (Auto) 1 L (2-4) % Baso % (Auto) 0 (0-1) % PT (9.5-12.0) sec INR (0.80-1.20) ABG Hemoglobin (13.5-18.0) g/dL ABG Oxyhemoglobin % ABG Carboxyhemoglobin (0.0-1.6) % ABG Methemoglobin % VBG pH (7.350-7.450) VBG pCO2 mm/Hg VBG pO2 mm/Hg VBG HCO3 mmol/L VBG Total CO2 mmol/L VBG O2 Saturation VBG O2 Content %vol VBG Base Excess mm/L O2 Delivery Device Sodium 139 L (140-148) mmol/L Potassium 3.6 3.6 (3.6-5.2) mmol/L Chloride 100 (100-108) mmol/L Carbon Dioxide 31 (21-32) mmol/L Anion Gap 11.6 (5.0-14.0) mmol/L BUN 10 (7-18) mg/dL Creatinine 0.7 L (0.8-1.3) mg/dL Est Cr Clr Drug Dosing 64.16 Estimated GFR (MDRD) > 60 (>60) Glucose 115 H (74-106) mg/dL Lactic Acid (0.4-2.0) mmol/L Calcium 7.7 L (8.5-10.1) mg/dL Magnesium (1.8-2.4) mg/dL Total Bilirubin (0.2-1.0) mg/dL AST (15-37) U/L ALT (12-78) U/L Alkaline Phosphatase (46-116) U/L C-Reactive Protein (0.0-0.3) mg/dL Total Protein (6.4-8.2) g/dL Albumin (3.4-5.0) g/dL Globulin (2.3-3.5) g/dL Albumin/Globulin Ratio (1.2-2.2) Amylase (25-115) U/L Lipase (73-393) U/L Urine Color Urine Appearance Urine pH (4.5-8.0) Ur Specific [place] (1.008-1.030) Urine Protein (NEGATIVE) mg/dL Urine Glucose (UA) (NEGATIVE) mg/dL Urine Ketones (NEGATIVE) mg/dL Urine Occult Blood (NEGATIVE) Urine Nitrite (NEGAITVE) Urine Bilirubin (NEGATIVE) Urine Urobilinogen (NORMAL) mg/dL Ur Leukocyte Esterase (NEGATIVE) Urine RBC (0-5) Urine WBC (0-5) Ur Epithelial Cells Amorphous Sediment Urine Bacteria Urine Mucus 03/10/17 Range/Units 04:20 WBC (4.5-11.0) K/uL RBC (4.30-5.90) M/uL Hgb (12.0-15.0) g/dL Hct (40.0-54.0) % MCV (80-98) fL MCH (27-31) pg MCHC (32-36) % Plt Count (150-400) K/uL Neut % (Auto) (36-66) % Lymph % (Auto) (24-44) % [place] % (Auto) (2-6) % Eos % (Auto) (2-4) % Baso % (Auto) (0-1) % PT (9.5-12.0) sec INR (0.80-1.20) ABG Hemoglobin (13.5-18.0) g/dL ABG Oxyhemoglobin % ABG Carboxyhemoglobin (0.0-1.6) % ABG Methemoglobin % VBG pH (7.350-7.450) VBG pCO2 mm/Hg VBG pO2 mm/Hg VBG HCO3 mmol/L VBG Total CO2 mmol/L VBG O2 Saturation VBG O2 Content %vol VBG Base Excess mm/L O2 Delivery Device Sodium 141 (140-148) mmol/L Potassium 2.8 L* (3.6-5.2) mmol/L Chloride 101 (100-108) mmol/L Carbon Dioxide 35 H (21-32) mmol/L Anion Gap 7.8 (5.0-14.0) mmol/L BUN 6 L (7-18) mg/dL Creatinine 0.7 L (0.8-1.3) mg/dL Est Cr Clr Drug Dosing 64.16 Estimated GFR (MDRD) > 60 (>60) Glucose 117 H (74-106) mg/dL Lactic Acid (0.4-2.0) mmol/L Calcium 7.1 L (8.5-10.1) mg/dL Magnesium 1.8 (1.8-2.4) mg/dL Total Bilirubin (0.2-1.0) mg/dL AST (15-37) U/L ALT (12-78) U/L Alkaline Phosphatase (46-116) U/L C-Reactive Protein (0.0-0.3) mg/dL Total Protein (6.4-8.2) g/dL Albumin (3.4-5.0) g/dL Globulin (2.3-3.5) g/dL Albumin/Globulin Ratio (1.2-2.2) Amylase (25-115) U/L Lipase (73-393) U/L Urine Color Urine Appearance Urine pH (4.5-8.0) Ur Specific Larose (1.008-1.030) Urine Protein (NEGATIVE) mg/dL Urine Glucose (UA) (NEGATIVE) mg/dL Urine Ketones (NEGATIVE) mg/dL Urine Occult Blood (NEGATIVE) Urine Nitrite (NEGAITVE) Urine Bilirubin (NEGATIVE) Urine Urobilinogen (NORMAL) mg/dL Ur Leukocyte Esterase (NEGATIVE) Urine RBC (0-5) Urine WBC (0-5) Ur Epithelial Cells Amorphous Sediment Urine Bacteria Urine Mucus Meds: Medications Generic Name Dose Route Start Last Admin Trade Name Freq PRN Reason Stop Dose Admin Amoxicillin/Clavulanate Potassium 1 tab 03/10/17 10:00 03/11/17 09:19 Augmentin 875 Mg/125 Mg PO 1 tab Q12H ZURDO Administration Aspirin 81 mg 03/09/17 10:00 03/11/17 09:19 Halfprin PO 81 mg DAILY ZURDO Administration Bisacodyl 5 mg 03/05/17 01:57 Dulcolax PO DAILY PRN Constipation Carvedilol 25 mg 03/09/17 09:30 03/11/17 09:18 Coreg PO 25 mg BID ZURDO Administration Diltiazem HCl 120 mg 03/09/17 09:30 03/11/17 09:18 Cardizem Cd PO 120 mg DAILY ZURDO Administration Divalproex Sodium 250 mg 03/09/17 09:30 03/11/17 08:40 Divalproex Sodium PO 250 mg TIDMEALS ZURDO Administration Docusate Sodium 100 mg 03/05/17 01:58 03/07/17 10:16 Colace PO 100 mg BID PRN Administration Constipation Enoxaparin Sodium 40 mg 03/05/17 09:00 03/11/17 09:19 Lovenox SUBCUT Not Given DAILY ZURDO Haloperidol 1 mg 03/09/17 09:45 03/09/17 10:12 Haldol PO 1 mg Q2H PRN Administration Agitation Magnesium Oxide 400 mg 03/09/17 09:30 03/11/17 09:19 Magnesium Oxide PO 400 mg BID ZURDO Administration Melatonin 9 mg 03/09/17 21:00 03/10/17 20:39 Melatonin PO 9 mg BEDTIME ZURDO Administration Mometasone Furoate/Formoterol Fumar 0 puff 03/09/17 10:00 03/11/17 07:21 Dulera 200-5 Mcg IH 2 puff BIDRT ZURDO Administration Ondansetron HCl 4 mg 03/05/17 02:02 Zofran IVPUSH Q8H PRN Nausea/Vomiting Pantoprazole Sodium 40 mg 03/09/17 10:00 03/11/17 08:25 Protonix PO 40 mg DAILY@0730 ZURDO Administration Promethazine HCl 12.5 mg 03/05/17 02:07 Phenergan IM Q6H PRN Nausea/Vomiting Senna/Docusate Sodium 1 tab 03/05/17 01:59 Senna Plus PO BID PRN Constipation Simvastatin 20 mg 03/09/17 21:00 03/10/17 20:38 Zocor PO 20 mg BEDTIME ZURDO Administration Sodium Chloride 10 ml 03/04/17 21:26 03/04/17 21:43 Saline Flush FLUSH 10 ml ONETIME PRN Administration PER RADIOLOGY PROTOCOL Zolpidem Tartrate 5 mg 03/05/17 02:08 03/09/17 02:20 Ambien PO 5 mg BEDTIME PRN Administration Insomnia Discontinued Medications Generic Name Dose Route Start Last Admin Trade Name Rosa Elena PRN Reason Stop Dose Admin Benzocaine/Menthol 1 lozenge 03/05/17 01:54 Cepacol Sore Throat MUCMEM 03/25/17 01:55 ASDIRECTED PRN Sore Throat Bupivacaine HCl/Epinephrine Bitart Confirm 03/05/17 00:02 03/05/17 01:15 Marcaine 0.5%/Epinephrine 1:200,000 Administered 03/05/17 00:03 40 ml Dose Administration 50 ml .ROUTE .STK-MED ONE Cefazolin Sodium Confirm 03/05/17 00:29 Ancef Administered 03/05/17 00:30 Dose 2 gm .ROUTE .STK-MED ONE Dexamethasone Confirm 03/05/17 00:16 Dexamethasone Administered 03/05/17 00:17 Dose 4 mg .ROUTE .STK-MED ONE Diphenhydramine HCl 50 mg 03/05/17 02:09 03/09/17 00:49 Benadryl IVPUSH 50 mg Q4H PRN Administration Itching Fentanyl Confirm 03/05/17 00:16 Sublimaze Administered 03/05/17 00:17 Dose 250 mcg .ROUTE .STK-MED ONE Fentanyl Citrate 600 mcg 03/05/17 04:00 03/05/17 04:14 Fentanyl In Ns 20 Mcg/Ml 30 Ml Larriman Helper IV 600 mcg ASDIRECTED ZURDO Administration Protocol Furosemide 40 mg 03/06/17 09:00 03/06/17 08:57 Lasix IVPUSH 03/06/17 09:01 40 mg NOW ONE Administration Furosemide 20 mg 03/09/17 09:30 03/09/17 09:50 Lasix PO 20 mg DAILY ZURDO Administration Furosemide 20 mg 03/09/17 09:49 03/09/17 10:13 Lasix IVPUSH 03/09/17 09:50 Not Given NOW ONE Glycopyrrolate Confirm 03/05/17 00:16 Administered 03/05/17 00:17 Dose 1 mg .ROUTE .STK-MED ONE Haloperidol Lactate 2 mg 03/09/17 03:37 03/09/17 03:45 Haldol IVPUSH 03/09/17 03:38 2 mg ONETIME ONE Administration Haloperidol Lactate Confirm 03/09/17 03:41 03/09/17 03:45 Haldol Administered 03/09/17 03:42 Not Given Dose 5 mg .ROUTE .STK-MED ONE Haloperidol Lactate 2 mg 03/09/17 04:45 03/09/17 04:42 Haldol IVPUSH 03/09/17 04:46 2 mg ONETIME ONE Administration Sodium Chloride 1,000 mls @ 125 mls/hr 03/04/17 21:00 03/05/17 03:58 Normal Saline IV 125 mls/hr ASDIRECTED ZURDO Administration Sodium Chloride 80 mls @ 3 mls/sec 03/04/17 21:26 03/04/17 21:43 Normal Saline IV 03/04/17 21:27 3 mls/sec ONETIME ONE Administration Cefazolin Sodium/Dextrose 2 gm 50 mls @ 100 mls/hr 03/05/17 00:09 03/05/17 00 :30 / Premix IV 03/05/17 00:38 100 mls/hr ONETIME ONE Administration Metronidazole Confirm 03/05/17 00:13 Flagyl 500 Mg In Ns 100 Ml Administered 03/05/17 00:14 Dose 100 mls @ as directed .ROUTE .STK-MED ONE Sodium Chloride Confirm 03/05/17 00:22 Normal Saline Administered 03/05/17 00:23 Dose 20 mls @ as directed .ROUTE .STK-MED ONE Lactated Ringer's Confirm 03/05/17 00:47 Ringers, Lactated Administered 03/05/17 00:48 Dose 1,000 mls @ as directed .ROUTE .STK-MED ONE Sodium Chloride 1,000 mls @ 125 mls/hr 03/05/17 01:45 03/06/17 06:34 Normal Saline IV 125 mls/hr ASDIRECTED ZURDO Administration Piperacillin Sod/Tazobactam 50 mls @ 100 mls/hr 03/05/17 02:30 03/05/17 02:59 Sod 3.375 gm/ Sodium Chloride IV 03/05/17 02:59 100 mls/hr ONETIME ONE Administration Piperacillin/Tazobactam/ 50 mls @ 100 mls/hr 03/05/17 09:00 03/10/17 08:11 Dextrose 3.375 gm/ Premix IV 100 mls/hr Q6H ZURDO Administration Doxycycline Hyclate 100 mg/ 100 mls @ 100 mls/hr 03/05/17 10:00 03/06/17 21: 47 Sodium Chloride IV 100 mls/hr Q12H ZURDO Administration Diltiazem HCl 100 mg/ Sodium 100 mls @ 5 mls/hr 03/06/17 09:00 03/08/17 17:47 Chloride IV 5 mg/hr TITRATE ZURDO 5 mls/hr Protocol Administration 5 MG/HR Sodium Chloride 1,000 mls @ 50 mls/hr 03/06/17 08:43 03/09/17 03:54 Normal Saline IV 50 mls/hr ASDIRECTED ZURDO Administration Potassium Chloride 20 meq/ 112 mls @ 55 mls/hr 03/07/17 10:00 03/07/17 14:40 Lidocaine HCl 2 ml/ Sodium IV 03/07/17 15:59 55 mls/hr Chloride Q2H ZURDO Administration Potassium Chloride 20 meq/ 112 mls @ 56 mls/hr 03/08/17 10:00 03/08/17 12:54 Lidocaine HCl 2 ml/ Sodium IV 03/08/17 13:59 56 mls/hr Chloride Q2H ZURDO Administration Potassium Chloride 40 meq/ 100 mls @ 25 mls/hr 03/08/17 19:36 03/08/17 20:59 Premix IV 03/08/17 23:35 Not Given ONETIME ONE Potassium Chloride 20 meq/ 100 mls @ 50 mls/hr 03/08/17 21:00 03/08/17 23:39 Premix IV 03/09/17 00:59 50 mls/hr Q2H ZUDRO Administration Potassium Chloride 20 meq/ 100 mls @ 50 mls/hr 03/10/17 05:30 03/10/17 05:34 Premix IV 03/10/17 07:29 50 mls/hr Q2H ZURDO Administration Potassium Chloride 20 meq/ 112 mls @ 56 mls/hr 03/10/17 08:15 03/10/17 08:17 Lidocaine HCl 2 ml/ Sodium IV 03/10/17 10:14 56 mls/hr Chloride ONETIME ONE Administration Ibuprofen 600 mg 03/05/17 08:52 03/08/17 11:26 Motrin PO 600 mg Q6H PRN Administration Pain Iopamidol 100 ml 03/04/17 21:26 03/04/17 21:43 Isovue-300 (61%) IV 03/04/17 21:27 100 ml . DIRECTED PRN Administration RADIOLOGY EXAM Labetalol HCl Confirm 03/05/17 01:57 03/05/17 02:44 Normodyne Administered 03/05/17 01:58 Not Given Dose 20 mg .ROUTE .STK-MED ONE Labetalol HCl 5 - 15 mg 03/05/17 02:00 03/05/17 02:04 Normodyne IVPUSH 03/05/17 02:01 10 mg NOW ONE Administration Protocol Lactulose 10 gm 03/08/17 09:00 03/08/17 09:49 Chronulac PO 03/08/17 09:01 10 gm ONETIME ONE Administration Lidocaine HCl Confirm 03/08/17 20:47 03/08/17 20:58 Xylocaine-Mpf 1% Administered 03/08/17 20:48 4 ml Dose Administration 5 ml .ROUTE .STK-MED ONE Lidocaine HCl 5 ml 03/10/17 05:15 03/10/17 05:34 Xylocaine-Mpf 1% INJECT 03/10/17 05:16 5 ml ONETIME ONE Administration Melatonin 6 mg 03/09/17 21:00 Melatonin PO BEDTIME ZURDO Metoprolol Tartrate 2.5 mg 03/05/17 10:00 03/09/17 09:02 Lopressor IVPUSH 2.5 mg Q6H ZURDO Administration Naloxone HCl 0.1 mg 03/05/17 07:08 Narcan IV ASDIRECTED PRN DECR RESPIRATORY RATE Neostigmine Methylsulfate Confirm 03/05/17 00:16 Neostigmine Administered 03/05/17 00:17 Dose 5 mg .ROUTE .STK-MED ONE Ondansetron HCl Confirm 03/05/17 00:16 Zofran Administered 03/05/17 00:17 Dose 4 mg .ROUTE .STK-MED ONE Phenylephrine HCl Confirm 03/05/17 00:21 Kiko-Synephrine Administered 03/05/17 00:22 Dose 20 mg .ROUTE .STK-MED ONE Potassium Chloride 40 meq 03/10/17 09:00 03/10/17 09:34 Klor-Con M20 PO 03/10/17 09:01 40 meq ONETIME ONE Administration Potassium Chloride 40 meq 03/10/17 13:00 03/10/17 12:17 Klor-Con M20 PO 03/10/17 13:01 40 meq ONETIME ONE Administration Propofol Confirm 03/05/17 00:16 Diprivan 20 Ml Administered 03/05/17 00:17 Dose 200 mg .ROUTE .STK-MED ONE Rocuronium [place] Confirm 03/05/17 00:16 Zemuron Administered 03/05/17 00:17 Dose 50 mg .ROUTE .STK-MED ONE Succinylcholine Chloride Confirm 03/05/17 00:16 Succinylcholine In Ns Pf Administered 03/05/17 00:17 Dose 200 mg .ROUTE .STK-MED ONE Departure - Departure Time of Disposition: 22:00 Disposition: Still A Patient 30 Clinical Impression: Small bowel obstruction Bilateral pneumonia Qualifiers: Pneumonia type: due to unspecified organism Lung location: unspecified part of lung Qualified Code(s): J18.9 - Pneumonia, unspecified organism - Discharge Information
[2017-03-05] MEDS ORDERED: Bupivacaine 0.5%/EPINEPHrine 1:200,000 50 ML MDV ONE (00:02)
[2017-03-05] MEDS ORDERED: ceFAZolin 2 GM in Premix Bag 1 BAG IV ONE (00:09)
[2017-03-05] MEDS ORDERED: metroNIDAZOLE/Normal Saline 100 ML ONE (00:13)
[2017-03-05] MEDS ORDERED: Dexamethasone 4 MG/ML SDV ONE (00:16)
[2017-03-05] MEDS ORDERED: Succinylcholine/Normal Saline 200 MG/10 ML Syringe ONE (00:16)
[2017-03-05] MEDS ORDERED: Propofol 200 MG/20 ML SDV ONE (00:16)
[2017-03-05] MEDS ORDERED: fentaNYL 250 MCG/5 ML SDV ONE (00:16)
[2017-03-05] MEDS ORDERED: Rocuronium 50 MG/5 ML Vial ONE (00:16)
[2017-03-05] MEDS ORDERED: Ondansetron 4 MG/2 ML SDV ONE (00:16)
[2017-03-05] MEDS ORDERED: Neostigmine Methylsulfate 1 MG/ML 5 ML Syringe ONE (00:16)
[2017-03-05] MEDS ORDERED: Phenylephrine 1% 10 MG/ML SDV ONE (00:21)
[2017-03-05] MEDS ORDERED: Sodium Chloride 0.9% 20 ML ONE (00:22)
[2017-03-05] MEDS ORDERED: ceFAZolin 1 GM Vial ONE (00:29)
[2017-03-05] MEDS ORDERED: Lactated Ringers 1,000 ML ONE (00:47)
[2017-03-05] MEDS ORDERED: Benzocaine/Cetylpyridinium/Menthol Lozenge MUCMEM PRN (01:54)
[2017-03-05] MEDS ORDERED: Labetalol 20 MG/4 ML Syringe ONE (01:57)
[2017-03-05] MEDS ORDERED: Bisacodyl 5 MG Tab PO PRN (01:57)
[2017-03-05] MEDS ORDERED: Docusate Sodium 100 MG Cap PO PRN (01:58)
[2017-03-05] MEDS ORDERED: Labetalol 20 MG/4 ML Syringe IVPUSH ONE (02:00)
[2017-03-05] MEDS ORDERED: Ondansetron 4 MG/2 ML SDV IVPUSH PRN (02:02)
[2017-03-05] MEDS ORDERED: Promethazine 25 MG/ML SDV IM PRN (02:07)
[2017-03-05] MEDS ORDERED: Zolpidem 5 MG Tab PO PRN (02:08)
[2017-03-05] MEDS ORDERED: Piperacillin/Tazobactam 3.375 GM in Sodium Chloride 0.9% 50 ML IV ONE (02:30)
[2017-03-05] MEDS: Sodium Chloride 0.9% 1,000 ML IV SCH ×3 (03:58→22:02)
[2017-03-05] MEDS ORDERED: fentaNYL/Normal Saline 600 MCG/30 ML PCA Vial IV SCH (04:00)
[2017-03-05] MEDS ORDERED: Naloxone 0.4 MG/ML SDV IV PRN (07:08)
[2017-03-05] MEDS: Piperacillin/Tazobactam/Dext 3.375 GM in Premix Bag 1 BAG IV SCH ×3 (08:23→21:08)
--- NOTE | 2017-03-05 08:50 | CR ---
Chest 1V Frontal INDICATION: pneumonia COMPARISON: 01/12/2017 FINDINGS: AP portable chest. Heart size normal. Sternotomy wires. NG tube is in place though tip extends below the lower edge of the image. Previous right-sided pulmonary infiltrate and pleural effusion has cleared. There is minimal residual infiltrate at the left lung base. No signs of pulmonary edema. Small amount of free air under the right hemidiaphragm. IMPRESSION: 1. Small amount of free air under the right hemidiaphragm. Verified with ICU patient had surgery sin ce CT last evening showing bowel obstruction. 2. Minimal residual infiltrate left lung. Interval clearing of right-sided infiltrate.
[2017-03-05] MEDS ORDERED: Ibuprofen 600 MG Tab PO PRN (08:52)
--- NOTE | 2017-03-05 09:43 | PCM.PN ---
- General Info Date of Service: 03/05/17 Functional Status: Reports: pain controlled, urinating - Review of Systems General: Reports: Weakness Pulmonary: Reports: shortness of breath, cough Gastrointestinal: Reports: Abdominal pain Systems Review Comment:: No acute events since the time of admission. His night was relatively stable. He has remained in a sinus rhythm. Oxygen saturations have been acceptable with supplemental oxygen. Abdominal pain has been well-controlled. He is mildly confused but only slightly more and his baseline. He has not had any fevers. NG tube output has been minimal since surgery. Gram stain of the respiratory sample reveals many gram-positive cocci. - Patient Data Vitals - most recent: Last Vital Signs Temp 37.6 C 03/05/17 04:00 Pulse 91 03/05/17 05:00 Resp 16 03/05/17 05:00 BP 100/57 L 03/05/17 05:00 Pulse Ox 97 03/05/17 05:33 Weight - most recent: 61.689 kg I&O - last 24 hours: Intake & Output 03/04/17 03/05/17 03/05/17 22:59 06:59 14:59 Intake Total 500 Output Total 710 Balance -210 Lab Results last 24 hrs: Laboratory Results - last 24 hr 03/05/17 03/05/17 03/05/17 Range/Units 04:16 04:16 04:30 WBC 7.8 (4.5-11.0) K/uL RBC 4.41 (4.30-5.90) M/uL Hgb 12.0 (12.0-15.0) g/dL Hct 37.8 L (40.0-54.0) % MCV 86 (80-98) fL MCH 27 (27-31) pg MCHC 32 (32-36) % Plt Count 283 (150-400) K/uL Neut % (Auto) 83 H (36-66) % Lymph % (Auto) 9 L (24-44) % [place] % (Auto) 9 H (2-6) % Eos % (Auto) 0 L (2-4) % Baso % (Auto) 0 (0-1) % Sodium 138 L (140-148) mmol/L Potassium 3.6 (3.6-5.2) mmol/L Chloride 98 L (100-108) mmol/L Carbon Dioxide 35 H (21-32) mmol/L Anion Gap 8.6 (5.0-14.0) mmol/L BUN 20 H (7-18) mg/dL Creatinine 1.0 (0.8-1.3) mg/dL Est Cr Clr Drug Dosing 47.98 mL/min Estimated GFR (MDRD) > 60 (>60) Glucose 167 H (74-106) mg/dL Calcium 7.8 L (8.5-10.1) mg/dL Urine Color Yellow Urine Appearance Clear Urine pH 5.0 (4.5-8.0) Ur Specific [place] 1.020 (1.008-1.030) Urine Protein 30 H (NEGATIVE) mg/dL Urine Glucose (UA) Normal (NEGATIVE) mg/dL Urine Ketones Negative (NEGATIVE) mg/dL Urine Occult Blood Large (NEGATIVE) Urine Nitrite Negative (NEGAITVE) Urine Bilirubin Negative (NEGATIVE) Urine Urobilinogen Normal (NORMAL) mg/dL Ur Leukocyte Esterase Small (NEGATIVE) Urine RBC 10-20 H (0-5) Urine WBC 5-10 H (0-5) Ur Epithelial Cells Few Amorphous Sediment Not seen Urine Bacteria Moderate Urine Mucus Not seen Med Orders - Current: Current Medications Benzocaine/Menthol (Cepacol Sore Throat) 1 lozenge MUCMEM ASDIRECTED PRN PRN Reason: Sore Throat Stop: 03/25/17 01:55 Bisacodyl (Dulcolax) 5 mg PO DAILY PRN PRN Reason: Constipation Diphenhydramine HCl (Benadryl) 50 mg IVPUSH Q4H PRN PRN Reason: Itching Docusate Sodium (Colace) 100 mg PO BID PRN PRN Reason: Constipation Enoxaparin Sodium (Lovenox) 40 mg SUBCUT DAILY [facility] Fentanyl Citrate (Fentanyl In Ns 20 Mcg/Ml 30 Ml Web Database Developer) 600 mcg IV ASDIRECTED [facility] PRN Reason: Protocol Last Admin: 03/05/17 04:14 Dose: 600 mcg Sodium Chloride (Normal Saline) 1,000 mls @ 125 mls/hr IV ASDIRECTED [facility] Piperacillin/Tazobactam/ (Dextrose 3.375 gm/ Premix) 50 mls @ 100 mls/hr IV Q6H [facility] Last Admin: 03/05/17 08:23 Dose: 100 mls/hr Ibuprofen (Motrin) 600 mg PO Q6H PRN PRN Reason: Pain Naloxone HCl (Narcan) 0.1 mg IV ASDIRECTED PRN PRN Reason: DECR RESPIRATORY RATE Ondansetron HCl (Zofran) 4 mg IVPUSH Q8H PRN PRN Reason: Nausea/Vomiting Promethazine HCl (Phenergan) 12.5 mg IM Q6H PRN PRN Reason: Nausea/Vomiting Senna/Docusate Sodium (Senna Plus) 1 tab PO BID PRN PRN Reason: Constipation Sodium Chloride (Saline Flush) 10 ml FLUSH ONETIME PRN PRN Reason: PER RADIOLOGY PROTOCOL Last Admin: 03/04/17 21:43 Dose: 10 ml Zolpidem Tartrate (Ambien) 5 mg PO BEDTIME PRN PRN Reason: Insomnia Discontinued Medications Bupivacaine HCl/Epinephrine Bitart (Marcaine 0.5%/Epinephrine 1:200,000) Confirm Administered Dose 50 ml .ROUTE .STK-MED ONE Stop: 03/05/17 00:03 Last Admin: 03/05/17 01:15 Dose: 40 ml Cefazolin Sodium (Ancef) Confirm Administered Dose 2 gm .ROUTE .STK-MED ONE Stop: 03/05/17 00:30 Dexamethasone (Dexamethasone) Confirm Administered Dose 4 mg .ROUTE .STK-MED ONE Stop: 03/05/17 00:17 Fentanyl (Sublimaze) Confirm Administered Dose 250 mcg .ROUTE .STK-MED ONE Stop: 03/05/17 00:17 Glycopyrrolate () Confirm Administered Dose 1 mg .ROUTE .STK-MED ONE Stop: 03/05/17 00:17 Sodium Chloride (Normal Saline) 1,000 mls @ 125 mls/hr IV ASDIRECTED ZURDO Last Admin: 03/05/17 03:58 Dose: 125 mls/hr Sodium Chloride (Normal Saline) 80 mls @ 3 mls/sec IV ONETIME ONE Stop: 03/04/17 21:27 Last Admin: 03/04/17 21:43 Dose: 3 mls/sec Cefazolin Sodium/Dextrose 2 gm (/ Premix) 50 mls @ 100 mls/hr IV ONETIME ONE Stop: 03/05/17 00:38 Last Admin: 03/05/17 00:30 Dose: 100 mls/hr Metronidazole (Flagyl 500 Mg In Ns 100 Ml) Confirm Administered Dose 100 mls @ as directed .ROUTE .STK-MED ONE Stop: 03/05/17 00:14 Sodium Chloride (Normal Saline) Confirm Administered Dose 20 mls @ as directed .ROUTE .STK-MED ONE Stop: 03/05/17 00:23 Lactated Ringer's (Ringers, Lactated) Confirm Administered Dose 1,000 mls @ as directed .ROUTE .STK-MED ONE Stop: 03/05/17 00:48 Piperacillin Sod/Tazobactam (Sod 3.375 gm/ Sodium Chloride) 50 mls @ 100 mls/ hr IV ONETIME ONE Stop: 03/05/17 02:59 Last Admin: 03/05/17 02:59 Dose: 100 mls/hr Iopamidol (Isovue-300 (61%)) 100 ml IV . DIRECTED PRN PRN Reason: RADIOLOGY EXAM Stop: 03/04/17 21:27 Last Admin: 03/04/17 21:43 Dose: 100 ml Labetalol HCl (Normodyne) Confirm Administered Dose 20 mg .ROUTE .STK-MED ONE Stop: 03/05/17 01:58 Last Admin: 03/05/17 02:44 Dose: Not Given Labetalol HCl (Normodyne) 5 - 15 mg IVPUSH NOW ONE PRN Reason: Protocol Stop: 03/05/17 02:01 Last Admin: 03/05/17 02:04 Dose: 10 mg Neostigmine Methylsulfate (Neostigmine) Confirm Administered Dose 5 mg .ROUTE .STK-MED ONE Stop: 03/05/17 00:17 Ondansetron HCl (Zofran) Confirm Administered Dose 4 mg .ROUTE .STK-MED ONE Stop: 03/05/17 00:17 Phenylephrine HCl (Kiko-Synephrine) Confirm Administered Dose 20 mg .ROUTE .STK- MED ONE Stop: 03/05/17 00:22 Propofol (Diprivan 20 Ml) Confirm Administered Dose 200 mg .ROUTE .STK-MED ONE Stop: 03/05/17 00:17 Rocuronium [place] (Zemuron) Confirm Administered Dose 50 mg .ROUTE .STK-MED ONE Stop: 03/05/17 00:17 Succinylcholine Chloride (Succinylcholine In Ns Pf) Confirm Administered Dose 200 mg .ROUTE .STK-MED ONE Stop: 03/05/17 00:17 - Exam Quality Assessment: supplemental oxygen, urine catheter General: alert, cooperative, no acute distress Neck: supple Lungs: Normal respiratory effort, Crackles (few left lung base). No: Wheezing Cardiovascular: Regular Rate, Regular Rhythm, Murmurs Abdomen: soft, no distension, tenderness, abnormal bowel sounds (hypoactive ) Extremities: no edema, no cyanosis Skin: warm, dry Psy/Mental Status: alert, normal affect - Problem List & Annotations (1) Bilateral pneumonia SNOMED Code(s): 718424739 Code(s): J18.9 - PNEUMONIA, UNSPECIFIED ORGANISM Status: Acute Current Visit: Yes Qualifiers: Pneumonia type: due to unspecified organism Lung location: unspecified part of lung Qualified Code(s): J18.9 - Pneumonia, unspecified organism (2) Small bowel obstruction SNOMED Code(s): 785815218 Code(s): K56.69 - OTHER INTESTINAL OBSTRUCTION Status: Acute Current Visit: Yes - Problem List Review Problem List Initiated/Reviewed/Updated: Yes - My Orders Last 24 Hours: My Active Orders 03/05/17 09:45 Doxycycline [Vibramycin] 100 mg Sodium Chloride 0.9% [Normal Saline] 100 ml IV Q12HR 03/05/17 10:00 Metoprolol Tartrate [Lopressor] 2.5 mg IVPUSH Q6H - Plan Plan:: ASSESSMENT AND PLAN Small bowel obstruction - status post surgical intervention last night. Clinically stable since that time. -Postop cares per surgical team Bilateral pneumonia - patchy bilateral interstitial infiltrates concerning for a mild pneumonia. In general this chest x-ray looks better compared to his previous pneumonia. He is requiring some supplemental oxygen, did have a cough at presentation and his sputum sample did show gram-positive cocci on the Gram stain. -Doxycycline and Pip/Tazo -Followup cultures -Supplemental oxygen as needed Paroxysmal atrial fibrillation -currently in sinus rhythm. Planning to restart a beta oziel to help reduce the risk of issues. Volume status appears appropriate. -IV metoprolol every 6 hours -Restart home medications when he is able to take pills Buck Matthews M.D.
--- NOTE | 2017-03-05 09:56 | PN ---
DATE OF SERVICE: 03/05/2017 SUBJECTIVE: The patient is doing surprisingly well today. He is upright in a chair. He is breathing on minimal oxygen. OBJECTIVE: VITAL SIGNS: Blood pressure 138/68, pulse 95, respirations 17, oxygen 96% on 2 L. CARDIOVASCULAR: Regular rhythm and rate. RESPIRATORY: Poor inspiratory effort bilaterally, crackles, unchanged since prior night. INCISION: Dressings intact. ASSESSMENT: Status post exploratory laparotomy and repair of internal hernia. PLAN: The patient will undergo additional therapy today including addition of Lovenox. We will keep his Bazan catheter in. We will consult hospitalist service. In addition, continue antibiotics at this time. Kana Mccann MD /[id number]
[2017-03-05] MEDS: Metoprolol Tartrate 5 MG/5 ML SDV IVPUSH SCH ×3 (10:28→22:00)
[2017-03-05] MEDS: Doxycycline 100 MG in Sodium Chloride 0.9% 100 ML IV SCH ×2 (10:30→22:03)
[2017-03-05] MEDS: Enoxaparin 40 MG/0.4 ML Syringe SUBCUT SCH (11:23)
--- NOTE | 2017-03-05 15:11 | CONS ---
DATE OF SERVICE: 03/04/2017 REFERRING PHYSICIAN: CONSULTING PHYSICIAN: Kana Mccann MD REASON FOR CONSULTATION: Abdominal pain. HISTORY OF PRESENT ILLNESS: The patient is an 82-year-old male with ongoing acute and chronic abdominal issues. The patient has undergone multiple abdominal surgeries including peristomal hernia repair, colostomy and other issues. He presents with this abdominal pain which is 8 to 9/10 and has been present for a couple of days. In addition, the patient has shortness of breath which is an acute and chronic condition. 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 PAST SURGICAL HISTORY: Multiple colonoscopies, colostomy, appendectomy, coronary artery bypass, and bowel surgery. SOCIAL HISTORY: He is not currently smoking. FAMILY HISTORY: Noncontributory. REVIEW OF SYSTEMS: GENERAL: The patient continues to show chronic decompensation, this is now exacerbated by acute worsening. HEENT: Pupils are equal. NECK: Supple. LUNGS: Show crackles bilaterally, poor inspiratory effort bilaterally. CARDIAC: Pulse is regular. ABDOMEN: Distended, tender, rebound, guarding. EXTREMITIES: Full range of motion. Strength 5/5. IMAGING: I did a review CT scan which shows internal hernia. LABORATORY DATA: Results show a normal white blood cell count and basic metabolic panel is slightly hyponatremic. ASSESSMENT: Abdominal pain. PLAN: The patient will be taken emergently to the operating room. We discussed risks, benefits, alternatives, and limitations, including, but not limited to infection, bleeding, perforation, respiratory, and cardiovascular failure/collapse. Essentially, the patient is a very poor surgical candidate and the patient's family understand these risks and its alternatives. TIME SEEN: 11:50 a.m. Kana Mccann MD /[id number]
[2017-03-06] MEDS: Metoprolol Tartrate 5 MG/5 ML SDV IVPUSH SCH ×4 (03:14→21:43)
[2017-03-06] MEDS: Piperacillin/Tazobactam/Dext 3.375 GM in Premix Bag 1 BAG IV SCH ×4 (03:18→20:30)
[2017-03-06] MEDS: Sodium Chloride 0.9% 1,000 ML IV SCH (06:34)
--- NOTE | 2017-03-06 08:45 | PCM.PN ---
- General Info Date of Service: 03/06/17 Functional Status: Reports: pain controlled, urinating - Review of Systems General: Reports: Weakness. Denies: Fever Pulmonary: Reports: shortness of breath Gastrointestinal: Reports: Abdominal pain Systems Review Comment:: No acute events overnight. Heart rate has risen this morning but appears to be regular resident atrial fibrillation. He is not passing gas and his colostomy bag. Abdominal pain is minimal. He does have a loose cough but is unable to produce the sputum. He feels a little more short of breath today. Seems to be back to baseline confusion today. - Patient Data Vitals - most recent: Last Vital Signs Temp 37 C 03/06/17 00:00 Pulse 109 H 03/06/17 03:14 Resp 15 03/06/17 00:00 BP 154/77 H 03/06/17 03:14 Pulse Ox 95 03/06/17 00:00 Weight - most recent: 61.689 kg I&O - last 24 hours: Intake & Output 03/05/17 03/06/17 03/06/17 22:59 06:59 14:59 Intake Total 200 1674 Output Total 400 700 Balance -200 974 Lab Results last 24 hrs: Laboratory Results - last 24 hr 03/06/17 Range/Units 05:31 WBC 8.7 (4.5-11.0) K/uL RBC 3.99 L (4.30-5.90) M/uL Hgb 10.9 L (12.0-15.0) g/dL Hct 35.1 L (40.0-54.0) % MCV 88 (80-98) fL MCH 27 (27-31) pg MCHC 31 L (32-36) % Plt Count 306 (150-400) K/uL Neto Results last 24 hrs: Microbiology 03/05/17 04:30 Urine Culture - Preliminary Urine, Bazan Cath (Indwelling) NO GROWTH AFTER 1 DAY Med Orders - Current: Current Medications Benzocaine/Menthol (Cepacol Sore Throat) 1 lozenge MUCMEM ASDIRECTED PRN PRN Reason: Sore Throat Stop: 03/25/17 01:55 Bisacodyl (Dulcolax) 5 mg PO DAILY PRN PRN Reason: Constipation Diphenhydramine HCl (Benadryl) 50 mg IVPUSH Q4H PRN PRN Reason: Itching Docusate Sodium (Colace) 100 mg PO BID PRN PRN Reason: Constipation Enoxaparin Sodium (Lovenox) 40 mg SUBCUT DAILY [facility] Last Admin: 03/05/17 11:23 Dose: 40 mg Fentanyl Citrate (Fentanyl In Ns 20 Mcg/Ml 30 Ml [employer]) 600 mcg IV ASDIRECTED ZURDO PRN Reason: Protocol Last Admin: 03/05/17 04:14 Dose: 600 mcg Furosemide (Lasix) 40 mg IVPUSH NOW ONE Stop: 03/06/17 08:43 Piperacillin/Tazobactam/ (Dextrose 3.375 gm/ Premix) 50 mls @ 100 mls/hr IV Q6H [facility] Last Admin: 03/06/17 03:18 Dose: 100 mls/hr Doxycycline Hyclate 100 mg/ (Sodium Chloride) 100 mls @ 100 mls/hr IV Q12H [facility] Last Admin: 03/05/17 22:03 Dose: 100 mls/hr Diltiazem HCl 100 mg/ Sodium (Chloride) 100 mls @ 5 mls/hr IV TITRATE ZURDO; 5 MG /HR PRN Reason: Protocol Sodium Chloride (Normal Saline) 1,000 mls @ 50 mls/hr IV ASDIRECTED [facility] Ibuprofen (Motrin) 600 mg PO Q6H PRN PRN Reason: Pain Metoprolol Tartrate (Lopressor) 2.5 mg IVPUSH Q6H [facility] Last Admin: 03/06/17 03:14 Dose: 2.5 mg Naloxone HCl (Narcan) 0.1 mg IV ASDIRECTED PRN PRN Reason: DECR RESPIRATORY RATE Ondansetron HCl (Zofran) 4 mg IVPUSH Q8H PRN PRN Reason: Nausea/Vomiting Promethazine HCl (Phenergan) 12.5 mg IM Q6H PRN PRN Reason: Nausea/Vomiting Senna/Docusate Sodium (Senna Plus) 1 tab PO BID PRN PRN Reason: Constipation Sodium Chloride (Saline Flush) 10 ml FLUSH ONETIME PRN PRN Reason: PER RADIOLOGY PROTOCOL Last Admin: 03/04/17 21:43 Dose: 10 ml Zolpidem Tartrate (Ambien) 5 mg PO BEDTIME PRN PRN Reason: Insomnia Discontinued Medications Bupivacaine HCl/Epinephrine Bitart (Marcaine 0.5%/Epinephrine 1:200,000) Confirm Administered Dose 50 ml .ROUTE .[facility]-MED ONE Stop: 03/05/17 00:03 Last Admin: 03/05/17 01:15 Dose: 40 ml Cefazolin Sodium (Ancef) Confirm Administered Dose 2 gm .ROUTE .[facility]-MED ONE Stop: 03/05/17 00:30 Dexamethasone (Dexamethasone) Confirm Administered Dose 4 mg .ROUTE .[facility] ONE Stop: 03/05/17 00:17 Fentanyl (Sublimaze) Confirm Administered Dose 250 mcg .ROUTE .[facility]-MED ONE Stop: 03/05/17 00:17 Glycopyrrolate () Confirm Administered Dose 1 mg .ROUTE .[facility] ONE Stop: 03/05/17 00:17 Sodium Chloride (Normal Saline) 1,000 mls @ 125 mls/hr IV ASDIRECTED [facility] Last Admin: 03/05/17 03:58 Dose: 125 mls/hr Sodium Chloride (Normal Saline) 80 mls @ 3 mls/sec IV ONETIME ONE Stop: 03/04/17 21:27 Last Admin: 03/04/17 21:43 Dose: 3 mls/sec Cefazolin Sodium/Dextrose 2 gm (/ Premix) 50 mls @ 100 mls/hr IV ONETIME ONE Stop: 03/05/17 00:38 Last Admin: 03/05/17 00:30 Dose: 100 mls/hr Metronidazole (Flagyl 500 Mg In Ns 100 Ml) Confirm Administered Dose 100 mls @ as directed .ROUTE .[facility] ONE Stop: 03/05/17 00:14 Sodium Chloride (Normal Saline) Confirm Administered Dose 20 mls @ as directed .ROUTE .[facility]-MED ONE Stop: 03/05/17 00:23 Lactated Ringer's (Ringers, Lactated) Confirm Administered Dose 1,000 mls @ as directed .ROUTE .[facility] ONE Stop: 03/05/17 00:48 Sodium Chloride (Normal Saline) 1,000 mls @ 125 mls/hr IV ASDIRECTED [facility] Last Admin: 03/06/17 06:34 Dose: 125 mls/hr Piperacillin Sod/Tazobactam (Sod 3.375 gm/ Sodium Chloride) 50 mls @ 100 mls/ hr IV ONETIME ONE Stop: 03/05/17 02:59 Last Admin: 03/05/17 02:59 Dose: 100 mls/hr Iopamidol (Isovue-300 (61%)) 100 ml IV . DIRECTED PRN PRN Reason: RADIOLOGY EXAM Stop: 03/04/17 21:27 Last Admin: 03/04/17 21:43 Dose: 100 ml Labetalol HCl (Normodyne) Confirm Administered Dose 20 mg .ROUTE .STK-MED ONE Stop: 03/05/17 01:58 Last Admin: 03/05/17 02:44 Dose: Not Given Labetalol HCl (Normodyne) 5 - 15 mg IVPUSH NOW ONE PRN Reason: Protocol Stop: 03/05/17 02:01 Last Admin: 03/05/17 02:04 Dose: 10 mg Neostigmine Methylsulfate (Neostigmine) Confirm Administered Dose 5 mg .ROUTE .STK-MED ONE Stop: 03/05/17 00:17 Ondansetron HCl (Zofran) Confirm Administered Dose 4 mg .ROUTE .STK-MED ONE Stop: 03/05/17 00:17 Phenylephrine HCl (Kiko-Synephrine) Confirm Administered Dose 20 mg .ROUTE .STK- MED ONE Stop: 03/05/17 00:22 Propofol (Diprivan 20 Ml) Confirm Administered Dose 200 mg .ROUTE .STK-MED ONE Stop: 03/05/17 00:17 Rocuronium Goodman (Zemuron) Confirm Administered Dose 50 mg .ROUTE .STK-MED ONE Stop: 03/05/17 00:17 Succinylcholine Chloride (Succinylcholine In Ns Pf) Confirm Administered Dose 200 mg .ROUTE .STK-MED ONE Stop: 03/05/17 00:17 - Exam Quality Assessment: supplemental oxygen, urine catheter General: alert, cooperative, mild distress (increased work of breathing ) Neck: supple Lungs: Decreased breath sounds (both bases), Rales (both bases). No: Normal respiratory effort (increased work of breathing ), Wheezing Cardiovascular: Regular Rhythm, Tachycardia. No: Murmurs Abdomen: soft, no distension Extremities: no edema, no cyanosis Peripheral Pulses: 1+: Dorsalis Pedis (L), Dorsalis Pedis (R) Skin: warm, dry Wound/Incisions: healing well, no drainage Psy/Mental Status: alert, normal affect - Problem List & Annotations (1) Bilateral pneumonia SNOMED Code(s): 427921374 Code(s): J18.9 - PNEUMONIA, UNSPECIFIED ORGANISM Status: Acute Current Visit: Yes Qualifiers: Pneumonia type: due to unspecified organism Lung location: unspecified part of lung Qualified Code(s): J18.9 - Pneumonia, unspecified organism (2) Small bowel obstruction SNOMED Code(s): 147171118 Code(s): K56.69 - OTHER INTESTINAL OBSTRUCTION Status: Acute Current Visit: Yes - Problem List Review Problem List Initiated/Reviewed/Updated: Yes - My Orders Last 24 Hours: My Active Orders 03/05/17 10:00 Doxycycline [Vibramycin] 100 mg Sodium Chloride 0.9% [Normal Saline] 100 ml IV Q12H Metoprolol Tartrate [Lopressor] 2.5 mg IVPUSH Q6H 03/06/17 08:42 Furosemide [Lasix] 40 mg IVPUSH NOW ONE 03/06/17 08:43 Sodium Chloride 0.9% [Normal Saline] 1,000 ml IV ASDIRECTED 03/06/17 08:45 Diltiazem 100 MG in Normal Saline Adv @ 5 MG/HR(100ml) Diltiazem [Cardizem] 100 mg Sodium Chloride 0.9% [Normal Saline] 100 ml IV TITRATE 03/07/17 05:00 BASIC METABOLIC PANEL,BMP [CHEM] Timed CBC W/O DIFF,HEMOGRAM [HEME] Timed (1) MAGNESIUM [CHEM] Timed - Plan Plan:: ASSESSMENT AND PLAN Small bowel obstruction - status post surgical intervention the night of admission. Clinically stable since that time. Still not passing gas. -Postop cares per surgical team Bilateral pneumonia - patchy bilateral interstitial infiltrates concerning for a mild pneumonia. Mild hypoxia but stable. Sputum culture growing a gram- negative césar. Cough is loose but not productive. -Doxycycline and Pip/Tazo -Followup cultures -Supplemental oxygen as needed Paroxysmal atrial fibrillation -currently in sinus tachycardia or possibly atrial flutter with 2:1 conduction. -IV metoprolol every 6 hours -Diltiazem infusion -Restart home medications when he is able to take pills Buck Matthews M.D.
[2017-03-06] MEDS: Enoxaparin 40 MG/0.4 ML Syringe SUBCUT SCH (08:59)
[2017-03-06] MEDS ORDERED: Furosemide 40 MG/4 ML VIAL IVPUSH ONE (09:00)
[2017-03-06] MEDS: Diltiazem 100 MG in Sodium Chloride 0.9% 100 ML IV SCH (09:07)
[2017-03-06] MEDS: Doxycycline 100 MG in Sodium Chloride 0.9% 100 ML IV SCH ×2 (10:07→21:47)
[2017-03-07] MEDS: Sodium Chloride 0.9% 1,000 ML IV SCH (02:32)
[2017-03-07] MEDS: Diltiazem 100 MG in Sodium Chloride 0.9% 100 ML IV SCH ×2 (02:34→21:43)
[2017-03-07] MEDS: Piperacillin/Tazobactam/Dext 3.375 GM in Premix Bag 1 BAG IV SCH ×4 (02:41→20:23)
[2017-03-07] MEDS: Metoprolol Tartrate 5 MG/5 ML SDV IVPUSH SCH ×4 (04:06→21:42)
[2017-03-07] MEDS: Enoxaparin 40 MG/0.4 ML Syringe SUBCUT SCH (08:54)
--- NOTE | 2017-03-07 09:18 | PCM.PN ---
- General Info Date of Service: 03/07/17 Functional Status: Reports: pain controlled, ambulating, urinating - Review of Systems General: Reports: Weakness. Denies: Fever Gastrointestinal: Reports: Abdominal pain (mild diffuse). Denies: Flatus Systems Review Comment:: No acute events overnight. Pain has been well-controlled. Heart rate has been well-controlled. Blood pressures have been stable. Respiratory status stable to improving. He has been doing well with his walks but does fatigue easily. He has not yet passed any flatus into his colostomy. Sputum cultures growing Klebsiella. - Patient Data Vitals - most recent: Last Vital Signs Temp 37.1 C 03/07/17 07:31 Pulse 91 03/07/17 08:59 Resp 18 03/07/17 07:31 BP 151/75 H 03/07/17 08:59 Pulse Ox 92 L 03/07/17 07:31 Weight - most recent: 57.742 kg I&O - last 24 hours: Intake & Output 03/06/17 03/07/17 03/07/17 22:59 06:59 14:59 Intake Total 855 852 Output Total 400 475 300 Balance 455 377 -300 Lab Results last 24 hrs: Laboratory Results - last 24 hr 03/07/17 03/07/17 Range/Units 05:41 05:41 WBC 9.5 (4.5-11.0) K/uL RBC 4.15 L (4.30-5.90) M/uL Hgb 11.1 L (12.0-15.0) g/dL Hct 36.5 L (40.0-54.0) % MCV 88 (80-98) fL MCH 27 (27-31) pg MCHC 30 L (32-36) % Plt Count 318 (150-400) K/uL Sodium 142 (140-148) mmol/L Potassium 3.1 L (3.6-5.2) mmol/L Chloride 101 (100-108) mmol/L Carbon Dioxide 36 H (21-32) mmol/L Anion Gap 8.1 (5.0-14.0) mmol/L BUN 15 (7-18) mg/dL Creatinine 0.8 (0.8-1.3) mg/dL Est Cr Clr Drug Dosing 56.14 mL/min Estimated GFR (MDRD) > 60 (>60) Glucose 67 L (74-106) mg/dL Calcium 7.8 L (8.5-10.1) mg/dL Magnesium 2.0 (1.8-2.4) mg/dL Neto Results last 24 hrs: Microbiology 03/05/17 04:30 Urine Culture - Final Urine, Bazan Cath (Indwelling) NO GROWTH AFTER 2 DAYS Med Orders - Current: Current Medications Benzocaine/Menthol (Cepacol Sore Throat) 1 lozenge MUCMEM ASDIRECTED PRN PRN Reason: Sore Throat Stop: 03/25/17 01:55 Bisacodyl (Dulcolax) 5 mg PO DAILY PRN PRN Reason: Constipation Diphenhydramine HCl (Benadryl) 50 mg IVPUSH Q4H PRN PRN Reason: Itching Docusate Sodium (Colace) 100 mg PO BID PRN PRN Reason: Constipation Enoxaparin Sodium (Lovenox) 40 mg SUBCUT DAILY [facility] Last Admin: 03/07/17 08:54 Dose: 40 mg Fentanyl Citrate (Fentanyl In Ns 20 Mcg/Ml 30 Ml [employer]) 600 mcg IV ASDIRECTED ZURDO PRN Reason: Protocol Last Admin: 03/05/17 04:14 Dose: 600 mcg Piperacillin/Tazobactam/ (Dextrose 3.375 gm/ Premix) 50 mls @ 100 mls/hr IV Q6H [facility] Last Admin: 03/07/17 08:54 Dose: 100 mls/hr Diltiazem HCl 100 mg/ Sodium (Chloride) 100 mls @ 5 mls/hr IV TITRATE ZURDO; 5 MG /HR PRN Reason: Protocol Last Admin: 03/07/17 02:34 Dose: 5 mg/hr, 5 mls/hr Sodium Chloride (Normal Saline) 1,000 mls @ 50 mls/hr IV ASDIRECTED [facility] Last Admin: 03/07/17 02:32 Dose: 50 mls/hr Ibuprofen (Motrin) 600 mg PO Q6H PRN PRN Reason: Pain Metoprolol Tartrate (Lopressor) 2.5 mg IVPUSH Q6H [facility] Last Admin: 03/07/17 08:59 Dose: 2.5 mg Naloxone HCl (Narcan) 0.1 mg IV ASDIRECTED PRN PRN Reason: DECR RESPIRATORY RATE Ondansetron HCl (Zofran) 4 mg IVPUSH Q8H PRN PRN Reason: Nausea/Vomiting Promethazine HCl (Phenergan) 12.5 mg IM Q6H PRN PRN Reason: Nausea/Vomiting Senna/Docusate Sodium (Senna Plus) 1 tab PO BID PRN PRN Reason: Constipation Sodium Chloride (Saline Flush) 10 ml FLUSH ONETIME PRN PRN Reason: PER RADIOLOGY PROTOCOL Last Admin: 03/04/17 21:43 Dose: 10 ml Zolpidem Tartrate (Ambien) 5 mg PO BEDTIME PRN PRN Reason: Insomnia Discontinued Medications Bupivacaine HCl/Epinephrine Bitart (Marcaine 0.5%/Epinephrine 1:200,000) Confirm Administered Dose 50 ml .ROUTE .STK-MED ONE Stop: 03/05/17 00:03 Last Admin: 03/05/17 01:15 Dose: 40 ml Cefazolin Sodium (Ancef) Confirm Administered Dose 2 gm .ROUTE .STK-MED ONE Stop: 03/05/17 00:30 Dexamethasone (Dexamethasone) Confirm Administered Dose 4 mg .ROUTE .STK-MED ONE Stop: 03/05/17 00:17 Fentanyl (Sublimaze) Confirm Administered Dose 250 mcg .ROUTE .STK-MED ONE Stop: 03/05/17 00:17 Furosemide (Lasix) 40 mg IVPUSH NOW ONE Stop: 03/06/17 09:01 Last Admin: 03/06/17 08:57 Dose: 40 mg Glycopyrrolate () Confirm Administered Dose 1 mg .ROUTE .STK-MED ONE Stop: 03/05/17 00:17 Sodium Chloride (Normal Saline) 1,000 mls @ 125 mls/hr IV ASDIRECTED [facility] Last Admin: 03/05/17 03:58 Dose: 125 mls/hr Sodium Chloride (Normal Saline) 80 mls @ 3 mls/sec IV ONETIME ONE Stop: 03/04/17 21:27 Last Admin: 03/04/17 21:43 Dose: 3 mls/sec Cefazolin Sodium/Dextrose 2 gm (/ Premix) 50 mls @ 100 mls/hr IV ONETIME ONE Stop: 03/05/17 00:38 Last Admin: 03/05/17 00:30 Dose: 100 mls/hr Metronidazole (Flagyl 500 Mg In Ns 100 Ml) Confirm Administered Dose 100 mls @ as directed .ROUTE .STK-MED ONE Stop: 03/05/17 00:14 Sodium Chloride (Normal Saline) Confirm Administered Dose 20 mls @ as directed .ROUTE .STK-MED ONE Stop: 03/05/17 00:23 Lactated Ringer's (Ringers, Lactated) Confirm Administered Dose 1,000 mls @ as directed .ROUTE .STK-MED ONE Stop: 03/05/17 00:48 Sodium Chloride (Normal Saline) 1,000 mls @ 125 mls/hr IV ASDIRECTED [facility] Last Admin: 03/06/17 06:34 Dose: 125 mls/hr Piperacillin Sod/Tazobactam (Sod 3.375 gm/ Sodium Chloride) 50 mls @ 100 mls/ hr IV ONETIME ONE Stop: 03/05/17 02:59 Last Admin: 03/05/17 02:59 Dose: 100 mls/hr Doxycycline Hyclate 100 mg/ (Sodium Chloride) 100 mls @ 100 mls/hr IV Q12H [facility] Last Admin: 03/06/17 21:47 Dose: 100 mls/hr Iopamidol (Isovue-300 (61%)) 100 ml IV . DIRECTED PRN PRN Reason: RADIOLOGY EXAM Stop: 03/04/17 21:27 Last Admin: 03/04/17 21:43 Dose: 100 ml Labetalol HCl (Normodyne) Confirm Administered Dose 20 mg .ROUTE .STK-MED ONE Stop: 03/05/17 01:58 Last Admin: 03/05/17 02:44 Dose: Not Given Labetalol HCl (Normodyne) 5 - 15 mg IVPUSH NOW ONE PRN Reason: Protocol Stop: 03/05/17 02:01 Last Admin: 03/05/17 02:04 Dose: 10 mg Neostigmine Methylsulfate (Neostigmine) Confirm Administered Dose 5 mg .ROUTE .STK-MED ONE Stop: 03/05/17 00:17 Ondansetron HCl (Zofran) Confirm Administered Dose 4 mg .ROUTE .STK-MED ONE Stop: 03/05/17 00:17 Phenylephrine HCl (Kiko-Synephrine) Confirm Administered Dose 20 mg .ROUTE .STK- MED ONE Stop: 03/05/17 00:22 Propofol (Diprivan 20 Ml) Confirm Administered Dose 200 mg .ROUTE .STK-MED ONE Stop: 03/05/17 00:17 Rocuronium Scroggins (Zemuron) Confirm Administered Dose 50 mg .ROUTE .STK-MED ONE Stop: 03/05/17 00:17 Succinylcholine Chloride (Succinylcholine In Ns Pf) Confirm Administered Dose 200 mg .ROUTE .STK-MED ONE Stop: 03/05/17 00:17 - Exam Quality Assessment: supplemental oxygen. No: urine catheter General: alert, cooperative, no acute distress HEENT: Pupils equal Neck: supple. No: lymphadenopathy Lungs: Clear to auscultation, Normal respiratory effort Cardiovascular: Regular Rate, Regular Rhythm, No Murmurs Abdomen: soft, tenderness. No: distension Extremities: no cyanosis, edema (trace bilateral ankle edema) Skin: warm, dry Wound/Incisions: healing well, no drainage. No: erythema Psy/Mental Status: alert, normal affect - Problem List & Annotations (1) Bilateral pneumonia SNOMED Code(s): 990197890 Code(s): J18.9 - PNEUMONIA, UNSPECIFIED ORGANISM Status: Acute Current Visit: Yes Qualifiers: Pneumonia type: due to unspecified organism Lung location: unspecified part of lung Qualified Code(s): J18.9 - Pneumonia, unspecified organism (2) Small bowel obstruction SNOMED Code(s): 101011907 Code(s): K56.69 - OTHER INTESTINAL OBSTRUCTION Status: Acute Current Visit: Yes - Problem List Review Problem List Initiated/Reviewed/Updated: Yes - My Orders Last 24 Hours: My Active Orders 03/06/17 08:43 Sodium Chloride 0.9% [Normal Saline] 1,000 ml IV ASDIRECTED 03/06/17 09:00 Diltiazem [Cardizem] 100 mg Sodium Chloride 0.9% [Normal Saline] 100 ml IV TITRATE 03/07/17 09:15 Potassium Chloride 20 MEQ,Lidocaine 1% 2 ML IN 100ML NS @ 50 MLS/HR Potassium Chloride 20 meq Lidocaine 1% [Xylocaine 1%] 2 ml Sodium Chloride 0.9% [Normal Saline] 100 ml IV Q2H 03/07/17 18:00 POTASSIUM,K [CHEM] Timed 03/08/17 05:00 BASIC METABOLIC PANEL,BMP [CHEM] Timed CBC W/O DIFF,HEMOGRAM [HEME] Timed (1) - Plan Plan:: ASSESSMENT AND PLAN Small bowel obstruction - status post surgical intervention the night of admission. Clinically stable since that time. 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 -Postop cares per surgical team Bilateral pneumonia - patchy bilateral interstitial infiltrates concerning for a mild pneumonia. Mild hypoxia but stable. Sputum culture growing Klebsiella. -Discontinue doxycycline -Continue Pip/Tazo for now, Augmentin could be considered as an oral alternative when he is taking oral antibiotics -Supplemental oxygen as needed Paroxysmal atrial fibrillation -heart rate has been well-controlled. Not yet taking anything by mouth. -IV metoprolol every 6 hours -Diltiazem infusion -Restart home medications when he is able to take pills Buck Matthews M.D.
[2017-03-07] MEDS: Potassium Chloride 20 MEQ, Lidocaine 1% 2 ML in Sodium Chloride 0.9% 100 ML IV SCH ×3 (10:15→14:40)
[2017-03-07] MEDS: diphenhydrAMINE 50 MG/ML SDV IVPUSH PRN (21:51)
[2017-03-08] MEDS: Metoprolol Tartrate 5 MG/5 ML SDV IVPUSH SCH ×4 (03:58→21:22)
[2017-03-08] MEDS: Piperacillin/Tazobactam/Dext 3.375 GM in Premix Bag 1 BAG IV SCH ×4 (03:58→20:52)
[2017-03-08] MEDS: Sodium Chloride 0.9% 1,000 ML IV SCH (04:00)
[2017-03-08] MEDS: Enoxaparin 40 MG/0.4 ML Syringe SUBCUT SCH (08:02)
[2017-03-08] MEDS ORDERED: Potassium Chloride 40 MEQ in Premix Bag 1 BAG IV ONE ×2 (08:25→19:36)
--- NOTE | 2017-03-08 08:58 | CR ---
Chest 1V Frontal HISTORY: pneumonia COMPARISON: 03/05/2017 FINDINGS: Portable chest, 0459 hours. Residual infiltrates left lung base appear little more prominent on today's exam. Remainder of the c hest is clear. Heart size is borderline prominent. Atherosclerotic aorta is redemonstrated. Old medi an sternotomy changes are noted. NG tube passes into the stomach. Pulmonary vasculature is not engor ged. Bony structures are diffusely osteopenic. IMPRESSION: Residual infiltrates versus atelectasis left lung base appear a little more prominent on today's exam compared with the study of one day prior.
[2017-03-08] MEDS ORDERED: Lactulose Soln 10 GM/15 ML 15 ML UD Cup PO ONE (09:00)
--- NOTE | 2017-03-08 09:49 | CR ---
Chest 1V Frontal HISTORY: pneumonia FINDINGS: Portable chest, 0529 hours. Infiltrates or atelectasis left lung base have improved since yesterday's exam. Remainder the chest is clear. Cardiomediastinal silhouette is stable. Old median sternotomy changes are noted. Atheroscl erotic aorta is redemonstrated. Remainder of the exam is unchanged. IMPRESSION: Resolving infiltrates or atelectasis left lung base. Otherwise stable chest.
--- NOTE | 2017-03-08 09:50 | PCM.PN ---
- General Info Date of Service: 03/08/17 Functional Status: Reports: pain controlled, ambulating - Review of Systems General: Reports: Weakness. Denies: Fever, Chills Pulmonary: Reports: no symptoms Cardiovascular: Reports: No Symptoms Gastrointestinal: Reports: Abdominal pain. Denies: Nausea, Vomiting Psychiatric: Reports: confusion Systems Review Comment:: This patient has been stable since yesterday. Ostomy output has been low and he is not yet been started on a diet. He has been up ambulating and denies significant pain. Continues to experience confusion secondary to dementia, minimal agitation. - Patient Data Vitals - most recent: Last Vital Signs Temp 98.4 F 03/08/17 07:32 Pulse 95 03/08/17 07:32 Resp 22 H 03/08/17 07:32 BP 164/84 H 03/08/17 07:32 Pulse Ox 97 03/08/17 07:32 Weight - most recent: 127 lb 4.8 oz I&O - last 24 hours: Intake & Output 03/07/17 03/08/17 03/08/17 22:59 06:59 14:59 Intake Total 701 778 Output Total 350 1175 Balance 351 -397 Lab Results last 24 hrs: Laboratory Results - last 24 hr 03/07/17 03/08/17 03/08/17 Range/Units 18:35 05:45 05:45 WBC 12.4 H (4.5-11.0) K/uL RBC 4.41 (4.30-5.90) M/uL Hgb 11.8 L (12.0-15.0) g/dL Hct 38.2 L (40.0-54.0) % MCV 87 (80-98) fL MCH 27 (27-31) pg MCHC 31 L (32-36) % Plt Count 357 (150-400) K/uL Sodium 140 (140-148) mmol/L Potassium 3.7 3.1 L (3.6-5.2) mmol/L Chloride 100 (100-108) mmol/L Carbon Dioxide 34 H (21-32) mmol/L Anion Gap 9.1 (5.0-14.0) mmol/L BUN 11 (7-18) mg/dL Creatinine 0.7 L (0.8-1.3) mg/dL Est Cr Clr Drug Dosing 64.16 mL/min Estimated GFR (MDRD) > 60 (>60) Glucose 65 L (74-106) mg/dL Calcium 7.8 L (8.5-10.1) mg/dL Neto Results last 24 hrs: Microbiology 03/05/17 04:30 Urine Culture - Final Urine, Bazan Cath (Indwelling) NO GROWTH AFTER 2 DAYS Med Orders - Current: Current Medications Benzocaine/Menthol (Cepacol Sore Throat) 1 lozenge MUCMEM ASDIRECTED PRN PRN Reason: Sore Throat Stop: 03/25/17 01:55 Bisacodyl (Dulcolax) 5 mg PO DAILY PRN PRN Reason: Constipation Diphenhydramine HCl (Benadryl) 50 mg IVPUSH Q4H PRN PRN Reason: Itching Last Admin: 03/07/17 21:51 Dose: 50 mg Docusate Sodium (Colace) 100 mg PO BID PRN PRN Reason: Constipation Last Admin: 03/07/17 10:16 Dose: 100 mg Enoxaparin Sodium (Lovenox) 40 mg SUBCUT DAILY ZURDO Last Admin: 03/08/17 08:02 Dose: 40 mg Piperacillin/Tazobactam/ (Dextrose 3.375 gm/ Premix) 50 mls @ 100 mls/hr IV Q6H ZURDO Last Admin: 03/08/17 03:58 Dose: 100 mls/hr Diltiazem HCl 100 mg/ Sodium (Chloride) 100 mls @ 5 mls/hr IV TITRATE UZRDO; 5 MG /HR PRN Reason: Protocol Last Admin: 03/07/17 21:43 Dose: 5 mg/hr, 5 mls/hr Sodium Chloride (Normal Saline) 1,000 mls @ 50 mls/hr IV ASDIRECTED ZURDO Last Admin: 03/08/17 04:00 Dose: 50 mls/hr Potassium Chloride 20 meq/Lidocaine HCl 2 ml/ Sodium Chloride 112 mls @ 56 mls/ hr IV Q2H ZURDO Stop: 03/08/17 13:59 Ibuprofen (Motrin) 600 mg PO Q6H PRN PRN Reason: Pain Metoprolol Tartrate (Lopressor) 2.5 mg IVPUSH Q6H ZURDO Last Admin: 03/08/17 03:58 Dose: 2.5 mg Naloxone HCl (Narcan) 0.1 mg IV ASDIRECTED PRN PRN Reason: DECR RESPIRATORY RATE Ondansetron HCl (Zofran) 4 mg IVPUSH Q8H PRN PRN Reason: Nausea/Vomiting Promethazine HCl (Phenergan) 12.5 mg IM Q6H PRN PRN Reason: Nausea/Vomiting Senna/Docusate Sodium (Senna Plus) 1 tab PO BID PRN PRN Reason: Constipation Sodium Chloride (Saline Flush) 10 ml FLUSH ONETIME PRN PRN Reason: PER RADIOLOGY PROTOCOL Last Admin: 03/04/17 21:43 Dose: 10 ml Zolpidem Tartrate (Ambien) 5 mg PO BEDTIME PRN PRN Reason: Insomnia Discontinued Medications Bupivacaine HCl/Epinephrine Bitart (Marcaine 0.5%/Epinephrine 1:200,000) Confirm Administered Dose 50 ml .ROUTE .STK-MED ONE Stop: 03/05/17 00:03 Last Admin: 03/05/17 01:15 Dose: 40 ml Cefazolin Sodium (Ancef) Confirm Administered Dose 2 gm .ROUTE .STK-MED ONE Stop: 03/05/17 00:30 Dexamethasone (Dexamethasone) Confirm Administered Dose 4 mg .ROUTE .STK-MED ONE Stop: 03/05/17 00:17 Fentanyl (Sublimaze) Confirm Administered Dose 250 mcg .ROUTE .STK-MED ONE Stop: 03/05/17 00:17 Fentanyl Citrate (Fentanyl In Ns 20 Mcg/Ml 30 Ml Unit Coordinator) 600 mcg IV ASDIRECTED [facility] PRN Reason: Protocol Last Admin: 03/05/17 04:14 Dose: 600 mcg Furosemide (Lasix) 40 mg IVPUSH NOW ONE Stop: 03/06/17 09:01 Last Admin: 03/06/17 08:57 Dose: 40 mg Glycopyrrolate () Confirm Administered Dose 1 mg .ROUTE .STK-MED ONE Stop: 03/05/17 00:17 Sodium Chloride (Normal Saline) 1,000 mls @ 125 mls/hr IV ASDIRECTED [facility] Last Admin: 03/05/17 03:58 Dose: 125 mls/hr Sodium Chloride (Normal Saline) 80 mls @ 3 mls/sec IV ONETIME ONE Stop: 03/04/17 21:27 Last Admin: 03/04/17 21:43 Dose: 3 mls/sec Cefazolin Sodium/Dextrose 2 gm (/ Premix) 50 mls @ 100 mls/hr IV ONETIME ONE Stop: 03/05/17 00:38 Last Admin: 03/05/17 00:30 Dose: 100 mls/hr Metronidazole (Flagyl 500 Mg In Ns 100 Ml) Confirm Administered Dose 100 mls @ as directed .ROUTE .[facility] ONE Stop: 03/05/17 00:14 Sodium Chloride (Normal Saline) Confirm Administered Dose 20 mls @ as directed .ROUTE .[facility] ONE Stop: 03/05/17 00:23 Lactated Ringer's (Ringers, Lactated) Confirm Administered Dose 1,000 mls @ as directed .ROUTE .[facility] ONE Stop: 03/05/17 00:48 Sodium Chloride (Normal Saline) 1,000 mls @ 125 mls/hr IV ASDIRECTED [facility] Last Admin: 03/06/17 06:34 Dose: 125 mls/hr Piperacillin Sod/Tazobactam (Sod 3.375 gm/ Sodium Chloride) 50 mls @ 100 mls/ hr IV ONETIME ONE Stop: 03/05/17 02:59 Last Admin: 03/05/17 02:59 Dose: 100 mls/hr Doxycycline Hyclate 100 mg/ (Sodium Chloride) 100 mls @ 100 mls/hr IV Q12H [facility] Last Admin: 03/06/17 21:47 Dose: 100 mls/hr Potassium Chloride 20 meq/Lidocaine HCl 2 ml/ Sodium Chloride 112 mls @ 55 mls/ hr IV Q2H [facility] Stop: 03/07/17 15:59 Last Admin: 03/07/17 14:40 Dose: 55 mls/hr Iopamidol (Isovue-300 (61%)) 100 ml IV . DIRECTED PRN PRN Reason: RADIOLOGY EXAM Stop: 03/04/17 21:27 Last Admin: 03/04/17 21:43 Dose: 100 ml Labetalol HCl (Normodyne) Confirm Administered Dose 20 mg .ROUTE .STK-MED ONE Stop: 03/05/17 01:58 Last Admin: 03/05/17 02:44 Dose: Not Given Labetalol HCl (Normodyne) 5 - 15 mg IVPUSH NOW ONE PRN Reason: Protocol Stop: 03/05/17 02:01 Last Admin: 03/05/17 02:04 Dose: 10 mg Lactulose (Chronulac) 10 gm PO ONETIME ONE Stop: 03/08/17 09:01 Neostigmine Methylsulfate (Neostigmine) Confirm Administered Dose 5 mg .ROUTE .STK-MED ONE Stop: 03/05/17 00:17 Ondansetron HCl (Zofran) Confirm Administered Dose 4 mg .ROUTE .STK-MED ONE Stop: 03/05/17 00:17 Phenylephrine HCl (Kiko-Synephrine) Confirm Administered Dose 20 mg .ROUTE .STK- MED ONE Stop: 03/05/17 00:22 Propofol (Diprivan 20 Ml) Confirm Administered Dose 200 mg .ROUTE .STK-MED ONE Stop: 03/05/17 00:17 Rocuronium [place] (Zemuron) Confirm Administered Dose 50 mg .ROUTE .STK-MED ONE Stop: 03/05/17 00:17 Succinylcholine Chloride (Succinylcholine In Ns Pf) Confirm Administered Dose 200 mg .ROUTE .STK-MED ONE Stop: 03/05/17 00:17 - Exam Quality Assessment: supplemental oxygen, DVT prophylaxis General: alert, cooperative, mild distress Lungs: Clear to auscultation, Normal respiratory effort Cardiovascular: Regular Rate, No Murmurs, Irregular Rhythm. No: Bradycardia, Tachycardia Abdomen: tenderness, abnormal bowel sounds. No: rigidity, rebound, guarding Extremities: no edema Skin: warm, dry, intact - Problem List Review Problem List Initiated/Reviewed/Updated: Yes - My Orders Last 24 Hours: My Active Orders 03/08/17 10:00 Potassium Chloride 20 meq Lidocaine 1% [Xylocaine 1%] 2 ml Sodium Chloride 0.9 % [Normal Saline] 100 ml IV Q2H 03/08/17 17:00 POTASSIUM,K [CHEM] Urgent 03/09/17 05:00 BASIC METABOLIC PANEL,BMP [CHEM] Timed CBC WITH AUTO DIFF [HEME] Timed - Plan Plan:: ASSESSMENT AND PLAN Small bowel obstruction - status post surgical intervention the night of admission. Clinically stable since that time. 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 -Postop cares per surgical team Bilateral pneumonia - patchy bilateral interstitial infiltrates concerning for a mild pneumonia. Mild hypoxia but stable. Sputum culture growing Klebsiella. -Continue Pip/Tazo for now, Augmentin could be considered as an oral alternative when he is taking oral antibiotics -Supplemental oxygen as needed Paroxysmal atrial fibrillation -heart rate has been well-controlled. Not yet taking anything by mouth. -IV metoprolol every 6 hours -Diltiazem infusion -Restart home medications when he is able to take pills Hypokalemia -IV potassium replacement -Recheck potassium later today and again in the a.m.
--- NOTE | 2017-03-08 10:04 | CR ---
Chest 1V Frontal HISTORY: pneumonia COMPARISON: 03/07/2017 FINDINGS: Portable chest, 0451 hours. Mild residual interstitial changes left lung base appears stable. Remainder the chest is clear. No n ew infiltrate is identified. Heart size is stable. Old median sternotomy changes are noted. Pulmonar y vasculature is not engorged. No pleural fluid is seen. Remainder of the exam is unchanged. IMPRESSION: Stable chest compared with exam of one day prior.
[2017-03-08] MEDS: Potassium Chloride 20 MEQ, Lidocaine 1% 2 ML in Sodium Chloride 0.9% 100 ML IV SCH ×2 (10:17→12:54)
[2017-03-08] MEDS: Diltiazem 100 MG in Sodium Chloride 0.9% 100 ML IV SCH (17:47)
[2017-03-08] MEDS: Potassium Chloride 20 MEQ in Premix Bag 1 BAG IV SCH ×2 (21:21→23:39)
[2017-03-09] MEDS: diphenhydrAMINE 50 MG/ML SDV IVPUSH PRN (00:49)
[2017-03-09] MEDS: Piperacillin/Tazobactam/Dext 3.375 GM in Premix Bag 1 BAG IV SCH ×4 (02:33→21:06)
[2017-03-09] MEDS ORDERED: Haloperidol Lactate 5 MG/ML SDV IVPUSH ONE ×2 (03:37→04:45)
[2017-03-09] MEDS ORDERED: Haloperidol Lactate 5 MG/ML SDV ONE (03:41)
[2017-03-09] MEDS: Metoprolol Tartrate 5 MG/5 ML SDV IVPUSH SCH ×2 (03:42→09:02)
[2017-03-09] MEDS: Sodium Chloride 0.9% 1,000 ML IV SCH (03:54)
[2017-03-09] MEDS: Enoxaparin 40 MG/0.4 ML Syringe SUBCUT SCH (08:33)
--- NOTE | 2017-03-09 08:34 | CR ---
Chest 1V Frontal HISTORY: pneumonia FINDINGS: Portable chest, 0348 hours. Compared to yesterday's exam, infiltrates versus atelectasis left lower lobe appear mildly increased . Remainder the chest is clear. Cardiomediastinal silhouette is stable. 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 There is no vascul ar redistribution or pleural fluid. Remainder of the exam is unchanged. IMPRESSION: Infiltrates versus atelectasis left lower lobe appear mildly increased compared to yeste rday's exam.
[2017-03-09] MEDS ORDERED: Furosemide 20 MG Tab PO SCH (09:30)
[2017-03-09] MEDS ORDERED: Haloperidol 1 MG Tab PO PRN (09:45)
[2017-03-09] MEDS ORDERED: Furosemide 20 MG/2 ML VIAL IVPUSH ONE (09:49)
[2017-03-09] MEDS: Diltiazem 120 MG Cap.CD PO SCH (09:51)
[2017-03-09] MEDS: Carvedilol 25 MG Tab PO SCH ×2 (09:52→21:07)
[2017-03-09] MEDS: Divalproex Sodium Delayed-Release 250 MG Tab.CR PO SCH ×3 (09:52→16:46)
[2017-03-09] MEDS: Magnesium Oxide 400 MG Tab PO SCH ×2 (09:52→21:08)
[2017-03-09] MEDS: Formoterol/Mometasone 200-5 MCG 8.8 GM Inhaler IH SCH ×2 (09:53→21:07)
[2017-03-09] MEDS: Aspirin 81 MG Tab.EC PO SCH (09:54)
[2017-03-09] MEDS: Pantoprazole 40 MG Tab.CR PO SCH (09:55)
--- NOTE | 2017-03-09 09:55 | PCM.PN ---
- General Info Date of Service: 03/09/17 Functional Status: Reports: pain controlled, ambulating - Review of Systems Pulmonary: Reports: shortness of breath. Denies: pleuritic chest pain, cough, sputum, hemoptysis, wheezing Cardiovascular: Reports: Dyspnea on Exertion. Denies: Chest Pain, Palpitations , Orthopnea, PND, Edema Gastrointestinal: Reports: Abdominal pain, Flatus. Denies: Nausea, Vomiting Psychiatric: Reports: confusion, agitation Systems Review Comment:: This patient has had increased difficulty with agitation and confusion over the past 24 hours. He has had a bowel movement in been passing gas, tolerating diet thus far. Vital signs have been stable and he has remained afebrile. Intake was over output yesterday. - Patient Data Vitals - most recent: Last Vital Signs Temp 99.1 F 03/09/17 08:00 Pulse 79 03/09/17 09:02 Resp 24 H 03/09/17 08:00 BP 168/89 H 03/09/17 09:02 Pulse Ox 93 L 03/09/17 08:00 Weight - most recent: 127 lb 4.8 oz I&O - last 24 hours: Intake & Output 03/08/17 03/09/17 03/09/17 22:59 06:59 14:59 Intake Total 807 721 Output Total 275 Balance 807 446 Lab Results last 24 hrs: Laboratory Results - last 24 hr 03/08/17 03/09/17 03/09/17 Range/Units 17:00 04:15 04:15 WBC 11.5 H (4.5-11.0) K/uL RBC 4.55 (4.30-5.90) M/uL Hgb 12.4 (12.0-15.0) g/dL Hct 38.5 L (40.0-54.0) % MCV 85 (80-98) fL MCH 27 (27-31) pg MCHC 32 (32-36) % Plt Count 367 (150-400) K/uL Neut % (Auto) 74 H (36-66) % Lymph % (Auto) 11 L (24-44) % [place] % (Auto) 14 H (2-6) % Eos % (Auto) 1 L (2-4) % Baso % (Auto) 0 (0-1) % Sodium 139 L (140-148) mmol/L Potassium 3.6 3.6 (3.6-5.2) mmol/L Chloride 100 (100-108) mmol/L Carbon Dioxide 31 (21-32) mmol/L Anion Gap 11.6 (5.0-14.0) mmol/L BUN 10 (7-18) mg/dL Creatinine 0.7 L (0.8-1.3) mg/dL Est Cr Clr Drug Dosing 64.16 mL/min Estimated GFR (MDRD) > 60 (>60) Glucose 115 H (74-106) mg/dL Calcium 7.7 L (8.5-10.1) mg/dL Med Orders - Current: Current Medications Aspirin (Halfprin) 81 mg PO DAILY [facility] Benzocaine/Menthol (Cepacol Sore Throat) 1 lozenge MUCMEM ASDIRECTED PRN PRN Reason: Sore Throat Stop: 03/25/17 01:55 Bisacodyl (Dulcolax) 5 mg PO DAILY PRN PRN Reason: Constipation Carvedilol (Coreg) 25 mg PO BID [facility] Diltiazem HCl (Cardizem Cd) 120 mg PO DAILY [facility] Divalproex Sodium (Divalproex Sodium) 250 mg PO TIDMEALS [facility] Docusate Sodium (Colace) 100 mg PO BID PRN PRN Reason: Constipation Last Admin: 03/07/17 10:16 Dose: 100 mg Enoxaparin Sodium (Lovenox) 40 mg SUBCUT DAILY [facility] Last Admin: 03/09/17 08:33 Dose: 40 mg Furosemide (Lasix) 20 mg IVPUSH NOW ONE Stop: 03/09/17 09:50 Haloperidol (Haldol) 1 mg PO Q2H PRN PRN Reason: Agitation Piperacillin/Tazobactam/ (Dextrose 3.375 gm/ Premix) 50 mls @ 100 mls/hr IV Q6H ZURDO Last Admin: 03/09/17 08:33 Dose: 100 mls/hr Ibuprofen (Motrin) 600 mg PO Q6H PRN PRN Reason: Pain Last Admin: 03/08/17 11:26 Dose: 600 mg Magnesium Oxide (Magnesium Oxide) 400 mg PO BID [facility] Melatonin (Melatonin) 9 mg PO BEDTIME [facility] Mometasone Furoate/Formoterol Fumar (Dulera 200-5 Mcg) 0 puff IH BIDRT [facility] Naloxone HCl (Narcan) 0.1 mg IV ASDIRECTED PRN PRN Reason: DECR RESPIRATORY RATE Ondansetron HCl (Zofran) 4 mg IVPUSH Q8H PRN PRN Reason: Nausea/Vomiting Pantoprazole Sodium (Protonix) 40 mg PO DAILY@0730 [facility] Promethazine HCl (Phenergan) 12.5 mg IM Q6H PRN PRN Reason: Nausea/Vomiting Senna/Docusate Sodium (Senna Plus) 1 tab PO BID PRN PRN Reason: Constipation Simvastatin (Zocor) 20 mg PO BEDTIME [facility] Sodium Chloride (Saline Flush) 10 ml FLUSH ONETIME PRN PRN Reason: PER RADIOLOGY PROTOCOL Last Admin: 03/04/17 21:43 Dose: 10 ml Zolpidem Tartrate (Ambien) 5 mg PO BEDTIME PRN PRN Reason: Insomnia Last Admin: 03/09/17 02:20 Dose: 5 mg Discontinued Medications Bupivacaine HCl/Epinephrine Bitart (Marcaine 0.5%/Epinephrine 1:200,000) Confirm Administered Dose 50 ml .ROUTE .STK-MED ONE Stop: 03/05/17 00:03 Last Admin: 03/05/17 01:15 Dose: 40 ml Cefazolin Sodium (Ancef) Confirm Administered Dose 2 gm .ROUTE .STK-MED ONE Stop: 03/05/17 00:30 Dexamethasone (Dexamethasone) Confirm Administered Dose 4 mg .ROUTE .STK-MED ONE Stop: 03/05/17 00:17 Diphenhydramine HCl (Benadryl) 50 mg IVPUSH Q4H PRN PRN Reason: Itching Last Admin: 03/09/17 00:49 Dose: 50 mg Fentanyl (Sublimaze) Confirm Administered Dose 250 mcg .ROUTE .STK-MED ONE Stop: 03/05/17 00:17 Fentanyl Citrate (Fentanyl In Ns 20 Mcg/Ml 30 Ml [place]) 600 mcg IV ASDIRECTED [facility] PRN Reason: Protocol Last Admin: 03/05/17 04:14 Dose: 600 mcg Furosemide (Lasix) 40 mg IVPUSH NOW ONE Stop: 03/06/17 09:01 Last Admin: 03/06/17 08:57 Dose: 40 mg Furosemide (Lasix) 20 mg PO DAILY [facility] Last Admin: 03/09/17 09:50 Dose: 20 mg Glycopyrrolate () Confirm Administered Dose 1 mg .ROUTE .[facility]-MED ONE Stop: 03/05/17 00:17 Haloperidol Lactate (Haldol) 2 mg IVPUSH ONETIME ONE Stop: 03/09/17 03:38 Last Admin: 03/09/17 03:45 Dose: 2 mg Haloperidol Lactate (Haldol) Confirm Administered Dose 5 mg .ROUTE .[facility] ONE Stop: 03/09/17 03:42 Last Admin: 03/09/17 03:45 Dose: Not Given Haloperidol Lactate (Haldol) 2 mg IVPUSH ONETIME ONE Stop: 03/09/17 04:46 Last Admin: 03/09/17 04:42 Dose: 2 mg Sodium Chloride (Normal Saline) 1,000 mls @ 125 mls/hr IV ASDIRECTED [facility] Last Admin: 03/05/17 03:58 Dose: 125 mls/hr Sodium Chloride (Normal Saline) 80 mls @ 3 mls/sec IV ONETIME ONE Stop: 03/04/17 21:27 Last Admin: 03/04/17 21:43 Dose: 3 mls/sec Cefazolin Sodium/Dextrose 2 gm (/ Premix) 50 mls @ 100 mls/hr IV ONETIME ONE Stop: 03/05/17 00:38 Last Admin: 03/05/17 00:30 Dose: 100 mls/hr Metronidazole (Flagyl 500 Mg In Ns 100 Ml) Confirm Administered Dose 100 mls @ as directed .ROUTE .[facility] ONE Stop: 03/05/17 00:14 Sodium Chloride (Normal Saline) Confirm Administered Dose 20 mls @ as directed .ROUTE .[facility] ONE Stop: 03/05/17 00:23 Lactated Ringer's (Ringers, Lactated) Confirm Administered Dose 1,000 mls @ as directed .ROUTE .[facility] ONE Stop: 03/05/17 00:48 Sodium Chloride (Normal Saline) 1,000 mls @ 125 mls/hr IV ASDIRECTED [facility] Last Admin: 03/06/17 06:34 Dose: 125 mls/hr Piperacillin Sod/Tazobactam (Sod 3.375 gm/ Sodium Chloride) 50 mls @ 100 mls/ hr IV ONETIME ONE Stop: 03/05/17 02:59 Last Admin: 03/05/17 02:59 Dose: 100 mls/hr Doxycycline Hyclate 100 mg/ (Sodium Chloride) 100 mls @ 100 mls/hr IV Q12H [facility] Last Admin: 03/06/17 21:47 Dose: 100 mls/hr Diltiazem HCl 100 mg/ Sodium (Chloride) 100 mls @ 5 mls/hr IV TITRATE ZURDO; 5 MG /HR PRN Reason: Protocol Last Admin: 03/08/17 17:47 Dose: 5 mg/hr, 5 mls/hr Sodium Chloride (Normal Saline) 1,000 mls @ 50 mls/hr IV ASDIRECTED [facility] Last Admin: 03/09/17 03:54 Dose: 50 mls/hr Potassium Chloride 20 meq/Lidocaine HCl 2 ml/ Sodium Chloride 112 mls @ 55 mls/ hr IV Q2H [facility] Stop: 03/07/17 15:59 Last Admin: 03/07/17 14:40 Dose: 55 mls/hr Potassium Chloride 20 meq/Lidocaine HCl 2 ml/ Sodium Chloride 112 mls @ 56 mls/ hr IV Q2H [facility] Stop: 03/08/17 13:59 Last Admin: 03/08/17 12:54 Dose: 56 mls/hr Potassium Chloride 40 meq/ (Premix) 100 mls @ 25 mls/hr IV ONETIME ONE Stop: 03/08/17 23:35 Last Admin: 03/08/17 20:59 Dose: Not Given Potassium Chloride 20 meq/ (Premix) 100 mls @ 50 mls/hr IV Q2H [facility] Stop: 03/09/17 00:59 Last Admin: 03/08/17 23:39 Dose: 50 mls/hr Iopamidol (Isovue-300 (61%)) 100 ml IV . DIRECTED PRN PRN Reason: RADIOLOGY EXAM Stop: 03/04/17 21:27 Last Admin: 03/04/17 21:43 Dose: 100 ml Labetalol HCl (Normodyne) Confirm Administered Dose 20 mg .ROUTE .STK-MED ONE Stop: 03/05/17 01:58 Last Admin: 03/05/17 02:44 Dose: Not Given Labetalol HCl (Normodyne) 5 - 15 mg IVPUSH NOW ONE PRN Reason: Protocol Stop: 03/05/17 02:01 Last Admin: 03/05/17 02:04 Dose: 10 mg Lactulose (Chronulac) 10 gm PO ONETIME ONE Stop: 03/08/17 09:01 Last Admin: 03/08/17 09:49 Dose: 10 gm Lidocaine HCl (Xylocaine-Mpf 1%) Confirm Administered Dose 5 ml .ROUTE .STK-MED ONE Stop: 03/08/17 20:48 Last Admin: 03/08/17 20:58 Dose: 4 ml Melatonin (Melatonin) 6 mg PO BEDTIME ZURDO Metoprolol Tartrate (Lopressor) 2.5 mg IVPUSH Q6H [facility]UR[facility] Last Admin: 03/09/17 09:02 Dose: 2.5 mg Neostigmine Methylsulfate (Neostigmine) Confirm Administered Dose 5 mg .ROUTE .STK-MED ONE Stop: 03/05/17 00:17 Ondansetron HCl (Zofran) Confirm Administered Dose 4 mg .ROUTE .STK-MED ONE Stop: 03/05/17 00:17 Phenylephrine HCl (Kiko-Synephrine) Confirm Administered Dose 20 mg .ROUTE .STK- MED ONE Stop: 03/05/17 00:22 Propofol (Diprivan 20 Ml) Confirm Administered Dose 200 mg .ROUTE .STK-MED ONE Stop: 03/05/17 00:17 Rocuronium [place] (Zemuron) Confirm Administered Dose 50 mg .ROUTE .STK-MED ONE Stop: 03/05/17 00:17 Succinylcholine Chloride (Succinylcholine In Ns Pf) Confirm Administered Dose 200 mg .ROUTE .STK-MED ONE Stop: 03/05/17 00:17 - Exam General: moderate distress, other (Agitated) Lungs: Normal respiratory effort, Decreased breath sounds, Rales. No: Crackles , Rhonchi, Wheezing Cardiovascular: Regular Rate, No Murmurs, Irregular Rhythm. No: Bradycardia, Tachycardia Abdomen: bowel sounds present, soft, no distension, tenderness. No: rigidity, rebound, guarding Extremities: no edema Skin: warm, dry, intact - Problem List Review Problem List Initiated/Reviewed/Updated: Yes - My Orders Last 24 Hours: My Active Orders 03/09/17 09:30 Carvedilol [Coreg] 25 mg PO BID Diltiazem [Cardizem CD] 120 mg PO DAILY Divalproex Sodium 250 mg PO TIDMEALS Magnesium Oxide 400 mg PO BID 03/09/17 09:45 Haloperidol [Haldol] 1 mg PO Q2H PRN 03/09/17 09:49 Furosemide [Lasix] 20 mg IVPUSH NOW ONE 03/09/17 10:00 Aspirin [Halfprin] 81 mg PO DAILY Mometasone/Formoterol [Dulera 200-5 MCG] 0 puff IH BIDRT Pantoprazole [ProTONIX] 40 mg PO DAILY@0730 03/09/17 21:00 Melatonin 9 mg PO BEDTIME Simvastatin [Zocor] 20 mg PO BEDTIME 03/10/17 05:00 BASIC METABOLIC PANEL,BMP [CHEM] Timed MAGNESIUM [CHEM] Timed - Plan Plan:: ASSESSMENT AND PLAN Small bowel obstruction - status post surgical intervention the night of admission. Clinically stable since that time. 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 -Postop cares per surgical team Delirium with agitation-underlying dementia -Melatonin 9 mg by mouth each bedtime -Depakote 250 mg by mouth 3 times a day -Haldol 1 mg by mouth every 2 hours as needed for agitation Bilateral pneumonia - patchy bilateral interstitial infiltrates concerning for a mild pneumonia. Mild hypoxia but stable. Sputum culture growing Klebsiella. -Continue Pip/Tazo for now, Augmentin could be considered as an oral alternative when he is taking oral antibiotics -Supplemental oxygen as needed Paroxysmal atrial fibrillation -heart rate has been well-controlled. -Resume oral diltiazem and carvedilol for rate control Hypokalemia -IV potassium replacement -Recheck potassium later today and again in the a.m.
--- NOTE | 2017-03-09 10:27 | PN ---
DATE OF SERVICE: 03/06/2017 SUBJECTIVE: The patient is doing well. Pain is controlled. No nausea, vomiting, shortness of breath, or chest pain. He is taking minimal fluids. He is not confused. OBJECTIVE: VITAL SIGNS: Stable. Temperature 97.9, blood pressure 140/72, pulse 73, and respirations 18. CARDIOVASCULAR: Regular rhythm and rate. RESPIRATORY: Lungs clear to auscultation bilaterally. ABDOMEN: Bowel sounds are very minimal. ASSESSMENT: Status post repair of internal hernia. PLAN: We will continue IV fluids. Keep him n.p.o. at this time. We will work on diet once we see more GI activity. As far as his respiratory status, he remained stable at this time. Kana Mccann MD /[id number]
--- NOTE | 2017-03-09 10:54 | PN ---
DATE OF SERVICE: 03/07/2017 SUBJECTIVE: The patient continues to improve. His pain is well controlled. He has no nausea, vomiting, shortness breath, or chest pain. His ostomy output is very minimal. OBJECTIVE: VITAL SIGNS: Blood pressure 162/75, pulse 82, respirations 16, 96% on 2 L. CARDIOVASCULAR: Regular rhythm and rate. RESPIRATORY: Lungs, poor inspiratory effort bilaterally with some mild crackles. ASSESSMENT AND PLAN: Internal hernia repair as far as his continues to slowly improve. There is no GI activity yet, but this is nominal. As far as the pneumonia, the hospitalist continued to manage this. Keep him n.p.o. for now. Kana Mccann MD /[id number]
--- NOTE | 2017-03-09 11:24 | PN ---
DATE OF SERVICE: 03/09/2017 SUBJECTIVE: The patient as far as the surgical aspect continues to improve. Unfortunately, the patient has become confused, which is his typical course during his hospitalizations. OBJECTIVE: VITAL SIGNS: Blood pressure 161/82, pulse 112, respirations 17, 95% on 2 L. CARDIOVASCULAR: Irregular rhythm and rate. RESPIRATORY: Crackles but significantly improved. ABDOMEN: Nondistended. Incisions healing well. Ostomy output is good. ASSESSMENT: Status post internal hernia. PLAN: The patient will be transferred to the intensive care unit once we get his rate control. As far as the confusion, we will have the hospitalist service meet him. Overall, he is doing quite well. Kana Mccann MD /[id number]
--- NOTE | 2017-03-09 11:27 | PN ---
DATE OF SERVICE: 03/08/2017 SUBJECTIVE: The patient continues to improve. He has no GI output yet. OBJECTIVE: VITAL SIGNS: Stable. Blood pressure 156/76, irregular rhythm and rate of 69, respirations 14, 95% on room air. RESPIRATORY: Improved inspiratory effort, but still with mild crackles. ASSESSMENT: Status post internal hernia. PLAN: The patient will continue his blood pressure, atrial fibrillation, and other general medical conditions managed by the hospitalist service. As far as his ostomy output, we will advance his diet as tolerated. Kana Mccann MD /[id number]
--- NOTE | 2017-03-09 12:27 | OR ---
DATE OF PROCEDURE: 03/05/2017 PROCEDURE: Repair of internal hernia (61997). 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 COMPLICATIONS: None. NEW GRAD RN: None. ANESTHESIA: General/local. INDICATIONS: An 82-year-old male, who developed acute abdominal pain requiring emergent surgical intervention. The risks, benefits, alternatives, and limitations, including, but not limited to infection, bleeding, and cardiovascular and respiratory compromise were explained to the patient, and they wished to proceed. PROCEDURE IN DETAIL: The patient was placed in supine position. The abdomen was prepped and draped. The previous midline abdominal incision was made. This was opened up using Orestes clamps to elevate the abdomen and electrocautery to enter the abdomen. No evidence of enterotomy was noted during entry. The bowel was inspected, ran in a retrograde fashion. Internal hernia was noted to be associated with the previous colostomy. The defect at the bowel ran through was closed with #0 Vicryl suture in an interrupted fashion. The bowel was inspected, and there was no evidence of ischemia. The previous parastomal hernia repair was also inspected and this was felt to be good. No evidence of studding in the abdomen was noted. No other abnormalities were noted. The fascia was then closed with #0 Vicryl running sutures x2. The subcutaneous tissues were irrigated, closed with 3-0 Vicryl and subsequently with geo. The patient tolerated the procedure well. Kana Mccann MD /[id number]
[2017-03-09] MEDS ORDERED: Melatonin 3 MG Tab PO SCH (21:00)
[2017-03-09] MEDS: Simvastatin 20 MG Tab PO SCH (21:07)
[2017-03-09] MEDS: Melatonin 3 MG Tab PO SCH (21:07)
[2017-03-10] MEDS: Piperacillin/Tazobactam/Dext 3.375 GM in Premix Bag 1 BAG IV SCH ×2 (03:01→08:11)
[2017-03-10] MEDS ORDERED: Potassium Chloride 20 MEQ in Premix Bag 1 BAG IV SCH (05:30)
[2017-03-10] MEDS: Formoterol/Mometasone 200-5 MCG 8.8 GM Inhaler IH SCH ×2 (08:04→20:38)
[2017-03-10] MEDS: Divalproex Sodium Delayed-Release 250 MG Tab.CR PO SCH ×3 (08:05→17:02)
[2017-03-10] MEDS: Pantoprazole 40 MG Tab.CR PO SCH (08:05)
[2017-03-10] MEDS: Diltiazem 120 MG Cap.CD PO SCH (08:06)
[2017-03-10] MEDS: Aspirin 81 MG Tab.EC PO SCH (08:07)
[2017-03-10] MEDS: Carvedilol 25 MG Tab PO SCH ×2 (08:07→20:38)
[2017-03-10] MEDS: Enoxaparin 40 MG/0.4 ML Syringe SUBCUT SCH (08:08)
[2017-03-10] MEDS: Magnesium Oxide 400 MG Tab PO SCH ×2 (08:08→20:38)
[2017-03-10] MEDS ORDERED: Potassium Chloride 20 MEQ, Lidocaine 1% 2 ML in Sodium Chloride 0.9% 100 ML IV ONE (08:15)
--- NOTE | 2017-03-10 08:59 | CR ---
Chest 1V Frontal HISTORY: pneumonia COMPARISON: 03/09/2017 FINDINGS: Portable chest, 0412 hours. Infiltrates left lung base do not appear changed since yesterday's exam. Remainder of the chest is c lear. Cardiomediastinal silhouette is stable. Atherosclerotic aorta is redemonstrated. Old median st ernotomy changes are noted. No vascular redistribution or pleural fluid can be seen. Remainder the e xam is unchanged. IMPRESSION: No significant change in infiltrates left lung base since yesterday's exam.
[2017-03-10] MEDS ORDERED: Potassium Chloride 20 MEQ Tab.ER PO ONE ×2 (09:00→13:00)
--- NOTE | 2017-03-10 09:48 | PCM.PN ---
- General Info Date of Service: 03/10/17 Functional Status: Reports: pain controlled, tolerating diet, ambulating, urinating - Review of Systems General: Reports: Weakness. Denies: Fever, Chills Pulmonary: Reports: no symptoms Cardiovascular: Reports: No Symptoms Gastrointestinal: Reports: No symptoms Psychiatric: Reports: confusion. Denies: agitation Systems Review Comment:: This patient has shown further improvement over the past 24 hours, currently pleasantly confused with no significant agitation. He is been doing well with oral intake and passing regular stool into his ostomy bag. Vital signs have been stable and he has remained afebrile. - Patient Data Vitals - most recent: Last Vital Signs Temp 97.5 F 03/10/17 08:00 Pulse 65 03/10/17 08:07 Resp 28 H 03/10/17 08:00 BP 134/70 03/10/17 08:07 Pulse Ox 93 L 03/10/17 08:00 Weight - most recent: 120 lb 8 oz I&O - last 24 hours: Intake & Output 03/09/17 03/10/17 03/10/17 22:59 06:59 14:59 Intake Total 632 503 Output Total 825 325 Balance -193 178 Lab Results last 24 hrs: Laboratory Results - last 24 hr 03/10/17 Range/Units 04:20 Sodium 141 (140-148) mmol/L Potassium 2.8 L* (3.6-5.2) mmol/L Chloride 101 (100-108) mmol/L Carbon Dioxide 35 H (21-32) mmol/L Anion Gap 7.8 (5.0-14.0) mmol/L BUN 6 L (7-18) mg/dL Creatinine 0.7 L (0.8-1.3) mg/dL Est Cr Clr Drug Dosing 64.16 mL/min Estimated GFR (MDRD) > 60 (>60) Glucose 117 H (74-106) mg/dL Calcium 7.1 L (8.5-10.1) mg/dL Magnesium 1.8 (1.8-2.4) mg/dL Med Orders - Current: Current Medications Amoxicillin/Clavulanate Potassium (Augmentin 875 Mg/125 Mg) 1 tab PO Q12HR [facility] Aspirin (Halfprin) 81 mg PO DAILY [facility] Last Admin: 03/10/17 08:07 Dose: 81 mg Bisacodyl (Dulcolax) 5 mg PO DAILY PRN PRN Reason: Constipation Carvedilol (Coreg) 25 mg PO BID [facility] Last Admin: 03/10/17 08:07 Dose: 25 mg Diltiazem HCl (Cardizem Cd) 120 mg PO DAILY [facility] Last Admin: 03/10/17 08:06 Dose: 120 mg Divalproex Sodium (Divalproex Sodium) 250 mg PO TIDMEALS [facility] Last Admin: 03/10/17 08:05 Dose: 250 mg Docusate Sodium (Colace) 100 mg PO BID PRN PRN Reason: Constipation Last Admin: 03/07/17 10:16 Dose: 100 mg Enoxaparin Sodium (Lovenox) 40 mg SUBCUT DAILY [facility] Last Admin: 03/10/17 08:08 Dose: 40 mg Haloperidol (Haldol) 1 mg PO Q2H PRN PRN Reason: Agitation Last Admin: 03/09/17 10:12 Dose: 1 mg Potassium Chloride 20 meq/Lidocaine HCl 2 ml/ Sodium Chloride 112 mls @ 56 mls/ hr IV ONETIME ONE Stop: 03/10/17 10:14 Last Admin: 03/10/17 08:17 Dose: 56 mls/hr Magnesium Oxide (Magnesium Oxide) 400 mg PO BID [facility] Last Admin: 03/10/17 08:08 Dose: 400 mg Melatonin (Melatonin) 9 mg PO BEDTIME [facility] Last Admin: 03/09/17 21:07 Dose: 9 mg Mometasone Furoate/Formoterol Fumar (Dulera 200-5 Mcg) 0 puff IH BIDRT [facility] Last Admin: 03/10/17 08:04 Dose: 2 puff Ondansetron HCl (Zofran) 4 mg IVPUSH Q8H PRN PRN Reason: Nausea/Vomiting Pantoprazole Sodium (Protonix) 40 mg PO DAILY@0730 [facility] Last Admin: 03/10/17 08:05 Dose: 40 mg Promethazine HCl (Phenergan) 12.5 mg IM Q6H PRN PRN Reason: Nausea/Vomiting Senna/Docusate Sodium (Senna Plus) 1 tab PO BID PRN PRN Reason: Constipation Simvastatin (Zocor) 20 mg PO BEDTIME [facility] Last Admin: 03/09/17 21:07 Dose: 20 mg Sodium Chloride (Saline Flush) 10 ml FLUSH ONETIME PRN PRN Reason: PER RADIOLOGY PROTOCOL Last Admin: 03/04/17 21:43 Dose: 10 ml Zolpidem Tartrate (Ambien) 5 mg PO BEDTIME PRN PRN Reason: Insomnia Last Admin: 03/09/17 02:20 Dose: 5 mg Discontinued Medications Benzocaine/Menthol (Cepacol Sore Throat) 1 lozenge MUCMEM ASDIRECTED PRN PRN Reason: Sore Throat Stop: 03/25/17 01:55 Bupivacaine HCl/Epinephrine Bitart (Marcaine 0.5%/Epinephrine 1:200,000) Confirm Administered Dose 50 ml .ROUTE .STK-MED ONE Stop: 03/05/17 00:03 Last Admin: 03/05/17 01:15 Dose: 40 ml Cefazolin Sodium (Ancef) Confirm Administered Dose 2 gm .ROUTE .STK-MED ONE Stop: 03/05/17 00:30 Dexamethasone (Dexamethasone) Confirm Administered Dose 4 mg .ROUTE .STK-MED ONE Stop: 03/05/17 00:17 Diphenhydramine HCl (Benadryl) 50 mg IVPUSH Q4H PRN PRN Reason: Itching Last Admin: 03/09/17 00:49 Dose: 50 mg Fentanyl (Sublimaze) Confirm Administered Dose 250 mcg .ROUTE .STK-MED ONE Stop: 03/05/17 00:17 Fentanyl Citrate (Fentanyl In Ns 20 Mcg/Ml 30 Ml [place]) 600 mcg IV ASDIRECTED [facility] PRN Reason: Protocol Last Admin: 03/05/17 04:14 Dose: 600 mcg Furosemide (Lasix) 40 mg IVPUSH NOW ONE Stop: 03/06/17 09:01 Last Admin: 03/06/17 08:57 Dose: 40 mg Furosemide (Lasix) 20 mg PO DAILY [facility] Last Admin: 03/09/17 09:50 Dose: 20 mg Furosemide (Lasix) 20 mg IVPUSH NOW ONE Stop: 03/09/17 09:50 Last Admin: 03/09/17 10:13 Dose: Not Given Glycopyrrolate () Confirm Administered Dose 1 mg .ROUTE .STK-MED ONE Stop: 03/05/17 00:17 Haloperidol Lactate (Haldol) 2 mg IVPUSH ONETIME ONE Stop: 03/09/17 03:38 Last Admin: 03/09/17 03:45 Dose: 2 mg Haloperidol Lactate (Haldol) Confirm Administered Dose 5 mg .ROUTE .STK-MED ONE Stop: 03/09/17 03:42 Last Admin: 03/09/17 03:45 Dose: Not Given Haloperidol Lactate (Haldol) 2 mg IVPUSH ONETIME ONE Stop: 03/09/17 04:46 Last Admin: 03/09/17 04:42 Dose: 2 mg Sodium Chloride (Normal Saline) 1,000 mls @ 125 mls/hr IV ASDIRECTED [facility] Last Admin: 03/05/17 03:58 Dose: 125 mls/hr Sodium Chloride (Normal Saline) 80 mls @ 3 mls/sec IV ONETIME ONE Stop: 03/04/17 21:27 Last Admin: 03/04/17 21:43 Dose: 3 mls/sec Cefazolin Sodium/Dextrose 2 gm (/ Premix) 50 mls @ 100 mls/hr IV ONETIME ONE Stop: 03/05/17 00:38 Last Admin: 03/05/17 00:30 Dose: 100 mls/hr Metronidazole (Flagyl 500 Mg In Ns 100 Ml) Confirm Administered Dose 100 mls @ as directed .ROUTE .ST-MED ONE Stop: 03/05/17 00:14 Sodium Chloride (Normal Saline) Confirm Administered Dose 20 mls @ as directed .ROUTE .[facility]-MED ONE Stop: 03/05/17 00:23 Lactated Ringer's (Ringers, Lactated) Confirm Administered Dose 1,000 mls @ as directed .ROUTE .ST-MED ONE Stop: 03/05/17 00:48 Sodium Chloride (Normal Saline) 1,000 mls @ 125 mls/hr IV ASDIRECTED [facility] Last Admin: 03/06/17 06:34 Dose: 125 mls/hr Piperacillin Sod/Tazobactam (Sod 3.375 gm/ Sodium Chloride) 50 mls @ 100 mls/ hr IV ONETIME ONE Stop: 03/05/17 02:59 Last Admin: 03/05/17 02:59 Dose: 100 mls/hr Piperacillin/Tazobactam/ (Dextrose 3.375 gm/ Premix) 50 mls @ 100 mls/hr IV Q6H [facility] Last Admin: 03/10/17 08:11 Dose: 100 mls/hr Doxycycline Hyclate 100 mg/ (Sodium Chloride) 100 mls @ 100 mls/hr IV Q12H [facility] Last Admin: 03/06/17 21:47 Dose: 100 mls/hr Diltiazem HCl 100 mg/ Sodium (Chloride) 100 mls @ 5 mls/hr IV TITRATE [facility]; 5 MG /HR PRN Reason: Protocol Last Admin: 03/08/17 17:47 Dose: 5 mg/hr, 5 mls/hr Sodium Chloride (Normal Saline) 1,000 mls @ 50 mls/hr IV ASDIRECTED [facility] Last Admin: 03/09/17 03:54 Dose: 50 mls/hr Potassium Chloride 20 meq/Lidocaine HCl 2 ml/ Sodium Chloride 112 mls @ 55 mls/ hr IV Q2H [facility] Stop: 03/07/17 15:59 Last Admin: 03/07/17 14:40 Dose: 55 mls/hr Potassium Chloride 20 meq/Lidocaine HCl 2 ml/ Sodium Chloride 112 mls @ 56 mls/ hr IV Q2H [facility] Stop: 03/08/17 13:59 Last Admin: 03/08/17 12:54 Dose: 56 mls/hr Potassium Chloride 40 meq/ (Premix) 100 mls @ 25 mls/hr IV ONETIME ONE Stop: 03/08/17 23:35 Last Admin: 03/08/17 20:59 Dose: Not Given Potassium Chloride 20 meq/ (Premix) 100 mls @ 50 mls/hr IV Q2H [facility] Stop: 03/09/17 00:59 Last Admin: 03/08/17 23:39 Dose: 50 mls/hr Potassium Chloride 20 meq/ (Premix) 100 mls @ 50 mls/hr IV Q2H [facility] Stop: 03/10/17 07:29 Last Admin: 03/10/17 05:34 Dose: 50 mls/hr Ibuprofen (Motrin) 600 mg PO Q6H PRN PRN Reason: Pain Last Admin: 03/08/17 11:26 Dose: 600 mg Iopamidol (Isovue-300 (61%)) 100 ml IV . DIRECTED PRN PRN Reason: RADIOLOGY EXAM Stop: 03/04/17 21:27 Last Admin: 03/04/17 21:43 Dose: 100 ml Labetalol HCl (Normodyne) Confirm Administered Dose 20 mg .ROUTE .STK-MED ONE Stop: 03/05/17 01:58 Last Admin: 03/05/17 02:44 Dose: Not Given Labetalol HCl (Normodyne) 5 - 15 mg IVPUSH NOW ONE PRN Reason: Protocol Stop: 03/05/17 02:01 Last Admin: 03/05/17 02:04 Dose: 10 mg Lactulose (Chronulac) 10 gm PO ONETIME ONE Stop: 03/08/17 09:01 Last Admin: 03/08/17 09:49 Dose: 10 gm Lidocaine HCl (Xylocaine-Mpf 1%) Confirm Administered Dose 5 ml .ROUTE .STK-MED ONE Stop: 03/08/17 20:48 Last Admin: 03/08/17 20:58 Dose: 4 ml Lidocaine HCl (Xylocaine-Mpf 1%) 5 ml INJECT ONETIME ONE Stop: 03/10/17 05:16 Last Admin: 03/10/17 05:34 Dose: 5 ml Melatonin (Melatonin) 6 mg PO BEDTIME [facility] Metoprolol Tartrate (Lopressor) 2.5 mg IVPUSH Q6H [facility] Last Admin: 03/09/17 09:02 Dose: 2.5 mg Naloxone HCl (Narcan) 0.1 mg IV ASDIRECTED PRN PRN Reason: DECR RESPIRATORY RATE Neostigmine Methylsulfate (Neostigmine) Confirm Administered Dose 5 mg .ROUTE .STK-MED ONE Stop: 03/05/17 00:17 Ondansetron HCl (Zofran) Confirm Administered Dose 4 mg .ROUTE .STK-MED ONE Stop: 03/05/17 00:17 Phenylephrine HCl (Kiko-Synephrine) Confirm Administered Dose 20 mg .ROUTE .STK- MED ONE Stop: 03/05/17 00:22 Potassium Chloride (Klor-Con M20) 40 meq PO ONETIME ONE Stop: 03/10/17 09:01 Last Admin: 03/10/17 09:34 Dose: 40 meq Propofol (Diprivan 20 Ml) Confirm Administered Dose 200 mg .ROUTE .STK-MED ONE Stop: 03/05/17 00:17 Rocuronium [place] (Zemuron) Confirm Administered Dose 50 mg .ROUTE .STK-MED ONE Stop: 03/05/17 00:17 Succinylcholine Chloride (Succinylcholine In Ns Pf) Confirm Administered Dose 200 mg .ROUTE .STK-MED ONE Stop: 03/05/17 00:17 - Exam Quality Assessment: supplemental oxygen, DVT prophylaxis General: alert, cooperative, no acute distress Lungs: Clear to auscultation, Normal respiratory effort Cardiovascular: Regular Rate, No Murmurs, Irregular Rhythm Abdomen: bowel sounds present, soft, no distension, tenderness Extremities: no edema Skin: warm, dry, intact - Problem List Review Problem List Initiated/Reviewed/Updated: Yes - My Orders Last 24 Hours: My Active Orders 03/09/17 09:30 Carvedilol [Coreg] 25 mg PO BID Diltiazem [Cardizem CD] 120 mg PO DAILY Divalproex Sodium 250 mg PO TIDMEALS Magnesium Oxide 400 mg PO BID 03/09/17 09:45 Haloperidol [Haldol] 1 mg PO Q2H PRN 03/09/17 10:00 Aspirin [Halfprin] 81 mg PO DAILY Mometasone/Formoterol [Dulera 200-5 MCG] 0 puff IH BIDRT Pantoprazole [ProTONIX] 40 mg PO DAILY@0730 03/09/17 21:00 Melatonin 9 mg PO BEDTIME Simvastatin [Zocor] 20 mg PO BEDTIME 03/10/17 08:15 Potassium Chloride 20 meq Lidocaine 1% [Xylocaine 1%] 2 ml Sodium Chloride 0.9 % [Normal Saline] 100 ml IV ONETIME 03/10/17 09:44 Vital Signs [RC] Q4H 03/10/17 09:45 Amoxicillin/Clavulanate K [Augmentin 875 MG/125 MG] 1 tab PO Q12HR 03/11/17 05:00 BASIC METABOLIC PANEL,BMP [CHEM] Timed - Plan Plan:: ASSESSMENT AND PLAN Small bowel obstruction - status post surgical intervention the night of admission. Clinically stable since that time. 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 -Postop cares per surgical team Delirium with agitation-pleasantly confused at the present time, significant delirium and agitation have resolved -Melatonin 9 mg by mouth each bedtime -Depakote 250 mg by mouth 3 times a day -Haldol 1 mg by mouth every 2 hours as needed for agitation Bilateral pneumonia - patchy bilateral interstitial infiltrates concerning for a mild pneumonia. Mild hypoxia but stable. Sputum culture growing Klebsiella. -Transitioned to oral antibiotic therapy with Augmentin -Supplemental oxygen as needed Paroxysmal atrial fibrillation -heart rate has been well-controlled. -Resume oral diltiazem and carvedilol for rate control Hypokalemia-significant hypokalemia -IV and oral potassium replacement -Recheck potassium in the a.m.
[2017-03-10] MEDS: Amoxicillin/Clavulanate K 875-125 MG Tab PO SCH ×2 (10:36→21:02)
--- NOTE | 2017-03-10 11:54 | PN ---
DATE OF SERVICE: 03/10/2017 SUBJECTIVE: The patient continues to improve significantly today. Confusion is decreased. He is having ostomy output. His pain is well controlled. He is on p.o. cardiac medications. OBJECTIVE: VITAL SIGNS: Stable. CARDIOVASCULAR: Irregular rhythm and rate. RESPIRATORY: Increased air exchange, decreased crackles. ABDOMEN: Incision healing well. Ostomy output is excellent. ASSESSMENT: Status post repair of internal hernia. PLAN: The patient will be moving towards discharge. We discussed diet, activity, followup, signs and symptoms, complications, and it is unclear we will logistically be able to arrange discharge today, but anticipate discharge in the next 24 hours. Kana Mccann MD /[id number]
[2017-03-10] MEDS: Simvastatin 20 MG Tab PO SCH (20:38)
[2017-03-10] MEDS: Melatonin 3 MG Tab PO SCH (20:39)
[2017-03-11] MEDS: Formoterol/Mometasone 200-5 MCG 8.8 GM Inhaler IH SCH (07:21)
[2017-03-11] MEDS: Pantoprazole 40 MG Tab.CR PO SCH (08:25)
[2017-03-11] MEDS: Divalproex Sodium Delayed-Release 250 MG Tab.CR PO SCH (08:40)
--- NOTE | 2017-03-11 08:41 | PN ---
DATE OF SERVICE: 03/11/2017 SUBJECTIVE: The patient continues to improve overnight. The pain is well controlled. No nausea, vomiting, shortness of breath, or chest pain. Ostomy output is good. OBJECTIVE: VITAL SIGNS: Temperature 97.9, blood pressure 126/70, pulse 66, respirations 14, and 99% on room air. CARDIOVASCULAR: Irregular rhythm and rate. RESPIRATORY: Lungs clear to auscultation bilaterally. ABDOMEN: Incision healing well. Ostomy output is good. ASSESSMENT: Repair of internal hernia. PLAN: The patient will be discharged hopefully today. He is tolerating diet. No evidence of complications. We will discuss this further with the hospitalist service. Kana Mccann MD /[id number]
--- NOTE | 2017-03-11 09:08 | PCM.DCSUM1 ---
Discharge Summary - Hospital Course Brief History: This patient is an 82-year-old gentleman who was admitted through the emergency department with nausea and vomiting, abdominal pain, secondary to small bowel obstruction. - Discharge Data Discharge Date: 03/11/17 Discharge Disposition: Home, W Home Health Agency 06 Condition: Stable - Discharge Diagnosis/Problem(s) (1) Dementia in Alzheimer's disease with delirium SNOMED Code(s): 101971575920925 ICD Code: G30.9 - ALZHEIMER'S DISEASE, UNSPECIFIED; F02.80 - DEMENTIA IN OTH DISEASES CLASSD ELSWHR W/O BEHAVRL DISTURB; F05 - DELIRIUM DUE TO KNOWN PHYSIOLOGICAL CONDITION Status: Acute Current Visit: Yes (2) Status post exploratory laparotomy SNOMED Code(s): 977416112, 28156100, 230560543 ICD Code: Z98.890 - OTHER SPECIFIED POSTPROCEDURAL STATES Status: Acute Current Visit: Yes (3) Bilateral pneumonia SNOMED Code(s): 101390714 ICD Code: J18.9 - PNEUMONIA, UNSPECIFIED ORGANISM Status: Acute Current Visit: Yes Qualifiers: Pneumonia type: due to unspecified organism Lung location: unspecified part of lung Qualified Code(s): J18.9 - Pneumonia, unspecified organism (4) Small bowel obstruction SNOMED Code(s): 073950933 ICD Code: K56.69 - OTHER INTESTINAL OBSTRUCTION Status: Acute Current Visit: Yes (5) COPD (chronic obstructive pulmonary disease) SNOMED Code(s): 98119090 ICD Code: J44.9 - CHRONIC OBSTRUCTIVE PULMONARY DISEASE, UNSPECIFIED Status : Chronic Current Visit: No Qualifiers: COPD type: emphysema Emphysema type: unspecified Qualified Code(s): J43.9 - Emphysema, unspecified - Patient Summary/Data Consults: Consultations 03/05/17 02:29 Respiratory Care Assess and Treatment [CONS] Routine Comment: Physician Instructions: Hospital Course: This patient is an 82-year-old gentleman with a previous history of rectal carcinoma. He developed symptoms of abdominal pain associated with nausea vomiting and presented to the emergency department for further evaluation. CT scan was obtained and showed evidence of bilateral pneumonia as well as obvious small bowel obstruction. He was seen and evaluated by Dr. Mccann for surgical opinion and was taken to the operating room for an exploratory laparotomy. He was found to have evidence of bowel obstruction which was released. He has a previous history of significant respiratory compromise as well as atrial fibrillation with rapid ventricular response he was admitted to the intensive care unit following surgery for ongoing management. Because of evidence of bilateral pneumonia he was started on broad-spectrum IV antibiotic therapy, sputum and blood cultures were obtained. Cultures later grow out Klebsiella and he was left on IV Zosyn for management of the pneumonia. He slowly improved from a surgical standpoint and by the time of discharge was passing stool into his ostomy and tolerating a soft diet. Hospital course was otherwise complicated by his ileus and need for IV medication for management of his heart rate with the associated atrial fibrillation. After he was able to take oral medications he was switched back to his home regimen of Cardizem and Coreg. He did develop delirium related to his underlying dementia and was treated with melatonin, Depakote, and Haldol. Respiratory status remained stable throughout his hospital stay. Activity will be as tolerated and he will remain on a soft diet. Followup appointment will be scheduled with Dr. Mccann next week as well as a followup appointment with Dr. Bond within one week. Home care will be arranged including home physical therapy and occupational therapy. - Patient Instructions Diet: Usual Diet as Tolerated Activity: No Lifting Over 10 Pounds Showering/Bathing: May Shower Notify Provider of: Fever, Increased Pain, Swelling and Redness, Drainage, Nausea and/or Vomiting Other/Special Instructions: Schedule followup appointment with Dr. Mccann next week. Schedule followup appointment with Dr. Bond within one week. Arrange for home care with home physical therapy and occupational therapy after discharge. - Discharge Plan Prescriptions/Med Rec: Amoxicillin/Clavulanate K [Augmentin 875-125 MG] 1 tab PO Q12H #8 tablet Home Medications: Home Meds Fluticasone/Salmeterol [Advair 250-50] 1 puff INH BID 11/24/13 [History] Simvastatin 20 mg PO DAILY 11/24/13 [History] Albuterol [Ventolin HFA] 2 puff INH Q4H PRN 10/08/14 [History] Aspirin [Ecotrin] 81 mg PO DAILY 10/08/14 [History] Carvedilol 25 mg PO BID 10/21/16 [History] Diltiazem HCl [Diltiazem 24Hr Cd] 120 mg PO DAILY #30 cap.er.24h 10/31/16 [Rx] Sennosides/Docusate Sodium [Senna-S] 1 each PO BID #60 tablet 10/31/16 [Rx] Furosemide [Lasix] 20 mg PO DAILY #30 tablet 01/17/17 [Rx] Magnesium Oxide 400 mg PO BID #60 tablet 01/17/17 [Rx] Melatonin 6 mg PO BEDTIME #60 tablet 02/11/17 [Rx] Pantoprazole Sodium [Protonix] 40 mg PO DAILY #30 tablet. 02/11/17 [Rx] Amoxicillin/Clavulanate K [Augmentin 875-125 MG] 1 tab PO Q12H #8 tablet [Rx] Referrals: Jarad Bond MD [Primary Care Provider] - (heather Mccann 7-14 d) - Patient Data Vitals - Most Recent: Last Vital Signs Temp 97.9 F 03/11/17 08:00 Pulse 66 03/11/17 08:00 Resp 20 03/11/17 08:00 BP 128/76 03/11/17 08:00 Pulse Ox 97 03/11/17 08:00 Weight - Most Recent: 122 lb I&O - Last 24 hours: Intake & Output 03/10/17 03/11/17 03/11/17 22:59 06:59 14:59 Intake Total 690 240 Output Total 500 Balance 190 240 Lab Results - Last 24 hrs: Laboratory Results - last 24 hr 03/10/17 03/11/17 Range/Units 17:00 05:00 Sodium 140 (140-148) mmol/L Potassium 4.2 4.3 (3.6-5.2) mmol/L Chloride 104 (100-108) mmol/L Carbon Dioxide 36 H (21-32) mmol/L Anion Gap 4.3 L (5.0-14.0) mmol/L BUN 10 D (7-18) mg/dL Creatinine 0.7 L (0.8-1.3) mg/dL Est Cr Clr Drug Dosing 60.73 mL/min Estimated GFR (MDRD) > 60 (>60) Glucose 109 H (74-106) mg/dL Calcium 7.5 L (8.5-10.1) mg/dL Med Orders - Current: Current Medications Amoxicillin/Clavulanate Potassium (Augmentin 875 Mg/125 Mg) 1 tab PO Q12H [facility] Last Admin: 03/10/17 21:02 Dose: 1 tab Aspirin (Halfprin) 81 mg PO DAILY [facility] Last Admin: 03/10/17 08:07 Dose: 81 mg Bisacodyl (Dulcolax) 5 mg PO DAILY PRN PRN Reason: Constipation Carvedilol (Coreg) 25 mg PO BID [facility] Last Admin: 03/10/17 20:38 Dose: 25 mg Diltiazem HCl (Cardizem Cd) 120 mg PO DAILY [facility] Last Admin: 03/10/17 08:06 Dose: 120 mg Divalproex Sodium (Divalproex Sodium) 250 mg PO TIDMEALS [facility] Last Admin: 03/11/17 08:40 Dose: 250 mg Docusate Sodium (Colace) 100 mg PO BID PRN PRN Reason: Constipation Last Admin: 03/07/17 10:16 Dose: 100 mg Enoxaparin Sodium (Lovenox) 40 mg SUBCUT DAILY [facility] Last Admin: 03/10/17 08:08 Dose: 40 mg Haloperidol (Haldol) 1 mg PO Q2H PRN PRN Reason: Agitation Last Admin: 03/09/17 10:12 Dose: 1 mg Magnesium Oxide (Magnesium Oxide) 400 mg PO BID [facility] Last Admin: 03/10/17 20:38 Dose: 400 mg Melatonin (Melatonin) 9 mg PO BEDTIME [facility] Last Admin: 03/10/17 20:39 Dose: 9 mg Mometasone Furoate/Formoterol Fumar (Dulera 200-5 Mcg) 0 puff IH BIDRT [facility] Last Admin: 03/11/17 07:21 Dose: 2 puff Ondansetron HCl (Zofran) 4 mg IVPUSH Q8H PRN PRN Reason: Nausea/Vomiting Pantoprazole Sodium (Protonix) 40 mg PO DAILY@0730 [facility] Last Admin: 03/11/17 08:25 Dose: 40 mg Promethazine HCl (Phenergan) 12.5 mg IM Q6H PRN PRN Reason: Nausea/Vomiting Senna/Docusate Sodium (Senna Plus) 1 tab PO BID PRN PRN Reason: Constipation Simvastatin (Zocor) 20 mg PO BEDTIME [facility] Last Admin: 03/10/17 20:38 Dose: 20 mg Sodium Chloride (Saline Flush) 10 ml FLUSH ONETIME PRN PRN Reason: PER RADIOLOGY PROTOCOL Last Admin: 03/04/17 21:43 Dose: 10 ml Zolpidem Tartrate (Ambien) 5 mg PO BEDTIME PRN PRN Reason: Insomnia Last Admin: 03/09/17 02:20 Dose: 5 mg Discontinued Medications Benzocaine/Menthol (Cepacol Sore Throat) 1 lozenge MUCMEM ASDIRECTED PRN PRN Reason: Sore Throat Stop: 03/25/17 01:55 Bupivacaine HCl/Epinephrine Bitart (Marcaine 0.5%/Epinephrine 1:200,000) Confirm Administered Dose 50 ml .ROUTE .STK-MED ONE Stop: 03/05/17 00:03 Last Admin: 03/05/17 01:15 Dose: 40 ml Cefazolin Sodium (Ancef) Confirm Administered Dose 2 gm .ROUTE .STK-MED ONE Stop: 03/05/17 00:30 Dexamethasone (Dexamethasone) Confirm Administered Dose 4 mg .ROUTE .STK-MED ONE Stop: 03/05/17 00:17 Diphenhydramine HCl (Benadryl) 50 mg IVPUSH Q4H PRN PRN Reason: Itching Last Admin: 03/09/17 00:49 Dose: 50 mg Fentanyl (Sublimaze) Confirm Administered Dose 250 mcg .ROUTE .STK-MED ONE Stop: 03/05/17 00:17 Fentanyl Citrate (Fentanyl In Ns 20 Mcg/Ml 30 Ml Senior Sales [employer]) 600 mcg IV ASDIRECTED [facility] PRN Reason: Protocol Last Admin: 03/05/17 04:14 Dose: 600 mcg Furosemide (Lasix) 40 mg IVPUSH NOW ONE Stop: 03/06/17 09:01 Last Admin: 03/06/17 08:57 Dose: 40 mg Furosemide (Lasix) 20 mg PO DAILY [facility] Last Admin: 03/09/17 09:50 Dose: 20 mg Furosemide (Lasix) 20 mg IVPUSH NOW ONE Stop: 03/09/17 09:50 Last Admin: 03/09/17 10:13 Dose: Not Given Glycopyrrolate () Confirm Administered Dose 1 mg .ROUTE .STK-MED ONE Stop: 03/05/17 00:17 Haloperidol Lactate (Haldol) 2 mg IVPUSH ONETIME ONE Stop: 03/09/17 03:38 Last Admin: 03/09/17 03:45 Dose: 2 mg Haloperidol Lactate (Haldol) Confirm Administered Dose 5 mg .ROUTE .ST-MED ONE Stop: 03/09/17 03:42 Last Admin: 03/09/17 03:45 Dose: Not Given Haloperidol Lactate (Haldol) 2 mg IVPUSH ONETIME ONE Stop: 03/09/17 04:46 Last Admin: 03/09/17 04:42 Dose: 2 mg Sodium Chloride (Normal Saline) 1,000 mls @ 125 mls/hr IV ASDIRECTED [facility] Last Admin: 03/05/17 03:58 Dose: 125 mls/hr Sodium Chloride (Normal Saline) 80 mls @ 3 mls/sec IV ONETIME ONE Stop: 03/04/17 21:27 Last Admin: 03/04/17 21:43 Dose: 3 mls/sec Cefazolin Sodium/Dextrose 2 gm (/ Premix) 50 mls @ 100 mls/hr IV ONETIME ONE Stop: 03/05/17 00:38 Last Admin: 03/05/17 00:30 Dose: 100 mls/hr Metronidazole (Flagyl 500 Mg In Ns 100 Ml) Confirm Administered Dose 100 mls @ as directed .ROUTE .[facility] ONE Stop: 03/05/17 00:14 Sodium Chloride (Normal Saline) Confirm Administered Dose 20 mls @ as directed .ROUTE .[facility] ONE Stop: 03/05/17 00:23 Lactated Ringer's (Ringers, Lactated) Confirm Administered Dose 1,000 mls @ as directed .ROUTE .[facility] ONE Stop: 03/05/17 00:48 Sodium Chloride (Normal Saline) 1,000 mls @ 125 mls/hr IV ASDIRECTED [facility] Last Admin: 03/06/17 06:34 Dose: 125 mls/hr Piperacillin Sod/Tazobactam (Sod 3.375 gm/ Sodium Chloride) 50 mls @ 100 mls/ hr IV ONETIME ONE Stop: 03/05/17 02:59 Last Admin: 03/05/17 02:59 Dose: 100 mls/hr Piperacillin/Tazobactam/ (Dextrose 3.375 gm/ Premix) 50 mls @ 100 mls/hr IV Q6H [facility] Last Admin: 03/10/17 08:11 Dose: 100 mls/hr Doxycycline Hyclate 100 mg/ (Sodium Chloride) 100 mls @ 100 mls/hr IV Q12H [facility] Last Admin: 03/06/17 21:47 Dose: 100 mls/hr Diltiazem HCl 100 mg/ Sodium (Chloride) 100 mls @ 5 mls/hr IV TITRATE [facility]; 5 MG /HR PRN Reason: Protocol Last Admin: 03/08/17 17:47 Dose: 5 mg/hr, 5 mls/hr Sodium Chloride (Normal Saline) 1,000 mls @ 50 mls/hr IV ASDIRECTED [facility] Last Admin: 03/09/17 03:54 Dose: 50 mls/hr Potassium Chloride 20 meq/Lidocaine HCl 2 ml/ Sodium Chloride 112 mls @ 55 mls/ hr IV Q2H [facility] Stop: 03/07/17 15:59 Last Admin: 03/07/17 14:40 Dose: 55 mls/hr Potassium Chloride 20 meq/Lidocaine HCl 2 ml/ Sodium Chloride 112 mls @ 56 mls/ hr IV Q2H [facility] Stop: 03/08/17 13:59 Last Admin: 03/08/17 12:54 Dose: 56 mls/hr Potassium Chloride 40 meq/ (Premix) 100 mls @ 25 mls/hr IV ONETIME ONE Stop: 03/08/17 23:35 Last Admin: 03/08/17 20:59 Dose: Not Given Potassium Chloride 20 meq/ (Premix) 100 mls @ 50 mls/hr IV Q2H [facility] Stop: 03/09/17 00:59 Last Admin: 03/08/17 23:39 Dose: 50 mls/hr Potassium Chloride 20 meq/ (Premix) 100 mls @ 50 mls/hr IV Q2H [facility] Stop: 03/10/17 07:29 Last Admin: 03/10/17 05:34 Dose: 50 mls/hr Potassium Chloride 20 meq/Lidocaine HCl 2 ml/ Sodium Chloride 112 mls @ 56 mls/ hr IV ONETIME ONE Stop: 03/10/17 10:14 Last Admin: 03/10/17 08:17 Dose: 56 mls/hr Ibuprofen (Motrin) 600 mg PO Q6H PRN PRN Reason: Pain Last Admin: 03/08/17 11:26 Dose: 600 mg Iopamidol (Isovue-300 (61%)) 100 ml IV . DIRECTED PRN PRN Reason: RADIOLOGY EXAM Stop: 03/04/17 21:27 Last Admin: 03/04/17 21:43 Dose: 100 ml Labetalol HCl (Normodyne) Confirm Administered Dose 20 mg .ROUTE .STK-MED ONE Stop: 03/05/17 01:58 Last Admin: 03/05/17 02:44 Dose: Not Given Labetalol HCl (Normodyne) 5 - 15 mg IVPUSH NOW ONE PRN Reason: Protocol Stop: 03/05/17 02:01 Last Admin: 03/05/17 02:04 Dose: 10 mg Lactulose (Chronulac) 10 gm PO ONETIME ONE Stop: 03/08/17 09:01 Last Admin: 03/08/17 09:49 Dose: 10 gm Lidocaine HCl (Xylocaine-Mpf 1%) Confirm Administered Dose 5 ml .ROUTE .STK-MED ONE Stop: 03/08/17 20:48 Last Admin: 03/08/17 20:58 Dose: 4 ml Lidocaine HCl (Xylocaine-Mpf 1%) 5 ml INJECT ONETIME ONE Stop: 03/10/17 05:16 Last Admin: 03/10/17 05:34 Dose: 5 ml Melatonin (Melatonin) 6 mg PO BEDTIME [facility] Metoprolol Tartrate (Lopressor) 2.5 mg IVPUSH Q6H [facility] Last Admin: 03/09/17 09:02 Dose: 2.5 mg Naloxone HCl (Narcan) 0.1 mg IV ASDIRECTED PRN PRN Reason: DECR RESPIRATORY RATE Neostigmine Methylsulfate (Neostigmine) Confirm Administered Dose 5 mg .ROUTE .STK-MED ONE Stop: 03/05/17 00:17 Ondansetron HCl (Zofran) Confirm Administered Dose 4 mg .ROUTE .STK-MED ONE Stop: 03/05/17 00:17 Phenylephrine HCl (Kiko-Synephrine) Confirm Administered Dose 20 mg .ROUTE .STK- MED ONE Stop: 03/05/17 00:22 Potassium Chloride (Klor-Con M20) 40 meq PO ONETIME ONE Stop: 03/10/17 09:01 Last Admin: 03/10/17 09:34 Dose: 40 meq Potassium Chloride (Klor-Con M20) 40 meq PO ONETIME ONE Stop: 03/10/17 13:01 Last Admin: 03/10/17 12:17 Dose: 40 meq Propofol (Diprivan 20 Ml) Confirm Administered Dose 200 mg .ROUTE .STK-MED ONE Stop: 03/05/17 00:17 Rocuronium [place] (Zemuron) Confirm Administered Dose 50 mg .ROUTE .STK-MED ONE Stop: 03/05/17 00:17 Succinylcholine Chloride (Succinylcholine In Ns Pf) Confirm Administered Dose 200 mg .ROUTE .STK-MED ONE Stop: 03/05/17 00:17 *Q Meaningful Use (DIS) - VTE *Q VTE Criteria *Q: - Stroke *Q Stroke Criteria *Q: - AMI *Q AMI Criteria *Q:
[2017-03-11] MEDS: Diltiazem 120 MG Cap.CD PO SCH (09:18)
[2017-03-11] MEDS: Carvedilol 25 MG Tab PO SCH (09:18)
[2017-03-11] MEDS: Aspirin 81 MG Tab.EC PO SCH (09:19)
[2017-03-11] MEDS: Enoxaparin 40 MG/0.4 ML Syringe SUBCUT SCH (09:19)
[2017-03-11] MEDS: Magnesium Oxide 400 MG Tab PO SCH (09:19)
[2017-03-11] MEDS: Amoxicillin/Clavulanate K 875-125 MG Tab PO SCH (09:19)
[2017-03-11 09:20] VITALS: BP 143/80
== END 2017-03-11 12:15 | disposition home health service (06) | DRG 353 ==
LOC: JP.ED 19:57 → JP.SDS 23:34 → UNDOADMIN 23:35 → JP.ICU 23:35 → UNDOADMIN 03-05 01:19 → JP.ICU 03-05 11:42 → UNDOADMIN 03-10 09:39 → UNDODISIN 03-11 12:15
PROVIDERS: ADMIT Surgery; ATTEND Surgery
PROC: 0WQF0ZZ Repair Abdominal Wall, Open Approach (ICD-10-PCS; principal; 2017-03-05)
DX: K46.0 Unspecified abdominal hernia with obstruction, without gangrene (principal); J18.9 Pneumonia, unspecified organism; F05 Delirium due to known physiological condition; I10 Essential (primary) hypertension; J44.9 Chronic obstructive pulmonary disease, unspecified; R05 Cough; R53.1 Weakness; R10.9 Unspecified abdominal pain; Z87.891 Personal history of nicotine dependence; G30.9 Alzheimer's disease, unspecified; F02.80 Dementia in other diseases classified elsewhere, unspecified severity, without behavioral disturbance, psychotic disturbance, mood disturbance, and anxiety; E87.6 Hypokalemia; Z85.038 Personal history of other malignant neoplasm of large intestine; Z85.46 Personal history of malignant neoplasm of prostate; Z85.048 Personal history of other malignant neoplasm of rectum, rectosigmoid junction, and anus; Z95.1 Presence of aortocoronary bypass graft; Z95.2 Presence of prosthetic heart valve; K59.09 Other constipation; E78.00 Pure hypercholesterolemia, unspecified; Z93.3 Colostomy status; H91.90 Unspecified hearing loss, unspecified ear; H54.7 Unspecified visual loss; I48.0 Paroxysmal atrial fibrillation; Z87.01 Personal history of pneumonia (recurrent); Z79.82 Long term (current) use of aspirin; Z88.8 Allergy status to other drugs, medicaments and biological substances; R84.5 Abnormal microbiological findings in specimens from respiratory organs and thorax
CPT/HCPCS: 36415; 44050; 71260; 74177; 80053; 82150; 82803; 83605; 83690; 85025; 85610; 86140; 87040 ×2; 87070; 87077; 87081; 87186; 87205; 87430; 87804 ×2; 93005; 99285 ×2; J7030; J7040; J7050; Q9967; 71010; 71010-26; 80048; 81001; 83735; 84132; 85027; 87086; 93010; 94640-76; 96374; A9270-GY; J0690; J1100; J1200; J1630; J1650; J1940; J2370; J2405; J2543; J2704; J3010; J3480; J3490; J7120

== ENCOUNTER 2017-03-23 23:58 | Inpatient (IN) | payer MEDICARE, BC ==
[2017-03-24] MEDS ORDERED: Sodium Chloride 0.9% 1,000 ML IV SCH (00:15)
[2017-03-24] MEDS ORDERED: Morphine 2 MG/ML Syringe IVPUSH ONE (00:36)
[2017-03-24] MEDS ORDERED: Pantoprazole 40 MG Vial IVPUSH ONE (00:36)
[2017-03-24] MEDS ORDERED: Ondansetron 4 MG/2 ML SDV IVPUSH ONE (00:36)
[2017-03-24] MEDS ORDERED: LORazepam 2 MG/ML MDV IVPUSH ONE (01:45)
[2017-03-24] MEDS ORDERED: Docusate Sodium 100 MG Cap PO PRN (03:12)
[2017-03-24] MEDS ORDERED: Albuterol 8 GM Inhaler INH PRN (03:12)
[2017-03-24] MEDS ORDERED: Morphine 2 MG/ML Syringe IVPUSH PRN (03:12)
[2017-03-24] MEDS ORDERED: Acetaminophen 325 MG Tab PO PRN (03:12)
[2017-03-24] MEDS ORDERED: Albuterol 0.083% 2.5 MG/3 ML Neb Soln NEB PRN (03:12)
[2017-03-24] MEDS ORDERED: Lidocaine 2% Jelly 10 ML Urojet MUCMEM ONE (03:55)
[2017-03-24] MEDS ORDERED: Naloxone 0.4 MG/ML SDV ONE (05:00)
[2017-03-24] MEDS: Naloxone 0.4 MG/ML SDV IVPUSH PRN ×2 (05:02→05:07)
[2017-03-24] MEDS ORDERED: Formoterol/Mometasone 200-5 MCG 8.8 GM Inhaler IH SCH ×2 (07:00→07:14)
--- NOTE | 2017-03-24 08:29 | EDM.PDOC ---
ED HPI GENERAL MEDICAL PROBLEM - General Chief Complaint: Abdominal Pain Stated Complaint: POSSIBLE BLOCKAGE Time Seen by Provider: 03/24/17 00:36 Source of Information: Reports: Patient, Family () History Limitations: Reports: Altered Mental Status - History of Present Illness INITIAL COMMENTS - FREE TEXT/NARRATIVE: abdominal pain; this is a 82 year old male presents to ER with his . she give report of today's event. Mr. Sherwood was doing his usual routine, had a medical appointment with Dr. Mccann in the afternoon, came home, at 4:00pm began to have acute abdominal pain with vomiting. continues to have have nausea and vomiting upon arrival to ER. has concerns of bowel obstruction and cough. she reports no fevers at this time. Onset: Today, Sudden Onset Date: 03/23/17 Onset Time: 16:00 Duration: Constant, Getting Worse Location: Reports: Abdomen Quality: Reports: Same as Previous Episode Severity: Severe Improves with: Reports: None Worsens with: Reports: Eating Associated Symptoms: Reports: Cough, Nausea/Vomiting, Shortness of Breath, Weakness Left Lower Abdominal Pain Score (Numeric/FACES): 8 - Related Data Allergies Allergy/AdvReac Type Severity Reaction Status Date / Time butorphanol tartrate Allergy Cannot Verified 03/04/17 20:29 [From Stadol] Remember Home Meds: Home Meds Fluticasone/Salmeterol [Advair 250-50] 1 puff INH BID 11/24/13 [History] Simvastatin 20 mg PO DAILY 11/24/13 [History] Albuterol [Ventolin HFA] 2 puff INH Q4H PRN 10/08/14 [History] Aspirin [Ecotrin] 81 mg PO DAILY 10/08/14 [History] Carvedilol 25 mg PO BID 10/21/16 [History] Diltiazem HCl [Diltiazem 24Hr Cd] 120 mg PO DAILY #30 cap.er.24h 10/31/16 [Rx] Sennosides/Docusate Sodium [Senna-S] 1 each PO BID #60 tablet 10/31/16 [Rx] Furosemide [Lasix] 20 mg PO DAILY #30 tablet 01/17/17 [Rx] Magnesium Oxide 400 mg PO BID #60 tablet 01/17/17 [Rx] Melatonin 6 mg PO BEDTIME #60 tablet 02/11/17 [Rx] Pantoprazole Sodium [Protonix] 40 mg PO DAILY #30 tablet. 02/11/17 [Rx] Amoxicillin/Clavulanate K [Augmentin 875-125 MG] 1 tab PO Q12H #8 tablet [Rx] Past Medical History HEENT History: Reports: Hard of Hearing, Impaired Vision Other HEENT History: glasses. hearing aid Cardiovascular History: Reports: Afib, Arrhythmia, High Cholesterol, Hypertension Respiratory History: Reports: Asthma, Bronchitis, Recurrent, COPD, Pneumonia, Recurrent Gastrointestinal History: Reports: Chronic Constipation, Hemorrhoids Genitourinary History: Reports: BPH Musculoskeletal History: Reports: Fracture Other Musculoskeletal History: wrist. pelvic Hematologic History: Reports: Anemia, B12 Deficiency, Iron Deficiency Oncologic (Cancer) History: Reports: Colon, Prostate Other Oncologic History: rectal Dermatologic History: Reports: Eczema Other Dermatologic History: precancerous growth uder eye removed - Infectious Disease History Infectious Disease History: Reports: Chicken Pox, Measles, Mumps, Shingles - Past Surgical History Cardiovascular Surgical History: Reports: Coronary Artery Bypass, Valve Replacement GI Surgical History: Reports: Appendectomy, Colon, Colonoscopy, Colostomy Male Surgical History: Reports: TURP-Transurethral Resection of Prostate Social & Family History - Family History Family Medical History: Noncontributory - Tobacco Use Smoking Status *Q: Unknown Ever Smoked Years of Tobacco use: 30 Used Tobacco, but Quit: Yes Month Tobacco Last Used: 40 years Second Hand Smoke Exposure: No - Caffeine Use Caffeine Use: Reports: None - Alcohol Use Days Per Week of Alcohol Use: 0 Number of Drinks Per Day: 1 Total Drinks Per Week: 0 - Recreational Drug Use Recreational Drug Use: No ED ROS GENERAL - Review of Systems Review Of Systems: See Below Constitutional: Reports: Other (abdominal pain with vomiting) HEENT: Reports: No Symptoms Respiratory: Reports: Shortness of Breath, Cough Cardiovascular: Reports: No Symptoms Endocrine: Reports: No Symptoms GI/Abdominal: Reports: Abdominal Pain, Distension, Nausea, Vomiting : Reports: No Symptoms Musculoskeletal: Reports: No Symptoms Skin: Reports: No Symptoms Neurological: Reports: Pre-Existing Deficit Psychiatric: Reports: No Symptoms Hematologic/Lymphatic: Reports: No Symptoms Immunologic: Reports: No Symptoms ED EXAM, GI/ABD - Physical Exam Exam: See Below Exam Limited By: Other (active vomiting of bile, dark thin fluids.) General Appearance: Moderate Distress (appears pale, heart rate 140's, labored breathing), Active Emesis Eyes: Bilateral: Normal Appearance Ears: Normal External Exam, Normal Canal Nose: Normal Inspection, Normal Mucosa, No Blood Throat/Mouth: Normal Inspection, Normal Lips, Normal Teeth, Normal Gums, No Airway Compromise Head: Atraumatic, Normocephalic Neck: Normal Inspection, Supple, Non-Tender Respiratory/Chest: Decreased Breath Sounds (coarse breath sounds at bases) Cardiovascular: Regular Rate, Rhythm, Tachycardia GI/Abdominal: Absent Bowel Sounds, Tenderness, Distention, Rigidity, Other ( colostomy bag without stool) (Male) Exam: Deferred Rectal (Males) Exam: Deferred Back Exam: Normal Inspection Extremities: Pedal Edema (1+) Psychiatric: Anxious Skin Exam: Warm, Dry, Intact, Erythema (right upper abdomen), Pallor, Wound/ Incision (steri strips intact over abdominal incision.) Lymphatic: No Adenopathy Course - Vital Signs Last Recorded V/S: Last Vital Signs Temp 37 C 03/24/17 07:07 Pulse 107 H 03/24/17 07:07 Resp 22 H 03/24/17 07:07 BP 152/101 H 03/24/17 07:07 Pulse Ox 94 L 03/24/17 07:30 - Orders/Labs/Meds Orders: Active Orders 24 hr Category Date Time Status Gastrointestinal Tube Mgmt [RC] Q12H Care 03/24/17 01:47 Active Abdomen Pelvis wo Cont [CT] Stat Exams 03/24/17 00:13 Taken Chest 1V Frontal [CR] Urgent Exams 03/24/17 00:10 Taken Nasogastric Orogastric Tube Insertion [OM.PC] Routine Oth 03/24/17 01:46 Ordered EKG 12 Lead [EK] Urgent Ther 03/24/17 00:10 Stop Req Medication Orders Acetaminophen (Tylenol) 650 mg PO Q4H PRN PRN Reason: Pain (Mild 1-3)/fever Albuterol (Proventil Neb Soln) 2.5 mg NEB Q4H PRN PRN Reason: Shortness Of Breath/wheezing Last Admin: 03/24/17 04:25 Dose: 2.5 mg Albuterol (Ventolin Hfa) 0 gm INH Q4H PRN PRN Reason: Shortness of Breath Aspirin (Halfprin) 81 mg PO DAILY [facility] Carvedilol (Coreg) 25 mg PO BID [facility] Diltiazem HCl (Cardizem Cd) 120 mg PO DAILY [facility] Docusate Sodium (Colace) 100 mg PO BID PRN PRN Reason: Constipation Furosemide (Lasix) 20 mg IVPUSH DAILY [facility] Mometasone Furoate/Formoterol Fumar (Dulera 200-5 Mcg) 0 puff IH BIDRT ZURDO Morphine Sulfate (Morphine) 2 mg IVPUSH Q2H PRN PRN Reason: Pain (severe 7-10) Labs: Laboratory Tests 03/24/17 03/24/17 03/24/17 Range/Units 00:15 00:15 00:15 WBC 11.4 H (4.5-11.0) K/uL RBC 4.67 (4.30-5.90) M/uL Hgb 12.8 (12.0-15.0) g/dL Hct 39.8 L (40.0-54.0) % MCV 85 (80-98) fL MCH 27 (27-31) pg MCHC 32 (32-36) % Plt Count 337 (150-400) K/uL Neut % (Auto) 85 H (36-66) % Lymph % (Auto) 7 L (24-44) % [place] % (Auto) 8 H (2-6) % Eos % (Auto) 0 L (2-4) % Baso % (Auto) 0 (0-1) % PT 11.1 (9.5-12.0) sec INR 1.05 (0.80-1.20) Puncture Site ABG pH (7.350-7.450) ABG pCO2 (35.0-42.0) mmHg ABG pO2 (75.0-100.0) mmHg ABG HCO3 (22.0-26.0) mmol/L ABG Total CO2 (23.0-27.0) mmol/L ABG O2 Saturation (95.0-98.0) % ABG O2 Content (15.0-23.0) %vol ABG Base Excess mm/L ABG Hemoglobin (13.5-18.0) g/dL ABG Oxyhemoglobin % ABG Carboxyhemoglobin (0.0-1.6) % ABG Methemoglobin % O2 Delivery Device Oxygen Flow Rate L Sodium 137 L (140-148) mmol/L Potassium 4.2 (3.6-5.2) mmol/L Chloride 98 L (100-108) mmol/L Carbon Dioxide 30 (21-32) mmol/L Anion Gap 13.2 (5.0-14.0) mmol/L BUN 22 H D (7-18) mg/dL Creatinine 1.3 D (0.8-1.3) mg/dL Est Cr Clr Drug Dosing 33.11 mL/min Estimated GFR (MDRD) 53 L (>60) Glucose 243 H (74-106) mg/dL Lactic Acid (0.4-2.0) mmol/L Calcium 8.8 D (8.5-10.1) mg/dL Magnesium 2.1 (1.8-2.4) mg/dL Total Bilirubin 0.5 (0.2-1.0) mg/dL AST 21 (15-37) U/L ALT 17 (12-78) U/L Alkaline Phosphatase 100 (46-116) U/L Troponin I 0.019 (0.000-0.056) ng/mL Mac-X-Hegmfbrghap Pept (5-450) pg/mL Total Protein 8.0 (6.4-8.2) g/dL Albumin 2.5 L (3.4-5.0) g/dL Globulin 5.5 H (2.3-3.5) g/dL Albumin/Globulin Ratio 0.5 L (1.2-2.2) Amylase (25-115) U/L Lipase (73-393) U/L 03/24/17 03/24/17 03/24/17 Range/Units 00:15 00:15 00:35 WBC (4.5-11.0) K/uL RBC (4.30-5.90) M/uL Hgb (12.0-15.0) g/dL Hct (40.0-54.0) % MCV (80-98) fL MCH (27-31) pg MCHC (32-36) % Plt Count (150-400) K/uL Neut % (Auto) (36-66) % Lymph % (Auto) (24-44) % [place] % (Auto) (2-6) % Eos % (Auto) (2-4) % Baso % (Auto) (0-1) % PT (9.5-12.0) sec INR (0.80-1.20) Puncture Site L brachial ABG pH 7.491 H (7.350-7.450) ABG pCO2 36.9 (35.0-42.0) mmHg ABG pO2 70.7 L (75.0-100.0) mmHg ABG HCO3 28.0 H (22.0-26.0) mmol/L ABG Total CO2 24.6 (23.0-27.0) mmol/L ABG O2 Saturation 94.7 L (95.0-98.0) % ABG O2 Content 16.6 (15.0-23.0) %vol ABG Base Excess 4.9 mm/L ABG Hemoglobin 12.6 L (13.5-18.0) g/dL ABG Oxyhemoglobin 93.3 % ABG Carboxyhemoglobin 1.0 (0.0-1.6) % ABG Methemoglobin 0.5 % O2 Delivery Device Nasal cannula Oxygen Flow Rate 2 L Sodium (140-148) mmol/L Potassium (3.6-5.2) mmol/L Chloride (100-108) mmol/L Carbon Dioxide (21-32) mmol/L Anion Gap (5.0-14.0) mmol/L BUN (7-18) mg/dL Creatinine (0.8-1.3) mg/dL Est Cr Clr Drug Dosing mL/min Estimated GFR (MDRD) (>60) Glucose (74-106) mg/dL Lactic Acid 3.2 H (0.4-2.0) mmol/L Calcium (8.5-10.1) mg/dL Magnesium (1.8-2.4) mg/dL Total Bilirubin (0.2-1.0) mg/dL AST (15-37) U/L ALT (12-78) U/L Alkaline Phosphatase (46-116) U/L Troponin I (0.000-0.056) ng/mL Hvw-W-Ixanmuibvhc Pept 3897 H (5-450) pg/mL Total Protein (6.4-8.2) g/dL Albumin (3.4-5.0) g/dL Globulin (2.3-3.5) g/dL Albumin/Globulin Ratio (1.2-2.2) Amylase 58 (25-115) U/L Lipase 123 (73-393) U/L Meds: Medications Generic Name Dose Route Start Last Admin Trade Name Rosa Elena PRN Reason Stop Dose Admin Acetaminophen 650 mg 03/24/17 03:12 Tylenol PO Q4H PRN Pain (Mild 1-3)/fever Albuterol 2.5 mg 03/24/17 03:12 03/24/17 04:25 Proventil Neb Soln NEB 2.5 mg Q4H PRN Administration Shortness Of Breath/wheezing Albuterol 0 gm 03/24/17 03:12 Ventolin Hfa INH Q4H PRN Shortness of Breath Aspirin 81 mg 03/24/17 09:00 Halfprin PO DAILY [facility] Carvedilol 25 mg 03/24/17 09:00 Coreg PO BID [facility] Diltiazem HCl 120 mg 03/24/17 09:00 Cardizem Cd PO DAILY [facility] Docusate Sodium 100 mg 03/24/17 03:12 Colace PO BID PRN Constipation Furosemide 20 mg 03/24/17 09:00 Lasix IVPUSH DAILY [facility] Mometasone Furoate/Formoterol Fumar 0 puff 03/24/17 07:00 Dulera 200-5 Mcg IH BIDRT ZURDO Morphine Sulfate 2 mg 03/24/17 03:12 Morphine IVPUSH Q2H PRN Pain (severe 7-10) Discontinued Medications Generic Name Dose Route Start Last Admin Trade Name Rosa Elena PRN Reason Stop Dose Admin Sodium Chloride 1,000 mls @ 75 mls/hr 03/24/17 00:15 03/24/17 00:41 Normal Saline IV 75 mls/hr ASDIRECTED ZURDO Administration Lidocaine HCl 10 ml 03/24/17 03:55 03/24/17 04:06 Xylocaine 2% Jelly MUCMEM 03/24/17 03:56 10 ml ONETIME ONE Administration Lorazepam 1 mg 03/24/17 01:45 03/24/17 02:06 Ativan IVPUSH 03/24/17 01:46 1 mg ONETIME ONE Administration Morphine Sulfate 1 mg 03/24/17 00:36 03/24/17 00:41 Morphine IVPUSH 03/24/17 00:37 1 mg ONETIME ONE Administration Naloxone HCl 0.1 mg 03/24/17 04:55 03/24/17 05:07 Narcan IVPUSH 03/24/17 04:56 0.1 mg ONETIME PRN Administration Sedation Naloxone HCl Confirm 03/24/17 05:00 03/24/17 05:10 Narcan Administered 03/24/17 05:01 Not Given Dose 0.4 mg .ROUTE .STK-MED ONE Ondansetron HCl 4 mg 03/24/17 00:36 03/24/17 00:41 Zofran IVPUSH 03/24/17 00:37 4 mg ONETIME ONE Administration Pantoprazole Sodium 40 mg 03/24/17 00:36 03/24/17 00:41 Protonix Iv IVPUSH 03/24/17 00:37 40 mg ONETIME ONE Administration - Re-Assessments/Exams Free Text/Narrative Re-Assessment/Exam: in ER , given Zofran 4mg IV, Morphine 1 mg IV, started IV fluids, this helped resolve symptoms, then off the scanning. while back in ER vomiting returns, given Ativan 1 mg. emesis dark green black thin + odor. after medication given Mr. Sherwood heart rate at 100's, more calm and relaxed will plan to admit to [address] [place] [address] with small bowel obstruction per abdomen-pelvis CT. chest xray with poss right sided patchy infiltrates. NG placed in ER. Departure - Departure Time of Disposition: 02:30 Disposition: Admitted As Inpatient 64 Condition: serious Clinical Impression: Small bowel obstruction - Discharge Information - My Orders Last 24 Hours: My Active Orders 03/24/17 00:10 Chest 1V Frontal [CR] Urgent EKG 12 Lead [EK] Urgent 03/24/17 00:13 Abdomen Pelvis wo Cont [CT] Stat 03/24/17 01:46 Nasogastric Orogastric Tube Insertion [OM.PC] Routine 03/24/17 01:47 Gastrointestinal Tube Mgmt [RC] Q12H - Assessment/Plan Last 24 Hours: My Active Orders 03/24/17 00:10 Chest 1V Frontal [CR] Urgent EKG 12 Lead [EK] Urgent 03/24/17 00:13 Abdomen Pelvis wo Cont [CT] Stat 03/24/17 01:46 Nasogastric Orogastric Tube Insertion [OM.PC] Routine 03/24/17 01:47 Gastrointestinal Tube Mgmt [RC] Q12H
[2017-03-24] MEDS: Formoterol/Mometasone 200-5 MCG 8.8 GM Inhaler IH SCH ×2 (08:41→21:38)
--- NOTE | 2017-03-24 08:50 | PCM.HP ---
H&P History of Present Illness - General Date of Service: 03/23/17 Admit Problem/Dx: Admission Diagnosis/Problem Admission Diagnosis/Problem Small bowel obstruction Source of Information: Patient, Family History Limitations: Reports: No Limitations - History of Present Illness Initial Comments - Free Text/Narative: Small Bowel Obstruction; reports sudden onset of abdominal pain, nausea and active vomiting at 4 :00pm. This continues into evening, she decided to bring to ER for further evaluation. While in ER abdomen-pelvis CT shows a small bowel obstruction. NG tube placed, Labs, chest xray, abdomen pelvis ct completed in ER. discussed with , will admit to hospital for further care. Onset of Symptoms: Reports: Sudden Symptom Onset Date: 03/23/17 Symptom Onset Time: 16:00 Duration of Symptoms: Reports: Constant, Getting Worse Location: Reports: Abdomen Quality: Reports: Same as Previous Episode Severity: Severe Improves with: Reports: Medication (vomiting resolves with NG tube, Ativan, Zofran) Worsens with: Reports: Eating Context: Reports: Other (hx of previous small bowel obstruction) Associated Symptoms: Reports: Cough, Malaise, Nausea/Vomiting, Shortness of Breath, Weakness Left Lower Abdominal Pain Score (Numeric/FACES): 8 - Related Data Allergies/Adverse Reactions: Allergies Allergy/AdvReac Type Severity Reaction Status Date / Time butorphanol tartrate Allergy Cannot Verified 03/04/17 20:29 [From Stadol] Remember Home Medications: Home Meds Fluticasone/Salmeterol [Advair 250-50] 1 puff INH BID 11/24/13 [History] Simvastatin 20 mg PO DAILY 11/24/13 [History] Albuterol [Ventolin HFA] 2 puff INH Q4H PRN 10/08/14 [History] Aspirin [Ecotrin] 81 mg PO DAILY 10/08/14 [History] Carvedilol 25 mg PO BID 10/21/16 [History] Diltiazem HCl [Diltiazem 24Hr Cd] 120 mg PO DAILY #30 cap.er.24h 10/31/16 [Rx] Sennosides/Docusate Sodium [Senna-S] 1 each PO BID #60 tablet 10/31/16 [Rx] Furosemide [Lasix] 20 mg PO DAILY #30 tablet 01/17/17 [Rx] Magnesium Oxide 400 mg PO BID #60 tablet 01/17/17 [Rx] Melatonin 6 mg PO BEDTIME #60 tablet 02/11/17 [Rx] Pantoprazole Sodium [Protonix] 40 mg PO DAILY #30 tablet. 02/11/17 [Rx] Amoxicillin/Clavulanate K [Augmentin 875-125 MG] 1 tab PO Q12H #8 tablet [Rx] Past Medical History HEENT History: Reports: Hard of Hearing, Impaired Vision Other HEENT History: glasses. hearing aid Cardiovascular History: Reports: Afib, Arrhythmia, High Cholesterol, Hypertension Respiratory History: Reports: Asthma, Bronchitis, Recurrent, COPD, Pneumonia, Recurrent Gastrointestinal History: Reports: Chronic Constipation, Hemorrhoids Genitourinary History: Reports: BPH Musculoskeletal History: Reports: Fracture Other Musculoskeletal History: wrist. pelvic Hematologic History: Reports: Anemia, B12 Deficiency, Iron Deficiency Oncologic (Cancer) History: Reports: Colon, Prostate Other Oncologic History: rectal Dermatologic History: Reports: Eczema Other Dermatologic History: precancerous growth uder eye removed - Infectious Disease History Infectious Disease History: Reports: Chicken Pox, Measles, Mumps, Shingles - Past Surgical History Cardiovascular Surgical History: Reports: Coronary Artery Bypass, Valve Replacement GI Surgical History: Reports: Appendectomy, Colon, Colonoscopy, Colostomy Male Surgical History: Reports: TURP-Transurethral Resection of Prostate Social & Family History - Family History Family Medical History: Noncontributory - Tobacco Use Smoking Status *Q: Unknown Ever Smoked Years of Tobacco use: 30 Used Tobacco, but Quit: Yes Month Tobacco Last Used: 40 years Second Hand Smoke Exposure: No - Caffeine Use Caffeine Use: Reports: None - Alcohol Use Days Per Week of Alcohol Use: 0 Number of Drinks Per Day: 1 Total Drinks Per Week: 0 - Recreational Drug Use Recreational Drug Use: No H&P Review of Systems - Review of Systems: Review Of Systems: See Below General: Reports: Malaise, Decreased Appetite, Other (nausea and vomiting) HEENT: Reports: No Symptoms Pulmonary: Reports: Shortness of Breath, Cough Cardiovascular: Reports: No Symptoms Gastrointestinal: Reports: Abdominal Pain, Nausea, Vomiting Genitourinary: Reports: No Symptoms Musculoskeletal: Reports: No Symptoms Skin: Reports: Pallor, Wound (recent abdominal surgery, steri strip intact) Psychiatric: Reports: No Symptoms Neurological: Reports: Pre-Existing Deficit Hematologic/Lymphatic: Reports: No Symptoms Immunologic: Reports: No Symptoms Exam - Exam Exam: See Below - Vital Signs Vital Signs: Last Vital Signs Temp 37 C 03/24/17 07:07 Pulse 107 H 03/24/17 07:07 Resp 22 H 03/24/17 07:07 BP 152/101 H 03/24/17 07:07 Pulse Ox 94 L 03/24/17 07:30 Weight: 56.699 kg - Exam Quality Assessment: Supplemental Oxygen (2liter per nc), Other (abdominal incision) General: Cooperative, Moderate Distress HEENT: PERRLA, Hearing Intact, Mucosa Moist & [place], Nares Patent, Normal Nasal Septum, Posterior Pharynx Clear, Conjunctiva Clear, EOMI, EACs Clear, TMs Clear Neck: Supple, Trachea Midline Lungs: Decreased Breath Sounds, Rhonchi (at bases) Cardiovascular: Normal S1, Normal S2, Tachycardia Abdomen: Distention, Guarding, Rigidity, Tenderness (generalize pain to light touch of abdomen.), Absent Bowel Sounds (Male) Exam: Deferred Rectal (Males) Exam: Deferred Back Exam: Normal Inspection Extremities: Edema (bilateral lower leg 1+) Skin: Warm, Dry, Incision (steri strip intact to midline abdominal incision, clean, dry, intact) Neurological: Reflexes Equal Bilateral Neuro Extensive - Mental Status: Alert, Memory Intact, Other (pre-existing dementia) Neuro Extensive - Motor, Sensory, Reflexes: Normal Reflexes Psychiatric: Alert, Normal Affect, Anxious (Mr. Sherwood is pale, appear fragile. at bedside.) - Patient Data Lab Results last 24 hrs: Laboratory Results - last 24 hr 03/24/17 03/24/17 Range/Units 03:35 04:21 Urine Color Yellow Urine Appearance Slightly cloudy Urine pH 5.0 (4.5-8.0) Ur Specific [place] 1.025 (1.008-1.030) Urine Protein 30 H (NEGATIVE) mg/dL Urine Glucose (UA) 50 H (NEGATIVE) mg/dL Urine Ketones Negative (NEGATIVE) mg/dL Urine Occult Blood Moderate (NEGATIVE) Urine Nitrite Negative (NEGAITVE) Urine Bilirubin Small (NEGATIVE) Urine Urobilinogen 1 (NORMAL) mg/dL Ur Leukocyte Esterase Moderate (NEGATIVE) Urine RBC 10-20 H (0-5) Urine WBC 5-10 H (0-5) Ur Epithelial Cells Few Amorphous Sediment Many Urine Bacteria Many Urine Mucus Not seen Gastric Occult Blood Positive H (NEGATIVE) Result Diagrams: 03/24/17 00:15 03/24/17 00:15 *Q Meaningful Use (ADM) - VTE *Q VTE Criteria *Q: - Stroke *Q Stroke Criteria *Q: - AMI *Q AMI Criteria *Q: - Problem List (1) Alzheimer's dementia SNOMED Code(s): 52633606 ICD Code: G30.9 - ALZHEIMER'S DISEASE, UNSPECIFIED Status: Acute Priority : High Current Visit: Yes Qualifiers: Alzheimer's disease onset: unspecified onset Dementia behavioral disturbance: without behavioral disturbance Qualified Code(s): G30.9 - Alzheimer's disease, unspecified; F02.80 - Dementia in other diseases classified elsewhere without behavioral disturbance (2) Small bowel obstruction SNOMED Code(s): 225762159 ICD Code: K56.69 - OTHER INTESTINAL OBSTRUCTION Status: Acute Priority: High Current Visit: Yes (3) COPD (chronic obstructive pulmonary disease) SNOMED Code(s): 02231783 ICD Code: J44.9 - CHRONIC OBSTRUCTIVE PULMONARY DISEASE, UNSPECIFIED Status : Chronic Priority: Medium Current Visit: No Qualifiers: COPD type: emphysema Emphysema type: unspecified Qualified Code(s): J43.9 - Emphysema, unspecified Problem List Initiated/Reviewed/Updated: Yes Orders Last 24hrs: Active Orders 24 hr Category Date Time Status Bedrest Bathroom Privileges [RC] ASDIRECTED Care 03/24/17 03:12 Active Diabetes Education [RC] Click to Edit Care 03/24/17 03:12 Active Fecal Occult Blood Collection [RC] ASDIRECTED Care 03/24/17 08:21 Active Gastric Occult/pH Collection D [RC] ASDIRECTED Care 03/24/17 03:28 Active Insert Urinary Catheter [OM.PC] Timed Care 03/24/17 03:41 Ordered Intake and Output [RC] QSHIFT Care 03/24/17 03:12 Active Overnight Pulse Oximetry [RC] Click to Edit Care 03/24/17 03:41 Active Oxygen Therapy [RC] PRN Care 03/24/17 03:12 Active RT Aerosol Therapy [RC] ASDIRECTED Care 03/24/17 03:12 Active Telemetry Monitoring [Cardiac Monitoring] [RC] .As Care 03/24/17 03:41 Active Directed Up With Assistance [RC] ASDIRECTED Care 03/24/17 03:12 Active Urinary Catheter Assessment [RC] ASDIRECTED Care 03/24/17 03:44 Inactive VTE/DVT Education [RC] Per Unit Routine Care 03/24/17 03:12 Active Vital Signs [RC] Q4H Care 03/24/17 03:12 Active OT Evaluation and Treatment [CONS] Routine Cons 03/24/17 03:12 Active Nothing per Oral Now Diet [DIET] Diet 03/24/17 Breakfast Active BASIC METABOLIC PANEL,BMP [CHEM] Urgent Lab 03/24/17 08:21 Ordered CBC WITH AUTO DIFF [HEME] Urgent Lab 03/24/17 08:21 Ordered LACTIC ACID [CHEM] Routine Lab 03/24/17 08:21 Ordered Acetaminophen [Tylenol] Med 03/24/17 03:12 Active 650 mg PO Q4H PRN Albuterol [Proventil Neb Soln] Med 03/24/17 03:12 Active 2.5 mg NEB Q4H PRN Albuterol [Ventolin HFA] Med 03/24/17 03:12 Active 0 gm INH Q4H PRN Aspirin [Halfprin] Med 03/24/17 09:00 Active 81 mg PO DAILY Carvedilol [Coreg] Med 03/24/17 09:00 Active 25 mg PO BID Diltiazem [Cardizem CD] Med 03/24/17 09:00 Active 120 mg PO DAILY Docusate Sodium [Colace] Med 03/24/17 03:12 Active 100 mg PO BID PRN Furosemide [Lasix] Med 03/24/17 09:00 Active 20 mg IVPUSH DAILY Mometasone/Formoterol [Dulera 200-5 MCG] Med 03/24/17 07:00 Active 0 puff IH BIDRT Morphine Med 03/24/17 03:12 Active 2 mg IVPUSH Q2H PRN Pulse Oximetry Continuous Monitoring [OM.PC] Routine Oth 03/24/17 03:41 Ordered Sequential Compression Device [OM.PC] Per Unit Routine Oth 03/24/17 03:12 Ordered Resuscitation Status Routine Resus Stat 03/24/17 01:54 Ordered Medication Orders Acetaminophen (Tylenol) 650 mg PO Q4H PRN PRN Reason: Pain (Mild 1-3)/fever Albuterol (Proventil Neb Soln) 2.5 mg NEB Q4H PRN PRN Reason: Shortness Of Breath/wheezing Last Admin: 03/24/17 04:25 Dose: 2.5 mg Albuterol (Ventolin Hfa) 0 gm INH Q4H PRN PRN Reason: Shortness of Breath Aspirin (Halfprin) 81 mg PO DAILY [facility] Carvedilol (Coreg) 25 mg PO BID [facility] Diltiazem HCl (Cardizem Cd) 120 mg PO DAILY [facility] Docusate Sodium (Colace) 100 mg PO BID PRN PRN Reason: Constipation Furosemide (Lasix) 20 mg IVPUSH DAILY [facility] Mometasone Furoate/Formoterol Fumar (Dulera 200-5 Mcg) 0 puff IH BIDRT [facility] Last Admin: 03/24/17 08:41 Dose: 2 puff Morphine Sulfate (Morphine) 2 mg IVPUSH Q2H PRN PRN Reason: Pain (severe 7-10) Assessment/Plan Comment:: ASSESSMENT / PLAN Small Bowel Obstruction; reports sudden onset of abdominal pain, nausea and active vomiting at 4 :00pm. This continues into evening, she decided to bring to ER for further evaluation. While in ER abdomen-pelvis CT shows a small bowel obstruction. lactic acid elevated NG tube placed, Labs, chest xray, abdomen pelvis ct completed in ER. discussed with , will admit to hospital for further care. Plan Small Bowel Obstruction -Admit to [address] [place] [address] for further monitoring -Telemetry -NG placement -medications anti-emetic -Oxygen 2 liters per nasal cannula -IV fluids for rehydration NS at 75 mL per hour -Advise to notify nurses of any chest pain or other symptoms -And a.m. labs: CBC, BMP, lactic acid -referral to Dr. Mccann, Surgeon Dementia -close monitoring COPD -monitor for aspiration pneumonia from prolonged vomiting -nebs -oxygen therapy Maintenance issues -Orders home meds: hold, or changed to IV -Nutrition: NPO -Bazan catheter not indicated at this time -DVT: SCD, hold due + gastric occult CODE STATUS: Full Admission status: Admit to [address] [place] [address] Admission justification. This patient will be admitted for inpatient services and is medically appropriate meeting medical necessity for inpatient admission as outlined in my documentation. I reasonably expect the patient will require inpatient services that span. Time over 2 midnights. I reasonably expect this patient to be discharged or transferred within 96 hours after admission to the critical access hospital. Disposition; or extended care facility Primary care provider: Dr. Bond
[2017-03-24] MEDS: Furosemide 20 MG/2 ML VIAL IVPUSH SCH (09:05)
[2017-03-24] MEDS: Carvedilol 25 MG Tab PO SCH ×2 (09:05→21:37)
[2017-03-24] MEDS: Aspirin 81 MG Tab.EC PO SCH (09:06)
[2017-03-24] MEDS: Diltiazem 120 MG Cap.CD PO SCH (09:06)
--- NOTE | 2017-03-24 09:09 | CR ---
Sternotomy. Left lung is clear. Streaky density right lung base. Findings may indicate atelectasis. Difficult to exclude developing infiltrate.
[2017-03-24] MEDS: Sodium Chloride 0.9% 1,000 ML IV SCH (13:57)
[2017-03-24] MEDS: Pantoprazole 40 MG Vial IVPUSH SCH ×2 (13:57→21:38)
--- NOTE | 2017-03-24 16:41 | PCM.PN ---
- General Info Date of Service: 03/24/17 Functional Status: Reports: pain controlled - Review of Systems General: Reports: Weakness. Denies: Fever, Chills Pulmonary: Reports: no symptoms Cardiovascular: Reports: No Symptoms Gastrointestinal: Reports: Abdominal pain, Nausea, Vomiting. Denies: Diarrhea, Difficulty swallowing Psychiatric: Reports: confusion Systems Review Comment:: This patient is an 82-year-old gentleman who said recent difficulty with recurrent bowel obstructions. He was readmitted to this facility last night with a bowel obstruction and symptoms of nausea, vomiting, and abdominal pain. All obstruction was confirmed by radiologic studies in an NG tube has been placed with large volume output thus far. Initial discussion with his indicates that she thinks that he would not want further aggressive care or intervention. - Patient Data Vitals - most recent: Last Vital Signs Temp 97.9 F 03/24/17 14:42 Pulse 96 03/24/17 14:42 Resp 18 03/24/17 14:42 BP 143/75 H 03/24/17 14:42 Pulse Ox 94 L 03/24/17 14:42 Weight - most recent: 124 lb 15.998 oz I&O - last 24 hours: Intake & Output 03/24/17 03/24/17 03/24/17 06:59 14:59 22:59 Intake Total 94 Output Total 1260 450 Balance -1166 -450 Lab Results last 24 hrs: Laboratory Results - last 24 hr 03/24/17 03/24/17 03/24/17 Range/Units 03:35 04:21 08:47 WBC (4.5-11.0) K/uL RBC (4.30-5.90) M/uL Hgb (12.0-15.0) g/dL Hct (40.0-54.0) % MCV (80-98) fL MCH (27-31) pg MCHC (32-36) % Plt Count (150-400) K/uL Neut % (Auto) (36-66) % Lymph % (Auto) (24-44) % [place] % (Auto) (2-6) % Eos % (Auto) (2-4) % Baso % (Auto) (0-1) % Sodium (140-148) mmol/L Potassium (3.6-5.2) mmol/L Chloride (100-108) mmol/L Carbon Dioxide (21-32) mmol/L Anion Gap (5.0-14.0) mmol/L BUN (7-18) mg/dL Creatinine (0.8-1.3) mg/dL Est Cr Clr Drug Dosing mL/min Estimated GFR (MDRD) (>60) Glucose (74-106) mg/dL Lactic Acid 1.6 (0.4-2.0) mmol/L Calcium (8.5-10.1) mg/dL Urine Color Yellow Urine Appearance Slightly cloudy Urine pH 5.0 (4.5-8.0) Ur Specific [place] 1.025 (1.008-1.030) Urine Protein 30 H (NEGATIVE) mg/dL Urine Glucose (UA) 50 H (NEGATIVE) mg/dL Urine Ketones Negative (NEGATIVE) mg/dL Urine Occult Blood Moderate (NEGATIVE) Urine Nitrite Negative (NEGAITVE) Urine Bilirubin Small (NEGATIVE) Urine Urobilinogen 1 (NORMAL) mg/dL Ur Leukocyte Esterase Moderate (NEGATIVE) Urine RBC 10-20 H (0-5) Urine WBC 5-10 H (0-5) Ur Epithelial Cells Few Amorphous Sediment Many Urine Bacteria Many Urine Mucus Not seen Gastric Occult Blood Positive H (NEGATIVE) 03/24/17 03/24/17 Range/Units 08:47 08:47 WBC 8.3 (4.5-11.0) K/uL RBC 4.36 (4.30-5.90) M/uL Hgb 11.7 L (12.0-15.0) g/dL Hct 37.4 L (40.0-54.0) % MCV 86 (80-98) fL MCH 27 (27-31) pg MCHC 31 L (32-36) % Plt Count 291 (150-400) K/uL Neut % (Auto) 75 H (36-66) % Lymph % (Auto) 13 L (24-44) % [place] % (Auto) 12 H (2-6) % Eos % (Auto) 0 L (2-4) % Baso % (Auto) 0 (0-1) % Sodium 138 L (140-148) mmol/L Potassium 3.8 (3.6-5.2) mmol/L Chloride 101 (100-108) mmol/L Carbon Dioxide 33 H (21-32) mmol/L Anion Gap 7.8 (5.0-14.0) mmol/L BUN 24 H (7-18) mg/dL Creatinine 1.2 (0.8-1.3) mg/dL Est Cr Clr Drug Dosing 36.75 mL/min Estimated GFR (MDRD) 58 L (>60) Glucose 148 H (74-106) mg/dL Lactic Acid (0.4-2.0) mmol/L Calcium 8.8 (8.5-10.1) mg/dL Urine Color Urine Appearance Urine pH (4.5-8.0) Ur Specific [place] (1.008-1.030) Urine Protein (NEGATIVE) mg/dL Urine Glucose (UA) (NEGATIVE) mg/dL Urine Ketones (NEGATIVE) mg/dL Urine Occult Blood (NEGATIVE) Urine Nitrite (NEGAITVE) Urine Bilirubin (NEGATIVE) Urine Urobilinogen (NORMAL) mg/dL Ur Leukocyte Esterase (NEGATIVE) Urine RBC (0-5) Urine WBC (0-5) Ur Epithelial Cells Amorphous Sediment Urine Bacteria Urine Mucus Gastric Occult Blood (NEGATIVE) Med Orders - Current: Current Medications Acetaminophen (Tylenol) 650 mg PO Q4H PRN PRN Reason: Pain (Mild 1-3)/fever Albuterol (Proventil Neb Soln) 2.5 mg NEB Q4H PRN PRN Reason: Shortness Of Breath/wheezing Last Admin: 03/24/17 04:25 Dose: 2.5 mg Albuterol (Ventolin Hfa) 0 gm INH Q4H PRN PRN Reason: Shortness of Breath Aspirin (Halfprin) 81 mg PO DAILY [facility] Last Admin: 03/24/17 09:06 Dose: 81 mg Carvedilol (Coreg) 25 mg PO BID [facility] Last Admin: 03/24/17 09:05 Dose: 25 mg Diltiazem HCl (Cardizem Cd) 120 mg PO DAILY [facility] Last Admin: 03/24/17 09:06 Dose: 120 mg Docusate Sodium (Colace) 100 mg PO BID PRN PRN Reason: Constipation Furosemide (Lasix) 20 mg IVPUSH DAILY [facility] Last Admin: 03/24/17 09:05 Dose: 20 mg Sodium Chloride (Normal Saline) 1,000 mls @ 125 mls/hr IV ASDIRECTED [facility] Last Admin: 03/24/17 13:57 Dose: 125 mls/hr Mometasone Furoate/Formoterol Fumar (Dulera 200-5 Mcg) 0 puff IH BIDRT [facility] Last Admin: 03/24/17 08:41 Dose: 2 puff Morphine Sulfate (Morphine) 2 mg IVPUSH Q2H PRN PRN Reason: Pain (severe 7-10) Pantoprazole Sodium (Protonix Iv) 40 mg IVPUSH Q12H [facility] Last Admin: 03/24/17 13:57 Dose: 40 mg Discontinued Medications Sodium Chloride (Normal Saline) 1,000 mls @ 75 mls/hr IV ASDIRECTED [facility] Last Admin: 03/24/17 00:41 Dose: 75 mls/hr Lidocaine HCl (Xylocaine 2% Jelly) 10 ml MUCMEM ONETIME ONE Stop: 03/24/17 03:56 Last Admin: 03/24/17 04:06 Dose: 10 ml Lorazepam (Ativan) 1 mg IVPUSH ONETIME ONE Stop: 03/24/17 01:46 Last Admin: 03/24/17 02:06 Dose: 1 mg Morphine Sulfate (Morphine) 1 mg IVPUSH ONETIME ONE Stop: 03/24/17 00:37 Last Admin: 03/24/17 00:41 Dose: 1 mg Naloxone HCl (Narcan) 0.1 mg IVPUSH ONETIME PRN PRN Reason: Sedation Stop: 03/24/17 04:56 Last Admin: 03/24/17 05:07 Dose: 0.1 mg Naloxone HCl (Narcan) Confirm Administered Dose 0.4 mg .ROUTE .STK-MED ONE Stop: 03/24/17 05:01 Last Admin: 03/24/17 05:10 Dose: Not Given Ondansetron HCl (Zofran) 4 mg IVPUSH ONETIME ONE Stop: 03/24/17 00:37 Last Admin: 03/24/17 00:41 Dose: 4 mg Pantoprazole Sodium (Protonix Iv) 40 mg IVPUSH ONETIME ONE Stop: 03/24/17 00:37 Last Admin: 03/24/17 00:41 Dose: 40 mg - Exam Quality Assessment: DVT prophylaxis General: mild distress, sedated, lethargic. No: alert, oriented Lungs: Clear to auscultation, Normal respiratory effort, Decreased breath sounds. No: Rhonchi, Wheezing Cardiovascular: Regular Rate, Irregular Rhythm Abdomen: soft, no tenderness, no distension, tenderness, abnormal bowel sounds. No: rigidity, rebound, guarding Extremities: no edema Skin: warm, dry, intact - Problem List Review Problem List Initiated/Reviewed/Updated: Yes - My Orders Last 24 Hours: My Active Orders 03/24/17 12:00 Sodium Chloride 0.9% [Normal Saline] 1,000 ml IV ASDIRECTED 03/25/17 05:00 Abdomen 2V AP Upright Decub [CR] Timed BASIC METABOLIC PANEL,BMP [CHEM] Timed CBC WITH AUTO DIFF [HEME] Timed MAGNESIUM [CHEM] Timed - Plan Plan:: ASSESSMENT / PLAN Small Bowel Obstruction-recurrent episode with nausea vomiting and abdominal pain -NG tube to low intermittent suction -medications anti-emetic -Oxygen 2 liters per nasal cannula -IV fluids for hydration -And a.m. labs: CBC, BMP, lactic acid -referral to Dr. Mccann, Surgeon -May require placement of gastric tube for ongoing management of recurrent obstructions Atrial fibrillation-history of rapid heart rate -Oral medications are on hold because of bowel obstruction -May need to consider moved to intensive care unit for IV Cardizem if heart rate increases Dementia -close monitoring COPD-stable at this time with no evidence of exacerbation or underlying infection -nebs -oxygen therapy Maintenance issues -Orders home meds: hold, or changed to IV -Nutrition: NPO -Bazan catheter not indicated at this time -DVT: SCD, hold due + gastric occult CODE STATUS: Full Admission status: Admit to [address] [place] [address] justification. This patient will be admitted for inpatient services and is medically appropriate meeting medical necessity for inpatient admission as outlined in my documentation. I reasonably expect the patient will require inpatient services that span. Time over 2 midnights. I reasonably expect this patient to be discharged or transferred within 96 hours after admission to the critical access hospital. Disposition; consider possible discharge to home with hospice care Primary care provider: Dr. Bond
[2017-03-25] MEDS: Formoterol/Mometasone 200-5 MCG 8.8 GM Inhaler IH SCH ×2 (07:22→20:41)
[2017-03-25] MEDS: Sodium Chloride 0.9% 1,000 ML IV SCH ×3 (07:43→23:51)
[2017-03-25] MEDS: Carvedilol 25 MG Tab PO SCH ×2 (08:03→20:40)
[2017-03-25] MEDS: Diltiazem 120 MG Cap.CD PO SCH (08:04)
[2017-03-25] MEDS: Aspirin 81 MG Tab.EC PO SCH (08:04)
[2017-03-25] MEDS: Furosemide 20 MG/2 ML VIAL IVPUSH SCH (08:05)
[2017-03-25] MEDS: Pantoprazole 40 MG Vial IVPUSH SCH ×2 (09:41→22:05)
--- NOTE | 2017-03-25 11:02 | CR ---
Abdomen 2V AP Upright Decub HISTORY: NG tube placement. COMPARISON: CT scan 03/24/2007 FINDINGS: NG tube appears to be within the antrum of the stomach in good position.
--- NOTE | 2017-03-25 19:47 | PCM.PN ---
- General Info Date of Service: 03/25/17 Functional Status: Reports: pain controlled. Denies: tolerating diet - Review of Systems General: Reports: Weakness. Denies: Fever, Chills Pulmonary: Reports: no symptoms Cardiovascular: Reports: No Symptoms Gastrointestinal: Reports: No symptoms Systems Review Comment:: This patient has remained stable over the past 24 hours. He has been more confused but not agitated. Vital signs have remained stable and he is been afebrile. Continues to have relatively high output from the NG tube and has not yet passed gas or had a bowel movement. - Patient Data Vitals - most recent: Last Vital Signs Temp 97.5 F 03/25/17 19:00 Pulse 94 03/25/17 19:00 Resp 16 03/25/17 19:00 BP 154/95 H 03/25/17 19:00 Pulse Ox 93 L 03/25/17 19:00 Weight - most recent: 124 lb 15.998 oz I&O - last 24 hours: Intake & Output 03/25/17 03/25/17 03/25/17 06:59 14:59 22:59 Intake Total 1290 1545 Output Total 350 575 870 Balance 940 -575 675 Lab Results last 24 hrs: Laboratory Results - last 24 hr 03/25/17 03/25/17 Range/Units 05:00 05:00 WBC 5.0 (4.5-11.0) K/uL RBC 3.41 L (4.30-5.90) M/uL Hgb 9.3 L D (12.0-15.0) g/dL Hct 30.0 L (40.0-54.0) % MCV 88 (80-98) fL MCH 27 (27-31) pg MCHC 31 L (32-36) % Plt Count 213 (150-400) K/uL Neut % (Auto) 65 (36-66) % Lymph % (Auto) 19 L (24-44) % Kent % (Auto) 15 H (2-6) % Eos % (Auto) 0 L (2-4) % Baso % (Auto) 0 (0-1) % Sodium 142 (140-148) mmol/L Potassium 3.6 (3.6-5.2) mmol/L Chloride 105 (100-108) mmol/L Carbon Dioxide 32 (21-32) mmol/L Anion Gap 4.9 L (5.0-14.0) mmol/L BUN 27 H (7-18) mg/dL Creatinine 0.9 (0.8-1.3) mg/dL Est Cr Clr Drug Dosing 49.00 mL/min Estimated GFR (MDRD) > 60 (>60) Glucose 100 (74-106) mg/dL Calcium 8.2 L (8.5-10.1) mg/dL Magnesium 2.0 (1.8-2.4) mg/dL Med Orders - Current: Current Medications Acetaminophen (Tylenol) 650 mg PO Q4H PRN PRN Reason: Pain (Mild 1-3)/fever Albuterol (Proventil Neb Soln) 2.5 mg NEB Q4H PRN PRN Reason: Shortness Of Breath/wheezing Last Admin: 03/24/17 04:25 Dose: 2.5 mg Albuterol (Ventolin Hfa) 0 gm INH Q4H PRN PRN Reason: Shortness of Breath Aspirin (Halfprin) 81 mg PO DAILY [facility] Last Admin: 03/25/17 08:04 Dose: 81 mg Carvedilol (Coreg) 25 mg PO BID [facility] Last Admin: 03/25/17 08:03 Dose: 25 mg Diltiazem HCl (Cardizem Cd) 120 mg PO DAILY [facility] Last Admin: 03/25/17 08:04 Dose: 120 mg Docusate Sodium (Colace) 100 mg PO BID PRN PRN Reason: Constipation Furosemide (Lasix) 20 mg IVPUSH DAILY [facility] Last Admin: 03/25/17 08:05 Dose: 20 mg Sodium Chloride (Normal Saline) 1,000 mls @ 125 mls/hr IV ASDIRECTED [facility] Last Admin: 03/25/17 15:55 Dose: 125 mls/hr Mometasone Furoate/Formoterol Fumar (Dulera 200-5 Mcg) 0 puff IH BIDRT [facility] Last Admin: 03/25/17 07:22 Dose: 2 puff Morphine Sulfate (Morphine) 2 mg IVPUSH Q2H PRN PRN Reason: Pain (severe 7-10) Pantoprazole Sodium (Protonix Iv) 40 mg IVPUSH Q12H [facility] Last Admin: 03/25/17 09:41 Dose: 40 mg Discontinued Medications Sodium Chloride (Normal Saline) 1,000 mls @ 75 mls/hr IV ASDIRECTED [facility] Last Admin: 03/24/17 00:41 Dose: 75 mls/hr Lidocaine HCl (Xylocaine 2% Jelly) 10 ml MUCMEM ONETIME ONE Stop: 03/24/17 03:56 Last Admin: 03/24/17 04:06 Dose: 10 ml Lorazepam (Ativan) 1 mg IVPUSH ONETIME ONE Stop: 03/24/17 01:46 Last Admin: 03/24/17 02:06 Dose: 1 mg Morphine Sulfate (Morphine) 1 mg IVPUSH ONETIME ONE Stop: 03/24/17 00:37 Last Admin: 03/24/17 00:41 Dose: 1 mg Naloxone HCl (Narcan) 0.1 mg IVPUSH ONETIME PRN PRN Reason: Sedation Stop: 03/24/17 04:56 Last Admin: 03/24/17 05:07 Dose: 0.1 mg Naloxone HCl (Narcan) Confirm Administered Dose 0.4 mg .ROUTE .STK-MED ONE Stop: 03/24/17 05:01 Last Admin: 03/24/17 05:10 Dose: Not Given Ondansetron HCl (Zofran) 4 mg IVPUSH ONETIME ONE Stop: 03/24/17 00:37 Last Admin: 03/24/17 00:41 Dose: 4 mg Pantoprazole Sodium (Protonix Iv) 40 mg IVPUSH ONETIME ONE Stop: 03/24/17 00:37 Last Admin: 03/24/17 00:41 Dose: 40 mg - Exam Quality Assessment: DVT prophylaxis General: lethargic Lungs: Clear to auscultation, Normal respiratory effort, Decreased breath sounds. No: Wheezing Cardiovascular: Regular Rate, No Murmurs, Irregular Rhythm Abdomen: soft, no tenderness, no distension, abnormal bowel sounds Extremities: no edema Skin: warm, dry, intact - Problem List Review Problem List Initiated/Reviewed/Updated: Yes - My Orders Last 24 Hours: My Active Orders 03/26/17 05:00 Abdomen 2V AP Upright Decub [CR] Timed BASIC METABOLIC PANEL,BMP [CHEM] Timed CBC WITH AUTO DIFF [HEME] Timed - Plan Plan:: ASSESSMENT / PLAN Small Bowel Obstruction-recurrent episode with nausea vomiting and abdominal pain. Stable over the past 24 hours but continues to have relatively high NG output with no bowel movement or flatus. Family is considering options for ongoing management, discharge to home with hospice and comfort cares versus surgical intervention. -NG tube to low intermittent suction -medications anti-emetic -Oxygen 2 liters per nasal cannula -IV fluids for hydration -And a.m. labs: CBC, BMP, lactic acid -referral to Dr. Mccann, Surgeon -May require placement of gastric tube for ongoing management of recurrent obstructions Atrial fibrillation-history of rapid heart rate. Heart rate has remained stable thus far, continues to receive oral rate slowing medication with clamping of the NG tube. -May need to consider moved to intensive care unit for IV Cardizem if heart rate increases Dementia -close monitoring COPD-stable at this time with no evidence of exacerbation or underlying infection -nebs -oxygen therapy Maintenance issues -Orders home meds: hold, or changed to IV -Nutrition: NPO -Bazan catheter not indicated at this time -DVT: SCD, hold due + gastric occult CODE STATUS: Full Admission status: Admit to [address] [place] [address] Admission justification. This patient will be admitted for inpatient services and is medically appropriate meeting medical necessity for inpatient admission as outlined in my documentation. I reasonably expect the patient will require inpatient services that span. Time over 2 midnights. I reasonably expect this patient to be discharged or transferred within 96 hours after admission to the critical access hospital. Disposition; consider possible discharge to home with hospice care Primary care provider: Dr. Bond
[2017-03-26] MEDS ORDERED: Potassium Chloride 20 MEQ in Premix Bag 1 BAG IV ONE ×2 (06:36→08:30)
[2017-03-26] MEDS: Formoterol/Mometasone 200-5 MCG 8.8 GM Inhaler IH SCH ×2 (07:10→20:52)
[2017-03-26] MEDS: Furosemide 20 MG/2 ML VIAL IVPUSH SCH (08:07)
[2017-03-26] MEDS: Diltiazem 120 MG Cap.CD PO SCH (08:13)
[2017-03-26] MEDS: Aspirin 81 MG Tab.EC PO SCH (08:14)
[2017-03-26] MEDS: Carvedilol 25 MG Tab PO SCH ×2 (08:14→20:51)
[2017-03-26] MEDS: Sodium Chloride 0.9% 1,000 ML IV SCH (08:14)
[2017-03-26] MEDS: Potassium Chloride 20 MEQ, Lidocaine 1% 2 ML in Sodium Chloride 0.9% 100 ML IV SCH ×2 (08:37→11:12)
[2017-03-26] MEDS: Pantoprazole 40 MG Vial IVPUSH SCH ×2 (10:02→20:59)
--- NOTE | 2017-03-26 10:18 | CR ---
Abdomen 2V AP Upright Decub HISTORY: Follow-up small bowel obstruction. COMPARISON: 03/25/2017. FINDINGS: NG tube overlies the stomach. There has been some decompression of some of the bowel loops in the left abdomen. No free air seen. Calcification overlying the low pelvis compatible with bladd er calcifications in correlation with prior CT scan.
[2017-03-26] MEDS: Dextrose 5%-0.9% NaCl with KCl 1,000 ML IV SCH ×2 (11:08→21:23)
[2017-03-26] MEDS ORDERED: Propofol 200 MG/20 ML SDV ONE (13:35)
--- NOTE | 2017-03-26 17:39 | PCM.PN ---
- General Info Date of Service: 03/26/17 Functional Status: Reports: pain controlled, urinating - Review of Systems General: Reports: Weakness Gastrointestinal: Reports: Abdominal pain. Denies: Nausea Neurological: Reports: Confusion Systems Review Comment:: No acute events overnight. He is confused this morning. He is weak. Respiratory status has been stable. Still has some NG tube drainage. Minimal liquid stool in his colostomy bag. He has not had any fevers. Cardiac monitoring has been acceptable. Family discuss the situation last night and they are thinking that home with hospice will be the best route for his care. - Patient Data Vitals - most recent: Last Vital Signs Temp 37.1 C 03/26/17 17:10 Pulse 88 03/26/17 17:10 Resp 16 03/26/17 17:10 BP 150/84 H 03/26/17 17:10 Pulse Ox 95 03/26/17 17:10 Weight - most recent: 56.699 kg I&O - last 24 hours: Intake & Output 03/26/17 03/26/17 03/26/17 06:59 14:59 22:59 Intake Total 961 Output Total 450 675 Balance -450 286 Lab Results last 24 hrs: Laboratory Results - last 24 hr 03/26/17 03/26/17 Range/Units 06:04 06:04 WBC 8.1 (4.5-11.0) K/uL RBC 4.27 L (4.30-5.90) M/uL Hgb 11.7 L D (12.0-15.0) g/dL Hct 36.8 L (40.0-54.0) % MCV 86 (80-98) fL MCH 27 (27-31) pg MCHC 32 (32-36) % Plt Count 250 (150-400) K/uL Neut % (Auto) 81 H (36-66) % Lymph % (Auto) 9 L (24-44) % George % (Auto) 10 H (2-6) % Eos % (Auto) 0 L (2-4) % Baso % (Auto) 0 (0-1) % Sodium 142 (140-148) mmol/L Potassium 2.9 L* (3.6-5.2) mmol/L Chloride 104 (100-108) mmol/L Carbon Dioxide 27 (21-32) mmol/L Anion Gap 13.9 (5.0-14.0) mmol/L BUN 17 (7-18) mg/dL Creatinine 0.8 (0.8-1.3) mg/dL Est Cr Clr Drug Dosing 55.12 mL/min Estimated GFR (MDRD) > 60 (>60) Glucose 80 (74-106) mg/dL Calcium 8.5 (8.5-10.1) mg/dL Med Orders - Current: Current Medications Acetaminophen (Tylenol) 650 mg PO Q4H PRN PRN Reason: Pain (Mild 1-3)/fever Last Admin: 03/26/17 16:16 Dose: 650 mg Albuterol (Proventil Neb Soln) 2.5 mg NEB Q4H PRN PRN Reason: Shortness Of Breath/wheezing Last Admin: 03/24/17 04:25 Dose: 2.5 mg Albuterol (Ventolin Hfa) 0 gm INH Q4H PRN PRN Reason: Shortness of Breath Aspirin (Halfprin) 81 mg PO DAILY [facility] Last Admin: 03/26/17 08:14 Dose: 81 mg Carvedilol (Coreg) 25 mg PO BID [facility] Last Admin: 03/26/17 08:14 Dose: 25 mg Diltiazem HCl (Cardizem Cd) 120 mg PO DAILY [facility] Last Admin: 03/26/17 08:13 Dose: 120 mg Docusate Sodium (Colace) 100 mg PO BID PRN PRN Reason: Constipation Furosemide (Lasix) 20 mg IVPUSH DAILY [facility] Last Admin: 03/26/17 08:07 Dose: 20 mg Potassium Chloride/Dextrose/Sod Cl (D5 Ns With 20 Meq Kcl) 1,000 mls @ 75 mls/ hr IV ASDIRECTED [facility] Last Admin: 03/26/17 11:08 Dose: 75 mls/hr Mometasone Furoate/Formoterol Fumar (Dulera 200-5 Mcg) 0 puff IH BIDRT [facility] Last Admin: 03/26/17 07:10 Dose: 2 puff Morphine Sulfate (Morphine) 2 mg IVPUSH Q2H PRN PRN Reason: Pain (severe 7-10) Pantoprazole Sodium (Protonix Iv) 40 mg IVPUSH Q12H [facility] Last Admin: 03/26/17 10:02 Dose: 40 mg Discontinued Medications Sodium Chloride (Normal Saline) 1,000 mls @ 75 mls/hr IV ASDIRECTED [facility] Last Admin: 03/24/17 00:41 Dose: 75 mls/hr Sodium Chloride (Normal Saline) 1,000 mls @ 125 mls/hr IV ASDIRECTED [facility] Last Admin: 03/26/17 08:14 Dose: 125 mls/hr Potassium Chloride 20 meq/Lidocaine HCl 2 ml/ Sodium Chloride 112 mls @ 56 mls/ hr IV Q2H [facility] Stop: 03/26/17 12:29 Last Admin: 03/26/17 11:12 Dose: 56 mls/hr Lidocaine HCl (Xylocaine 2% Jelly) 10 ml MUCMEM ONETIME ONE Stop: 03/24/17 03:56 Last Admin: 03/24/17 04:06 Dose: 10 ml Lorazepam (Ativan) 1 mg IVPUSH ONETIME ONE Stop: 03/24/17 01:46 Last Admin: 03/24/17 02:06 Dose: 1 mg Morphine Sulfate (Morphine) 1 mg IVPUSH ONETIME ONE Stop: 03/24/17 00:37 Last Admin: 03/24/17 00:41 Dose: 1 mg Naloxone HCl (Narcan) 0.1 mg IVPUSH ONETIME PRN PRN Reason: Sedation Stop: 03/24/17 04:56 Last Admin: 03/24/17 05:07 Dose: 0.1 mg Naloxone HCl (Narcan) Confirm Administered Dose 0.4 mg .ROUTE .STK-MED ONE Stop: 03/24/17 05:01 Last Admin: 03/24/17 05:10 Dose: Not Given Ondansetron HCl (Zofran) 4 mg IVPUSH ONETIME ONE Stop: 03/24/17 00:37 Last Admin: 03/24/17 00:41 Dose: 4 mg Pantoprazole Sodium (Protonix Iv) 40 mg IVPUSH ONETIME ONE Stop: 03/24/17 00:37 Last Admin: 03/24/17 00:41 Dose: 40 mg Propofol (Diprivan 20 Ml) Confirm Administered Dose 200 mg .ROUTE .STK-MED ONE Stop: 03/26/17 13:36 - Exam Quality Assessment: supplemental oxygen General: alert, cooperative, no acute distress. No: oriented Neck: supple Lungs: Normal respiratory effort Cardiovascular: Regular Rate, Regular Rhythm Abdomen: soft, no distension, other (small light brown liquid stool in colostomy bag) Extremities: no edema Skin: warm, dry Psy/Mental Status: alert. No: anxious, agitated - Problem List Review Problem List Initiated/Reviewed/Updated: Yes - My Orders Last 24 Hours: My Active Orders 03/26/17 10:00 Dextrose 5%-0.9% NaCl with KCl [D5 NS with 20 mEq KCl] 1,000 ml IV ASDIRECTED 03/26/17 12:47 Discontinue Telemetry Monitoring [Cardiac Monitoring Discontinue] [RC] Click to Edit - Plan Plan:: ASSESSMENT / PLAN Small Bowel Obstruction - recurrent episode with nausea vomiting and abdominal pain. Stable but ongoing NG tube output and essentially no fluid making it into his colostomy. Family has decided to move more towards a comfort-based approach. They are interested in a venting PEG tube to help manage symptoms. -NG tube to low intermittent suction -medications anti-emetic -Oxygen 2 liters per nasal cannula -Gentle IV fluids for hydration -PEG tube to be placed today to help manage recurrent obstructions Hypokalemia - will be replaced this morning. Atrial fibrillation - history of rapid heart rate. Stable so far. -Discontinue cardiac monitoring Dementia - slow decline in functional status and [id number] -close monitoring COPD - stable at this time with no evidence of exacerbation or underlying infection -nebs -oxygen therapy Maintenance issues -Orders home meds: hold, or changed to IV -Nutrition: NPO -Bazan catheter not indicated at this time -DVT: SCD, hold due + gastric occult CODE STATUS: DO NOT RESUSCITATE/DO NOT INTUBATE Disposition; home with hospice care in a day or 2 Buck Matthews M.D.
[2017-03-26] MEDS ORDERED: Ondansetron 4 MG/2 ML SDV IVPUSH PRN (17:44)
[2017-03-26] MEDS ORDERED: LORazepam 2 MG/ML MDV IVPUSH PRN (17:45)
--- NOTE | 2017-03-26 18:02 | CONS ---
DATE OF SERVICE: 03/25/2017 REFERRING PHYSICIAN: CONSULTING PHYSICIAN: Kana Mccann MD REASON FOR CONSULTATION: Evaluation of abdominal pain. HISTORY OF PRESENT ILLNESS: This is an 82-year-old gentleman who is well known to the Surgical Services by both Dr. Orellana and myself. In short, the patient has had multiple issues with respect to his colorectal cancer. The patient has an ostomy and had developed an internal hernia which was subsequently repaired. Then, a parastomal hernia which was subsequently repaired, and now presents with a small-bowel obstruction consistent with adhesions. The patient has some nausea and vomiting. An NG tube has been placed. He is resting comfortably at this time. PAST MEDICAL HISTORY: Atrial fib, hypertension, COPD, multiple and extended history of asthma, bronchitis, and essentially pneumonia during every hospitalization, constipation, benign prostatic hypertrophy, fracture of his wrist and pelvis, B12 deficiency, prostate issues as described above. 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 SOCIAL HISTORY: He presents with family today. FAMILY HISTORY: Noncontributory. REVIEW OF SYSTEMS: GENERAL: The patient continues his slow but constant deterioration. The patient looks more emaciated, weaker, and more confused compared to each previous hospitalization. HEENT: No symptoms. PULMONARY: Some shortness of breath, but insignificant from previous visits. CARDIOVASCULAR: No chest pain. GASTROINTESTINAL: As above. GENITOURINARY: Ongoing prostate issues, but nominal for his current status. PSYCHIATRIC: Continues to have increasing worsening confusion. NEUROLOGICAL: No changes. HEMATOLOGY: No changes. PHYSICAL EXAMINATION: VITAL SIGNS: Temperature 98.7, blood pressure 153/88, pulse 18, and 94% on 2 L. GENERAL: The patient continues to be more confused on a daily basis. HEENT: Pupils are equal. NECK: Supple. LUNGS: Crackles bilaterally. CARDIOVASCULAR: Regular rate. ABDOMEN: Ostomy intact. Abdomen is distended consistent with bowel obstruction. EXTREMITIES: Full range of motion. PSYCH: The patient is not oriented to time or place. NEUROLOGICAL: Cranial nerves 2 through 12 are grossly intact. LABORATORY RESULTS: Normal white blood cell count, hemoglobin of 9.3, and a creatinine which is normal. IMAGING: I did review the imaging and the patient has a bowel obstruction. PLAN: The patient and family are deciding if he should be placed on hospice versus surgical intervention. The patient's family was explained that his bowel obstruction will not improve without surgical intervention. His hospice was the choice. They may consider a PEG tube placement for feeding tube for decompression purposes and/or nutrition. The patient's family understand these risks and will let us know in the next 24 hours of their choice. Kana Mccann MD /[id number]
[2017-03-27] MEDS: Formoterol/Mometasone 200-5 MCG 8.8 GM Inhaler IH SCH ×2 (07:15→20:51)
[2017-03-27] MEDS: Carvedilol 25 MG Tab PO SCH ×2 (08:36→20:51)
[2017-03-27] MEDS: Aspirin 81 MG Tab.EC PO SCH (08:37)
[2017-03-27] MEDS: Diltiazem 120 MG Cap.CD PO SCH (08:37)
[2017-03-27] MEDS: Furosemide 20 MG/2 ML VIAL IVPUSH SCH (08:37)
[2017-03-27] MEDS: Pantoprazole 40 MG Vial IVPUSH SCH (10:09)
[2017-03-27] MEDS: Dextrose 5%-0.9% NaCl with KCl 1,000 ML IV SCH (10:57)
[2017-03-27] MEDS ORDERED: LORazepam 0.5 MG Tab PO PRN (13:24)
--- NOTE | 2017-03-27 13:26 | PCM.PN ---
- General Info Date of Service: 03/27/17 Functional Status: Reports: pain controlled, ambulating - Review of Systems General: Reports: Weakness Pulmonary: Denies: shortness of breath Gastrointestinal: Reports: Abdominal pain, Nausea Systems Review Comment:: No acute events overnight. Still a little bit confused today which is probably back to his baseline. Mild intermittent abdominal pain. Mild intermittent nausea but no vomiting. Doing fairly well since the gastrostomy tube was placed. No fevers. No significant shortness of breath. He does have some stool in his colostomy bag today. - Patient Data Vitals - most recent: Last Vital Signs Temp 36.8 C 03/27/17 10:33 Pulse 90 03/27/17 10:33 Resp 18 03/27/17 10:33 BP 154/89 H 03/27/17 10:33 Pulse Ox 97 03/27/17 10:33 Weight - most recent: 56.699 kg I&O - last 24 hours: Intake & Output 03/26/17 03/27/17 03/27/17 22:59 06:59 14:59 Intake Total 577 551 Output Total 450 400 Balance 127 551 -400 Med Orders - Current: Current Medications Acetaminophen (Tylenol) 650 mg PO Q4H PRN PRN Reason: Pain (Mild 1-3)/fever Last Admin: 03/26/17 16:16 Dose: 650 mg Albuterol (Proventil Neb Soln) 2.5 mg NEB Q4H PRN PRN Reason: Shortness Of Breath/wheezing Last Admin: 03/24/17 04:25 Dose: 2.5 mg Albuterol (Ventolin Hfa) 0 gm INH Q4H PRN PRN Reason: Shortness of Breath Aspirin (Halfprin) 81 mg PO DAILY [facility] Last Admin: 03/27/17 08:37 Dose: 81 mg Carvedilol (Coreg) 25 mg PO BID [facility] Last Admin: 03/27/17 08:36 Dose: 25 mg Diltiazem HCl (Cardizem Cd) 120 mg PO DAILY [facility] Last Admin: 03/27/17 08:37 Dose: 120 mg Docusate Sodium (Colace) 100 mg PO BID PRN PRN Reason: Constipation Furosemide (Lasix) 20 mg PO DAILY [facility] Lorazepam (Ativan) 0.5 mg PO Q4H PRN PRN Reason: Nausea Mometasone Furoate/Formoterol Fumar (Dulera 200-5 Mcg) 0 puff IH BIDRT [facility] Last Admin: 03/27/17 07:15 Dose: 2 puff Ondansetron HCl (Zofran) 4 mg IVPUSH Q6H PRN PRN Reason: Nausea/Vomiting Last Admin: 03/26/17 18:04 Dose: 4 mg Pantoprazole Sodium (Protonix) 40 mg PO DAILY [facility] Discontinued Medications Furosemide (Lasix) 20 mg IVPUSH DAILY [facility] Last Admin: 03/27/17 08:37 Dose: 20 mg Sodium Chloride (Normal Saline) 1,000 mls @ 75 mls/hr IV ASDIRECTED [facility] Last Admin: 03/24/17 00:41 Dose: 75 mls/hr Sodium Chloride (Normal Saline) 1,000 mls @ 125 mls/hr IV ASDIRECTED [facility] Last Admin: 03/26/17 08:14 Dose: 125 mls/hr Potassium Chloride 20 meq/Lidocaine HCl 2 ml/ Sodium Chloride 112 mls @ 56 mls/ hr IV Q2H [facility] Stop: 03/26/17 12:29 Last Admin: 03/26/17 11:12 Dose: 56 mls/hr Potassium Chloride/Dextrose/Sod Cl (D5 Ns With 20 Meq Kcl) 1,000 mls @ 75 mls/ hr IV ASDIRECTED [facility] Last Admin: 03/27/17 10:57 Dose: 75 mls/hr Lidocaine HCl (Xylocaine 2% Jelly) 10 ml MUCMEM ONETIME ONE Stop: 03/24/17 03:56 Last Admin: 03/24/17 04:06 Dose: 10 ml Lorazepam (Ativan) 1 mg IVPUSH ONETIME ONE Stop: 03/24/17 01:46 Last Admin: 03/24/17 02:06 Dose: 1 mg Lorazepam (Ativan) 0.5 mg IVPUSH Q4H PRN PRN Reason: Nausea Morphine Sulfate (Morphine) 1 mg IVPUSH ONETIME ONE Stop: 03/24/17 00:37 Last Admin: 03/24/17 00:41 Dose: 1 mg Morphine Sulfate (Morphine) 2 mg IVPUSH Q2H PRN PRN Reason: Pain (severe 7-10) Naloxone HCl (Narcan) 0.1 mg IVPUSH ONETIME PRN PRN Reason: Sedation Stop: 03/24/17 04:56 Last Admin: 03/24/17 05:07 Dose: 0.1 mg Naloxone HCl (Narcan) Confirm Administered Dose 0.4 mg .ROUTE .STK-MED ONE Stop: 03/24/17 05:01 Last Admin: 03/24/17 05:10 Dose: Not Given Ondansetron HCl (Zofran) 4 mg IVPUSH ONETIME ONE Stop: 03/24/17 00:37 Last Admin: 03/24/17 00:41 Dose: 4 mg Pantoprazole Sodium (Protonix Iv) 40 mg IVPUSH ONETIME ONE Stop: 03/24/17 00:37 Last Admin: 03/24/17 00:41 Dose: 40 mg Pantoprazole Sodium (Protonix Iv) 40 mg IVPUSH Q12H [facility] Last Admin: 03/27/17 10:09 Dose: 40 mg Propofol (Diprivan 20 Ml) Confirm Administered Dose 200 mg .ROUTE .STK-MED ONE Stop: 03/26/17 13:36 - Exam Quality Assessment: supplemental oxygen General: alert, oriented, cooperative, no acute distress Neck: supple Lungs: Normal respiratory effort Cardiovascular: Regular Rate, Regular Rhythm Abdomen: soft, no distension, tenderness, other (some gas and light brown stool in colostomy. Light green liquid draining from G tube) Extremities: no edema, no cyanosis Skin: warm, dry Psy/Mental Status: alert, normal affect - Problem List Review Problem List Initiated/Reviewed/Updated: Yes - My Orders Last 24 Hours: My Active Orders 03/26/17 17:44 Ondansetron [Zofran] 4 mg IVPUSH Q6H PRN 03/27/17 13:21 Convert IV to Saline Lock [OM.PC] Routine 03/27/17 13:23 Gastrostomy Tube Management [OM.PC] Routine 03/27/17 13:24 LORazepam [Ativan] 0.5 mg PO Q4H PRN 03/27/17 Dinner Clear Liquid Diet [DIET] 03/28/17 09:00 Furosemide [Lasix] 20 mg PO DAILY Pantoprazole [ProTONIX] 40 mg PO DAILY - Plan Plan:: ASSESSMENT / PLAN Small Bowel Obstruction - recurrent episode with nausea vomiting and abdominal pain. He seems to have at least a little return of bowel function with some stool in the colostomy bag. He is training watery green fluid from the gastrostomy tube. -Gastrostomy tube to gravity drainage -Clamped tube when he is consuming clear liquids -anti-emetics -Oxygen 2 liters per nasal cannula -Saline lock IV -PEG tube placed to help manage recurrent obstructions Hypokalemia - levels have been supplemented. Atrial fibrillation - history of rapid heart rate. Stable so far. -Discontinue cardiac monitoring Dementia - slow decline in functional status and [id number] -close monitoring COPD - stable at this time with no evidence of exacerbation or underlying infection -nebs -oxygen therapy Maintenance issues -Nutrition: Trial of clear liquids -Bazan catheter not indicated at this time -DVT: SCD, hold due + gastric occult CODE STATUS: DO NOT RESUSCITATE/DO NOT INTUBATE Disposition; home with hospice care tomorrow Buck Matthews M.D.
[2017-03-28] MEDS ORDERED: Pantoprazole 40 MG Tab.CR PO SCH (07:30)
[2017-03-28] MEDS: Formoterol/Mometasone 200-5 MCG 8.8 GM Inhaler IH SCH (07:37)
[2017-03-28] MEDS: Aspirin 81 MG Tab.EC PO SCH (08:26)
[2017-03-28] MEDS: Carvedilol 25 MG Tab PO SCH (08:27)
[2017-03-28] MEDS: Diltiazem 120 MG Cap.CD PO SCH (08:43)
[2017-03-28] MEDS ORDERED: Furosemide 20 MG Tab PO SCH (09:00)
--- NOTE | 2017-03-28 10:14 | PCM.DCSUM1 ---
Discharge Summary - Hospital Course Brief History: 82-year-old male with history of rectal cancer, recurrent bowel obstructions and multiple other medical problems who presented with a recurrent episode of small bowel obstruction. - Discharge Data Discharge Date: 03/28/17 Discharge Disposition: DC/Tfer to Hospice - Home 48 Condition: Poor - Discharge Diagnosis/Problem(s) (1) Small bowel obstruction SNOMED Code(s): 425743340 ICD Code: K56.69 - OTHER INTESTINAL OBSTRUCTION Status: Acute Priority: High (2) Alzheimer's dementia SNOMED Code(s): 76120354 ICD Code: G30.9 - ALZHEIMER'S DISEASE, UNSPECIFIED Status: Chronic Priority: High Qualifiers: Alzheimer's disease onset: late-onset Dementia behavioral disturbance: without behavioral disturbance Qualified Code(s): G30.1 - Alzheimer's disease with late onset; F02.80 - Dementia in other diseases classified elsewhere without behavioral disturbance (3) Paroxysmal atrial fibrillation SNOMED Code(s): 546433002 ICD Code: I48.0 - PAROXYSMAL ATRIAL FIBRILLATION Status: Chronic - Patient Summary/Data Consults: Consultations 03/24/17 03:12 OT Evaluation and Treatment [CONS] Routine Please Evaluate and Treat. OT Reason for Consult: Discharge Planning This query below is only for informational purposes and is not editable. 03/24/17 09:06 Consult to Physician [CONS] Urgent Consulting Provider: Kana Mccann Call Completed to Consulting Physician: No Reason for Consult: small bowel obstruction, admitted to [address] [place] [address] Course: Sam presented with abdominal pain, nausea and vomiting. Workup in the emergency room revealed a recurrent small bowel obstruction. An NG tube was placed and he was admitted to the hospital. Surgical consultation was obtained. He was felt to be a very high risk surgical patient given his advanced age, COPD, atrial fibrillation and significant deconditioning and poor nutritional status. Discussions were held with the family regarding potential management options. A high risk of surgery was one possibility but with his recurrent episodes was felt that this would likely not be a tear and could potentially cause harm. Additionally placement of a venting gastrostomy tube and hospice services was considered. The family has elected to more towards a comfort-based approach with hospice services and given Sam's significant decline as far as his quality of life and functional status. He is unable to provide much in the way of input given his confusion and dementia. The family including his and shirleyon felt that additional surgeries and further decline in his functional status and quality of life would not be acceptable to him. We did place a venting gastrostomy tube which will likely be necessary when she has recurrence of his obstruction. At this point he seems to have resolved his obstruction with some return of colostomy function. He has not had much in the way of pain. His atrial fibrillation has not recurred and his COPD seems stable. The plan is for discharge to home with hospice cares. Pain control so far has been with acetaminophen but I would expect that he may have more difficulty with pain down the road. 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 Additional complicating comorbidity conditions include atrial fibrillation and COPD as well as dementia. He has lost significant weight as well as muscle mass. - Patient Instructions Diet: GI Soft/Low Residue/Low Fiber Activity: As Tolerated Driving: Do Not Drive Showering/Bathing: May Shower Notify Provider of: Fever, Increased Pain, Nausea and/or Vomiting Other/Special Instructions: 1. You were in the hospital for management of a recurrent small bowel obstruction. Fortunately this episode has resolved without the need for another surgery. Because you have had multiple recurrent episodes and surgery carries a very high risk this was not undertaken. At the time of discharge the plan is for you to go home with hospice to help you do as well as you can for as long as you can. 2. We have placed a gastrostomy tube to help decompress your intestine if you have additional episodes of blockage. This tube should be clamped prior to starting to eat or drink anything. You may leave this tube clamped as long as tolerated but ideally will remain clamped for at least one hour after taking medications and eating. If you develop nausea, abdominal distention or vomiting the tube should be unclamped and placed to gravity drainage. 3. A hospice referral has been placed. They will help to provide symptom management, emotional support as well as additional services and equipment after your discharge from the hospital. - Discharge Plan Prescriptions/Med Rec: Acetaminophen [Tylenol] 650 mg PO Q4H PRN #100 tablet PRN Reason: Pain/Fever Home Medications: Home Meds Fluticasone/Salmeterol [Advair 250-50] 1 puff INH BID 11/24/13 [History] Albuterol [Ventolin HFA] 2 puff INH Q4H PRN 10/08/14 [History] Aspirin [Ecotrin] 81 mg PO DAILY 10/08/14 [History] Carvedilol 25 mg PO BID 10/21/16 [History] Diltiazem HCl [Diltiazem 24Hr Cd] 120 mg PO DAILY #30 cap.er.24h 10/31/16 [Rx] Sennosides/Docusate Sodium [Senna-S] 1 each PO BID #60 tablet 10/31/16 [Rx] Melatonin 6 mg PO BEDTIME #60 tablet 02/11/17 [Rx] Pantoprazole Sodium [Protonix] 40 mg PO DAILY #30 tablet. 02/11/17 [Rx] Acetaminophen [Tylenol] 650 mg PO Q4H PRN #100 tablet 03/28/17 [Rx] Patient Handouts: Hospice Referrals: Jarad Bond MD [Primary Care Provider] - (f/u as needed) - Discharge Summary/Plan Comment DC Time >30 min.: Yes (40 - new hospice admission) - Patient Data Vitals - Most Recent: Last Vital Signs Temp 36.9 C 03/28/17 07:10 Pulse 68 03/28/17 08:43 Resp 20 03/28/17 07:10 BP 142/71 H 03/28/17 08:43 Pulse Ox 94 L 03/28/17 07:10 Weight - Most Recent: 56.699 kg I&O - Last 24 hours: Intake & Output 03/27/17 03/28/17 03/28/17 22:59 06:59 14:59 Intake Total 1234 240 740 Output Total 251 200 Balance 983 240 540 Med Orders - Current: Current Medications Acetaminophen (Tylenol) 650 mg PO Q4H PRN PRN Reason: Pain (Mild 1-3)/fever Last Admin: 03/26/17 16:16 Dose: 650 mg Albuterol (Proventil Neb Soln) 2.5 mg NEB Q4H PRN PRN Reason: Shortness Of Breath/wheezing Last Admin: 03/24/17 04:25 Dose: 2.5 mg Albuterol (Ventolin Hfa) 0 gm INH Q4H PRN PRN Reason: Shortness of Breath Aspirin (Halfprin) 81 mg PO DAILY [facility] Last Admin: 03/28/17 08:26 Dose: 81 mg Carvedilol (Coreg) 25 mg PO BID [facility] Last Admin: 03/28/17 08:27 Dose: 25 mg Diltiazem HCl (Cardizem Cd) 120 mg PO DAILY [facility] Last Admin: 03/28/17 08:43 Dose: 120 mg Docusate Sodium (Colace) 100 mg PO BID PRN PRN Reason: Constipation Furosemide (Lasix) 20 mg PO DAILY [facility] Last Admin: 03/28/17 08:29 Dose: 20 mg Lorazepam (Ativan) 0.5 mg PO Q4H PRN PRN Reason: Nausea Mometasone Furoate/Formoterol Fumar (Dulera 200-5 Mcg) 0 puff IH BIDRT [facility] Last Admin: 03/28/17 07:37 Dose: 2 puff Ondansetron HCl (Zofran) 4 mg IVPUSH Q6H PRN PRN Reason: Nausea/Vomiting Last Admin: 03/26/17 18:04 Dose: 4 mg Pantoprazole Sodium (Protonix) 40 mg PO ACBREAKFAST [facility] Last Admin: 03/28/17 08:26 Dose: 40 mg Discontinued Medications Furosemide (Lasix) 20 mg IVPUSH DAILY [facility] Last Admin: 03/27/17 08:37 Dose: 20 mg Sodium Chloride (Normal Saline) 1,000 mls @ 75 mls/hr IV ASDIRECTED [facility] Last Admin: 03/24/17 00:41 Dose: 75 mls/hr Sodium Chloride (Normal Saline) 1,000 mls @ 125 mls/hr IV ASDIRECTED [facility] Last Admin: 03/26/17 08:14 Dose: 125 mls/hr Potassium Chloride 20 meq/Lidocaine HCl 2 ml/ Sodium Chloride 112 mls @ 56 mls/ hr IV Q2H [facility] Stop: 03/26/17 12:29 Last Admin: 03/26/17 11:12 Dose: 56 mls/hr Potassium Chloride/Dextrose/Sod Cl (D5 Ns With 20 Meq Kcl) 1,000 mls @ 75 mls/ hr IV ASDIRECTED [facility] Last Admin: 03/27/17 10:57 Dose: 75 mls/hr Lidocaine HCl (Xylocaine 2% Jelly) 10 ml MUCMEM ONETIME ONE Stop: 03/24/17 03:56 Last Admin: 03/24/17 04:06 Dose: 10 ml Lorazepam (Ativan) 1 mg IVPUSH ONETIME ONE Stop: 03/24/17 01:46 Last Admin: 03/24/17 02:06 Dose: 1 mg Lorazepam (Ativan) 0.5 mg IVPUSH Q4H PRN PRN Reason: Nausea Morphine Sulfate (Morphine) 1 mg IVPUSH ONETIME ONE Stop: 03/24/17 00:37 Last Admin: 03/24/17 00:41 Dose: 1 mg Morphine Sulfate (Morphine) 2 mg IVPUSH Q2H PRN PRN Reason: Pain (severe 7-10) Naloxone HCl (Narcan) 0.1 mg IVPUSH ONETIME PRN PRN Reason: Sedation Stop: 03/24/17 04:56 Last Admin: 03/24/17 05:07 Dose: 0.1 mg Naloxone HCl (Narcan) Confirm Administered Dose 0.4 mg .ROUTE .STK-MED ONE Stop: 03/24/17 05:01 Last Admin: 03/24/17 05:10 Dose: Not Given Ondansetron HCl (Zofran) 4 mg IVPUSH ONETIME ONE Stop: 03/24/17 00:37 Last Admin: 03/24/17 00:41 Dose: 4 mg Pantoprazole Sodium (Protonix Iv) 40 mg IVPUSH ONETIME ONE Stop: 03/24/17 00:37 Last Admin: 03/24/17 00:41 Dose: 40 mg Pantoprazole Sodium (Protonix Iv) 40 mg IVPUSH Q12H [facility] Last Admin: 03/27/17 10:09 Dose: 40 mg Propofol (Diprivan 20 Ml) Confirm Administered Dose 200 mg .ROUTE .STK-MED ONE Stop: 03/26/17 13:36 *Q Meaningful Use (DIS) - VTE *Q VTE Criteria *Q: - Stroke *Q Stroke Criteria *Q: - AMI *Q AMI Criteria *Q:
--- NOTE | 2017-03-28 10:26 | OR ---
DATE OF PROCEDURE: 03/26/2017 PROCEDURE: PEG tube placement. COMPLICATIONS: None. CHILD NUTRITION MANAGER: None. PREOPERATIVE DIAGNOSIS: Bowel obstruction on hospice. POSTOPERATIVE DIAGNOSIS: Bowel obstruction on hospice. RISK: Risks, benefits, alternatives, limitations including but not limited to infection, bleeding, and perforation were explained to the patient including injury to abdominal structures such as small and large intestine were explained to the patient and his family who wished to proceed. PROCEDURE IN DETAIL: The patient was placed in supine position. The abdomen was prepped and draped. The EGD scope was introduced and advanced into the stomach. Using the transillumination technique and palpation, the area of the stomach and the gastric body was readily identified. This was then prepped and draped. The skin was anesthetized with lidocaine. A single chela was created in the skin and this was able to be passed through without difficulty. The blue wire was introduced and grasped and pulled in a retrograde fashion. This was then hooked to the PEG tube which was then pulled in an antegrade fashion. This was then sutured into the abdominal wall. The scope was reintroduced and the PEG tube was noted to be in place. The abdomen was prepped and draped. The patient tolerated the procedure well. Kana Mccann MD /[id number]
--- NOTE | 2017-03-28 10:29 | PN ---
DATE OF SERVICE: 03/27/2017 The patient remained clinically stable overnight. The G-tube was looking satisfactory. We will continue the supportive care aiming for a hospice approach in the short term. Phil Kelley MD /[id number]
[2017-03-28 10:36] VITALS: BP 159/88
--- NOTE | 2017-03-28 15:49 | PN ---
DATE OF SERVICE: 03/28/2017 The patient has tolerated the clamping of the gastrostomy tube and has had little residual. He has had some oral intake as well. So, it appears that the bowel obstruction may be letting up somewhat. Gastrostomy tube will be a good back up should he have further problems in that regard. Phil Kelley MD /[id number]
== END 2017-03-28 12:00 | disposition hospice, home (50) | DRG 390 ==
LOC: JP.ED 23:58 → JP.2SS 03-24 01:52 → JP.MS 03-24 16:07
PROVIDERS: ADMIT Hospitalist; ATTEND Surgery
PROC: 0DH63UZ Insertion of Feeding Device into Stomach, Percutaneous Approach (ICD-10-PCS; principal; 2017-03-26)
DX: K56.69 Other intestinal obstruction (principal); K56.5 Intestinal adhesions [bands] with obstruction (postinfection); I10 Essential (primary) hypertension; Z66 Do not resuscitate; J44.9 Chronic obstructive pulmonary disease, unspecified; Z87.891 Personal history of nicotine dependence; R11.2 Nausea with vomiting, unspecified; R10.9 Unspecified abdominal pain; I48.91 Unspecified atrial fibrillation; G30.9 Alzheimer's disease, unspecified; F02.80 Dementia in other diseases classified elsewhere, unspecified severity, without behavioral disturbance, psychotic disturbance, mood disturbance, and anxiety; I48.0 Paroxysmal atrial fibrillation; E87.6 Hypokalemia; Z93.3 Colostomy status; E53.8 Deficiency of other specified B group vitamins; Z85.038 Personal history of other malignant neoplasm of large intestine; Z85.46 Personal history of malignant neoplasm of prostate; N40.0 Benign prostatic hyperplasia without lower urinary tract symptoms; K59.09 Other constipation; E78.00 Pure hypercholesterolemia, unspecified; H54.7 Unspecified visual loss; H91.90 Unspecified hearing loss, unspecified ear; Z87.01 Personal history of pneumonia (recurrent); Z95.1 Presence of aortocoronary bypass graft; Z95.2 Presence of prosthetic heart valve; Z79.82 Long term (current) use of aspirin; Z88.8 Allergy status to other drugs, medicaments and biological substances; Z51.5 Encounter for palliative care
CPT/HCPCS: 36415; 36600; 71010 ×2; 74176; 80053; 82150; 82803; 83605; 83690; 83735; 83880; 84484; 85025; 85610; 93005; 99285; C9113; J2270; J2405; J7040; 43752; 74022; 74022-26; 80048; 81001; 93010; 94640-76; 94664; 97165-GO; A9270-GY; J1940; J2060; J2310; J2704; J3480; J7030